=== PATIENT | female | born 1970 | race Caucasian/White ===

== ENCOUNTER 2024-03-31 15:22 | Outpatient (CLI) | payer OTHER, SELFPAY ==
--- NOTE | ~2024-03-31 | XR_ITS ---
XR cervical spine 4-5V Ordering provider: Ann Marie Suh MD History: . M48.02 - Spinal stenosis, cervical region . Comparison: None. FINDINGS: VERTEBRAL BODIES: Minimal anterolisthesis at the level of C3-C4 and C4-C5. Normal height and alignmen t. No visible fracture or subluxation. The dens is intact. DISK SPACES: Narrowing of the disc C5-C6 and C6-C7. C5-C6 and C6-C7 uncovertebral joint osteoarthrit ic changes. PARASPINOUS SOFT TISSUES: No prevertebral soft tissue swelling. IMPRESSION: No acute osseous abnormality cervical spine. Minimal anterolisthesis at the level of C3-C4 and C4-C5. Degenerative disc disease at the level of C5-C6 and C6-C7 Reviewed, dictated and finalized at location A. IMPRESSION: No acute osseous abnormality cervical spine. Minimal anterolisthesis at the lev el of C3-C4 and C4-C5. Degenerative disc disease at the level of C5-C6 and C6-C7
== END 2024-03-31 15:23 | disposition home or self-care (01) ==
LOC: ANHIMG 15:25
PROVIDERS: Visit Provider Neurological Surgery
DX: M48.02 Spinal stenosis, cervical region (principal); M43.12 Spondylolisthesis, cervical region; M50.322 Other cervical disc degeneration at C5-C6 level; M50.323 Other cervical disc degeneration at C6-C7 level
CPT/HCPCS: 72050

== ENCOUNTER 2024-04-28 12:18 | Outpatient (CLI) | payer OTHER, SELFPAY ==
--- NOTE | 2024-04-28 12:28 | ECG_ITS ---
Test Date: 2024-04-28 13:07:37 Measurements Intervals Adel Rate: 47 P: 29 MT: 162 QRS: 12 QRSD: 93 T: 46 QT: 430 QTc: 382 Interpretive Statements SINUS BRADYCARDIA POSSIBLE ANTERIOR MYOCARDIAL INFARCTION [30 ms Q WAVE IN V3/V4, OR R < 0.2 mV IN V4], PROBABLY OLD ABNORMAL ECG WARNING: DATA QUALITY MAY AFFECT INTERPRETATION No previous ECG available for comparison Electronically Signed On 04-28-2024 13:51:15 CDT by Kieran Diggs M.D.
[2024-04-28 13:27] LABS: Hemoglobin 14.4 g/dL (12.0-15.0); Mean Corpuscular HGB Conc 32.7 g/dl (32-36); Mean Corpuscular Hemoglobin 29.5 pg (26-34); Mean Corpuscular Volume 90.2 fl (80-100); Mean Platelet Volume 10.3 fl (7.4-10.4); Platelet Count Result 194 k/mm3 (150-375); Red Blood Count 4.88 M/mm3 (4.2-5.4); Red Cell Distribution Width 12.9 % (11.5-14.5); White Blood Count 9.2 K/mm3 (4.5-10.0)
[2024-04-28 13:37] LABS: INR 0.9; Prothrombin Time 12.3 Seconds (11.1-14.7)
[2024-04-28 13:38] LABS: Partial Thromboplastin Time 28.8 Seconds (22.3-36.8)
[2024-04-28 13:39] LABS: Add Urine Microscopic? NO; Appearance Urine Clear (Clear); Bilirubin Urine Negative (Negative); Blood Urine Negative (Negative); Color Urine Yellow (Yellow); Glucose Urine UA Negative (Negative); Ketones Urine Negative (Negative); Leukocyte Esterase Ur Negative LEU/UL (Negative); Nitrate Urine Negative (Negative); Protein Urine Negative (Negative); Specific Grav Ur 1.011 (1.001-1.035); Urobilinogen Urine 0.2 mg/dL (<2.0); pH Urine 5.5 (5.0-9.0)
[2024-04-28 13:42] LABS: Anion Gap 7 mmol/L (4-12); Blood Urea Nitrogen 12 mg/dL (7-17); Calcium 10.6 mg/dL (8.4-10.2); Carbon Dioxide 32 mmol/L (22-30); Chloride 100 mmol/L (98-107); Estimated Glomerular Filt Rate > 60; Glucose 122 mg/dL (65-110); Potassium 4.1 mmol/L (3.4-5.0); Sodium 139 mmol/L (137-145)
[2024-04-28 14:52] LABS: Hemoglobin A1C 6.8 % (<5.7)
== END 2024-04-28 12:19 | disposition home or self-care (01) ==
LOC: ANHSURGERY 12:24
PROVIDERS: PCP Family Medicine; Visit Provider Neurological Surgery
DX: G95.9 Disease of spinal cord, unspecified (principal); E11.9 Type 2 diabetes mellitus without complications; Z01.818 Encounter for other preprocedural examination
CPT/HCPCS: 36415; 80048; 81003; 83036; 85027; 85610; 85730; 86850; 86900; 86901; 93005

== ENCOUNTER 2024-06-23 00:53 | Day surgery (SDC) | payer OTHER, SELFPAY ==
[2024-04-27 14:16] VITALS: BMI 38.7
--- NOTE | 2024-04-27 14:17 | PC.NURSE ---
Report to the Outpatient Waiting Room, entrance under the green pavilion located off [facility], at time _0600_ on date _[id number]_. Planned Procedure Time: _0730_.? Time changes happen often and if your time is changed the preop area will call you the afternoon before. - You and your visitor will be asked to self-screen and do not enter if you have any COVID symptoms. Please call surgeon if you need to reschedule. - A mask is optional within the hospital at this time. Patients may have clear liquids (water, carbonated beverages, clear teas, apple juice) until 3 hours prior to surgery with a maximum of 20 ounces. - No food from midnight until time of surgery and no smoking Take only the following medications with a SIP of water on the morning of surgery: __Gabapentin and if needed may use inhaler or nebulizer.____ DO NOT STOP ANY OF YOUR OTHER PRESCRIPTION MEDICATIONS PRIOR TO SURGERY EXCEPT THE FOLLOWING Medications to discontinue per physician ____Meloxicam per Dr Suh. If not told already please call and ask. Date to take last dose Please no make-up, nail vincentian, hairspray, perfume, deodorant, or body powder the day of surgery.? No jewelry (including any body piercings) or valuables the day of surgery, leave them at home.? Please take a shower or bath the night before, or the morning of, surgery with an antibacterial soap.? Wear comfortable, loose fitting clothing.? - Jewelry must be removed prior to entering the operating room.? Rings and piercings that are not removed may be cut off. - The hospital will not accept responsibility for valuables.? - Please leave all valuables, including medications, at home the day of surgery. If you are going home after surgery, a licensed reach lift truck driver must drive you home.? - NO public transportation without another adult if you receive anesthesia. - We recommend that an adult stay with you for 24 hours following discharge. - We also recommend that you do not drive, make important decision, drink alcoholic beverages, or take any drugs that were not prescribed by your health care provider for at least 24 hours after your discharge time. Follow any additional instructions given to you from your surgeon. Telephone instructions given to _Elisha___and asked if any additional questions and then verbalized understanding. Patient advised to call surgeon office or pre surgery nurse liaison [phone] if any additional questions.
--- NOTE | 2024-06-15 13:33 | PC.NURSE ---
Reviewed Hx with patient. No change in medications. Says has seen Heart MD at [facility] in [place] and received clearance. Reviewed instructions with patient. Surg date 06-23-2024, arrive at 0600 for 0730 surgery. All other instructions the same. Left message with Ariadna at Dr Suh office to find copy of clearance.
[2024-06-23 06:00] VITALS: BP 168/79; PULSE 60; RESP 18; TEMP 36.5; O2SAT 98
[2024-06-23 06:22] LABS: Glucose Point of Care 144 mg/dl (65-105)
== END 2024-06-23 06:59 | disposition home or self-care (01) ==
PROVIDERS: PCP Family Medicine; Visit Provider Neurological Surgery
PROC: (CPT 63030; principal; 2024-06-23 07:30)
DX: M43.12 Spondylolisthesis, cervical region (principal); M54.12 Radiculopathy, cervical region; G99.2 Myelopathy in diseases classified elsewhere
CPT/HCPCS: 82948; 99212; G0463

== ENCOUNTER 2024-08-13 07:51 | Outpatient (CLI) | payer OTHER, SELFPAY ==
--- OUTSIDE RECORDS SUMMARY | 2024-08-13 07:54 | XMS_ITS | Referral Summary ---
Author Organization [facility] at the Medical Office Building Address [address] [place] [id number] Care Team Providers Care Assistant At Surgery Name Role Phone Sonal Santos NP Primary Care Provider [phone] Encounters Date Type Department Care Team Description 08/12/2024 7:35 PM HANDSTITCHING MACHINE COLLAR FELLER - 08/12/2024 11:59 PM HANDSTITCHING MACHINE COLLAR FELLER Hospital Encounter [facility] [address] [place] [address] LUISA (obstructive sleep apnea) Discharge Disposition: Discharge to home or self care 08/10/2024 Telephone [facility] [address] [place] [address] Tess Hanson [facility] 08/09/2024 Orders Only [facility] [place] [address] [facility] [address] [place] [phone] Rio Maynard MD LUISA (obstructive sleep apnea) (Primary Dx) 08/05/2024 10:00 AM HANDSTITCHING MACHINE COLLAR FELLER - 08/05/2024 11:59 PM HANDSTITCHING MACHINE COLLAR FELLER Hospital Encounter [facility] [address] [place] [address] LUISA (obstructive sleep apnea) Discharge Disposition: Discharge to home or self care 07/20/2024 4:03 PM HANDSTITCHING MACHINE COLLAR FELLER - 07/20/2024 11:59 PM HANDSTITCHING MACHINE COLLAR FELLER Hospital Encounter [facility] [address] [place], [place] [id number] Acute pain of left hip Discharge Disposition: Discharge to home or self care 07/20/2024 3:15 PM HANDSTITCHING MACHINE COLLAR FELLER Office Visit [facility] at [address] [phone] Sonal Santos NP Acute pain of left hip (Primary Dx); Cutaneous candidiasis; Type 2 diabetes mellitus treated without insulin ([facility] ([facility]) 07/20/2024 Nurse Triage [facility] [address] [phone] Sonal Santos NP 06/10/2024 1:45 PM HANDSTITCHING MACHINE COLLAR FELLER Office Visit [facility] [address] [phone] Sonal Santos NP Acute sinusitis, recurrence not specified, unspecified location (Primary Dx); Class 2 severe obesity due to excess calories with serious comorbidity and body mass index (BMI) of 39.0 to 39.9 in adult ([facility]); Essential hypertension 06/08/2024 Telephone [facility] [address] [phone] Sonal Santos NP Questions on Care 06/02/2024 Telephone [facility] [address] [place] [address] [address] [place] [phone] Sonal Santos NP 05/31/[address] [phone] Rio Maynard MD Orders Only 05/31/2024 2:15 PM HANDSTITCHING MACHINE COLLAR FELLER Office Visit [address] [phone] Leslie Florian NP LUISA (obstructive sleep apnea) (Primary Dx); Dyspnea on exertion from Last 3 Months Allergies Active Allergy Reactions Criticality Noted Date Comments Doxycycline Other (See comments) Low 05/24/2022 Severe reflux Fluticasone Wheezing Medium 04/03/2021 States the lavender scent triggers her asthma. Latex Rash Medium 03/22/2019 Penicillins Other (See comments) High 06/12/2020 Infection yeast Medications ipratropium-albut Montserrat (DUO-NEB) 0.5-2.5 mg/3 mL nebulizer solutionIndicatio ns:Chronic Obstructive Pulmonary Disease with Bronchospasms Take 3 mL by nebulization every 6 (six) hours 75 mL Active fluticasone propion-salmetero L (ADVAIR DISKUS) 250-50 mcg/dose diskus inhalerIndication s:Dyspnea on exertion,Moderate persistent asthma without complication Inhale 1 puff 2 (two) times a day Rinse mouth with water after use. Do not swallow. 60 each 2024 Active blood-glucose meter miscIndications:T ype 2 diabetes mellitus treated without insulin ([facility] ([facility]) Use daily or as directed for monitoring of diabetes. 1 each 024 Active alcohol swabs pads, medicatedIndicati ons:Type 2 diabetes mellitus treated without insulin ([facility] ([facility]) Apply 1 each topically daily 100 each 3 024 Active albuterol HFA (PROVENTIL HFA,VENTOLIN HFA,PROAIR HFA) 90 mcg/actuation inhalerIndication s:Dyspnea on exertion,Moderate persistent asthma without complication Inhale 2 puffs every 6 (six) hours as needed for wheezing Fill per patient's formulary 1 each 2024 Active cetirizine (ZyrTEC) 10 mg tabletIndications :Non-seasonal allergic rhinitis, unspecified trigger,Chronic sinusitis with recurrent bronchitis Take 1 tablet (10 mg total) by mouth daily 30 tablet Active gabapentin (NEURONTIN) 300 mg capsuleIndication s:Bilateral sciatica Take 1 capsule (300 mg total) by mouth 3 (three) times a day 90 capsule 2024 Active lisinopril-hydroC HLOROthiazide (ZESTORETIC) 20-25 mg per tabletIndications :Essential hypertension Take 1 tablet by mouth daily 30 tablet Active meloxicam (MOBIC) 15 mg tabletIndications :Chronic pain of both shoulders Take 1 tablet (15 mg total) by mouth daily 30 tablet Active montelukast (SINGULAIR) 10 mg tabletIndications :Moderate persistent asthma without complication,Non- seasonal allergic rhinitis, unspecified trigger,Chronic sinusitis with recurrent bronchitis Take 1 tablet (10 mg total) by mouth nightly 30 tablet 2024 Active omeprazole (PriLOSEC) 40 mg capsuleIndication s:Gastroesophagea l reflux disease, unspecified whether esophagitis present Take 1 capsule (40 mg total) by mouth daily 30 capsule Active potassium chloride ER 10 mEq CR tabletIndications :Hypokalemia Take 1 tablet/capsule (10 mEq total) by mouth daily 30 tablet Active rosuvastatin (CRESTOR) 10 mg tabletIndications :Mixed hyperlipidemia TAKE 1 TABLET BY MOUTH ONCE A DAY IN THE EVENING 30 tablet Active sertraline (ZOLOFT) 50 mg tabletIndications :Mild episode of recurrent major depressive disorder (HCC) Take 1 tablet (50 mg total) by mouth daily 30 tablet Active nystatin powderIndications :Cutaneous candidiasis Apply topically 3 (three) times a day as needed (to rash beneath left breast) 60 g 1 Active blood glucose diagnostic (glucose blood) stripIndications: Type 2 diabetes mellitus treated without insulin ([facility] ([facility]) 1 each by other route 2 (two) times a day 200 each Active OneTouch Delica Plus Lancet 30 gauge miscIndications:T ype 2 diabetes mellitus treated without insulin ([facility] ([facility]) Inject 1 each under the skin 2 (two) times a day 200 each Active cyclobenzaprine (FLEXERIL) 5 mg tabletIndications :Acute pain of left hip Take 1 tablet (5 mg total) by mouth 3 (three) times a day as needed for muscle spasms 30 tablet 025 2024 Active metFORMIN (GLUCOPHAGE) 500 mg tabletIndications :Type 2 diabetes mellitus treated without insulin ([facility] ([facility]) TAKE ONE TABLET BY MOUTH EVERY MORNING and TAKE TWO TABLETS BY MOUTH EVERY EVENING 90 tablet 3 025 Active blood glucose diagnostic (glucose blood) stripIndications: Type 2 diabetes mellitus treated without insulin ([facility] ([facility]) Use to test blood sugar once daily 100 each 3 024 2024 Discontinued(A lternate therapy) metFORMIN (GLUCOPHAGE) 500 mg tabletIndications :Type 2 diabetes mellitus treated without insulin ([facility] ([facility]) 500 mg in the morning and 1000 mg in the evening 90 tablet 3 024 2024 Discontinued OneTouch Delica Plus Lancet 30 gauge misc daily 024 2024 Discontinued(R eorder) nystatin powderIndications :Cutaneous candidiasis Apply topically 3 (three) times a day as needed (to rash beneath left breast) 60 g 1 024 2024 Discontinued(R eorder) levoFLOXacin (LEVAQUIN) 500 mg tabletIndications :Upper Respiratory/HEENT Infection Take 1 tablet (500 mg total) by mouth daily 7 tablet 024 2024 Discontinued(T herapy completed) Active Problems Problem Noted Date Diagnosed Date Acute sinusitis 06/11/2024 Assessment & Plan (06/11/2024 4:57 PM HANDSTITCHING MACHINE COLLAR FELLER): Started on antibiotic Supportive care measures discussed Strict return precautions given Bilateral sciatica 01/14/2024 Assessment & Plan (03/29/2024 9:08 PM CDT): Chronic, worsening Continued on gabapentin Encouraged to keep upcoming appointment with Neurosurgery on 04/22/2024 Assessment & Plan (01/14/2024 2:51 PM CDT): Chronic, worsening Started on gabapentin, encouraged to give update in 2 weeks, advised can adjust dose of medication if needed Continued on meloxicam Has upcoming appointment with Neurosurgery on 04/22/2024 Weakness of both lower extremities 11/20/2023 Assessment & Plan (03/29/2024 9:10 PM CDT): Chronic, uncontrolled, has been evaluated by Neurology and referred to neurosurgeon, Dr. Mejia, on 10/27/2023, however states was unable to see Reviewed neuro notes from 02/26/22 Reviewed EMG/NCV dated 11/26/23 Encouraged to keep upcoming appointment with neurosurgeon 04/22/24ities Assessment & Plan (11/20/2023 6:13 AM CDT): Chronic, uncontrolled, has been evaluated by Neurology and referred to neurosurgeon, Dr. Mejia, on 10/27/2023, however states was unable to see Reviewed neuro notes from 02/26/22 Encouraged to contact insurance for a list of covered neurosurgeons under plan, notifying office of preferred provider, and new referral will be made Ordered nerve conduction study bilateral lower extremities Paresthesia of right upper limb 11/20/2023 Assessment & Plan (03/29/2024 9:10 PM CDT): Chronic, uncontrolled, has been evaluated by Neurology and Ortho, referred to neurosurgeon, Dr. Mejia, on 10/27/2023, however states was unable to see Reviewed neuro notes from 02/26/22, ortho notes from 10/21/2022, along with x-ray results of bilateral shoulders (10/21/2022), EMG/nerve conduction study results (10/22/22), and CT cervical spine (05/16/2023) Reviewed functional capacity assessment dated 11/06/2023 Reviewed EMG/NCV dated 11/26/23 Encouraged to keep upcoming appointment with neurosurgeon 04/22/24 Assessment & Plan (11/20/2023 6:25 AM CDT): Chronic, uncontrolled, has been evaluated by Neurology and Ortho, referred to neurosurgeonDr. Mejia, on 10/27/2023, however states was unable to see Reviewed neuro notes from 02/26/22, ortho notes from 10/21/2022, along with x-ray results of bilateral shoulders (10/21/2022), EMG/nerve conduction study results (10/22/22), and CT cervical spine (05/16/2023) Reviewed functional capacity assessment dated 11/06/2023 Encouraged to contact insurance for a list of covered neurosurgeons under plan, notifying office of preferred provider, and new referral will be made Ordered repeat nerve conduction study bilateral upper extremities Paresthesia of left upper limb 11/20/2023 Assessment & Plan (03/29/2024 9:10 PM CDT): Chronic, uncontrolled, has been evaluated by Neurology and Ortho, referred to neurosurgeon, Dr. Mejia, on 10/27/2023, however states was unable to see Reviewed neuro notes from 02/26/22, ortho notes from 10/21/2022, along with x-ray results of bilateral shoulders (10/21/2022), EMG/nerve conduction study results (10/22/22), and CT cervical spine (05/16/2023) Reviewed functional capacity assessment dated 11/06/2023 Reviewed EMG/NCV dated 11/26/23 Encouraged to keep upcoming appointment with neurosurgeon 04/22/24 Assessment & Plan (11/20/2023 6:25 AM CDT): Chronic, uncontrolled, has been evaluated by Neurology and Ortho, referred to neurosurgeonDr. Mejia, on 10/27/2023, however states was unable to see Reviewed neuro notes from 02/26/22, ortho notes from 10/21/2022, along with x-ray results of bilateral shoulders (10/21/2022), EMG/nerve conduction study results (10/22/22), and CT cervical spine (05/16/2023) Reviewed functional capacity assessment dated 11/06/2023 Encouraged to contact insurance for a list of covered neurosurgeons under plan, notifying office of preferred provider, and new referral will be made Ordered repeat nerve conduction study bilateral upper extremities Encounter for well woman exa m with routine gynecological exam 11/20/2023 Assessment & Plan (01/14/2024 2:50 PM CDT): Discussed screening/vaccination in depth and patient understands all risk and benefits associated with proposed therapies and currently declines, has been encouraged to call if changes mind. Assessment & Plan (11/20/2023 6:24 AM CDT): Previously referred to gynecology to establish care and for well-woman exam on 03/11/23, reprinted referral with contact information Moderate persistent asthma without complication 05/05/2023 Assessment & Plan (03/29/2024 9:07 PM CDT): Chronic, stable, controlled, with reported exertional shortness of breath, likely multifactorial Continued on Advair, Singulair, DuoNeb, and albuterol Encouraged to follow-up with ssis etl developer as recommended Assessment & Plan (11/20/2023 6:00 AM CDT): Chronic, stable, uncontrolled, with reported exertional shortness of breath, likely multifactorial Continued on Advair and Singulair New referral made to pulmonology, previously referred on 06/20/2022 Assessment & Plan (09/26/2023 11:58 AM CDT): Chronic, uncontrolled with medication, with complaints of dyspnea on exertion, likely multifactorial Previously referred to Dr. Sage, appointment canceled, can shoe new referral if/when interested Continued on Advair, can consider increase in strength Continued on Singulair daily, albuterol and ipratropium-albuterol as directed as needed Assessment & Plan (05/05/2023 2:37 PM CDT): The patient has followed with a ssis etl developer in the past for her asthma. I will reorder the Advair 250/50 to use 1 puff twice a day in refilled her albuterol. She also has duo nebs to use at home if necessary in addition to Singulair 10 mg daily. I will check full PFTs, chest x-ray and refer her to see an saw grinder. Vaccine counseling 02/20/2023 Chronic pain of both shoulders 09/27/2022 Assessment & Plan (03/29/2024 9:08 PM CDT): Chronic, uncontrolled, worsening, has been evaluated by Ortho Reviewed ortho notes from 10/21/2022, along with x-ray results of bilateral shoulders (10/21/2022), EMG/nerve conduction study results (10/22/22), and CT cervical spine (05/16/2023) Reviewed functional capacity assessment dated 11/06/2023 Reviewed EMG/NCV dated 11/26/23 Continued on meloxicam Encouraged to keep upcoming appointment with neurosurgeon 04/22/24 Assessment & Plan (11/20/2023 6:25 AM CDT): Chronic, uncontrolled, has been evaluated by Ortho Reviewed ortho notes from 10/21/2022, along with x-ray results of bilateral shoulders (10/21/2022), EMG/nerve conduction study results (10/22/22), and CT cervical spine (05/16/2023) Reviewed functional capacity assessment dated 11/06/2023 Ordered repeat nerve conduction study bilateral upper extremities Assessment & Plan (10/03/2023 3:46 PM CDT): Chronic, uncontrolled, has been evaluated by Neurology and Ortho, has upcoming appointment with neurosurgeon, Dr. Mejia, on 10/27/2023 Reviewed ortho notes from 10/21/2022 along with x-ray results of bilateral shoulders (10/21/2022), EMG/nerve conduction study results (10/22/22), and CT cervical spine (05/16/2023) Encouraged to keep upcoming appointment with neurosurgeonDr. Mejia for further evaluation and management Continued on Toradol and meloxicam, refills sent to pharmacy per request, is aware cannot be taken together, previously prescribed gabapentin, not effective Assessment & Plan (09/26/2023 12:01 PM CDT): Chronic, uncontrolled, has been evaluated by Neurology and Ortho, has upcoming appointment with neurosurgeonDr. Mejia Encouraged to keep upcoming appointment with neurosurgeDr. Jackie becerra for further evaluation and management Continued on Toradol and meloxicam, refills sent to pharmacy per request, is aware cannot be taken together, previously prescribed gabapentin, not effective Assessment & Plan (08/25/2023 3:43 PM HANDSTITCHING MACHINE COLLAR FELLER): Chronic, stability unknown Started on prednisone burst Refills for Toradol sent to pharmacy per request Assessment & Plan (03/11/2023 3:08 PM CDT): Chronic, stable, controlled with medication Continued on meloxicam daily, holds meloxicam and takes Toradol as directed as needed for flares Assessment & Plan (09/27/2022 1:08 PM CDT): Chronic, uncontrolled-referral made to orthopedic surgeon for further evaluation and management, advised can refer to PT for further evaluation and management. Upper extremity weakness 09/27/2022 Assessment & Plan (03/29/2024 9:06 PM CDT): Chronic, uncontrolled, has been evaluated by Neurology and Ortho, referred to neurosurgeon, Dr. Mejia, on 10/27/2023, however states was unable to see Reviewed neuro notes from 02/26/22, ortho notes from 10/21/2022, along with x-ray results of bilateral shoulders (10/21/2022), EMG/nerve conduction study results (10/22/22), and CT cervical spine (05/16/2023) Reviewed functional capacity assessment dated 11/06/2023 Reviewed EMG/NCV dated 11/26/23 Encouraged to keep upcoming appointment with neurosurgeon 04/22/24 Assessment & Plan (11/20/2023 6:25 AM CDT): Chronic, uncontrolled, has been evaluated by Neurology and Ortho, referred to neurosurgeonDr. Mejia, on 10/27/2023, however states was unable to see Reviewed neuro notes from 02/26/22, ortho notes from 10/21/2022, along with x-ray results of bilateral shoulders (10/21/2022), EMG/nerve conduction study results (10/22/22), and CT cervical spine (05/16/2023) Reviewed functional capacity assessment dated 11/06/2023 Encouraged to contact insurance for a list of covered neurosurgeons under plan, notifying office of preferred provider, and new referral will be made Ordered repeat nerve conduction study bilateral upper extremities Assessment & Plan (10/03/2023 3:56 PM CDT): Chronic, uncontrolled, has been evaluated by Neurology and Ortho, has upcoming appointment with neurosurgeon, Dr. Mejia, on 10/27/2023 Reviewed neuro notes from 02/26/22, ortho notes from 10/21/2022, along with x-ray results of bilateral shoulders (10/21/2022), EMG/nerve conduction study results (10/22/22), and CT cervical spine (05/16/2023) Encouraged to keep upcoming appointment with neurosurgeon, Dr. Mejia for further evaluation and management Continued on Toradol and meloxicam, refills sent to pharmacy per request, is aware cannot be taken together, previously prescribed gabapentin, not effective Assessment & Plan (09/26/2023 12:01 PM CDT): Chronic, uncontrolled, previously evaluated by Neurology Encouraged to keep upcoming appointment with neurosurgeon, Dr. Mejia Assessment & Plan (08/25/2023 3:46 PM HANDSTITCHING MACHINE COLLAR FELLER): Recent onset Reviewed ER notes and CT cervical spine dated 05/16/2023 Referral made to neurosurgery for further evaluation and management Advised if worsening pain/paresthesias, loss of sensation to upper extremities, and/or inability to move upper extremities Advised if worsening pain/paresthesias, loss of sensation to upper extremities, and/or inability to move upper extremities Note provided to be off work 08/25 through 08/27/2023 Assessment & Plan (03/12/2023 6:03 AM CDT): Chronic, stable Encouraged to follow-up with orthopedic surgeon and COVID clinic at [facility] for suspected long-COVID Assessment & Plan (09/27/2022 1:09 PM CDT): Recent onset-referral made to orthopedic surgeon for further evaluation and management, advised can refer to PT for further evaluation and management. Balance problem 09/27/2022 Assessment & Plan (03/29/2024 9:07 PM CDT): Chronic, stable Encouraged to keep upcoming appointment with neurosurgeon Advised can refer to physical therapy for further evaluation and management Assessment & Plan (03/11/2023 3:08 PM CDT): Chronic, stable Encouraged to continue with PT, ST, & OT Assessment & Plan (09/27/2022 1:11 PM CDT): Recent onset-advised can refer to PT for further evaluation and management. Hypokalemia 05/27/2022 Assessment & Plan (03/25/2024 3:02 PM CDT): Chronic, stable, controlled with prescription Continued on potassium chloride Assessment & Plan (09/26/2023 12:02 PM CDT): Chronic, stable, controlled with prescription Continued on potassium chloride Assessment & Plan (06/24/2023 7:29 AM HANDSTITCHING MACHINE COLLAR FELLER): Chronic, stable, controlled with supplement Continued on potassium chloride, refills sent to pharmacy per request Assessment & Plan (06/09/2023 5:32 AM HANDSTITCHING MACHINE COLLAR FELLER): Chronic, stable, controlled with medication Continued on KCl, refills sent to pharmacy per request Assessment & Plan (03/11/2023 3:23 PM CDT): Chronic, normal at last check, on daily supplement Continued on KCl daily Assessment & Plan (05/27/2022 10:32 PM HANDSTITCHING MACHINE COLLAR FELLER): Chronic, controlled at last check-continued on potassium chloride, refills sent to pharmacy per patient request. Encouraged to get CMP done previously ordered. Vision changes 03/03/2022 Assessment & Plan (03/29/2024 9:04 PM CDT): Chronic, stability unknown Previously referred to Ophthalmology, encouraged to call to schedule an appointment Assessment & Plan (11/20/2023 6:23 AM CDT): Chronic, stability unknown Previously referred to Ophthalmology on 03/11/2023, encouraged to call to schedule an appointment, reprinted referral with contact information Assessment & Plan (03/12/2023 6:04 AM CDT): Chronic, stable Referral made to [facility] Assessment & Plan (03/03/2022 7:16 AM CDT): Chronicity and stability unknown-referred to Ophthalmology. Annual physical exam 03/03/2022 Assessment & Plan (03/29/2024 9:04 PM CDT): Reviewed past and current medical history, surgical history, social history, family history, current medications, and allergies. The chart was updated to identify any changes in these areas. A ROS and PE were performed. Medications and labs were ordered. Discussed screening colonoscopy, well woman exam/cervical cancer screening, screening mammogram, monthly breast self-exams, and recommended immunizations. Patient will follow-up in 6 months for further evaluation and management or sooner if needed. Assessment & Plan (03/11/2023 3:36 PM CDT): Reviewed past and current medical history, surgical history, social history, family history, current medications, and allergies. The chart was updated to identify any changes in these areas. A ROS and PE were performed. Medications and labs were ordered and referrals were made. Discussed screening colonoscopy, well woman exam/cervical cancer screening, screening mammogram, monthly breast self-exams, and recommended immunizations. Patient will follow-up in 6 months for further evaluation and management or sooner if needed. Assessment & Plan (03/03/2022 7:17 AM CDT): Reviewed past and current medical history, surgical history, social history, family history, current medications, and allergies. A ROS and PE were performed. Medications and labs were ordered and referrals were made. Discussed screening colonoscopy, well woman exam/cervical cancer screening, screening mammogram, monthly breast self- exams, and recommended immunizations. Patient will follow-up in 6 months for further evaluation and management or sooner if needed. Neuropathy 03/03/2022 Assessment & Plan (03/29/2024 9:05 PM CDT): Chronic, uncontrolled, but improved on medication, previously evaluated by Neurology Continued on gabapentin Encouraged to keep upcoming appointment with neurosurgeon Assessment & Plan (09/26/2023 12:02 PM CDT): Chronic, uncontrolled, previously evaluated by Neurology Encouraged to keep upcoming appointment with neurosurgeon, Dr. Mejia Previously prescribed gabapentin, not effective Assessment & Plan (03/11/2023 3:29 PM CDT): Chronic, stable Symptoms began after COVID infection Continued on gabapentin PRN Assessment & Plan (05/27/2022 10:28 PM HANDSTITCHING MACHINE COLLAR FELLER): Chronic, stable, controlled with medication-continued on gabapentin, refills sent to pharmacy per patient request. Assessment & Plan (03/03/2022 7:34 AM CDT): Recent onset since COVID-19, established with Neurology-advised to continue with Neurology as recommended. Prescription sent to pharmacy per patient request for gabapentin 300 mg TID. B12 level done 08/2021 normal. Atypical chest pain 03/03/2022 Assessment & Plan (03/29/2024 9:05 PM CDT): Chronic, episodic Previously evaluated by cardiology with echo and Holter, released from care Encouraged to follow-up with ssis etl developer as recommended and with Cardiology as recommended as needed Assessment & Plan (03/11/2023 3:07 PM CDT): Chronic, episodic Previously evaluated with echo and Holter Encouraged to follow-up with service desk manager, Dr. Moseley, as recommended Assessment & Plan (03/03/2022 7:31 AM CDT): Chronicity and stability unknown-encouraged to schedule appointment with Dr. Moseley for further evaluation and management. Cutaneous candidiasis 11/27/2021 Assessment & Plan (07/20/2024 4:05 PM HANDSTITCHING MACHINE COLLAR FELLER): Controlled Continued on nystatin Assessment & Plan (04/13/2024 2:54 PM CDT): Acute Started on Nystatin powder as directed as needed Assessment & Plan (11/29/2021 11:29 AM CDT): Acute-started on nystatin powder due to location of rash, also treating with Valtrex 1 g TID x1 week due to pain consistent with zoster. Encounter for diabetic foot exam ([facility]) 07/30 Assessment & Plan (03/29/2024 9:03 PM CDT): Diabetic foot exam performed with monofilament with no abnormal findings Assessment & Plan (03/11/2023 3:15 PM CDT): 04/15 sensed both feet with monofilament, normal foot exam Dyspnea on exertion 07/27/2021 Assessment & Plan (05/31/2024 2:49 PM HANDSTITCHING MACHINE COLLAR FELLER): The patient will continue with albuterol as needed 4 times a day. The patient will continue with Singulair. I did encourage the patient to use Advair inhaler one puff 2 times a day. I have ordered prednisone 40 mg x 5 days due to the patient being able to manage her blood sugars easier. I have also ordered Levaquin 500 mg x 7 days due to the cough that is productive. I have ordered a sputum culture. Assessment & Plan (03/29/2024 9:03 PM CDT): Chronic, stable, uncontrolled, with reported exertional shortness of breath, likely multifactorial Continued on Advair, Singulair, albuterol, and DuoNeb Encouraged to follow-up with ssis etl developer as recommended/ Assessment & Plan (11/20/2023 6:15 AM CDT): Chronic, stable, uncontrolled, with reported exertional shortness of breath, likely multifactorial Continued on Advair and Singulair New referral made to pulmonology, previously referred on 06/20/2022 Assessment & Plan (09/26/2023 11:51 AM CDT): Chronic, stability unknown Referred to pulmonology in the past, can if you new referral if/when interested Continued on Advair, can consider increase in strength, and albuterol/ipratropium-albuterol as directed as needed Assessment & Plan (03/11/2023 3:13 PM CDT): Chronic, stable, controlled with PRN medication Continued on albuterol PRN and DuoNeb PRN Assessment & Plan (02/06/2023 5:38 AM CDT): Episodic/stable Continued on Singulair daily, albuterol MDI as needed, and DuoNeb per nebulizer as directed as needed Referral made to [facility] Infectious Disease Department/COVID clinic for further evaluation of worsening symptoms since COVID-19 infection Assessment & Plan (06/24/2022 5:02 PM HANDSTITCHING MACHINE COLLAR FELLER): Acute-advised to continue nebulizer treatments as directed as needed when at home, refills sent to pharmacy, and using albuterol MDI as directed as needed when not home. If no perceived improvement over weekend, advised to get chest xray, order placed, and instructed to go to ER if worsening or new symptoms. Referral made to pulmonology and provided with the contact information to call to schedule an appointment. Assessment & Plan (05/27/2022 10:33 PM HANDSTITCHING MACHINE COLLAR FELLER): Chronic, worsened, with acute asthma exacerbation-continued on albuterol MDI and ipratropium/albuterol via nebulizer, refills sent to pharmacy per patient request. Instructed to go to ER if symptoms are not relieved with rescue inhaler and/or nebulizer treatments. Assessment & Plan (03/03/2022 7:30 AM CDT): Chronic, worsened after COVID-19 infection, but improving-continued on montelukast and albuterol MDI as directed as needed. Assessment & Plan (08/20/2021 5:42 PM HANDSTITCHING MACHINE COLLAR FELLER): Recent onset dyspnea since COVID-19 infection in 07/2021, not responsive to albuterol MDI, with multiple x-rays with no acute cardiopulmonary findings-referred to service desk manager with 1st visit today, echocardiogram and 48 hour Holter monitor planned for future, encouraged compliance with testing and follow-up visit. Assessment & Plan (07/31/2021 7:52 AM HANDSTITCHING MACHINE COLLAR FELLER): Recent onset since COVID-19 diagnosis-referred to a service desk manager for evaluation of bradycardia, palpitations, and shortness of breath with exertion. Advised to go to ER for worsening symptoms of palpitations and shortness of breath or for new onset chest pain/tightness, wheezing/difficulty breathing, chills, sweats, fever, back pain, or nausea. Assessment & Plan (07/27/2021 7:09 AM HANDSTITCHING MACHINE COLLAR FELLER): Acute, with recent diagnosis of COVID 19 on 07/08/2021-started on prednisone daily x5 days and prescribed an albuterol inhaler 2 inhalations every 4 hours as needed for shortness of breath, chest tightness, and wheezing. Advised follow-up if symptoms don't improve, ER for worsening or new symptoms. Other fatigue 07/23/2021 Assessment & Plan (03/29/2024 9:02 PM CDT): Chronic, stable, likely multifactorial Encouraged to follow-up with sleep medicine as recommended Assessment & Plan (03/12/2023 6:02 AM CDT): Chronic, stable, likely multifactorial Referred to sleep medicine, not currently using CPAP for LUISA Referral made to sleep medicine Encouraged to follow-up with long COVID clinic Assessment & Plan (03/03/2022 7:32 AM CDT): Chronic, stable, with history of LUISA on CPAP-will monitor for worsening symptoms. Ordered TSH, recent CBC normal. Can refer to sleep medicine for further evaluation and management. Assessment & Plan (08/20/2021 5:52 PM HANDSTITCHING MACHINE COLLAR FELLER): Recent onset since COVID-19 diagnosis in 07/2021 with normal Hbg/Hct on 07/27/21, and normal folate & B12 dated 08/18/21-currently with work-up planned by service desk manager (echocardiogram and 48 hour Holter monitor planned for future), encouraged compliance with recommendations made by service desk manager. Assessment & Plan (07/23/2021 12:27 PM HANDSTITCHING MACHINE COLLAR FELLER): Acute, likely related to recent viral infection with [id number] monitor for resolution of symptoms. Encouraged to increase clear liquids, rest, and vitamin C in diet. Advised follow-up next week if symptoms are not improving, ER for new or worsening symptoms over weekend, particularly if having difficulty breathing. Glenoid labrum tear, right, subsequent encounter 2021 Assessment & Plan (03/29/2024 9:09 PM CDT): Chronic, , stable, with chronic, stable, right shoulder pain Continued on meloxicam Recommended follow-up with ortho if/when needed Assessment & Plan (03/11/2023 3:20 PM CDT): Chronic, stable pain Recommended follow-up with ortho if/when needed Assessment & Plan (03/03/2022 7:28 AM CDT): Chronic, stability unknown, controlled with medication-continued on meloxicam. Can refer to orthopedic surgeon if symptoms worsen/uncontrolled with medication. Assessment & Plan (2021 3:16 PM HANDSTITCHING MACHINE COLLAR FELLER): Chronicity and stability unknown-ordered MRI and referred to orthopedic surgeon for further evaluation and management. Acute pain of left hip 06/05/2021 Assessment & Plan (07/20/2024 4:05 PM HANDSTITCHING MACHINE COLLAR FELLER): Ordered x-rays left hip Continued on meloxicam 15 mg daily Started on cyclobenzaprine 5 mg TID PRN Assessment & Plan (06/05/2021 3:37 PM HANDSTITCHING MACHINE COLLAR FELLER): Acute-ordered x-ray of left hip. Can continue to take Naprosyn as directed as needed for pain. Hyperlipidemia, unspecified 06/05/2021 Assessment & Plan (03/29/2024 9:00 PM CDT): Chronic, with controlled cholesterol and LDL, uncontrolled triglycerides and low HDL Continued on rosuvastatin Encouraged low-fat low-cholesterol diet, high in fiber Assessment & Plan (09/26/2023 11:50 AM CDT): Chronic, with improved/controlled cholesterol and LDL, uncontrolled triglycerides, but improved, with chronically low/stable HDL Continued on rosuvastatin, refills sent to pharmacy per request Assessment & Plan (03/11/2023 3:22 PM CDT): Chronic, uncontrolled triglycerides and low HDL at last check Continued on rosuvastatin Assessment & Plan (02/06/2023 5:39 AM CDT): Stable Continued on rosuvastatin Ordered lipid panel Assessment & Plan (05/27/2022 10:31 PM HANDSTITCHING MACHINE COLLAR FELLER): Chronic, uncontrolled at last check, with elevated triglycerides and low HDL-continued on rosuvastatin. Encouraged to get lipid panel done previously ordered. Assessment & Plan (03/03/2022 7:28 AM CDT): Chronic, uncontrolled but improved with medication-continued on rosuvastatin. Ordered lipid panel previously to be done prior to next visit. Assessment & Plan (11/29/2021 11:27 AM CDT): Chronic, stable, controlled with medication-continued on rosuvastatin. Lipid panel ordered to be done prior to next visit. Assessment & Plan (08/20/2021 5:47 PM HANDSTITCHING MACHINE COLLAR FELLER): Chronic, stability unknown, uncontrolled, not on medication until office visit today when seen by service desk manager-encouraged compliance with rosuvastatin 10 mg once daily. Assessment & Plan (06/05/2021 3:35 PM HANDSTITCHING MACHINE COLLAR FELLER): Chronicity, stability unknown, not on medication-ordered lipid panel. Vitamin D deficiency 06/05/2021 Assessment & Plan (03/29/2024 9:01 PM CDT): Chronic, uncontrolled at last check, but improving Encouraged to continue vitamin D3 2000 international units daily with a meal Assessment & Plan (03/12/2023 6:04 AM CDT): Chronic, uncontrolled at last check, not on supplement, but states has a big bottle at home Encouraged to start vitamin D3 2000 international units daily with a meal Assessment & Plan (02/06/2023 5:41 AM CDT): Uncontrolled/not on supplement Ordered vitamin-D 25 OH Assessment & Plan (03/03/2022 7:32 AM CDT): Chronic, improving, but uncontrolled, on supplement-encouraged to continue vitamin-D supplement. Vitamin-D 25 OH ordered previously to be done prior to next visit. Assessment & Plan (11/29/2021 11:23 AM CDT): Chronic, uncontrolled at last check (14)-recommended daily OTC vitamin D3 supplement of 2000 international units daily with a meal.o Ordered vitamin-D 25 OH prior to next visit. Assessment & Plan (08/20/2021 5:54 PM HANDSTITCHING MACHINE COLLAR FELLER): Chronic, stability unknown, uncontrolled, not on supplement-advised to start vitamin D3 2000 international units, take 2 daily with a meal x 1 month, then one daily with a meal, will recheck vitamin D 25 OH in 3-6 months. Assessment & Plan (06/05/2021 3:35 PM HANDSTITCHING MACHINE COLLAR FELLER): Chronicity and stability unknown, reported by patient, not currently on supplementation-ordered vitamin-D 25 OH. Type 2 diabetes mellitus treated without insulin ([facility]) 06/05/2021 Assessment & Plan (07/20/2024 4:04 PM HANDSTITCHING MACHINE COLLAR FELLER): Controlled Reviewed hemoglobin A1c equals 6.6 Continued on metformin Assessment & Plan (04/13/2024 2:55 PM CDT): Chronic, improved/controlled on medication Continued on metformin 500 mg in the AM, 1000 mg in the PM Assessment & Plan (03/29/2024 9:01 PM CDT): Chronic, improved/controlled on medication Reviewed point of care HgbA1c and point of care blood glucose, 6.7 and 115 respectively Continued on metformin 500 mg in the AM, 1000 mg in the PM Assessment & Plan (01/14/2024 2:46 PM CDT): Chronic, uncontrolled on medication, with recent increase in dose of metformin Continued on metformin Advised to stop amlodipine and continue to monitor blood sugar to see if blood sugar improves off medication. If blood sugar does not improve off medication, restart amlodipine. Assessment & Plan (12/28/2023 9:48 AM CDT): Chronic, uncontrolled Increased dose of metformin to 500 mg twice daily Assessment & Plan (09/26/2023 11:51 AM CDT): Chronic/controlled, but worsened from previous Reviewed in office hemoglobin A1c 6.9, previously 6.8 Continued on metformin Assessment & Plan (03/11/2023 3:37 PM CDT): Chronic, stable, well-controlled on medication Continued on metformin Foot exam done today Referral made to [facility] for dilated eye exam Assessment & Plan (02/06/2023 5:41 AM CDT): Stable Performed in office hemoglobin A1c (6.9) Continued on metformin Assessment & Plan (05/27/2022 10:27 PM HANDSTITCHING MACHINE COLLAR FELLER): Chronic, stable, controlled on medication-continued on metformin, refills sent to pharmacy per patient request. Encouraged to get lab work done previously ordered. Assessment & Plan (03/03/2022 7:32 AM CDT): Chronic, stable, controlled on medication-continued on metformin, refills sent to pharmacy. Previously ordered CMP, hemoglobin A1c, and urine albumin/creatinine ratio to be done prior to next visit. Referred to Ophthalmology for dilated eye exam. Assessment & Plan (11/29/2021 11:24 AM CDT): Chronic, stable, controlled at last check (6.0)-continued on metformin 500 mg once daily in the morning. Ordered CMP and hemoglobin A1c to be done prior to next visit. Assessment & Plan (08/20/2021 5:53 PM HANDSTITCHING MACHINE COLLAR FELLER): Chronic, stable, controlled with medication-continued on metformin. Follow-up in 6 months. Assessment & Plan (06/05/2021 3:37 PM HANDSTITCHING MACHINE COLLAR FELLER): Chronic, uncontrolled at last check, on medication-continued on metformin. Advised to check blood sugar once daily and as needed. Ordered urine albumin/creatinine ratio, CMP, and hemoglobin A1C. Colon cancer screening 01/09/2021 Assessment & Plan (03/25/2024 2:56 PM CDT): Ordered Cologuard Assessment & Plan (01/14/2024 2:47 PM CDT): Discussed screening/vaccination in depth and patient understands all risk and benefits associated with proposed therapies and currently declines, has been encouraged to call if changes mind Assessment & Plan (03/12/2023 5:57 AM CDT): Up-to-date Assessment & Plan (01/09/2021 12:13 PM CDT): Ordered Cologuard screening test, advised patient to contact office if she has not received the kit in the next 1-2 weeks. Encounter for screening mamm ogram for malignant neoplasm of breast 12/11/2020 Assessment & Plan (03/12/2023 6:00 AM CDT): Up-to-date Assessment & Plan (03/03/2022 7:29 AM CDT): Ordered screening mammogram. Assessment & Plan (12/11/2020 6:14 PM CDT): Screening mammogram ordered. 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 05/29/2020 Assessment & Plan (03/29/2024 8:59 PM CDT): Chronic, stable, controlled on medication Patient's PHQ2/9 was reviewed=0 Continued on sertraline Advised if suicidal ideation or thoughts of harming self or others, to go to ER and/or call [phone] for assistance, agreed to contract for safety Assessment & Plan (03/12/2023 5:59 AM CDT): Chronic, stable, controlled on medication Patient's PHQ2/9 and CURTIS 7 were reviewed Continued on sertraline Advised if suicidal ideation or thoughts of harming self or others, to go to ER and/or call [phone] for assistance, agreed to contract for safety Assessment & Plan (03/03/2022 7:25 AM CDT): Chronic, stable, controlled with medication-continued on sertraline. PHQ-9=0, CURTIS-7=1. Assessment & Plan (08/20/2021 5:48 PM HANDSTITCHING MACHINE COLLAR FELLER): Chronic, stable, controlled with medication-continued on sertraline. Class 2 severe obesity due t o excess calories with serious comorbidity and body mass index (BMI) of 39.0 to 39.9 in adult 03/17/2018 Overview (11/03/2020): Transitioned From: Obesity (BMI 30-39.9) Assessment & Plan (06/11/2024 4:56 PM HANDSTITCHING MACHINE COLLAR FELLER): Chronic, improved, with serious comorbidity of type 2 diabetes, improved/controlled on medication Encouraged to: Make healthy food choices, limiting intake of concentrated sweets/carbs, cholesterol, and saturated fat Monitor daily caloric intake and portion sizes Exercise most days of the week for a goal of at least 150 minutes of exercise per week Continued on metformin Assessment & Plan (04/13/2024 2:53 PM CDT): Chronic, improved, with serious comorbidity of type 2 diabetes, improved/controlled on medication Encouraged to: Make healthy food choices, limiting intake of concentrated sweets/carbs, cholesterol, and saturated fat Monitor daily caloric intake and portion sizes Exercise most days of the week for a goal of at least 150 minutes of exercise per week Continued on metformin Assessment & Plan (03/29/2024 8:58 PM CDT): Chronic, improved, serious comorbidity of type 2 diabetes, improved/controlled on medication Encouraged to: Make healthy food choices, limiting intake of concentrated sweets/carbs, cholesterol, and saturated fat Monitor daily caloric intake and portion sizes Exercise most days of the week for a goal of at least 150 minutes of exercise per week Continued on metformin Assessment & Plan (01/14/2024 2:48 PM CDT): Chronic, improved Encouraged to: Make healthy food choices, limiting intake of concentrated sweets/carbs, cholesterol, and saturated fat Monitor daily caloric intake and portion sizes Exercise most days of the week for a goal of at least 150 minutes of exercise per week Assessment & Plan (12/28/2023 9:52 AM CDT): Chronic, improved, with serious comorbidity of type 2 diabetes, uncontrolled Encouraged to: Make healthy food choices, limiting intake of concentrated sweets, cholesterol, and saturated fat Monitor daily caloric intake and portion sizes Exercise most days of the week within ability for a goal of at least 150 minutes of exercise per week Reviewed in office hemoglobin A1c, increased metformin to 500 mg twice daily Assessment & Plan (11/20/2023 5:57 AM CDT): Chronic, stable, with serious comorbidity of type 2 diabetes, controlled Encouraged to: Make healthy food choices, limiting intake of concentrated sweets, cholesterol, and saturated fat Monitor daily caloric intake and portion sizes Exercise most days of the week within ability for a goal of at least 150 minutes of exercise per week Reviewed most recent in office hemoglobin A1c from 09/2023, continued on metformin, will monitor diabetes for stability Assessment & Plan (09/26/2023 11:49 AM CDT): Chronic, improved Encouraged to: Make healthy food choices, limiting intake of concentrated sweets, cholesterol, and saturated fat Monitor daily caloric intake and portion sizes Exercise most days of the week within ability for a goal of at least 150 minutes of exercise per week Assessment & Plan (07/16/2023 6:13 AM HANDSTITCHING MACHINE COLLAR FELLER): Chronic, worsening, with series comorbidity of type 2 diabetes, controlled at last check, 6.8 Advised eating a well-balanced diet, high in fiber, low in cholesterol and saturated fats and monitoring daily caloric intake and portion sizes, with exercise most days of the week, for goal of 150 minutes of exercise or more per week Continued on metformin, is aware blood sugar maybe affected by prednisone Assessment & Plan (06/24/2023 7:30 AM HANDSTITCHING MACHINE COLLAR FELLER): Chronic, worsened Encouraged to monitor daily caloric intake and portion sizes and to exercise most days of the week, for a goal of at least 150 minutes of exercise per week Assessment & Plan (06/09/2023 5:36 AM HANDSTITCHING MACHINE COLLAR FELLER): Chronic, worsened, with serious comorbidity/type 2 diabetes, current diagnosis of pneumonia Instructed to increase fluids and vitamin-C in diet Encouraged to monitor daily caloric intake and portion sizes and to exercise most days week for a goal of 150 minutes of exercise per week when able, currently inhibited by acute symptoms/shortness of breath Assessment & Plan (03/12/2023 5:57 AM CDT): Encouraged to monitor daily caloric intake and portion sizes and to exercise most days of the week, for a goal of at least 150 minutes of exercise per week Assessment & Plan (02/06/2023 5:40 AM CDT): Stable Encouraged to monitor daily caloric intake and portion sizes and to exercise most days of the week, for goal of at least 150 minutes of exercise per week. Assessment & Plan (03/03/2022 7:33 AM CDT): Chronic, worsening, with serious co-morbidities of DM2, hyperlipidemia, HTN, and asthma-encouraged to monitor daily caloric intake and portion sizes. Advised exercises 15-20 minutes per day for goal of at least 150 minutes per. Suggested scheduling consultation with Dr. Isbell for weight loss management. Ordered TSH level. Knee osteoarthritis 11/07/2016 Overview (11/03/2020): Transitioned From: Knee pain Assessment & Plan (03/29/2024 9:09 PM CDT): Chronic, stability unknown, with chronic bilateral knee pain, right > left, stable, controlled with medication Continued on meloxicam daily Encouraged to follow-up with orthopedic surgeon as directed/needed Assessment & Plan (03/11/2023 3:25 PM CDT): Chronic bilateral knee pain, right > left, stable, controlled with medication Continued on meloxicam daily, holds meloxicam and takes Toradol as directed as needed for flares Assessment & Plan (05/27/2022 10:29 PM HANDSTITCHING MACHINE COLLAR FELLER): Chronic, stable, controlled with medication-continued on meloxicam, refills sent to pharmacy per patient request. Assessment & Plan (03/03/2022 7:28 AM CDT): Chronic, stability unknown, controlled with medication-continued on meloxicam. Can refer to orthopedic surgeon if symptoms worsen/uncontrolled with medication. Knee internal derangement, right 11/29/2015 Overview (11/03/2020): Transitioned From: Knee injury, subsequent encounter Assessment & Plan (03/29/2024 8:58 PM CDT): Chronic right knee pain, stable, controlled with medication Continued on meloxicam daily as needed Assessment & Plan (03/11/2023 3:25 PM CDT): Chronic right knee pain, stable, controlled with medication Continued on meloxicam daily, holds meloxicam and takes Toradol as directed as needed for flares Assessment & Plan (03/03/2022 7:36 AM CDT): Chronic, stability unknown, controlled with medication-continued on meloxicam. Can refer to orthopedic surgeon if symptoms worsen/uncontrolled with medication. Allergic rhinitis due to allergen 09/17/2015 Assessment & Plan (03/25/2024 2:54 PM CDT): Chronic, stable, controlled with medication Continued on cetirizine, montelukast, and azelastine Assessment & Plan (09/26/2023 11:48 AM CDT): Chronic, stable, controlled with medication Continued on cetirizine and montelukast, refills sent to pharmacy per Assessment & Plan (03/11/2023 3:04 PM CDT): Stable, controlled Continued on cetirizine and Singulair Assessment & Plan (05/27/2022 10:37 PM HANDSTITCHING MACHINE COLLAR FELLER): Chronic, stable, controlled with medication-continued on cetirizine, refills sent to pharmacy per patient request. Assessment & Plan (03/03/2022 7:19 AM CDT): Chronic, stable, controlled with medication-continued on cetirizine and montelukast. Assessment & Plan (08/20/2021 5:44 PM HANDSTITCHING MACHINE COLLAR FELLER): Chronic, stable, controlled with medication-filled Singulair per patient request. Chronic sinusitis with recurrent bronchitis 07/2014 Overview (11/03/2020): Transitioned From: Subacute maxillary sinusitis Assessment & Plan (03/25/2024 2:54 PM CDT): Chronic, stable, controlled with medication Continued on cetirizine, Singulair, and azelastine Assessment & Plan (09/26/2023 11:54 AM CDT): Chronic, stable, controlled with medication Continued on cetirizine and Singulair, refills sent to pharmacy per request Assessment & Plan (03/11/2023 3:09 PM CDT): Stable, controlled Continued on cetirizine and Singulair Assessment & Plan (05/27/2022 10:36 PM HANDSTITCHING MACHINE COLLAR FELLER): Acute-started on Augmentin 875 BID and Diflucan 150 mg x 1. Refills albuterol MDI and ipratropium/albuterol for nebulizer were sent to pharmacy per request. Instructed to increase clear liquids, rest, and vitamin C in diet. Advised to sleep with head elevated and use a cool mist vaporizer and Vicks VapoRub at bedtime for cough and congestion. Instructed to go to ER if symptoms of chest tightness, wheezing, and shortness of breath not relieved with rescue inhaler and/or nebulizer treatments. Assessment & Plan (03/03/2022 7:25 AM CDT): Chronic, without recent episode-continued on cetirizine and montelukast. Gastroesophageal reflux disease 06/06/2015 Assessment & Plan (03/25/2024 2:56 PM CDT): Chronic, stable, controlled with medication Continued on omeprazole Assessment & Plan (09/26/2023 11:49 AM CDT): Chronic, stable, controlled with medication Continued on omeprazole, refills sent to pharmacy per request Assessment & Plan (03/11/2023 3:19 PM CDT): Chronic, controlled on medication Continued on omeprazole Assessment & Plan (05/27/2022 10:31 PM HANDSTITCHING MACHINE COLLAR FELLER): Chronic, stable, controlled on medication-continued on omeprazole, refills sent to pharmacy per patient request. Assessment & Plan (04/08/2022 6:11 PM CDT): Chronic, stable, uncontrolled-prescription for omeprazole 40 mg once daily sent to pharmacy per patient request. Assessment & Plan (03/03/2022 7:29 AM CDT): Chronic, stable, controlled with medication-continued on omeprazole. LUISA (obstructive sleep apnea) 03/07/2015 Assessment & Plan (05/31/2024 2:38 PM HANDSTITCHING MACHINE COLLAR FELLER): The patient did not complete her home sleep test. The patient states that she is trying to get a CPAP before her surgery in June. I have informed the patient that I am unsure if she will be able to receive his CPAP due to not wearing her CPAP since 2019. I have sent an order to supply the patient with a new CPAP set at 7 cm water pressure which is her stated previous pressure. The patient would also like to see a different style of mask that she could possibly where after having neck surgery. Assessment & Plan (03/29/2024 9:00 PM CDT): Chronic, stability unknown Encouraged follow-up with sleep medicine as recommended Assessment & Plan (11/20/2023 6:23 AM CDT): Chronicity and stability unknown Previously referred to Sleep Medicine on 03/11/2023, reprinted referral contact information, encouraged to call to schedule an appointment Assessment & Plan (05/05/2023 2:37 PM CDT): She currently is sleeping in a recliner and has an old CPAP unit the needs to be replaced. She is not use CPAP for a period of time. I will proceed with a home sleep test and she will follow up here in 1 month. Assessment & Plan (03/12/2023 6:02 AM CDT): Chronic, has CPAP, but does not wear, states is greater than 10 years old and is afraid to wear Referral made to sleep medicine Assessment & Plan (03/03/2022 7:18 AM CDT): Chronic, stability unknown, with chronic fatigue, stable-encouraged to continue CPAP, can refer to sleep medicine for further evaluation and management if worsening symptoms. Essential hypertension 09/07/2014 Assessment & Plan (06/11/2024 4:57 PM HANDSTITCHING MACHINE COLLAR FELLER): Chronic, stable, controlled on medication Continued on lisinopril-hydrochlorothiazide Assessment & Plan (04/13/2024 2:54 PM CDT): Chronic, stable, controlled on medication Continued on lisinopril-hydrochlorothiazide Assessment & Plan (03/25/2024 2:56 PM CDT): Chronic, stable, controlled on medication Continued on lisinopril-hydrochlorothiazide Assessment & Plan (01/14/2024 2:50 PM CDT): Chronic, stable compared to last visit, on medication, however suspect medication is reason for increase in blood sugar Stopped amlodipine Advised to monitor blood sugar to see if blood sugar improves off amlodipine, if blood sugar does not improve off amlodipine, restart amlodipine Encouraged to check with insurance to find out if a blood pressure monitor would be covered due to diagnosis of hypertension, if not, return in 2 weeks for nurse visit for blood pressure check Assessment & Plan (12/28/2023 9:51 AM CDT): Chronic, controlled with medication Continued on lisinopril HCT and amlodipine Assessment & Plan (11/20/2023 5:58 AM CDT): Chronic, stable, uncontrolled with medication Continued on lisinopril HCT Started on amlodipine 2.5 mg daily, recommended follow-up in 4 weeks Assessment & Plan (09/26/2023 11:49 AM CDT): Chronic, stable, controlled with medication Continued on lisinopril HCT, refills sent to pharmacy per request Assessment & Plan (03/11/2023 3:19 PM CDT): Chronic, controlled on medication Continued on lisinopril HCT Assessment & Plan (05/27/2022 10:32 PM HANDSTITCHING MACHINE COLLAR FELLER): Chronic, stable, controlled with medication-continued on lisinopril/hydrochlorothiazide, refills sent to pharmacy per patient request. Encouraged to get CMP done previously ordered. Assessment & Plan (03/03/2022 7:29 AM CDT): Chronic, stable, controlled with medication-continued on lisinopril/HCT. Ordered CMP previously to be done prior to next visit. Assessment & Plan (11/29/2021 11:30 AM CDT): Chronic, stable, controlled with medication-continued on lisinopril/HCT. Ordered CMP prior to next visit. Assessment & Plan (08/20/2021 5:43 PM HANDSTITCHING MACHINE COLLAR FELLER): Chronic, not controlled at today's visit, but normal at visit today with service desk manager-refilled lisinopril/HCT per patient request. Will continue to monitor. Assessment & Plan (06/05/2021 3:32 PM HANDSTITCHING MACHINE COLLAR FELLER): Chronic, stable, controlled on medication historically, but with elevated blood pressure noted today-continued on lisinopril/hydrochlorothiazide daily, will continue to monitor blood pressure and adjust medication as needed. Ordered CMP. 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 03/25/2024 Assessment & Plan (12/28/2023 9:49 AM CDT): Discussed benign nature of lesions, reassurance given Toenail avulsion, initial encounter 12/28/2023 03/25/2024 Assessment & Plan (12/28/2023 9:49 AM CDT): Advised to observe right great toenail for developing signs and symptoms of infection, including, but not limited to redness, swelling, pain, or drainage from site, and to return to clinic if any of these should occur Moderate persistent asthma w ith acute exacerbation 07/16/2023 03/25/2024 Assessment & Plan (07/16/2023 6:14 AM HANDSTITCHING MACHINE COLLAR FELLER): Reviewed ER records from 06/03/23 and last office visit note Encouraged to get x-ray done, previously ordered Started on prednisone burst Continued on Advair, Singulair, albuterol MDI, and ipratropium-albuterol per neb as directed Instructed to increase clear liquids, rest, and vitamin C in diet Advised to sleep with head elevated and use a cool mist vaporizer and Vicks VapoRub at bedtime for cough and congestion Recommended follow-up if symptoms don't resolve, ER for new or worsening symptoms Pneumonia of left lower lobe due to infectious organism 06/24/2023 09/26/2023 Assessment & Plan (06/24/2023 7:28 AM HANDSTITCHING MACHINE COLLAR FELLER): Acute, with improving symptoms Encouraged to complete prednisone taper as directed Instructed to get chest x-ray in 2 weeks Advised to return to ER if shortness of breath, chest tightness, and/or wheezing not relieved with PRN albuterol inhaler Pneumonia of right lower lob e due to infectious organism 06/09/2023 09/26/2023 Assessment & Plan (06/09/2023 5:33 AM HANDSTITCHING MACHINE COLLAR FELLER): Recent diagnosis Reviewed ER notes dated 06/03/2023 Advised to continue antibiotic and Medrol Dosepak as directed Continued on Advair twice daily, Singulair daily, and albuterol MDI and ipratropium/albuterol as directed as needed Instructed to go to ER if worsening or new symptoms, especially if shortness of breath is not relieved with rescue inhaler COVID-19 arti mead chronic fatigue 02/20/2023 03/29/2024 Assessment & Plan (03/12/2023 5:58 AM CDT): Chronic, stable Encouraged to continue to follow-up with [facility] as recommended COVID-19 arti mead chronic decreased mobility and endurance 02/20/2023 024 Assessment & Plan (03/12/2023 5:58 AM CDT): Chronic, stable Encouraged to continue to follow-up with [facility] as recommended Disrupted sleep-wake cycle 02/20/2023 0 03/29/2024 Assessment & Plan (03/12/2023 6:01 AM CDT): Attributes to chronic pain, symptoms being evaluated/managed by Infectious Disease/COVID Clinic at [facility] Continued on meloxicam daily, holds meloxicam and takes Toradol as directed as needed for flares Refill for Toradol sent to pharmacy per request COVID-19 arti mead chronic joint pain 02/20/2023 03/29/2024 Assessment & Plan (03/12/2023 5:58 AM CDT): Chronic, stable Encouraged to continue to follow-up with [facility] as recommended Arthralgia of multiple sites, bilateral 02/06/2023 03/29/2024 Assessment & Plan (03/12/2023 5:56 AM CDT): Chronic, stable, controlled with medication Continued on meloxicam daily, holds meloxicam and takes Toradol as directed as needed for flares Assessment & Plan (02/06/2023 5:37 AM CDT): Encouraged to continue prednisone as directed in Toradol as directed as needed, advised can resume meloxicam if no longer taking Toradol Advised to monitor blood sugar carefully while taking prednisone as may cause elevation in blood glucose Referral made to infectious disease/ COVID clinic at [facility] Pain of left upper extremity 09/27/2022 03/11/2023 Assessment & Plan (09/27/2022 1:11 PM CDT): Recent onset-referral made to orthopedic surgeon for further evaluation and management, advised can refer to PT for further evaluation and management. Bilateral hand pain 09/27/2022 03/11/20 Assessment & Plan (09/27/2022 1:10 PM CDT): Recent onset-referral made to orthopedic surgeon for further evaluation and management, advised can refer to PT for further evaluation and management. Left elbow pain 09/27/2022 03/11/2023 Assessment & Plan (09/27/2022 1:12 PM CDT): Recent onset, s/p x-ray right elbow and CT right elbow with no abnormal findings-referral made to orthopedic surgeon for further evaluation and management, advised can refer to PT for further evaluation and management. Influenza A 06/24/2022 03/11/2023 Assessment & Plan (06/24/2022 4:54 PM HANDSTITCHING MACHINE COLLAR FELLER): Recent diagnosis-advised to stop Mucinex DM and start benzonatate capsules 1-2 three times daily as needed for cough and Mucinex plain (blue box) as directed x 7-10 days. Continued on nebulizers as directed when at home, instructed to use albuterol as directed as needed when not home. Encouraged to drink plenty of clear liquids and avoid dairy. Advised to continue to sleep in the recliner and use cool mist vaporizer at night. If no perceived improvement over weekend, instructed to get chest xray done, ER if worsening symptoms or new symptoms. Mild persistent asthma with acute exacerbation 04/08/2022 03/11/2023 Assessment & Plan (06/24/2022 5:02 PM HANDSTITCHING MACHINE COLLAR FELLER): Chronic, with recent exacerbation, uncontrolled-declined addition of daily preventative inhaler. Advised to continue nebulizer treatments as directed as needed when at home, refills sent to pharmacy, and using albuterol MDI as directed as needed when not home. If no perceived improvement over weekend, advised to get chest xray, order placed, and instructed to go to ER if worsening or new symptoms. Referral made to pulmonology and provided with the contact information to call to schedule an appointment. Assessment & Plan (05/27/2022 10:29 PM HANDSTITCHING MACHINE COLLAR FELLER): Chronic, with acute exacerbation, uncontrolled, with symptoms of shortness of breath, chest tightness, and wheezing-prednisone taper sent to pharmacy last evening, encouraged to take as directed. Started on Augmentin 875 mg twice daily for 10 days. Refills for ipratropium/albuterol via nebulizer as directed as needed sent to pharmacy per patient request. Assessment & Plan (04/08/2022 6:13 PM CDT): Chronic, with uncontrolled symptoms due to acute exacerbation-advised to take medication (prednisone) as directed. Instructed to increase clear liquids, rest, and vitamin C in diet and to sleep with head elevated and use a cool mist vaporizer at bedtime for cough and congestion. Recommended follow-up if symptoms don't improve, ER for new or worsening symptoms.ation- Diabetic neuropathy, type II diabetes mellitus (CMS/[facility]) 03/01/2022 03/03/2022 Diarrhea of infectious origin 01/27/2022 03/01/2022 Assessment & Plan (01/27/2022 3:20 PM CDT): Acute-recommended getting tested for COVID due to upper respiratory symptoms and diarrhea and advised self isolation until results of COVID-19 test are known . Instructed to consume a clear liquid diet such as broth, apple juice, Jell-O, and popsicles for the next 24-48 hours, then to slowly reintroduce bland foods, avoiding fatty or fried foods, spicy foods, caffeinated drinks, beans, cabbage, or raw fruits and vegetable. Encouraged to eat small frequent meals to avoid overeating. Advised to maintain hydration with approximately 2-3 L of fluids a day and can supplement fluid intake with an electrolyte replacement drink such as sugar free Gatorade or Powerade. Instructed to stay indoors and rest. Advised to go to ER over weekend if symptoms worsen or new symptoms develop such as unable to keep food or fluids down or bloody diarrhea. Leukocytosis 11/29/2021 03/03/2022 Assessment & Plan (11/29/2021 11:27 AM CDT): Recurrent, with most recent increase likely related to infection-ordered CBC to check for resolution. Herpes zoster without complication 11/27/2021 03/01/2022 Assessment & Plan (11/29/2021 11:28 AM CDT): Acute, recurrent-started on Valtrex 1 g TID x1 week, pain consistent with zoster, however due to location of rash, also treating with nystatin powder. Drainage from right ear 09/13/202110/05 Assessment & Plan (09/13/2021 3:28 PM HANDSTITCHING MACHINE COLLAR FELLER): Acute, persistent despite round of oral antibiotics, with resolution of sinus symptoms -started on Floxin ear drops to right ear twice daily as directed. A referral was also made to Dr. Brad Farr, recommended scheduling an appointment in the event ear pain and discharge do not resolve with antibiotic ear drops, provided with the office number Right acute serous otitis media 08/27/2021 11/29/2021 Assessment & Plan (08/27/2021 12:11 PM HANDSTITCHING MACHINE COLLAR FELLER): Acute-started on an antibiotic, advised to take medication as directed. Instructed to increase clear liquids, rest, and vitamin C in diet. Recommended follow-up if symptoms worsen, don't improve, or new symptoms develop. Right ear pain 08/27/2021 11/29/2021 Assessment & Plan (09/13/2021 3:28 PM HANDSTITCHING MACHINE COLLAR FELLER): Acute, persistent despite round of oral antibiotics, with resolution of sinus symptoms -started on Floxin ear drops to right ear twice daily as directed. A referral was also made to Dr. Brad Farr, recommended scheduling an appointment in the event ear pain and discharge do not resolve with antibiotic ear drops, provided with the office number. Assessment & Plan (08/27/2021 12:10 PM HANDSTITCHING MACHINE COLLAR FELLER): Acute-see plan of care for right acute serous otitis media. Can take Tylenol as directed as needed for pain. Acute recurrent frontal sinusitis 08/27/2021 03/01/2022 Assessment & Plan (08/27/2021 12:11 PM HANDSTITCHING MACHINE COLLAR FELLER): Acute-advised to take Zpak as directed. Instructed to inncrease clear liquids, rest, and vitamin C in diet. Advised to sleep with head elevated and use a cool mist vaporizer at bedtime for cough and congestion. Recommended follow-up if symptoms worsen, don't improve, or new symptoms develop. Numbness of toes 08/20/2021 03/11/2023 Assessment & Plan (03/03/2022 7:34 AM CDT): Recent onset since COVID-19, established with Neurology-advised to continue with Neurology as recommended. Prescription sent to pharmacy per patient request for gabapentin 300 mg TID. B12 level done 08/2021 normal. Assessment & Plan (09/13/2021 3:26 PM HANDSTITCHING MACHINE COLLAR FELLER): Recent onset, stable, previously referred to neurology on 08/20/21, [facility] has not received a call-provided with number to call [facility] in [place]. Assessment & Plan (08/20/2021 5:55 PM HANDSTITCHING MACHINE COLLAR FELLER): Recent onset, new problem-sensation intact but diminished per patient report on monofilament test. Advised patient can take vitamin B 12 1000 mcg daily. Referred to Neurology for further evaluation and management. Numbness of fingers of both hands 08/20/2021 03/11/2023 Assessment & Plan (03/03/2022 7:34 AM CDT): Recent onset since COVID-19, established with Neurology-advised to continue with Neurology as recommended. Prescription sent to pharmacy per patient request for gabapentin 300 mg TID. B12 level done 08/2021 normal. Assessment & Plan (09/13/2021 3:26 PM HANDSTITCHING MACHINE COLLAR FELLER): Recent onset, stable, previously referred to neurology on 08/20/21, [facility] has not received a call-provided with number to call [facility] in [place]. Assessment & Plan (08/20/2021 5:55 PM HANDSTITCHING MACHINE COLLAR FELLER): Recent onset, new problem-sensation intact but diminished per patient report. Advised patient can take vitamin B 12 1000 mcg daily. Referred to Neurology for further evaluation and management. Palpitations 07/31/2021 03/01/2022 Assessment & Plan (11/29/2021 11:27 AM CDT): Recent onset, improving, status post Cardiology workup with echo/normal ejection fraction and Holter monitor with reported symptoms not corresponding with findings, released today from Cardiology-will monitor until resolution. Ordered CBC and CMP. Assessment & Plan (07/31/2021 7:51 AM HANDSTITCHING MACHINE COLLAR FELLER): Recent onset over weekend-referred to a service desk manager for evaluation of bradycardia, palpitations, and shortness of breath with exertion. Advised to go to ER for worsening symptoms of palpitations and shortness of breath or for new onset chest pain/tightness, wheezing/difficulty breathing, chills, sweats, fever, back pain, or nausea. Bradycardia 07/27/2021 03/01/2022 Assessment & Plan (08/20/2021 5:46 PM HANDSTITCHING MACHINE COLLAR FELLER): Recent onset, episodic, bradycardia since COVID-19 infection in 07/2021, normal at today's visit (69 beats/minute)-referred to service desk manager previously with 1st visit today, echocardiogram and 48 hour Holter monitor planned for future, encouraged compliance with recommendations made by service desk manager. Assessment & Plan (07/31/2021 7:51 AM HANDSTITCHING MACHINE COLLAR FELLER): Recent onset prior to monoclonal antibody infusion on 07/11/2021-referred to a service desk manager for evaluation of bradycardia, palpitations, and shortness of breath with exertion. Advised to go to ER for worsening symptoms of palpitations and shortness of breath or for new onset chest pain/tightness, wheezing/difficulty breathing, chills, sweats, fever, back pain, or nausea. Assessment & Plan (07/27/2021 7:07 AM HANDSTITCHING MACHINE COLLAR FELLER): New problem/finding-recommended follow-up with Cardiology as suggested upon discharge from the ER for further evaluation and management. COVID-19 07/10/2021 03/11/2023 Assessment & Plan (09/10/2022 10:37 AM HANDSTITCHING MACHINE COLLAR FELLER): Acute-started on Paxlovid. Advised to continue to hold sertraline and stop rosuvastatin until completion of Paxlovid, then may resume both. Instructed not to take codeine cutting interacts with Paxlovid. Informed that omeprazole may not work as well and blood sugars may be higher while on medication, so to avoid foods that cause GI symptoms and to monitor blood sugar closely. Information regarding Paxlovid was sent to patient via [employer], instructed to read carefully and call if has any questions. The [facility] in [place] was notified that patient would be coming by for official testing mandated by her employer to confirm her at-home test results. Instructed that to go to ER and/or call 911 if short of breath, and/or have chest pain, tightness, or wheezing not relieved with your inhalers or nebulizer treatments. Assessment & Plan (07/27/2021 7:07 AM HANDSTITCHING MACHINE COLLAR FELLER): Diagnosed with COVID-19 on 07/08/2021 with symptoms starting on new ' [place]any, now with symptoms consistent with a sinus infection, see plan of care for acute recurrent pansinusitis. Assessment & Plan (07/23/2021 12:26 PM HANDSTITCHING MACHINE COLLAR FELLER): Acute, s/p monoclonal antibody infusion, improving until today-advised to increase clear liquids, rest, and vitamin C in diet. Instructed to sleep with head elevated and use a cool mist vaporizer and Vicks VapoRub at bedtime for cough and congestion. Advised follow-up next week if symptoms are not improving, ER for new or worsening symptoms over weekend, particularly if having difficulty breathing. Chronic right shoulder pain 2021 08/20/2021 Assessment & Plan (2021 3:15 PM HANDSTITCHING MACHINE COLLAR FELLER): Worsening chronic right shoulder pain, status post fall, with a history of a glenoid labrum tear of the right shoulder-ordered MRI of right shoulder and referred to orthopedic surgeon for further evaluation and management. Started on meloxicam 15 mg once daily with food and advised to stop naproxen, and avoid Aleve, Motrin, Advil, ibuprofen, and aspirin while taking meloxicam. Encouraged to continue to ice for 15-20 minutes per application, but not to apply directly on skin, and to rest extremity. Acute pain of right shoulder 2021 08/20/2021 Assessment & Plan (07/23/2021 12:25 PM HANDSTITCHING MACHINE COLLAR FELLER): Acute, resolved-informed that insurance declined MRI of right shoulder, however states right shoulder pain has resolved. Advised if right shoulder pain returns, to notify office and an x-ray of the right shoulder can be ordered and a referral can be made to PT. Assessment & Plan (2021 3:15 PM HANDSTITCHING MACHINE COLLAR FELLER): Acute on chronic right shoulder pain, status post fall, with a history of a glenoid labrum tear of the right shoulder-ordered MRI of right shoulder and referred to orthopedic surgeon for further evaluation and management. Started on meloxicam 15 mg once daily with food and advised to stop naproxen, and avoid Aleve, Motrin, Advil, ibuprofen, and aspirin while taking meloxicam. Encouraged to continue to ice for 15-20 minutes per application, but not to apply directly on skin, and to rest extremity. Acute recurrent sinusitis 04/04/2021 Assessment & Plan (04/04/2021 2:43 PM CDT): Acute-advised to take antibiotic and prednisone as directed and benzonatate three times daily as needed for cough. Instructed to increase clear liquids, rest, and vitamin C in diet. Recommended sleeping with head elevated and using a cool mist vaporizer and Vicks VapoRub at bedtime for cough and congestion. Advised to call office next week with an update on symptoms. Upper respiratory tract infection 01/09/2021 03/11/2023 Assessment & Plan (08/30/2022 3:46 PM HANDSTITCHING MACHINE COLLAR FELLER): Rapid COVID and flu negative PCR pending Delsym as needed as directed on package for cough Tylenol or Ibuprofen for aches, pains. Take per package directions Antihistamines like Claritin or Zyrtec as needed for drainage. Take per package directions Frequent cough drops and lozenges Increase fluids, especially decaffeinated ones Sleep with head of bed raised to promote drainage Rest Use nebulizer treatments as prescribed if needed Avoid spreading the virus by remaining at home and away from others until you are fever-free (temperature below 100) for 24 hours. Good handwashing and covering your mouth when coughing are also important. If you are not improving or worsening in the next 5-7 days you must RETURN to the clinic, go to your PCP, or Urgent Care/ER to be SEEN and reevaluated. No further prescriptions or refills will be given by phone without another evaluation. If you develop a high fever 103+, neck stiffness, trouble breathing, chest pain, or other life threatening symptoms GO TO THE ER IMMEDIATELY. Assessment & Plan (01/09/2021 12:13 PM CDT): Instructed to increase clear liquids, rest, and vitamin C in diet. Advised to sleep with head elevated for cough and congestion. Recommended follow-up with PCP if symptoms worsen, don't improve, or new symptoms develop. Acute bronchitis 01/09/2021 03/01/2022 Assessment & Plan (11/23/2021 4:01 PM CDT): Acute-advised to take medication as directed. A refill for albuterol inhaler was sent to pharmacy per request. Instructed to increase clear liquids, rest, and vitamin C in diet. Advised to sleep with head elevated and use a cool mist vaporizer and Vicks VapoRub at bedtime for cough and congestion. Cautioned that prednisone may cause an increase in blood sugar, discussed adhering to low carb diet and monitoring blood sugar. Recommended follow-up if symptoms don't improve, ER over weekend for worsening or new symptoms. Assessment & Plan (01/09/2021 12:12 PM CDT): Prednisone 60 mg daily x 5 days. Advised can take Mucinex plain in the blue box as directed for the next 3-5 days. Encouraged to use albuterol inhaler every 4-6 hours while awake for the next 48 hours. Instructed to increase clear liquids, rest, and vitamin C in diet. Advised to sleep with head elevated for cough and congestion. Recommended follow-up if symptoms worsen, don't improve, or new symptoms develop. Recurrent sinusitis 12/11/2020 03/01/20 Assessment & Plan (12/11/2020 6:17 PM CDT): A referral was made to an ENT and saw grinder for further evaluation and management of recurrent sinusitis. Started on prednisone as directed. Advised against taking a decongestant due to high blood pressure, but can use nasal saline spray and continue antihistamine. Acute recurrent pansinusitis 11/03/2020 03/25/2024 Assessment & Plan (07/16/2023 6:10 AM HANDSTITCHING MACHINE COLLAR FELLER): Started on prednisone burst and Levaquin, discussed potential for tendon damage with Levaquin (tendinitis, tendon rupture, which can be permanent), is aware of risks associated with antibiotic therapy and states is the only 1 that works Instructed to increase clear liquids, rest, and vitamin C in diet Advised to sleep with head elevated and use a cool mist vaporizer and Vicks VapoRub at bedtime for cough and congestion Recommended follow-up if symptoms don't resolve, ER for new or worsening symptoms Assessment & Plan (04/08/2022 6:13 PM CDT): Acute-advised to take medication (Augmentin and prednisone) as directed. Instructed to increase clear liquids, rest, and vitamin C in diet and to sleep with head elevated and use a cool mist vaporizer at bedtime for cough and congestion. Recommended follow-up if symptoms don't improve, ER for new or worsening symptoms. Assessment & Plan (07/27/2021 7:06 AM HANDSTITCHING MACHINE COLLAR FELLER): Started on a Z-David as directed and prednisone daily x5 days. Advised to sleep with head elevated and use a cool mist vaporizer and Vicks VapoRub at bedtime for cough and congestion. Recommended follow-up if symptoms don't improve, ER for worsening or new symptoms. Assessment & Plan (11/03/2020 6:54 PM CDT): Started on doxycycline 100 mg BID x 10 days and Prednisone 60 mg daily x 5 days. Instructed to increase clear liquids, rest, and vitamin C in diet. Advised to sleep with head elevated and can use VapoRub at bedtime for cough and congestion. Recommended follow-up with PCP if symptoms worsen, don't improve, or new symptoms develop. Arthritis of foot 10/14/2017 03/11/2023 Assessment & Plan (03/03/2022 7:26 AM CDT): Chronic, stability unknown, currently asymptomatic-will monitor for recurrence of symptoms and can refer to podiatry if needed. Superior glenoid labrum lesi on of right shoulder 01/31/2017 03/03/2022 Unspecified injury of right shoulder and upper arm, sequela 01/31/2017 08/20/2021 Multiple allergies 09/17/2015 Immunizations Name Administration Dates Next Due Influenza, Unspecified 04/13/2024(Deferr ed: Patient Refused),03/11/2023(Deferred: Patient Refused),04/06/2022(Deferred: Patient Refused) Pfizer SARS-CoV-2 Monovalent Vaccination (12+ Yrs) PURPLE 09/22/2020,08/31/2020 Pneumococcal Polysaccharide PPV23 03/17/2018 Tdap 08/07/2017 Social History Tobacco Use Types Packs/Day Years Used Date Smoking Tobacco: Never Cigarettes Smokeless Tobacco: Never Tobacco Cessation:Counseling Given: Not Answered PHQ-2 Answer Date Recorded PHQ-2 Total Score (If total score is 3 or more points, staff should administer the PHQ-9) 0 03/25/2024 Personal Safety Answer Date Recorded Have you ever been in or are you currently in a harmful physical or emotional relationship or is someone making you feel afraid or unsafe? Denies 11/28/2023 Comments No Sex and Gender Information Value Date Recorded Sex Assigned at Not on file Legal Sex Female 11:30 AM CDT Gender Identity Female 04/03/2021 5:22 PM CDT Sexual Orientation Straight 04/03/2021 5: 22 PM CDT Last Filed Vital Signs Vital Sign Reading Time Taken Comments Blood Pressure 120/88 07/20/2024 3:09 PM HANDSTITCHING MACHINE COLLAR FELLER Pulse 89 07/20/2024 3:09 PM HANDSTITCHING MACHINE COLLAR FELLER Temperature 36.9 C (98.5 F) 07/20/2024 3:09 PM HANDSTITCHING MACHINE COLLAR FELLER Respiratory Rate 14 07/20/2024 3:09 PM HANDSTITCHING MACHINE COLLAR FELLER Oxygen Saturation 97% 07/20/2024 3:09 PM HANDSTITCHING MACHINE COLLAR FELLER Inhaled Oxygen Concentration - - Weight 112.9 kg (249 lb) 07/20/2024 3:09 PM HANDSTITCHING MACHINE COLLAR FELLER Height 170.2 cm (5' 7.01 ) 07/20/2024 3:09 PM CS T Body Mass Index 38.99 07/20/2024 3:09 PM HANDSTITCHING MACHINE COLLAR FELLER Plan of Treatment Not on file Procedures Procedure Name Priority Date/Time Associated Diagnosis Comments PORTABLE/HOME SLEEP STUDY Routine 08/05/2024 10:00 AM HANDSTITCHING MACHINE COLLAR FELLER LUISA (obstructive sleep apnea) XR HIP LEFT 2 OR 3 VIEWS Schedule Routine, Read Routine (OP Routine) 07/20/2024 4:23 PM HANDSTITCHING MACHINE COLLAR FELLER Acute pain of left hip POCT HEMOGLOBIN A1C Routine 07/20/2024 2:30 PM HANDSTITCHING MACHINE COLLAR FELLER Type 2 diabetes mellitus treated without insulin (CMS/HCC) (HCC) EGFR STAT 11/28/2023 9:55 PM CDT SCREENING MAMMOGRAM BILATERAL W GURWINDER Schedule Routine, Read Routine (OP Routine) 07/12/2022 2:38 PM HANDSTITCHING MACHINE COLLAR FELLER Encounter for screening mammogram for malignant neoplasm of breast LIPID PANEL Routine 02/16/2022 9:48 AM CDT Mixed hyperlipidemia ALBUMIN CREATININE RATIO, URINE Routine 08/18/2021 9:12 AM HANDSTITCHING MACHINE COLLAR FELLER Type 2 diabetes mellitus treated without insulin (CMS/HCC) (HCC) from Last 3 Months or Most Recently Relevant to Health Maintenance Results * Portable/Home Sleep Study (08/05/2024 10:00 AM HANDSTITCHING MACHINE COLLAR FELLER) Leslie Florian NP SLEEP CENTER ORDERABLES Final Result [facility] [address] [place] [address] * XR Hip Left 2+ Vw (07/20/2024 4:23 PM HANDSTITCHING MACHINE COLLAR FELLER) Anatomical Region Laterality Modality Lower Extremities, Hip, Pelvis Left C omputed Radiography 07/21/2024 3:54 PM HANDSTITCHING MACHINE COLLAR FELLER Narrative 07/21/2024 3:56 PM HANDSTITCHING MACHINE COLLAR FELLER EXAM DESCRIPTION: XR HIP LEFT 2 OR 3 VIEWS REASON FOR STUDY: acute left hip pain, no known injury Left hip pain x few days. No known injury TECHNIQUE: 2 radiographic view(s) of the left hip . COMPARISON: 06/04/2021 FINDINGS: BONES/JOINTS: There is no acute fracture, malalignment or osseous abnormality. There is very mild arthritis, unchanged. SOFT TISSUES: Within normal limits. IMPRESSION: Very mild arthritis, unchanged. THIS IS AN ELECTRONICALLY VERIFIED FINAL REPORT 07/21/2024 3:56 PM - Electronically signed by David BASSETT: DANYELLE Report ID: [id number] Reading Location: [id number] Procedure Note Fran Maharaj MD - 07/21/2024 EXAM DESCRIPTION: XR HIP LEFT 2 OR 3 VIEWS REASON FOR STUDY: acute left hip pain, no known injury Left hip pain x few days. No known injury TECHNIQUE: 2 radiographic view(s) of the left hip . COMPARISON: 06/04/2021 FINDINGS: BONES/JOINTS: There is no acute fracture, malalignment orosseous abnormality. There is very mild arthritis, unchanged. SOFT TISSUES: Within normal limits. IMPRESSION: Very mild arthritis, unchanged. THIS IS AN ELECTRONICALLY VERIFIED FINAL REPORT 07/21/2024 3:56 PM - Electronically signed by David BASSETT: DANYELLE Report ID: [id number] Reading Location: [place] [address] Sonal Santos NP IMG XR PROCEDURES Final Result * (ABNORMAL) POCT hemoglobin A1c (07/20/2024 2:30 PM HANDSTITCHING MACHINE COLLAR FELLER) Pathologist [facility] [place] Hemoglobin A1C, POC 6.6 4.0 - 5.6 % Comment:Lot [id number] 080 126 Blood 07/20/2024 2:30 PM HANDSTITCHING MACHINE COLLAR FELLER Sonal Santos NP POINT OF CARE TEST ORDERABLES Fi nal Result * eGFR (11/28/2023 9:55 PM CDT) Pathologist [facility] [place] eGFR >90 >=60 mL/min/1. 73 m2 Comment: Interpretive Data Reference Interval Normal >/= 90 mL/min/1.73m2 Mildly decreased* 60 - 89 mL/min/1.73m2 Mildly to moderately decreased 45 - 59 mL/min/1.73m2 Moderately to severely decreased 30 - 44 mL/min/1.73m2 Severely decreased 15 - 29 mL/min/1.73m2 Kidney Failure < 15 mL/min/1.73m2 *Relative to young adult level Estimated glomerular filtration rate is determined by the 2020 CKD-EPI equation recommended by the National Kidney Foundation (A Unifying Approach to GFR Estimation: Recommendations of the NKF-ASK Task Force on Reassessing the Inclusion of Race in Diagnosing Kidney Disease, JASN 2020). The CKD-EPI equation should not be used for patients with unstable renal function and has not been validated in children and those over 70. Current interpretive data was last reviewed 2021. Blood 11/28/2023 9:55 PM CDT 11/28/2023 10:08 PM CDT us Wilfredo Castillo MD LAB BLOOD ORDERABLES Final Res ult [facility] Department [place] [address] * SCREENING MAMMOGRAM BILATERAL W GURWINDER (07/12/2022 2:38 PM HANDSTITCHING MACHINE COLLAR FELLER) Anatomical Region Laterality Modality Breast Bilateral Mammography Impressions 07/12/2022 2:50 PM HANDSTITCHING MACHINE COLLAR FELLER BI-RADS ATLAS category (overall): 1 - Negative There is no mammographic evidence of malignancy. A 1 year screening mammogram is recommended. The patient has been or will be contacted. We recommend annual screening mammography for women at average risk of breast cancer beginning at age 40, based on guidelines of the [employer] (ACR Practice Parameter for the Performance of Screening and Diagnostic Mammography) and [place]. For women with and elevated risk of breast cancer, please refer to the ACR Practice Parameter for specific screening recommendations. The patient will be entered into a reminder system with a target due date of 1 year for her next screening exam. Narrative 07/12/2022 2:50 PM HANDSTITCHING MACHINE COLLAR FELLER SCREENING MAMMOGRAM BILATERAL W GURWINDER: 07/12/22 The study was acquired using full field digital technology and interpreted from soft copy. 2D digital mammographic views, as well as 3D digital tomosynthesis were performed in the CC and MLO projections. CLINICAL: Encounter for screening mammogram for malignant neoplasm of breast. No relevant medical history has been documented for this patient. No known family history of breast cancer. COMPARISONS: 03/24/2021 SCREENING MAMMOGRAM BILATERAL W GURWINDER 04/02/2018 Breast Imaging Screening Outside Reference BREAST TISSUE: The breasts have scattered areas of fibroglandular density. FINDINGS: No suspicious masses, suspicious calcifications, or other suspicious findings are seen within either breast. There has been no suspicious change. us Sonal Santos NP IMG MAMMO PROCEDURES Final Resul t * (ABNORMAL) Lipid panel (02/16/2022 9:48 AM CDT) Cholesterol 153 30 - 199 mg/dL CAR TO Comment: Interpretive Data Ages < or = 19 years Acceptable: <170 mg/dL Borderline high: 170-199 mg/dL High: >or= 200 mg/dL Ages > or = 20 years Desirable: <200 mg/dL Borderline high: 200-239 mg/dL High: >or= 240 mg/dL Literature References: 1. Expert Panel on Integrated Guidelines for Cardiovascular Health and Risk Reduction in Children and Adolescents. Pediatrics 2011;128:S213 2. NCEP Expert Panel. Circulation 2004;110:227 Current Interpretive Data was last revised on 2018. Testing performed by: [facility], [address] [place] [address]., [id number] Triglycerides 246(H) <=149 mg/dL CAR TO Comment: Interpretive Data Ages < or = 9 years Acceptable: <75 mg/dL Borderline high: 75-99 mg/dL High: >or= 100 mg/dL Ages 10 to 20 years Acceptable: <90 mg/dL Borderline high: 90-129 mg/dL High: >or= 130 mg/dL Ages > or = 20 years Desirable: <150 mg/dL Borderline high: 150-199 mg/dL High: 200-499 mg/dL Very high: >or= 499 mg/dL Literature References: 1. Expert Panel on Integrated Guidelines for Cardiovascular Health and Risk Reduction in Children and Adolescents. Pediatrics 2011;128:S213 2. NCEP Expert Panel. Circulation 2004;110:227 Current Interpretive Data was last revised on 2018. Testing performed by: [address] [address] HDL 37(L) >=40 mg/dL CAR Comment: Interpretive Data Ages < or = 19 years Acceptable: >45 mg/dL Borderline low: 40-45 mg/dL Low: <40 mg/dL Ages > or = 20 years Desirable: >or= 60 mg/dL Low: <40 mg/dL Literature References: 1. Expert Panel on Integrated Guidelines for Cardiovascular Health and Risk Reduction in Children and Adolescents. Pediatrics 2011;128:S213 2. NCEP Expert Panel. Circulation 2003;110:227 Current Interpretive Data was last revised on 2018. Testing performed by: [address] [address] LDL, calculated 67 <=129 mg/dL CAR Comment: Interpretive Data Ages < or = 19 years Acceptable: <110 mg/dL Borderline high: 110-129 mg/dL High: >or= 130 mg/dL Ages > or = 20 years Optimal: <100 mg/dL Near optimal: 100-129 mg/dL Borderline high: 130-159 mg/dL High: >160 mg/dL Literature References: 1. Expert Panel on Integrated Guidelines for Cardiovascular Health and Risk Reduction in Children and Adolescents. Pediatrics 2011;128:S213 2. NCEP Expert Panel. Circulation 2003;110:227 Current Interpretive Data was last revised on 2018. Testing performed by: [address] [address] Non-HDL Cholesterol 116 mg/dL CAR Comment: Interpretive Data Ages < or = 19 years Acceptable: <120 mg/dL Borderline high: 120-144 mg/dL High: >145 mg/dL Ages > or = 20 years When triglycerides are >200 mg/dL, Non-HDL cholesterol is a secondary target of therapy with treatment goals that are 30 mg/dL greater than the LDL cholesterol target. Literature References: 1. Expert Panel on Integrated Guidelines for Cardiovascular Health and Risk Reduction in Children and Adolescents. Pediatrics 2011;128:S213 2. NCEP Expert Panel. Circulation 2004;110:227 Current Interpretive Data was last revised on 2018. Testing performed by: [address] [address] Chol/HDL ratio 4 CAR TO Comment:Testing performed by : [address] [address] Blood 02/16/2022 9:48 AM CDT 02/16/2022 9:58 AM CDT us Sonal Santos NP LAB BLOOD ORDERABLES Final Resul t Performing Organization Address City/[facility] [[email or web address]] Co de Phone Number CAR [address] [facility] [place] [address] * Albumin Creatinine Ratio, Urine (08/18/2021 9:12 AM HANDSTITCHING MACHINE COLLAR FELLER) Albumin Ur <12.0 mg/L CAR TO Comment: Interpretive Data No reference range established. Current interpretive data was last revised 2018. Testing performed by: [address] [address] Creatinine Ur 138.2 mg/dL CAR TO Comment: Interpretive Data No reference range established. Current interpretive data was last revised 2018. Testing performed by: [address] [address] Albumin Creatinine Ratio, Ur <9 1 - 29 mg/g CAR TO Comment:Testing performed by : [address] [address] Urine 08/18/2021 9:12 AM HANDSTITCHING MACHINE COLLAR FELLER 08/18/2021 10:08 AM HANDSTITCHING MACHINE COLLAR FELLER us Sonal Santos NP LAB URINE ORDERABLES Final Resul t Performing Organization Address City/[facility]/ZIP Co de Phone Number CRA [address] [facility] [place] [address] from Last 3 Months or Most Recently Relevant to Health Maintenance Insurance [facility] Care Teams Assistant At Surgery Relationship Specialty Start Date End Date Sonal Santos NP [address] [place] [id number] PCP - General Family Practice 11/03/20 Valeria Charlton, HOSPITALITY MANAGER [address] [facility] [address] Assembly Line Supervisor Infectious Diseases 02/17/23
--- OUTSIDE RECORDS SUMMARY | 2024-08-13 07:54 | XMS_ITS | Clinical Summary ---
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 Do not swallow. 60 each 024 2024 Active blood-glucose meter miscIndications:T ype 2 diabetes mellitus treated without insulin ([facility]) ([facility]) Use daily or as directed for monitoring of diabetes. 1 each 024 Active alcohol swabs pads, medicatedIndicati ons:Type 2 diabetes mellitus treated without insulin (CMS/HCC) ([facility]) Apply 1 each topically daily 100 each 3 Active albuterol HFA (PROVENTIL HFA,VENTOLIN HFA,PROAIR HFA) [...] mg total) by mouth daily 30 tablet 5 024 Active nystatin powderIndications :Cutaneous candidiasis Apply topically 3 (three) times a day as needed (to rash beneath left breast) 60 g 1 025 Active blood glucose diagnostic (glucose blood) stripIndications: Type 2 diabetes mellitus treated without insulin ([facility]) ([facility]) 1 each by other route 2 (two) times a day 200 each 3 025 Active OneTouch Delica Plus Lancet 30 gauge miscIndications:T ype 2 diabetes mellitus treated without insulin ([facility]) ([facility]) Inject 1 each under the skin 2 (two) times a day 200 each 3 025 Active cyclobenzaprine (FLEXERIL) 5 mg tabletIndications :Acute pain of left hip Take 1 tablet (5 mg total) by mouth 3 (three) times a day as needed for muscle spasms 30 tablet 025 2024 Active metFORMIN (GLUCOPHAGE) 500 mg tabletIndications :Type 2 diabetes mellitus treated without insulin ([facility]) ([facility]) TAKE ONE TABLET BY MOUTH EVERY MORNING and TAKE TWO TABLETS BY MOUTH EVERY EVENING 90 tablet 3 025 Active blood glucose diagnostic (glucose blood) stripIndications: Type 2 diabetes mellitus treated without insulin ([facility]) ([facility]) Use to test blood sugar once daily 100 each 3 024 2024 Discontinued(A lternate therapy) metFORMIN (GLUCOPHAGE) 500 mg tabletIndications :Type 2 diabetes mellitus treated without insulin ([facility]) ([facility]) 500 mg in the morning and 1000 [...] 06/11/2024 Assessment & Plan (06/11/2024 4:57 PM FABRIC INSPECTOR): Started on antibiotic Supportive care measures discussed [...] bilateral upper extremities Encounter for well woman law m with routine gynecological exam 11/20/2023 Assessment [...] DuoNeb, and albuterol Encouraged to follow-up with dry wall nailer as recommended Assessment & Plan (11/20/2023 6:00 [...] CDT): The patient has followed with a dry wall nailer in the past for her asthma. I will reorder the Advair 250/50 to use 1 puff twice a day in refilled her albuterol. She also has duo nebs to use at home if necessary in addition to Singulair 10 mg daily. I will check full PFTs, chest x-ray and refer her to see an financial operations consultant. Vaccine counseling 02/20/2023 Chronic pain of both [...] Mejia Encouraged to keep upcoming appointment with neurosurgeonDr. Mejia for further evaluation and management Continued on Toradol and meloxicam, refills sent to pharmacy per request, is aware cannot be taken together, previously prescribed gabapentin, not effective Assessment & Plan (08/25/2023 3:43 PM FABRIC INSPECTOR): Chronic, stability unknown Started on prednisone burst [...] Neurology Encouraged to keep upcoming appointment with neurosurgeonDr. Mejia Assessment & Plan (08/25/2023 3:46 PM FABRIC INSPECTOR): Recent onset Reviewed ER notes and CT [...] with orthopedic surgeon and COVID clinic at [facility] Infectious Disease for suspected long-COVID Assessment & [...] chloride Assessment & Plan (06/24/2023 7:29 AM FABRIC INSPECTOR): Chronic, stable, controlled with supplement Continued on potassium chloride, refills sent to pharmacy per request Assessment & Plan (06/09/2023 5:32 AM FABRIC INSPECTOR): Chronic, stable, controlled with medication Continued on KCl, refills sent to pharmacy per request Assessment & Plan (03/11/2023 3:23 PM CDT): Chronic, normal at last check, on daily supplement Continued on KCl daily Assessment & Plan (05/27/2022 10:32 PM FABRIC INSPECTOR): Chronic, controlled at last check-continued on potassium [...] AM CDT): Chronic, stable Referral made to [facility] Assessment & Plan (03/03/2022 7:16 AM CDT): [...] PRN Assessment & Plan (05/27/2022 10:28 PM FABRIC INSPECTOR): Chronic, stable, controlled with medication-continued on gabapentin, [...] released from care Encouraged to follow-up with dry wall nailer as recommended and with Cardiology as recommended as needed Assessment & Plan (03/11/2023 3:07 PM CDT): Chronic, episodic Previously evaluated with echo and Holter Encouraged to follow-up with manager beauty, Dr. Moseley, as recommended Assessment & Plan (03/03/2022 7:31 AM CDT): Chronicity and stability unknown-encouraged to schedule appointment with Dr. Moseley for further evaluation and management. Cutaneous candidiasis 11/27/2021 Assessment & Plan (07/20/2024 4:05 PM FABRIC INSPECTOR): Controlled Continued on nystatin Assessment & Plan (04/13/2024 2:54 PM CDT): Acute Started on Nystatin powder as directed as needed Assessment & Plan (11/29/2021 11:29 AM CDT): Acute-started on nystatin powder due to location of rash, also treating with Valtrex 1 g TID x1 week due to pain consistent with zoster. Encounter for diabetic foot exam ([facility]) 07/30 Assessment & Plan (03/29/2024 9:03 PM CDT): Diabetic foot exam performed with monofilament with no abnormal findings Assessment & Plan (03/11/2023 3:15 PM CDT): 04/15 sensed both feet with monofilament, normal foot exam Dyspnea on exertion 07/27/2021 Assessment & Plan (05/31/2024 2:49 PM FABRIC INSPECTOR): The patient will continue with albuterol as [...] albuterol, and DuoNeb Encouraged to follow-up with dry wall nailer as recommended/ Assessment & Plan (11/20/2023 6:15 [...] as directed as needed Referral made to [facility] Infectious Disease Department/COVID clinic for further evaluation of worsening symptoms since COVID-19 infection Assessment & Plan (06/24/2022 5:02 PM FABRIC INSPECTOR): Acute-advised to continue nebulizer treatments as directed [...] appointment. Assessment & Plan (05/27/2022 10:33 PM FABRIC INSPECTOR): Chronic, worsened, with acute asthma exacerbation-continued on [...] needed. Assessment & Plan (08/20/2021 5:42 PM FABRIC INSPECTOR): Recent onset dyspnea since COVID-19 infection in 07/2021, not responsive to albuterol MDI, with multiple x-rays with no acute cardiopulmonary findings-referred to manager beauty with 1st visit today, echocardiogram and 48 hour Holter monitor planned for future, encouraged compliance with testing and follow-up visit. Assessment & Plan (07/31/2021 7:52 AM FABRIC INSPECTOR): Recent onset since COVID-19 diagnosis-referred to a manager beauty for evaluation of bradycardia, palpitations, and shortness of breath with exertion. Advised to go to ER for worsening symptoms of palpitations and shortness of breath or for new onset chest pain/tightness, wheezing/difficulty breathing, chills, sweats, fever, back pain, or nausea. Assessment & Plan (07/27/2021 7:09 AM FABRIC INSPECTOR): Acute, with recent diagnosis of COVID 19 [...] sleep medicine Encouraged to follow-up with long [facility] clinic Assessment & Plan (03/03/2022 7:32 AM CDT): Chronic, stable, with history of LUISA on CPAP-will monitor for worsening symptoms. Ordered TSH, recent CBC normal. Can refer to sleep medicine for further evaluation and management. Assessment & Plan (08/20/2021 5:52 PM FABRIC INSPECTOR): Recent onset since COVID-19 diagnosis in 07/2021 with normal Hbg/Hct on 07/27/21, and normal folate & B12 dated 08/18/21-currently with work-up planned by manager beauty (echocardiogram and 48 hour Holter monitor planned for future), encouraged compliance with recommendations made by manager beauty. Assessment & Plan (07/23/2021 12:27 PM FABRIC INSPECTOR): Acute, likely related to recent viral infection with [id number] monitor for resolution of symptoms. Encouraged to [...] medication. Assessment & Plan (2021 3:16 PM FABRIC INSPECTOR): Chronicity and stability unknown-ordered MRI and referred to orthopedic surgeon for further evaluation and management. Acute pain of left hip 06/05/2021 Assessment & Plan (07/20/2024 4:05 PM FABRIC INSPECTOR): Ordered x-rays left hip Continued on meloxicam 15 mg daily Started on cyclobenzaprine 5 mg TID PRN Assessment & Plan (06/05/2021 3:37 PM FABRIC INSPECTOR): Acute-ordered x-ray of left hip. Can continue [...] panel Assessment & Plan (05/27/2022 10:31 PM FABRIC INSPECTOR): Chronic, uncontrolled at last check, with elevated [...] visit. Assessment & Plan (08/20/2021 5:47 PM FABRIC INSPECTOR): Chronic, stability unknown, uncontrolled, not on medication until office visit today when seen by manager beauty-encouraged compliance with rosuvastatin 10 mg once daily. Assessment & Plan (06/05/2021 3:35 PM FABRIC INSPECTOR): Chronicity, stability unknown, not on medication-ordered lipid [...] visit. Assessment & Plan (08/20/2021 5:54 PM FABRIC INSPECTOR): Chronic, stability unknown, uncontrolled, not on supplement-advised to start vitamin D3 2000 international units, take 2 daily with a meal x 1 month, then one daily with a meal, will recheck vitamin D 25 OH in 3-6 months. Assessment & Plan (06/05/2021 3:35 PM FABRIC INSPECTOR): Chronicity and stability unknown, reported by patient, not currently on supplementation-ordered vitamin-D 25 OH. Type 2 diabetes mellitus treated without insulin ([facility]) 06/05/2021 Assessment & Plan (07/20/2024 4:04 PM FABRIC INSPECTOR): Controlled Reviewed hemoglobin A1c equals 6.6 Continued [...] Foot exam done today Referral made to [facility] for dilated eye exam Assessment & Plan (02/06/2023 5:41 AM CDT): Stable Performed in office hemoglobin A1c (6.9) Continued on metformin Assessment & Plan (05/27/2022 10:27 PM FABRIC INSPECTOR): Chronic, stable, controlled on medication-continued on metformin, [...] visit. Assessment & Plan (08/20/2021 5:53 PM FABRIC INSPECTOR): Chronic, stable, controlled with medication-continued on metformin. Follow-up in 6 months. Assessment & Plan (06/05/2021 3:37 PM FABRIC INSPECTOR): Chronic, uncontrolled at last check, on medication-continued [...] CURTIS-7=1. Assessment & Plan (08/20/2021 5:48 PM FABRIC INSPECTOR): Chronic, stable, controlled with medication-continued on sertraline. Class 2 severe obesity due t o excess calories with serious comorbidity and body mass index (BMI) of 39.0 to 39.9 in adult 03/17/2018 Overview (11/03/2020): Transitioned From: Obesity (BMI 30-39.9) Assessment & Plan (06/11/2024 4:56 PM FABRIC INSPECTOR): Chronic, improved, with serious comorbidity of type [...] week Assessment & Plan (07/16/2023 6:13 AM FABRIC INSPECTOR): Chronic, worsening, with series comorbidity of type [...] prednisone Assessment & Plan (06/24/2023 7:30 AM FABRIC INSPECTOR): Chronic, worsened Encouraged to monitor daily caloric intake and portion sizes and to exercise most days of the week, for a goal of at least 150 minutes of exercise per week Assessment & Plan (06/09/2023 5:36 AM FABRIC INSPECTOR): Chronic, worsened, with serious comorbidity/type 2 diabetes, [...] flares Assessment & Plan (05/27/2022 10:29 PM FABRIC INSPECTOR): Chronic, stable, controlled with medication-continued on meloxicam, [...] Singulair Assessment & Plan (05/27/2022 10:37 PM FABRIC INSPECTOR): Chronic, stable, controlled with medication-continued on cetirizine, refills sent to pharmacy per patient request. Assessment & Plan (03/03/2022 7:19 AM CDT): Chronic, stable, controlled with medication-continued on cetirizine and montelukast. Assessment & Plan (08/20/2021 5:44 PM FABRIC INSPECTOR): Chronic, stable, controlled with medication-filled Singulair per [...] Singulair Assessment & Plan (05/27/2022 10:36 PM FABRIC INSPECTOR): Acute-started on Augmentin 875 BID and Diflucan [...] omeprazole Assessment & Plan (05/27/2022 10:31 PM FABRIC INSPECTOR): Chronic, stable, controlled on medication-continued on omeprazole, refills sent to pharmacy per patient request. Assessment & Plan (04/08/2022 6:11 PM CDT): Chronic, stable, uncontrolled-prescription for omeprazole 40 mg once daily sent to pharmacy per patient request. Assessment & Plan (03/03/2022 7:29 AM CDT): Chronic, stable, controlled with medication-continued on omeprazole. LUISA (obstructive sleep apnea) 03/07/2015 Assessment & Plan (05/31/2024 2:38 PM FABRIC INSPECTOR): The patient did not complete her home [...] 09/07/2014 Assessment & Plan (06/11/2024 4:57 PM FABRIC INSPECTOR): Chronic, stable, controlled on medication Continued on [...] HCT Assessment & Plan (05/27/2022 10:32 PM FABRIC INSPECTOR): Chronic, stable, controlled with medication-continued on lisinopril/hydrochlorothiazide, [...] visit. Assessment & Plan (08/20/2021 5:43 PM FABRIC INSPECTOR): Chronic, not controlled at today's visit, but normal at visit today with manager beauty-refilled lisinopril/HCT per patient request. Will continue to monitor. Assessment & Plan (06/05/2021 3:32 PM FABRIC INSPECTOR): Chronic, stable, controlled on medication historically, but [...] further evaluation and management Seborrheic keratoses 12/28/2023 024 Assessment & Plan (12/28/2023 9:49 AM CDT): [...] 03/25/2024 Assessment & Plan (07/16/2023 6:14 AM FABRIC INSPECTOR): Reviewed ER records from 06/03/23 and last [...] 09/26/2023 Assessment & Plan (06/24/2023 7:28 AM FABRIC INSPECTOR): Acute, with improving symptoms Encouraged to complete prednisone taper as directed Instructed to get chest x-ray in 2 weeks Advised to return to ER if shortness of breath, chest tightness, and/or wheezing not relieved with PRN albuterol inhaler Pneumonia of right lower lob e due to infectious organism 06/09/2023 09/26/2023 Assessment & Plan (06/09/2023 5:33 AM FABRIC INSPECTOR): Recent diagnosis Reviewed ER notes dated 06/03/2023 [...] stable Encouraged to continue to follow-up with [facility] as recommended COVID-19 arti mead chronic decreased mobility and endurance 02/20/2023 024 Assessment & Plan (03/12/2023 5:58 AM CDT): Chronic, stable Encouraged to continue to follow-up with [facility] as recommended Disrupted sleep-wake cycle 02/20/2023 0 03/29/2024 Assessment & Plan (03/12/2023 6:01 AM CDT): Attributes to chronic pain, symptoms being evaluated/managed by Infectious Disease/COVID Clinic at [facility] Continued on meloxicam daily, holds meloxicam and takes Toradol as directed as needed for flares Refill for Toradol sent to pharmacy per request COVID-19 arti mead chronic joint pain 02/20/2023 03/29/2024 Assessment & Plan (03/12/2023 5:58 AM CDT): Chronic, stable Encouraged to continue to follow-up with [facility] as recommended Arthralgia of multiple [...] made to infectious disease/ COVID clinic at [facility] Pain of left upper extremity 09/27/2022 03/11/2023 [...] 03/11/2023 Assessment & Plan (06/24/2022 4:54 PM FABRIC INSPECTOR): Recent diagnosis-advised to stop Mucinex DM and [...] 03/11/2023 Assessment & Plan (06/24/2022 5:02 PM FABRIC INSPECTOR): Chronic, with recent exacerbation, uncontrolled-declined addition of [...] appointment. Assessment & Plan (05/27/2022 10:29 PM FABRIC INSPECTOR): Chronic, with acute exacerbation, uncontrolled, with symptoms [...] symptoms.ation- Diabetic neuropathy, type II diabetes mellitus ([facility]) 03/01/2022 03/03/2022 Diarrhea of infectious origin 01/27/2022 [...] 09/13/202110/05 Assessment & Plan (09/13/2021 3:28 PM FABRIC INSPECTOR): Acute, persistent despite round of oral antibiotics, [...] 11/29/2021 Assessment & Plan (08/27/2021 12:11 PM FABRIC INSPECTOR): Acute-started on an antibiotic, advised to take medication as directed. Instructed to increase clear liquids, rest, and vitamin C in diet. Recommended follow-up if symptoms worsen, don't improve, or new symptoms develop. Right ear pain 08/27/2021 11/29/2021 Assessment & Plan (09/13/2021 3:28 PM FABRIC INSPECTOR): Acute, persistent despite round of oral antibiotics, with resolution of sinus symptoms -started on Floxin ear drops to right ear twice daily as directed. A referral was also made to Dr. Brad Farr, recommended scheduling an appointment in the event ear pain and discharge do not resolve with antibiotic ear drops, provided with the office number. Assessment & Plan (08/27/2021 12:10 PM FABRIC INSPECTOR): Acute-see plan of care for right acute serous otitis media. Can take Tylenol as directed as needed for pain. Acute recurrent frontal sinusitis 08/27/2021 03/01/2022 Assessment & Plan (08/27/2021 12:11 PM FABRIC INSPECTOR): Acute-advised to take Zpak as directed. Instructed [...] normal. Assessment & Plan (09/13/2021 3:26 PM FABRIC INSPECTOR): Recent onset, stable, previously referred to neurology on 08/20/21, states has not received a call-provided with number to call [facility] in [place]. Assessment & Plan (08/20/2021 5:55 PM FABRIC INSPECTOR): Recent onset, new problem-sensation intact but diminished [...] normal. Assessment & Plan (09/13/2021 3:26 PM FABRIC INSPECTOR): Recent onset, stable, previously referred to neurology on 08/20/21, states has not received a call-provided with number to call [facility] in [place]. Assessment & Plan (08/20/2021 5:55 PM FABRIC INSPECTOR): Recent onset, new problem-sensation intact but diminished [...] CMP. Assessment & Plan (07/31/2021 7:51 AM FABRIC INSPECTOR): Recent onset over weekend-referred to a manager beauty for evaluation of bradycardia, palpitations, and shortness of breath with exertion. Advised to go to ER for worsening symptoms of palpitations and shortness of breath or for new onset chest pain/tightness, wheezing/difficulty breathing, chills, sweats, fever, back pain, or nausea. Bradycardia 07/27/2021 03/01/2022 Assessment & Plan (08/20/2021 5:46 PM FABRIC INSPECTOR): Recent onset, episodic, bradycardia since COVID-19 infection in 07/2021, normal at today's visit (69 beats/minute)-referred to manager beauty previously with 1st visit today, echocardiogram and 48 hour Holter monitor planned for future, encouraged compliance with recommendations made by manager beauty. Assessment & Plan (07/31/2021 7:51 AM FABRIC INSPECTOR): Recent onset prior to monoclonal antibody infusion on 07/11/2021-referred to a manager beauty for evaluation of bradycardia, palpitations, and shortness of breath with exertion. Advised to go to ER for worsening symptoms of palpitations and shortness of breath or for new onset chest pain/tightness, wheezing/difficulty breathing, chills, sweats, fever, back pain, or nausea. Assessment & Plan (07/27/2021 7:07 AM FABRIC INSPECTOR): New problem/finding-recommended follow-up with Cardiology as suggested upon discharge from the ER for further evaluation and management. COVID-19 07/10/2021 03/11/2023 Assessment & Plan (09/10/2022 10:37 AM FABRIC INSPECTOR): Acute-started on Paxlovid. Advised to continue to [...] regarding Paxlovid was sent to patient via icomply, instructed to read carefully and call if has any questions. The [facility] in [place] was notified that patient would be coming by for official testing mandated by her employer to confirm her at-home test results. Instructed that to go to ER and/or call 911 if short of breath, and/or have chest pain, tightness, or wheezing not relieved with your inhalers or nebulizer treatments. Assessment & Plan (07/27/2021 7:07 AM FABRIC INSPECTOR): Diagnosed with COVID-19 on 07/08/2021 with symptoms starting on Brittany, now with symptoms consistent with a sinus infection, see plan of care for acute recurrent pansinusitis. Assessment & Plan (07/23/2021 12:26 PM FABRIC INSPECTOR): Acute, s/p monoclonal antibody infusion, improving until [...] 08/20/2021 Assessment & Plan (2021 3:15 PM FABRIC INSPECTOR): Worsening chronic right shoulder pain, status post [...] 08/20/2021 Assessment & Plan (07/23/2021 12:25 PM FABRIC INSPECTOR): Acute, resolved-informed that insurance declined MRI of right shoulder, however states right shoulder pain has resolved. Advised if right shoulder pain returns, to notify office and an x-ray of the right shoulder can be ordered and a referral can be made to PT. Assessment & Plan (2021 3:15 PM FABRIC INSPECTOR): Acute on chronic right shoulder pain, status [...] 03/11/2023 Assessment & Plan (08/30/2022 3:46 PM FABRIC INSPECTOR): Rapid COVID and flu negative PCR pending [...] referral was made to an ENT and financial operations consultant for further evaluation and management of recurrent sinusitis. Started on prednisone as directed. Advised against taking a decongestant due to high blood pressure, but can use nasal saline spray and continue antihistamine. Acute recurrent pansinusitis 11/03/2020 03/25/2024 Assessment & Plan (07/16/2023 6:10 AM FABRIC INSPECTOR): Started on prednisone burst and Levaquin, discussed [...] symptoms. Assessment & Plan (07/27/2021 7:06 AM FABRIC INSPECTOR): Started on a Z-David as directed and [...] arm, sequela 01/31/2017 08/20/2021 Multiple allergies 09/17/2015 2 Encounters Date Type Department Care Team Description 08/12/2024 7:35 PM FABRIC INSPECTOR - 08/12/2024 11:59 PM [facility] Hospital Encounter [facility] [address] [place] [address] LUISA (obstructive sleep apnea) Discharge Disposition: Discharge to home or self care 08/10/2024 Telephone [facility] [address] [place] [address] Tess Hanson, [facility] 08/09/2024 Orders Only [facility] [address] [place] [address] Rio Maynard MD LUISA (obstructive sleep apnea) (Primary Dx) 08/05/2024 10:00 AM FABRIC INSPECTOR - 08/05/2024 11:59 PM [facility] Hospital Encounter [facility] [address] [place] [address] LUISA (obstructive sleep apnea) Discharge Disposition: Discharge to home or self care 07/20/2024 4:03 PM FABRIC INSPECTOR - 07/20/2024 11:59 PM FABRIC INSPECTOR Hospital Encounter [facility] [address] [place] [address] Acute pain of left hip Discharge Disposition: Discharge to home or self care 07/20/2024 3:15 PM FABRIC INSPECTOR Office Visit [facility] at [address] [place] [address] Sonal Santos NP Acute pain of left hip (Primary Dx); Cutaneous candidiasis; Type 2 diabetes mellitus treated without insulin ([facility]) ([facility]) 07/20/2024 Nurse Triage [facility] at [address] [place] [address] Sonal Santos NP 06/10/2024 1:45 PM FABRIC INSPECTOR Office Visit [facility] at [address] [place] [address] Sonal Santos NP Acute sinusitis, recurrence not specified, unspecified location (Primary Dx); Class 2 severe obesity due to excess calories with serious comorbidity and body mass index (BMI) of 39.0 to 39.9 in adult ([facility]); Essential hypertension 06/08/2024 Telephone [facility] at [address] [place] [address] Sonal Santos NP Questions on Care 06/02/2024 Telephone [facility] [address] [place] [address] [address] [place] [address] Sonal Santos NP 05/31/2024 2:15 PM FABRIC INSPECTOR Office Visit [facility] [address] [place] [address] Leslie Florian NP LUISA (obstructive sleep apnea) (Primary Dx); Dyspnea on exertion 05/31/2024 Telephone [facility] [address] [place] [phone] Rio Maynard MD Orders Only from Last 3 Months Immunizations Name Administration Dates Next Due Influenza, Unspecified 04/13/2024(Deferr ed: Patient Refused),03/11/2023(Deferred: Patient Refused),04/06/2022(Deferred: Patient Refused) Pfizer SARS-CoV-2 Monovalent Vaccination (12+ Yrs) PURPLE 09/22/2020,08/31/2020 Pneumococcal Polysaccharide PPV23 03/17/2018 Tdap 08/07/2017 Surgical History Surgery Date Site/Laterality Comments KNEE ARTHROSCOPY Right MYRINGOTOMY W/ TUBES Medical History Medical History Date Comments Diabetes mellitus (HCC) Hyperlipidemia Hypertension Asthma Irregular heartbeat Covid-19 07/10/2021 Unspecified injury of right shoulder and upper a rm, sequela 01/31/2017 Allergic rhinitis HL (hearing loss) Herpes zoster without complication 11/27/2021 Bradycardia 07/27/2021 Multiple allergies 09/17/2015 Superior glenoid labrum lesion of right shoulder 01/31/2017 Arthritis Numbness of fingers of both hands 08/20/2021 Numbness of toes 08/20/2021 Saha hemangioma 12/28/2023 COVID-19 long hauler manifesting chronic fatigue 02/20/2023 COVID-19 long hauler manifesting chronic joint p ain 02/20/2023 Seborrheic keratoses 12/28/2023 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 02/20/2023 Family History Medical History Relation Name Comments Diabetes Father Dad Heart disease Father Dad Hypertension Father Dad Heart disease Mother Mom Relation Name Status Comments Father Dad Alive Mother Mom Alive Social History Tobacco Use Types Packs/Day Years [...] Orientation Straight 04/03/2021 5: 22 PM CDT Obstetrics History Para Term AB IAB SAB Ectopic Multiple Livin g Live Births 2 1 1 Date Outcome GA Total Labor Labor/2nd/3rd Weight Sex Type Anes PTL Angela A1 A5 Name Clin Term Last Filed Vital Signs Vital Sign Reading Time Taken Comments Blood Pressure 120/88 07/20/2024 3:09 PM FABRIC INSPECTOR Pulse 89 07/20/2024 3:09 PM FABRIC INSPECTOR Temperature 36.9 C (98.5 F) 07/20/2024 3:09 PM FABRIC INSPECTOR Respiratory Rate 14 07/20/2024 3:09 PM FABRIC INSPECTOR Oxygen Saturation 97% 07/20/2024 3:09 PM FABRIC INSPECTOR Inhaled Oxygen Concentration - - Weight 112.9 kg (249 lb) 07/20/2024 3:09 PM FABRIC INSPECTOR Height 170.2 cm (5' 7.01 ) 07/20/2024 3:09 PM CS T Body Mass Index 38.99 07/20/2024 3:09 PM FABRIC INSPECTOR Plan of Treatment Health Maintenance Due Date Last Done Comments Cervical Cancer Screening 1968 Hepatitis C Screening 1968 Dilated Eye Exam 1968 Hepatitis B Screening 1986 Zoster Vaccine (1 of 2) 2018 Pneumococcal vaccine <65 (2 of 2 - PCV) 03/17/2019 03/17/2018 Albumin Creatinine Ratio, Urine 08/18/2022 08/18/2021 Lipid Panel 02/16/2023 02/16/2022, 08/18/2021 Breast Cancer Screening-Mammogram 07/12/2023 07/12/2022, 03/24/2021, 04/02/2018, Additional history exists Colon Cancer Screening-Colonoscopy 02/08/2024 Covid-19 Vaccine ( season) 2024 09/22/2020, 08/31/2020 eGFR 11/27/2024 11/28/2023, 05/08, 05/16/2023, Additional history exists Influenza Vaccine (#1) 2025 Postp oned from 03/07/2024 (Patient declined, but will receive in the future) Hemoglobin A1C 01/17/2025 07/20/2024, 03/07, 12/25/2023, Additional history exists Depression Screening 03/25/2025 03/25/2024, 03/11/2023, 03/11/2023, Additional history exists Foot Exam 03/25/2025 03/25/2024, 11/2022, 08/20/2021, Additional history exists Regular Well Visit/Exam 18-64 03/25/2025 03/25/2024, 03/11/2023, 03/01/2022 DTaP/Tdap/Td Vaccine (2 - Td or Tdap) 08/07/2027 08/07/2017 Procedures Procedure Name Priority Date/Time Associated Diagnosis Comments PORTABLE/HOME SLEEP STUDY Routine 08/05/2024 10:00 AM FABRIC INSPECTOR LUISA (obstructive sleep apnea) XR HIP LEFT 2 OR 3 VIEWS Schedule Routine, Read Routine (OP Routine) 07/20/2024 4:23 PM FABRIC INSPECTOR Acute pain of left hip POCT HEMOGLOBIN A1C Routine 07/20/2024 2:30 PM FABRIC INSPECTOR Type 2 diabetes mellitus treated without insulin (CMS/HCC) (HCC) EGFR STAT 11/28/2023 9:55 PM CDT SCREENING MAMMOGRAM BILATERAL W GURWINDER Schedule Routine, Read Routine (OP Routine) 07/12/2022 2:38 PM FABRIC INSPECTOR Encounter for screening mammogram for malignant neoplasm of breast LIPID PANEL Routine 02/16/2022 9:48 AM CDT Mixed hyperlipidemia ALBUMIN CREATININE RATIO, URINE Routine 08/18/2021 9:12 AM FABRIC INSPECTOR Type 2 diabetes mellitus treated without insulin (CMS/HCC) (HCC) from Last 3 Months or Most Recently Relevant to Health Maintenance Results * Portable/Home Sleep Study (08/05/2024 10:00 AM FABRIC INSPECTOR) us Leslie Florian [facility] ORDERABLES Final Result [facility] [address] [place], [place] [address] * XR Hip Left 2+ Vw (07/20/2024 4:23 PM FABRIC INSPECTOR) Anatomical Region Laterality Modality Lower Extremities, Hip, Pelvis Left C omputed Radiography 07/21/2024 3:54 PM FABRIC INSPECTOR Narrative 07/21/2024 3:56 PM FABRIC INSPECTOR EXAM DESCRIPTION: XR HIP LEFT 2 OR [...] signed by David BASSETT: DANYELLE Report ID: [id number] Reading Location: [id number] Procedure Note Fran Maharaj MD - 07/21/2024 [...] 3:56 PM - Electronically signed by David Maharaj M.D. DANYELLE: DANYELLE Report ID: [id number] Reading Location: [id number] Sonal Santos NP IMG XR PROCEDURES Final Result * (ABNORMAL) POCT hemoglobin A1c (07/20/2024 2:30 PM FABRIC INSPECTOR) Hemoglobin A1C, POC 6.6 4.0 - 5.6 % Comment:Lot [id number] Exp 080 126 Blood 07/20/2024 2:30 PM FABRIC INSPECTOR Sonal Santos NP POINT OF CARE TEST ORDERABLES Fi nal Result * eGFR (11/28/2023 9:55 PM CDT) eGFR >90 >=60 mL/min/1. 73 m2 Comment: [...] 9:55 PM CDT 11/28/2023 10:08 PM CDT Wilfredo Castillo MD LAB BLOOD ORDERABLES Final Res ult [facility] [place] [address] * SCREENING MAMMOGRAM BILATERAL W GURWINDER (07/12/2022 2:38 PM FABRIC INSPECTOR) Anatomical Region Laterality Modality Breast Bilateral Mammography Impressions 07/12/2022 2:50 PM FABRIC INSPECTOR BI-RADS ATLAS category (overall): 1 - Negative There is no mammographic evidence of malignancy. A 1 year screening mammogram is recommended. The patient has been or will be contacted. We recommend annual screening mammography for women at average risk of breast cancer beginning at age 40, based on guidelines of the [employer] (ACR Practice Parameter for the Performance of Screening and Diagnostic Mammography) and [place] [employer] of Obstetricians and Gynecologists. For women with and elevated risk of breast cancer, please refer to the ACR Practice Parameter for specific screening recommendations. The patient will be entered into a reminder system with a target due date of 1 year for her next screening exam. Narrative 07/12/2022 2:50 PM FABRIC INSPECTOR SCREENING MAMMOGRAM BILATERAL W GURWINDER: 07/12/22 The [...] last revised on 2018. Testing performed by: [address] [address] Triglycerides 246(H) <=149 mg/dL CAR Comment: Interpretive Data Ages < [...] last revised on 2018. Testing performed by: [address] [address] HDL 37(L) >=40 mg/dL CAR Comment: Interpretive [...] last revised on 2018. Testing performed by: [address] [address] LDL, calculated 67 <=129 mg/dL CAR Comment: [...] last revised on 2018. Testing performed by: [address] [address] Non-HDL Cholesterol 116 mg/dL CAR TO Comment: Interpretive Data Ages [...] last revised on 2018. Testing performed by: [address] [address] Chol/HDL ratio 4 CAR TO Comment:Testing performed by : [address] [address] Blood 02/16/2022 9:48 AM CDT 02/16/2022 9:58 AM CDT us Sonal Santos NP LAB BLOOD ORDERABLES Final Resul t CAR [address] [facility] Department of Laboratories [place], [place] [id number] * Albumin Creatinine Ratio, Urine (08/18/2021 9:12 AM FABRIC INSPECTOR) Albumin Ur <12.0 mg/L CAR TO Comment: Interpretive Data No reference range established. Current interpretive data was last revised 2018. Testing performed by: [address] [address] Creatinine Ur 138.2 mg/dL CAR TO Comment: Interpretive Data No reference range established. Current interpretive data was last revised 2018. Testing performed by: [facility], [address] [place] [address]., [address] Albumin Creatinine Ratio, Ur <9 1 - 29 mg/g CAR TO Comment:Testing performed by : [facility], [address] [place] [address]., [address] Urine 08/18/2021 9:12 AM FABRIC INSPECTOR 08/18/2021 10:08 AM FABRIC INSPECTOR us Sonal Santos ENGINEER SERGEANT LAB URINE ORDERABLES Final Resul t CAR TO [address] [facility] Department [place] [address] from Last 3 Months or Most Recently Relevant to Health Maintenance Insurance [facility] Care Teams Dry Kiln Operator Relationship Specialty Start Date End Date Sonal Santos NP [address] [place] [id number] PCP - General Family Practice 11/03/20 Valeria Charlton, [facility] [address] [facility] [address] Outpatient Dietitian Infectious Diseases 02/17/23
--- OUTSIDE RECORDS SUMMARY | 2024-08-13 07:54 | XMS_ITS | Referral Summary ---
Author Organization [facility] Address [address] [place] [address] Care Team Providers Care Applied Exercise Physiologist Name Role Phone Alfonso Tena MD Primary Care Provider [phone] Source Comments [facility],non-owned Affiliates and Associated Physician Practices is amultiple site organization consisting of ambulatory clinics and hospital sitesin [place], [place], [place] and [place]. This disclosure is being madepursuant to the Care Everywhere program and may not contain all information available regarding this patient. Last updated 18.[facility] Allergies Active Allergy Reactions Criticality Noted Date Comments Latex Skin Reactions 06/10/2022 Penicillins Other High 06/12/2020 Infection yeast Medications * Be aware that medications may not be up to date on this document. Alwaysverify current medications with the patient. Medication Sig Dispensed Refills Start Date End Date Status omeprazole EC (PRILOSEC OTC) 20 MG tablet Take by mouth. 01/31/2017 Act purnima montelukast (SINGULAIR) 10 MG tablet Take by mouth. 01/31/2017 Active gabapentin (NEURONTIN) 100 MG capsule Take by mouth. 01/31/2017 Active cetirizine (ZYRTEC) 10 MG tablet Take by mouth. 01/31/2017 Active meloxicam (MOBIC) 7.5 MG tablet Take by mouth. 01/31/2017 Active lisinopril (PRINIVIL; ZESTRIL) 2.5 MG tablet Take by mouth. 01/31/2017 Active metFORMIN (GLUCOPHAGE) 500 MG tablet 05/29/2020 Active FLOVENT HFA 110 MCG/ACT inhaler 10/25/2019 Active albuterol HFA (PROVENTIL;VENTOLIN;PROAI R) 108 (90 Base) MCG/ACT inhaler 03/15/2020 Active Active Problems Problem Noted Date Diagnosed Date Unspecified injury of right shoulder and upper a rm, sequela 01/31/2017 Superior glenoid labrum lesion of right shoulder 01/31/2017 Social History Tobacco Use Types Packs/Day Years Used Date Smoking Tobacco: Never Smokeless Tobacco: Never Tobacco Cessation:Counseling Given: No Alcohol Use Standard Drinks/Week Comments No 0 (1 standard drink = 0.6 oz pur e alcohol) Sex and Gender Information Value Date Recorded Sex Assigned at Not on file Gender Identity Not on file Sexual Orientation Not on file Last Filed Vital Signs Vital Sign Reading Time Taken Comments Blood Pressure 147/89 06/10/2022 3:49 PM HOT TAMALE WORKER Pulse 84 06/10/2022 3:49 PM HOT TAMALE WORKER Temperature 36.7 C (98.1 F) 06/10/2022 3:49 PM HOT TAMALE WORKER Respiratory Rate 18 06/10/2022 3:49 PM HOT TAMALE WORKER Oxygen Saturation 100% 06/10/2022 3:49 PM HOT TAMALE WORKER Inhaled Oxygen Concentration - - Weight 113.4 kg (250 lb) 06/10/2022 3:49 PM HOT TAMALE WORKER Height 172.7 cm (5' 8 ) 06/10/2022 3:49 PM HOT TAMALE WORKER Body Mass Index 38.01 06/10/2022 3:49 PM HOT TAMALE WORKER Plan of Treatment Not on file Care Teams Applied Exercise Physiologist Relationship Specialty Start Date End Date Alfonso Tena MD [address] [place] [address] PCP - General 01/31/17
--- OUTSIDE RECORDS SUMMARY | 2024-08-13 07:54 | XMS_ITS | Clinical Summary ---
Author Organization [facility] Address [facility] [place] [address] Care Team Providers Care Letter Carrier Name Role Phone Alfonso Tena MD Primary Care Provider Un available Allergies Active Allergy Reactions Criticality Noted Date Comments Latex Rash Low 03/22/2019 Medications cetirizine 10 MG tablet Take 10 mg by mouth nightly at bedtime. Active omeprazole 40 MG capsule Take 40 mg by mouth nightly at bedtime. Active naproxen 500 MG tabletIndications :Acute right ankle pain One tab po q 12 hours prn pain. Take with food. 30 tablet 9 Active promethazine-dext romethorphan 6.25-15 MG/5ML syrup Take 5 mLs by mouth 4 (four) times daily as needed for Cough. 118 mL 9 Active lisinopril-hydroC HLOROthiazide 20-25 MG tabletIndications :Essential hypertension Take 1 tablet by mouth daily. 90 tablet 3 0 Active fluticasone (FLOVENT HFA) 110 MCG/ACT inhalerIndication s:Moderate persistent asthma without complication (HHS/HCC) Inhale 1 puff into the lungs 2 (two) times daily. 1 Inhaler 2 0 Active fluticasone propionate (FLOVENT HFA) 220 MCG/ACT inhalerIndication s:Moderate persistent asthma without complication (HHS/HCC),Moderat e persistent asthma with exacerbation (HHS/HCC) Inhale 1 puff into the lungs 2 (two) times daily. 1 Inhaler 5 0 Active predniSONE 20 MG tabletIndications :Moderate persistent asthma without complication (HHS/HCC),Acute non-recurrent sinusitis, unspecified location Take 3 tablets daily for 4 days, then 2 daily for 4 days, then 1 daily for 4 days, then 1/2 tablet daily for 4 days. 26 tablet 0 Active tiZANidine HCl 4 MG CapIndications:Tr ochanteric bursitis of right hip,Nonintractabl e headache, unspecified chronicity pattern, unspecified headache type Take 1 tablet by mouth 3 (three) times daily as needed. For headache or muscle spasms 50 capsule 1 0 Active albuterol sulfate HFA (VENTOLIN HFA) 108 (90 Base) MCG/ACT inhalerIndication s:Asthma, moderate persistent (HHS/HCC) Inhale 2-4 puffs into the lungs every 4 (four) hours as needed. 3 Inhaler 3 0 Active predniSONE 20 MG tabletIndications :Moderate persistent asthma with acute exacerbation (HHS/HCC) Take 3 tablets daily for 4 days, then 2 daily for 4 days, then 1 daily for 4 days, then 1/2 tablet daily for 4 days. 26 tablet 0 Active MONTELUKAST 10 MG tabletIndications :Acute sinusitis, recurrence not specified, unspecified location TAKE 1 TABLET DAILY. 90 tablet 3 0 Active SERTRALINE 50 MG tabletIndications :Depression with anxiety TAKE ONE TABLET BY MOUTH EVERY DAY 90 tablet 2 0 Active metFORMIN 500 MG tabletIndications :Type 2 diabetes mellitus with hyperglycemia, without long-term current use of insulin ([facility] HHS/HCC) Take 1 tablet by mouth once daily with evening meal to control of diabetes 90 tablet 3 0 Active azithromycin 250 MG tablet Take 2 tablets by mouth on day one then 1 daily for four days. 6 tablet 1 Active guaiFENesin ER (MUCINEX) 600 MG 12 hr tablet Take 2 tablets (1,200 mg total) by mouth 2 (two) times daily. 28 tablet 1 Active Active Problems Patient Care Coordination No te Formatting of this note migh t be different from the original. HTN, asthma Problem Noted Date Diagnosed Date Major depressive disorder in full remission, unspecified whether recurrent 05/29/2020 Moderate persistent asthma without complication ([facility]) 05/29/2020 Depression with anxiety 03/19/2018 Overview (05/19/2018): Transitioned From: Adjustment disorder with anxiety BMI 40.0-44.9, adult ([facility]) 8 Overview (05/19/2018): Transitioned From: Obesity (BMI 30-39.9) Arthritis of foot 10/14/2017 Superior glenoid labrum lesion of right shoulder 01/31/2017 Glenoid labrum tear 12/24/2016 Knee osteoarthritis 11/07/2016 Overview (05/19/2018): Transitioned From: Knee pain Knee internal derangement, right 11/29/2015 Overview (05/19/2018): Transitioned From: Knee injury, subsequent encounter Allergic rhinitis 09/17/2015 Multiple allergies 09/17/2015 Chronic sinusitis with recurrent bronchitis 07/2014 Overview (05/19/2018): Transitioned From: Subacute maxillary sinusitis Gastroesophageal reflux dise ase, esophagitis presence not specified 06/06/2015 LUISA (obstructive sleep apnea) 03/07/2015 Essential hypertension 09/07/2014 Immunizations Name Administration Dates Next Due Pneumococcal (Pneumovax 23) 03/17/2018 Tdap (Generic) 08/07/2017 Family History Medical History Relation Comments Diabetes Father Heart Disease Father Hypertension Father Heart Disease Mother Hypertension Mother Breast Cancer Other m/great aunt Relation Status Comments Father Alive Mother Alive Other Social History Tobacco Use Types Packs/Day Years Used Date Smoking Tobacco: Never Smokeless Tobacco: Never Alcohol Use Standard Drinks/Week Comments No 0 (1 standard drink = 0.6 oz pur e alcohol) PHQ-2 Answer Date Recorded PHQ-2 Score - If the patient scores above 3, please move on to questions 3-9 0 04/27/2020 Comments No Sex and Gender Information Value Date Recorded Sex Assigned at Not on file Legal Sex Female 3:40 AM CDT Gender Identity Not on file Sexual Orientation Not on file Last Filed Vital Signs Vital Sign Reading Time Taken Comments Blood Pressure 147/70 10/18/2020 9:03 PM CDT Pulse 64 10/18/2020 9:03 PM CDT Temperature 36.3 C (97.4 F) 10/18/2020 5:42 PM CDT Respiratory Rate 18 10/18/2020 9:03 PM CDT Oxygen Saturation 99% 10/18/2020 9:03 PM CDT Inhaled Oxygen Concentration - - Weight 110.7 kg (244 lb) 10/18/2020 5:42 PM CDT Height 172.7 cm (5' 8 ) 10/18/2020 5:42 PM CDT Body Mass Index 37.1 10/18/2020 5:42 PM CDT Plan of Treatment Health Maintenance Due Date Last Done Comments Cervical Cancer Screening Pa p Smear (Age 30 to 64) Every 3 Years 1968 Colorectal Cancer Screening Colonoscopy (10 Years) 1968 Hepatitis B Vaccines (1 of 3 - 19+ 3-dose series) 1987 Cervical Cancer Screening Pa p with HPV Testing (Age 30 to 64) Every 5 Years 1998 Cervical Cancer Screening wi th HPV 1998 Zoster Vaccines (1 of 2) 2018 Pneumococcal Vaccine: Pediatrics (0 to 5 Years) and At-Risk Patients (6 to 64 Years) (2 of 2 - PCV) 03/17/2019 03/17/2018 Annual Physical 05/29/2021 05/29/2020 COVID-19 Vaccine (3 - 2023-2 5 season) 2024 09/22/2020, 08/31/2020 Influenza Adult (#1) 2024 Mammogram Screening 07/12/2024 07/12/2022, 04/02/2018, 04/02/2018 DTaP, Tdap and Td Vaccines ( 2 - Td or Tdap) 08/07/2027 08/07/2017 Hepatitis C Completed 05/29/2020 Meningococcal B Vaccine Aged Out No l onger eligible based on patient's age to complete this topic Meningococcal Vaccine Aged Out No beatriz martell eligible based on patient's age to complete this topic RSV Immunizations Under 20 Months Aged Out No longer eligible b ased on patient's age to complete this topic Procedures Procedure Name Priority Date/Time Associated Diagnosis Comments MAMMOGRAM GENERIC (SCAN ORDER) Routine 07/12/2022 HEPATITIS C ANTIBODY W/RFX TO HCV RNA Routine 05/29/2020 10:56 AM CORE COMPOSER FEEDER Need for hepatitis C screening test from Last 3 Months or Most Recently Relevant to Health Maintenance Results * MAMMOGRAM (07/12/2022) Anatomical Region Laterality Modality Other [facility] Scanned SCANNING Final Resu lt * HEPATITIS C ANTIBODY W/RFX TO HCV RNA ([facility] ONLY) (05/29/2020 10:56 AM CORE COMPOSER FEEDER) HEPATITIS C AB NON-REACTI VE NON-REACT MARYJANE [facility] SIGNAL TO CUTOFF 0.25 <[address] [facility] Comment: HCV antibody was non-reactive. There is no laboratory evidence of HCV infection. In most cases, no further action is required. However, if recent HCV exposure is suspected, a test for HCV RNA (test code 58464) is suggested. For additional information please refer to http://education.[employer]/faq/HOQ81f3 (This link is being provided for informational/ educational purposes only.) 05/29/2020 10:5 6 AM CORE COMPOSER FEEDER 05/30/2020 4:44 AM CORE COMPOSER FEEDER Alfonso Tena MD LABORATORY Final Res ult [facility] [address] [place] [address] from Last 3 Months or Most Recently Relevant to Health Maintenance Insurance Care Teams Letter Carrier Relationship Specialty Start Date End Date Alfonso Tena MD PCP - General FAMILY PRACTICE 02/13/21
--- OUTSIDE RECORDS SUMMARY | 2024-08-13 07:54 | XMS_ITS | Encounter Summary ---
Author Organization [facility] Address [address] [place] [address] Care Team Providers Care Wind Farm Support Specialist Name Role Phone Sonal Santos NP Primary Care Provider [phone] Reason for Referral * Sleep Medicine (Routine) - Closed Specialty Diagnoses / Procedures Referred By Tash t Referred To Contact Diagnoses LUISA (obstructive sleep apnea) Procedures PSG-Sleep Provider Use Only Rio Maynard MD [address] [place] [address] DR KATZ [address] [place] [address] Phone: tel: fax: [facility] [address] [place] [address] Phone: tel: fax: Referral ID Status Reason Start Date Expiration Date Visits Re quested Visits Authorized [id number] Closed 08/09/2024 09/08/2025 1 1 TROLOG OPERATOR Reason for Visit * Sleep Medicine (Routine) - Closed Specialty Diagnoses / Procedures Referred By Contac t Referred To Contact Diagnoses LUISA (obstructive sleep apnea) Procedures PSG-Sleep Provider Use Only Rio Maynard MD [address] [place] [address] DR KATZ [address] [place] [address] Phone: tel: fax: [facility] [address] [place] [address] Phone: tel: fax: Referral ID Status Reason Start Date Expiration Date Visits Re quested Visits Authorized [id number] Closed 08/09/2024 09/08/2025 1 1 Encounter Details Date Type Department Care Team (Latest Contact Info) Description 08/12/2024 7:35 PM ELECTROLOG OPERATOR - 08/12/2024 11:59 PM [facility] Hospital Encounter [facility] [address] [place] [address] LUISA (obstructive sleep apnea) Discharge Disposition: Discharge to home or self care Social History Tobacco Use Types Packs/Day Years Used Date Smoking Tobacco: Never Cigarettes Smokeless Tobacco: Never PHQ-2 Answer Date Recorded PHQ-2 Total Score [...] Orientation Straight 04/03/2021 5: 22 PM CDT documented as of this encounter Medications at Time of Discharge albuterol HFA (PROVENTIL HFA,VENTOLIN HFA,PROAIR HFA) 90 mcg/actuation inhalerIndications: Dyspnea on exertion,Moderate persistent asthma without complication Inhale 2 puffs every 6 (six) hours as needed for wheezing Fill per patient's formulary 1 each 5 4 06/10/20 25 alcohol swabs pads, medicatedIndication s:Type 2 diabetes mellitus treated without insulin ([facility]) ([facility]) Apply 1 each topically daily 100 each 3 4 blood glucose diagnostic (glucose blood) stripIndications:Ty pe 2 diabetes mellitus treated without insulin ([facility]) ([facility]) 1 each by other route 2 (two) times a day 200 each 3 5 blood-glucose meter miscIndications:Typ e 2 diabetes mellitus treated without insulin ([facility]) ([facility]) Use daily or as directed for monitoring of diabetes. 1 each 4 cetirizine (ZyrTEC) 10 mg tabletIndications:N on-seasonal allergic rhinitis, unspecified trigger,Chronic sinusitis with recurrent bronchitis Take 1 tablet (10 mg total) by mouth daily 30 tablet 5 4 cyclobenzaprine (FLEXERIL) 5 mg tabletIndications:A cute pain of left hip Take 1 tablet (5 mg total) by mouth 3 (three) times a day as needed for muscle spasms 30 tablet 5 09/19/19 25 fluticasone propion-salmeteroL (ADVAIR DISKUS) 250-50 mcg/dose diskus inhalerIndications: Dyspnea on exertion,Moderate persistent asthma without complication Inhale 1 puff 2 (two) times a day Rinse mouth with water after use. Do not swallow. 60 each 4 09/18/19 25 gabapentin (NEURONTIN) 300 mg capsuleIndications: Bilateral sciatica Take 1 capsule (300 mg total) by mouth 3 (three) times a day 90 capsule 5 4 09/22/19 25 ipratropium-albuter oL (DUO-NEB) 0.5-2.5 mg/3 mL nebulizer solutionIndications :Chronic Obstructive Pulmonary Disease with Bronchospasms Take 3 mL by nebulization every 6 (six) hours 75 mL 5 4 lisinopril-hydroCHL OROthiazide (ZESTORETIC) 20-25 mg per tabletIndications:E ssential hypertension Take 1 tablet by mouth daily 30 tablet 5 4 meloxicam (MOBIC) 15 mg tabletIndications:C hronic pain of both shoulders Take 1 tablet (15 mg total) by mouth daily 30 tablet 4 metFORMIN (GLUCOPHAGE) 500 mg tabletIndications:T ype 2 diabetes mellitus treated without insulin ([facility]) ([facility]) TAKE ONE TABLET BY MOUTH EVERY MORNING and TAKE TWO TABLETS BY MOUTH EVERY EVENING 90 tablet 3 5 montelukast (SINGULAIR) 10 mg tabletIndications:M oderate persistent asthma without complication,Non-se asonal allergic rhinitis, unspecified trigger,Chronic sinusitis with recurrent bronchitis Take 1 tablet (10 mg total) by mouth nightly 30 tablet 5 4 09/22/19 25 nystatin powderIndications:C utaneous candidiasis Apply topically 3 (three) times a day as needed (to rash beneath left breast) 60 g 1 5 omeprazole (PriLOSEC) 40 mg capsuleIndications: Gastroesophageal reflux disease, unspecified whether esophagitis present Take 1 capsule (40 mg total) by mouth daily 30 capsule 5 4 OneTouch Delica Plus Lancet 30 gauge miscIndications:Typ e 2 diabetes mellitus treated without insulin ([facility]) (HCC) Inject 1 each under the skin 2 (two) times a day 200 each 3 5 potassium chloride ER 10 mEq CR tabletIndications:H ypokalemia Take 1 tablet/capsule (10 mEq total) by mouth daily 30 tablet 5 4 rosuvastatin (CRESTOR) 10 mg tabletIndications:M ixed hyperlipidemia TAKE 1 TABLET BY MOUTH ONCE A DAY IN THE EVENING 30 tablet 5 4 sertraline (ZOLOFT) 50 mg tabletIndications: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 (HCC) Take 1 tablet (50 mg total) by mouth daily 30 tablet 5 4 documented as of this encounter Discharge Disposition Disposition Code Departure Means Destination Discharge to home or self care documented in this encounter Plan of Treatment Scheduled Orders Name Type Priority Associated Diagnoses Orde r Schedule PSG-Sleep Provider Use Only Sleep Center Routine LUISA (obstructive sleep apnea) Once for 1 Occurrences starting 08/12/2024 until 08/12/2024 documented as of this encounter Visit Diagnoses Diagnosis LUISA (obstructive sleep apnea) Obstructive sleep apnea (adult) (pediatric) documented in this encounter Care Teams Wind Farm Support Specialist Relationship Specialty Start Date End Date Sonal Santos NP [address] [place] [address] PCP - General Family Practice 11/03/20 Valeria Charlton LCSW [address] [facility] [address] Nailer Operator Infectious Diseases 02/17/23 documented as of this encounter
--- OUTSIDE RECORDS SUMMARY | 2024-08-13 07:54 | XMS_ITS | Clinical Summary ---
Author Organization [facility] Address [address] [place] [phone] Phone Care Team Providers Care Exhibitions Curator Name Role Phone Unavailable Primary Care Provider Unavailabl e Social History Tobacco Use Types Packs/Day Years Used Date Smoking Tobacco: Never Assessed Comments Unknown Sex and Gender Information Value Date Recorded Sex Assigned at Not on file Legal Sex Female 8:46 AM CDT Gender Identity Not on file Sexual Orientation Not on file Plan of Treatment Not on file
--- OUTSIDE RECORDS SUMMARY | 2024-08-13 07:54 | XMS_ITS | Clinical Summary ---
Author Organization [facility] Address [address] [place] [address] Care Team Providers Care Solderer Torch Name Role Phone Alfonso Tena MD Primary Care Provider [phone] Source Comments [facility],non-owned Affiliates and Associated Physician Practices is amultiple site organization consisting of ambulatory clinics and hospital sitesin [place], [place], [place] and [place]. This disclosure is being madepursuant to the Care Everywhere program and may not contain all information available regarding this patient. Last updated 18.[facility] Allergies Active Allergy Reactions Criticality Noted Date [...] glenoid labrum lesion of right shoulder 01/31/2017 Family History Medical History Relation Name Comments Atrial Fibrillation Father CAD (Coronary Artery Disease) Father Diabetes - Type 2 Father CAD (Coronary Artery Disease) Mother Relation Name Status Comments Father Mother Social History Tobacco Use Types Packs/Day Years [...] Comments Blood Pressure 147/89 06/10/2022 3:49 PM LUMBER CUTTER Pulse 84 06/10/2022 3:49 PM LUMBER CUTTER Temperature 36.7 C (98.1 F) 06/10/2022 3:49 PM LUMBER CUTTER Respiratory Rate 18 06/10/2022 3:49 PM LUMBER CUTTER Oxygen Saturation 100% 06/10/2022 3:49 PM LUMBER CUTTER Inhaled Oxygen Concentration - - Weight 113.4 kg (250 lb) 06/10/2022 3:49 PM LUMBER CUTTER Height 172.7 cm (5' 8 ) 06/10/2022 3:49 PM LUMBER CUTTER Body Mass Index 38.01 06/10/2022 3:49 PM LUMBER CUTTER Plan of Treatment Health Maintenance Due Date Last Done Comments COLOGUARD (AGES 45-75) - COL ON CA SCREENING 1968 COLON MONITORING 1968 COLONOSCOPY - COLON CA SCREENING 1968 CT COLONOGRAPHY - COLON CA SCREENING 1970 Colorectal Cancer Screening 1970 FIT - COLON CA SCREENING 1968 FLEX SIG - COLON CA SCREENING 1968 LIPID TESTING 1970 MAMMOGRAM 1970 PAP SMEAR 1968 HIV SCREENING 1983 HEPATITIS C SCREENING 06/10/1986 DTAP/TDAP/TD VACCINES (1 - Tdap) 1987 HEPATITIS B VACCINE (1 of 3 - 19+ 3-dose series) 1987 PNEUMOCOCCAL VACCINE 50+ (1 of 1 - PCV) 2018 ZOSTER VACCINE (1 of 2) 2018 COVID-19 VACCINE (3 - 2023-2 5 season) 2024 09/22/2020, 08/31/2020 INFLUENZA VACCINE (#1) 2024 DEPRESSION SCREENING 07/07/2024 HIB VACCINE Aged Out No longer eligi ble based on patient's age to complete this topic HPV VACCINE Aged Out No longer eligi ble based on patient's age to complete this topic MENINGOCOCCAL (Group B) VACCINE Aged Out No longer eligible b ased on patient's age to complete this topic MENINGOCOCCAL VACCINE Aged Out No beatriz martell eligible based on patient's age to complete this topic PNEUMOCOCCAL VACCINE Aged Out No long er eligible based on patient's age to complete this topic Care Teams Solderer Torch Relationship Specialty Start Date End Date Alfonso Tena MD [address] [place] [address] PCP - General 01/31/17
--- OUTSIDE RECORDS SUMMARY | 2024-08-13 07:54 | XMS_ITS | Patient Health Summary ---
Author Organization [facility] Address [address] [place] [address] Care Team Providers Care Lime Kiln Worker Name Role Phone Alfonso Tena MD Primary Care Provider [phone] Note from [facility],non-owned Affiliates and Associated Physician Practices is amultiple site organization consisting of ambulatory clinics and hospital sitesin [place], [place], [place] and [place]. This disclosure is being madepursuant to the Care Everywhere program and may not contain all information available regarding this patient. Last updated 18.[facility] Allergies * Latex(Skin Reactions) * Penicillins(Other) -High Criticality Medications * Be aware that medications may not be up to date on this document. Alwaysverify current medications with the patient. * omeprazole EC (PRILOSEC OTC) 20 MG tablet(Started 01/31/2017) Take by mouth. * montelukast (SINGULAIR) 10 MG tablet(Started 01/31/2017) Take by mouth. * gabapentin (NEURONTIN) 100 MG capsule(Started 01/31/2017) Take by mouth. * cetirizine (ZYRTEC) 10 MG tablet(Started 01/31/2017) Take by mouth. * meloxicam (MOBIC) 7.5 MG tablet(Started 01/31/2017) Take by mouth. * lisinopril (PRINIVIL; ZESTRIL) 2.5 MG tablet(Started 01/31/2017) Take by mouth. * metFORMIN (GLUCOPHAGE) 500 MG tablet(Started 05/29/2020) * FLOVENT HFA 110 MCG/ACT inhaler(Started 10/25/2019) * albuterol HFA (PROVENTIL;VENTOLIN;PROAIR) 108 (90 Base) MCG/ACT inhaler (Started 03/15/2020) Active Problems Problem Noted Date Diagnosed Date [...] Comments Blood Pressure 147/89 06/10/2022 3:49 PM MATERIAL PREPARATION WORKER Pulse 84 06/10/2022 3:49 PM MATERIAL PREPARATION WORKER Temperature 36.7 C (98.1 F) 06/10/2022 3:49 PM MATERIAL PREPARATION WORKER Respiratory Rate 18 06/10/2022 3:49 PM MATERIAL PREPARATION WORKER Oxygen Saturation 100% 06/10/2022 3:49 PM MATERIAL PREPARATION WORKER Inhaled Oxygen Concentration - - Weight 113.4 kg (250 lb) 06/10/2022 3:49 PM MATERIAL PREPARATION WORKER Height 172.7 cm (5' 8 ) 06/10/2022 3:49 PM MATERIAL PREPARATION WORKER Body Mass Index 38.01 06/10/2022 3:49 PM MATERIAL PREPARATION WORKER Procedures * CBC W AUTO DIFFERENTIAL(Performed 06/10/2022) * BASIC METABOLIC PANEL (CALCIUM TOTAL)(Performed 06/10/2022) * XR CHEST 2VW(Performed 06/10/2022) Performed for Dyspnea and respiratory abnormalities * SARS-COV-2 (COVID-19)+INFLU A+B PCR RAPID(Performed 06/10/2022) * PA ECG/REVIEW INTERPRET ONLY(Performed 07/30/2020) Performed for Palpitations * CARDIAC PROCEDURE ORDER(Performed 07/17/2020) * CARDIAC EKG ORDER(Performed 06/28/2020) * PROC EKG IN CLINIC(Performed 06/12/2020) Performed for Palpitations * XR SHOULDER RIGHT 2VW OR MORE(Performed 01/31/2017) Results * (ABNORMAL) CBC W AUTO DIFFERENTIAL (06/10/2022 7:56 PM [facility]) WBC 7.2 3.5 - 10.5 10 3/uL 06/10/2022 8:12 PM [facility] RBC 4.46 3.80 - 5.20 10 6/uL 06/10/2022 8:12 PM [facility] Hemoglobin 13.1 12.0 - 15.6 g/dL 06/10/2022 8:12 PM [facility] Hematocrit 38.3 35.0 - 45.0 % 06/10/2022 8:12 PM [facility] MCV 85.9 80.7 - 98.3 fL 06/10/2022 8:12 PM [facility] MCH 29.4 26.7 - 34.0 pg 06/10/2022 8:12 PM [facility] MCHC 34.2 30.8 - 35.9 g/dL 06/10/2022 8:12 PM [facility] RDW-SD 42.8 36.0 - 50.0 fL 06/10/2022 8:12 PM [facility] RDW-CV 13.7 11.2 - 14.8 % 06/10/2022 8:12 PM [facility] Platelet Count 129(L) 150 - 400 10 3/uL 06/10/2022 8:12 PM [facility] MPV 9.8 9.4 - 12.9 fL 06/10/2022 8:12 PM [facility] Immature Platelet Fraction 1.9 1.1 - 6.2 % 06/10/2022 8:12 PM [facility] nRBC Absolute 0.00 0 10 3/uL 06/10/2022 8:12 PM [facility] nRBC Auto 0.0 0 /100 WBC 06/10/2022 8:12 PM [facility] Neutrophils % 91.9(H) 35.0 - 70.0 % 06/10/2022 8:12 PM [facility] Lymphocytes % 5.7(L) 20.0 - 43.0 % 06/10/2022 8:12 PM [facility] Monocytes % 1.9(L) 5.0 - 13.0 % 06/10/2022 8:12 PM [facility] Eosinophils % 0.0 0.0 - 6.0 % 06/10/2022 8:12 PM [facility] Basophil % 0.1 0.0 - 2.0 % 06/10/2022 8:12 PM [facility] Neutrophils Absolute 6.65 1.60 - 7.00 10 3/uL 06/10/2022 8:12 PM [facility] Lymphocyte Absolute 0.41(L) 1.10 - 3.90 10 3/uL 06/10/2022 8:12 PM [facility] Monocytes Absolute 0.14(L) 0.26 - 1.07 10 3/uL 06/10/2022 8:12 PM [facility] Eosinophils Absolute 0.00 0.00 - 0.47 10 3/uL 06/10/2022 8:12 PM [facility] Basophils Absolute 0.01 0.00 - 0.08 10 3/uL 06/10/2022 8:12 PM [facility] Immature Granulocytes % 0.4 0.0 - 1.0 % 06/10/2022 8:12 PM [facility] Immature Granulocytes Absolute 0.03 06/10/2022 8:12 PM [facility] Blood BLOOD SPECIMEN / Unknown Venipuncture / Unknown 06/10/2022 7:56 PM MATERIAL PREPARATION WORKER 06/10/2022 8:07 PM MATERIAL PREPARATION WORKER Karina Hart MD LAB - HEMATOLOGY ORD ERABLES Performing Organization Address [facility] Co de Phone Number [address] [address], [facility] [phone] * (ABNORMAL) BASIC METABOLIC PANEL (CALCIUM TOTAL) (06/10/2022 7:56 PM MATERIAL PREPARATION WORKER) BUN 14 7 - 26 mg/dL 06/10/2022 8:33 PM [facility] Creatinine 0.67 0.56 - 0.96 mg/dL 06/10/2022 8:33 PM [facility] Sodium 139 136 - 145 mmol/L 06/10/2022 8:33 PM [facility] Potassium 2.5(L) 3.5 - 4.5 mmol/L 06/10/2022 8:33 PM [facility] Chloride 107 98 - 107 mmol/L 06/10/2022 8:33 PM [facility] CO2 18(L) 22 - 29 mmol/L 06/10/2022 8:33 PM [facility] Glucose 235(H) 70 - 115 mg/dL 06/10/2022 8:33 PM [facility] Calcium 9.6 8.4 - 10.2 mg/dL 06/10/2022 8:33 PM [facility] Anion Gap 17 8 - 18 06/10/2022 8:33 PM [facility] BUN/Creatinine Ratio 21 7 - 23 06/10/2022 8:33 PM [facility] Osmolality Calculated 296 270 - 300 mOsm/kg 06/10/2022 8:33 PM [facility] eGFR by CKD-EPI >90 >=90 mL/min/1.7 3 m2 06/10/2022 8:33 PM [facility] Blood BLOOD SPECIMEN / Unknown Venipuncture / Unknown 06/10/2022 7:56 PM MATERIAL PREPARATION WORKER 06/10/2022 8:07 PM MATERIAL PREPARATION WORKER Karina Hart MD LAB - CHEMISTRY ANDREW LOPEZ [facility] Organization Address City/State/ZIP Co de Phone Number [facility] [address] [place] [address], [facility] [phone] * XR CHEST 2VW (06/10/2022 5:07 PM MATERIAL PREPARATION WORKER) Anatomical Region Laterality Modality Chest Radiographic Cinthya ging 06/10/2022 5:20 PM MATERIAL PREPARATION WORKER Impressions 06/10/2022 7:08 PM MATERIAL PREPARATION WORKER IMPRESSION: No acute pulmonary process. Report dictated by Laith Sánchez MD, PhD (college president). I, Jr Smalls MD have personally reviewed and interpreted this examination/study. > Interpreting Provider: Jr Smalls MD on 06/10/2022 7:08 PM Narrative 06/10/2022 7:08 PM MATERIAL PREPARATION WORKER PROCEDURE: XR CHEST 2VW, DATE/TIME OF EXAM: 06/10/2022 5:07 PM, LOCATION [facility] INDICATION: R06.00: Dyspnea and respiratory abnormalities R06.89: Dyspnea and respiratory abnormalities ADDITIONAL CLINICAL INFORMATION: Ordering Provider Reason For Exam: Dyspnea COMPARISON: None. FINDINGS: There is no focal consolidation, pleural effusion, or pneumothorax. The cardiomediastinal silhouette is normal. The visible bony thorax is intact. Procedure Note Jr Smalls MD - 06/10/2022 PROCEDURE: XR CHEST 2VW, DATE/TIME OF EXAM: 06/10/2022 5:07 PM, LOCATION [facility] INDICATION: R06.00: Dyspnea and respiratory abnormalities R06.89: Dyspnea and respiratory abnormalities ADDITIONAL CLINICAL INFORMATION: Ordering Provider Reason For Exam: Dyspnea COMPARISON: None. FINDINGS: There is no focal consolidation, pleural effusion, or pneumothorax. The cardiomediastinal silhouette is normal. The visible bony thorax isintact. IMPRESSION: No acute pulmonary process. Report dictated by Laith Sánchez MD, PhD (college president). I, Jr Smalls MD have personally reviewed and interpreted this examination/study. > Interpreting Provider: Jr Smalls MD on 06/10/2022 7:08 PM Ashkan Sierra PA-C DIAGNOSTIC IMAGING O RDERABLES * (ABNORMAL) SARS-COV-2 (COVID-19)+INFLU A+B PCR RAPID (06/10/2022 4:37 PM MATERIAL PREPARATION WORKER) COVID-19 PCR Not detected Not detected 06/10/20 6:01 PM [facility] Influenza A Rapid DELLA Detected(A) Not Detected 06/10/2022 6:01 PM [facility] Comment:Patient MUST be plac ed on Droplet Isolation Precautions. Influenza B DELLA Rapid Not Detected Not Detected 06/10/2022 6:01 PM [facility] Microbiology SPECIMEN FROM NASOPHARYNGEAL STRUCTURE / Unknown Collection / Unknown 06/10/2022 4:37 PM MATERIAL PREPARATION WORKER 06/10/2022 5:20 PM MATERIAL PREPARATION WORKER [facility] - 06/10/2022 6:01 PM MATERIAL PREPARATION WORKER Influenza assay performed by Nucleic Acid Amplification. Results do not exclude the possibility of a mixed viral infection. NOTE: Detecting and identifying specific viral nucleic acids from individuals exhibiting signs and symptoms of respiratory infection aids in the diagnosis of respiratory infection, if used in conjunction with other clinical and laboratory findings. The results of this test should not be used as the sole basis for diagnosis, treatment, or patient management decisions. This nucleic acid amplification assay performance was validated by [facility]. This test has been authorized by the Food and Drug administration (FDA)under an Emergency Use Authorization (EUA). This test has been validated in accordance with the FDA's guidance document Policy for Diagnostic Testing in Laboratories Certified to perform High Complexity Testing under CLIA prior to Emergency Use Authorization for Coronavirus Disease-2019 during the Public Health Emergency issued on September 04, 2019. FDA independent review of this validation is pending. This test is only authorized for the duration of time the declaration that circumstances exist justifying the authorization of emergency use of in vitro diagnostic tests for detection of SARS-CoV-2 virus and/or diagnosis of COVID-19 infection under section 564(b)(1) of the Act, 21 U.S.C 360bbb-3 (b)(1), unless the authorization is terminated or revoked sooner. Fact Sheets for this EUA assay are available upon request. Ashkan Sierra PA-C LAB - MICROBIOLOGY O RDERABLES [facility] [address] [place] [id number], [facility] [phone] * PA ECG/REVIEW INTERPRET ONLY (07/30/2020 6:36 PM MATERIAL PREPARATION WORKER) Narrative Chuck Hopkins MD - 07/30/2020 6:36 PM MATERIAL PREPARATION WORKER Chuck Hopkins MD 07/30/2020 6:42 PM Read Date: 07/30/2020 Patient name: Gris Dickerson Patient : 1970 Patient Age: [age] year old EVENT MONITOR REPORT: Indication for placement: Palpitations Requesting MD: Yolanda Marsh Duration of monitorin06/12/2020 - 07/11/2020 Available tracings are adequate for interpretation for 26d 23h 10m. 1. The mean average HR overall was: 81 bpm 2. The fastest HR noted was: 139 bpm 3. The slowest HR noted was: 47 bpm and occurred on 07/07 1137 4. 26,608 ventricular ectopic beats occurred (1% of 3.4 million complexes). 5. Atrial fibrillation was not detected. Atrial fibrillation burden was 0 %. 6. No Pause(s) noted of 3 seconds or longer. Patient transmitted 6 manually-triggered recordings and reported Tired or Fatigued / Flutter or Skipped Beats; Shortness of Breath. During these manually-triggered recordings sinus rhythm with occasional PVCs were noted in 4/6 recordings. 2/6 recordings demonstrated no ventricular ectopy. Final Interpretation: No sustained arrhythmias. Rare but apparently symptomatic episodes of PVCs were noted. Chuck Hopkins MD ECG ORDERABLES * CARDIAC PROCEDURE ORDER (07/17/2020 10:35 AM MATERIAL PREPARATION WORKER) Narrative 07/17/2020 10:35 AM MATERIAL PREPARATION WORKER Ordered by an unspecified provider. Scanned Document CARDIAC SERVICES ORD ERABLES * CARDIAC EKG ORDER (06/28/2020 12:45 PM MATERIAL PREPARATION WORKER) Narrative 06/28/2020 12:45 PM MATERIAL PREPARATION WORKER Ordered by an unspecified provider. Scanned Document CARDIAC SERVICES ORD ERABLES * EKG - Clinic Performed (06/12/2020) Yolanda Marsh MD ECG ORDERABLES * XR SHOULDER RIGHT 2VW OR MORE (01/31/2017 2:37 PM CDT) Anatomical Region Laterality Modality Upper Extremity Other Impressions 01/31/2017 2:46 PM CDT IMPRESSION: No acute osseous abnormality or evidence of arthritis. This report was electronically signed by JOSELYN DON M.D. on 01/31/2017 2:46 PM . Narrative 01/31/2017 2:46 PM CDT Exam: XR SHOULDER RIGHT 2 VW MIN Date: 01/31/2017 2:37 PM History: RIGHT SHOULDER PAIN Comparison: None FINDINGS: There is no fracture or dislocation. Joint spaces are preserved. A cyst is seen in the distal clavicle without other findings of degenerative change. Bone density is normal. There is no focal soft tissue abnormality. Procedure Note Joselyn Don MD - 10/03/2017 Exam: XR SHOULDER RIGHT 2 VW MIN Date: 01/31/2017 2:37 PM History: RIGHT SHOULDER PAIN Comparison: None FINDINGS: There is no fracture or dislocation. Joint spaces are preserved.A cyst is seen in the distal clavicle without other findings ofdegenerative change. Bone density is normal. There is no focal soft tissueabnormality. IMPRESSION IMPRESSION: No acute osseous abnormality or evidence of arthritis. This report was electronically signed by JOSELYN DON M.D. on 01/31/20172:46 PM . Latrice Leblanc PA-C DIAGNOSTIC IMAGING O [facility] Care Teams Lime Kiln Worker Relationship Specialty Start Date End Date Alfonso Tena MD [address] [place] [address] PCP - General 01/31/17
[2024-08-13 08:37] LABS: Hematocrit 42.5 % (37.0-47.0); Hemoglobin 14.5 g/dL (12.0-15.0); Mean Corpuscular HGB Conc 34.1 g/dl (32-36); Mean Corpuscular Hemoglobin 30.4 pg (26-34); Mean Corpuscular Volume 89.1 fl (80-100); Platelet Count Result 200 k/mm3 (150-375); Red Blood Count 4.77 M/mm3 (4.2-5.4); Red Cell Distribution Width 13.1 % (11.5-14.5)
[2024-08-13 08:46] LABS: Add Urine Microscopic? YES; Appearance Urine Clear (Clear); Bacteria Urine 1+ /hpf; Bilirubin Urine Negative (Negative); Blood Urine Negative (Negative); Color Urine Yellow (Yellow); Glucose Urine UA Negative (Negative); Ketones Urine Negative (Negative); Leukocyte Esterase Ur Trace LEU/UL (Negative); Nitrate Urine Negative (Negative); Non Pathogenic Casts 0-2; Protein Urine Negative (Negative); RBC Urine 0-2 /hpf (0-2); Specific Grav Ur 1.013 (1.001-1.035); Squamous Epithelial Cell Urine Occasional /hpf (Few); Urobilinogen Urine 0.2 mg/dL (<2.0)
[2024-08-13 08:51] LABS: Anion Gap 10 mmol/L (4-12); Blood Urea Nitrogen 16 mg/dL (7-17); Calcium 10.5 mg/dL (8.4-10.2); Carbon Dioxide 29 mmol/L (22-30); Chloride 97 mmol/L (98-107); Estimated Glomerular Filt Rate > 60; Glucose 142 mg/dL (65-110); Potassium 3.6 mmol/L (3.4-5.0); Sodium 136 mmol/L (137-145)
[2024-08-13 08:57] LABS: INR 0.8; Prothrombin Time 11.4 Seconds (11.1-14.7)
[2024-08-13 08:58] LABS: Partial Thromboplastin Time 29.3 Seconds (22.3-36.8)
== END 2024-08-13 07:52 | disposition home or self-care (01) ==
PROVIDERS: PCP Family Medicine; Visit Provider Neurological Surgery
DX: Z01.818 Encounter for other preprocedural examination (principal); E11.9 Type 2 diabetes mellitus without complications; M54.12 Radiculopathy, cervical region
CPT/HCPCS: 36415; 80048; 81001; 85027; 85610; 85730; 86850; 86900; 86901; 87086

== ENCOUNTER 2024-08-18 13:09 | Inpatient (IN) | payer OTHER, SELFPAY ==
[2024-08-10 12:12] VITALS: BMI 37.5
--- NOTE | 2024-08-10 12:23 | PC.NURSE ---
Report to the Outpatient Waiting Room, entrance under the green pavilion located off [facility], at time _0600_ on date 08/18/24. Planned Procedure Time: _0730 .? Time changes happen often and if your time is changed the preop area will call you the afternoon before. - You and your visitor will be asked to self-screen and do not enter if you have any COVID symptoms. Please call surgeon if you need to reschedule. - A mask is optional within the hospital at this time. Patients may have clear liquids (water, carbonated beverages, clear teas, apple juice) until 3 hours prior to surgery with a maximum of 20 ounces. - No food from midnight until time of surgery and no smoking, or chewing Tabacco (or any form of nicotine). No chewing gum, candy or mints. - Infants may have breast milk until 4 hours before surgery, infant formula 6 hours prior to surgery. - Children will be allowed to drink immediately following surgery.? If applicable, please bring a bottle or sippy cup to assist with drinking. Juice, water, soda, and popsicles are readily available.? For infants on formula, please bring formula the day of surgery.? Pacifiers are allowed. Take only the following medications with a SIP of water on the morning of surgery: ____GABAPENTIN DO NOT STOP ANY OF YOUR OTHER PRESCRIPTION MEDICATIONS PRIOR TO SURGERY EXCEPT THE FOLLOWING Medications to discontinue per physician ___MELOXICAM STOPPED PER MD Date to take last dose 08/03/24 Please no make-up, nail ethiopian, hairspray, perfume, deodorant, or body powder the day of surgery.? No jewelry (including any body piercings) or valuables the day of surgery, leave them at home.? Please take a shower or bath the night before, or the morning of, surgery with an antibacterial soap.? Wear comfortable, loose fitting clothing.? Children are encouraged to wear pajamas. - Jewelry must be removed prior to entering the operating room.? Rings and piercings that are not removed may be cut off. - The hospital will not accept responsibility for valuables.? - Please leave all valuables, including medications, at home the day of surgery. If you are going home after surgery, a licensed logging truck driver must drive you home.? - NO public transportation without another adult if you receive anesthesia. - We recommend that an adult stay with you for 24 hours following discharge. - We also recommend that you do not drive, make important decision, drink alcoholic beverages, or take any drugs that were not prescribed by your health care provider for at least 24 hours after your discharge time. For Pediatric surgeries, we recommend two adults accompany the child home. Hold all vitamins and supplements for 3 days per anesthesiologist. Follow any additional instructions given to you from your surgeon. Telephone instructions given to __PATIENT_and asked if any additional questions and then verbalized understanding. Patient advised to call surgeon office or pre surgery nurse liaison [phone] if any additional questions.
[2024-08-18] VITALS (17 sets, daily range): BP systolic 120–150; BP diastolic 67–84; PULSE 68–95; RESP 12–19; TEMP 36.4–37.2; O2SAT 92–97
--- NOTE | ~2024-08-18 | XR_ITS ---
EXAMINATION: XR fluoroscopy no charge DATE: 08/18/2024 12:13 INDICATION: C3-C7 anterior cervical discectomy TECHNIQUE: 3 fluoroscopic images of the cervical spine were obtained during procedure performed by Dr Shane Suh. Radiologist was not present for the imaging or procedure. The amount of fluoroscopy time u sed during this procedure was 0.2 minutes. Total DAP was 0.366 Gycm^2. COMPARISON: 03/31/2024 FINDINGS: Interval discectomies at C3-C4 through C6-C7 and anterior spinal fusion with interbody fusion device at each level. There also anterior plate and screw fixations at C3-C5 and C5-C7. Endotracheal tube ti p in expected position just below level of the thoracic inlet. Nasogastric tube extends into the prox imal thoracic esophagus and beyond the margins of the [id number]. IMPRESSION: 1. Fluoroscopy utilized during C3-C7 discectomies and instrumented anterior spinal fusion. See proced ure note for further detail. Reviewed, dictated and finalized at location A. THETICS LAB TECHNICIAN IMPRESSION: 1. Fluoroscopy utilized during C3-C7 discectomies and instrumented anterior spi nal fusion. See procedure note for further detail.
--- OUTSIDE RECORDS SUMMARY | 2024-08-18 00:31 | XMS_ITS | Patient Health Summary ---
Author Organization [facility] Address [address] [place] [address] Care Team Providers Care Telegraph Editor Name Role Phone Alfonso Tena MD Primary Care Provider [phone] Note from [facility],non-owned Affiliates and Associated Physician Practices is amultiple site organization consisting of ambulatory clinics and hospital sitesin [place], [place], [place] and [place]. This disclosure is being madepursuant to the Care Everywhere program and may not contain all information available regarding this patient. Last updated 18.[facility] Allergies * Latex(Skin Reactions) * Penicillins(Other) -High [...] Comments Blood Pressure 147/89 06/10/2022 3:49 PM [employer] Pulse 84 06/10/2022 3:49 PM [employer] Temperature 36.7 C (98.1 F) 06/10/2022 3:49 PM [employer] Respiratory Rate 18 06/10/2022 3:49 PM [employer] Oxygen Saturation 100% 06/10/2022 3:49 PM [employer] Inhaled Oxygen Concentration - - Weight 113.4 kg (250 lb) 06/10/2022 3:49 PM [employer] Height 172.7 cm (5' 8 ) 06/10/2022 3:49 PM [employer] Body Mass Index 38.01 06/10/2022 3:49 PM [employer] Procedures * CBC W AUTO DIFFERENTIAL(Performed 06/10/2022) * BASIC METABOLIC PANEL (CALCIUM TOTAL)(Performed 06/10/2022) * XR CHEST 2VW(Performed 06/10/2022) Performed for Dyspnea and respiratory abnormalities * SARS-COV-2 (COVID-19)+INFLU A+B PCR RAPID(Performed 06/10/2022) * VT ECG/REVIEW INTERPRET ONLY(Performed 07/30/2020) Performed for Palpitations * CARDIAC PROCEDURE ORDER(Performed 07/17/2020) * CARDIAC EKG ORDER(Performed 06/28/2020) * PROC EKG IN CLINIC(Performed 06/12/2020) Performed for Palpitations * XR SHOULDER RIGHT 2VW OR MORE(Performed 01/31/2017) Results * (ABNORMAL) CBC W AUTO DIFFERENTIAL (06/10/2022 7:[address] [facility]) WBC 7.2 3.5 - 10.5 10 3/uL 06/10/2022 8:12 PM [facility] RBC 4.46 3.80 - 5.20 10 6/uL 06/10/2022 8:12 PM [facility] Hemoglobin 13.1 12.0 - 15.6 g/dL 06/10/2022 8:12 PM [facility] Hematocrit 38.3 35.0 - 45.0 % 06/10/2022 8:12 PM [facility] MCV 85.9 80.7 - 98.3 fL 06/10/2022 8:12 PM [facility] MCH 29.4 26.7 - 34.0 pg 06/10/2022 8:12 PM [facility] MCHC 34.2 30.8 - 35.9 g/dL 06/10/2022 8:12 PM [facility] RDW-SD 42.8 36.0 - 50.0 fL 06/10/2022 8:12 PM [facility] RDW-CV 13.7 11.2 - 14.8 % 06/10/2022 8:12 PM [facility] Platelet Count 129(L) 150 - 400 10 3/uL 06/10/2022 8:12 PM [facility] MPV 9.8 9.4 - 12.9 fL 06/10/2022 8:12 PM [facility] Immature Platelet Fraction 1.9 1.1 - 6.2 % 06/10/2022 8:12 PM [facility] nRBC Absolute 0.00 0 10 3/uL 06/10/2022 8:12 PM [facility] nRBC Auto 0.0 0 /100 WBC 06/10/2022 8:12 PM [facility] Neutrophils % 91.9(H) 35.0 - 70.0 % 06/10/2022 8:12 PM [facility] Lymphocytes % 5.7(L) 20.0 - 43.0 % 06/10/2022 8:12 PM [facility] Monocytes % 1.9(L) 5.0 - 13.0 % 06/10/2022 8:12 PM [facility] Eosinophils % 0.0 0.0 - 6.0 % 06/10/2022 8:12 PM [facility] Basophil % 0.1 0.0 - 2.0 % 06/10/2022 8:12 PM [facility] Neutrophils Absolute 6.65 1.60 - 7.00 10 3/uL 06/10/2022 8:12 PM [facility] Lymphocyte Absolute 0.41(L) 1.10 - 3.90 10 3/uL 06/10/2022 8:12 PM [facility] Monocytes Absolute 0.14(L) 0.26 - 1.07 10 3/uL 06/10/2022 8:12 PM [facility] Eosinophils Absolute 0.00 0.00 - 0.47 10 3/uL 06/10/2022 8:12 PM [facility] Basophils Absolute 0.01 0.00 - 0.08 10 3/uL 06/10/2022 8:12 PM [facility] Immature Granulocytes % 0.4 0.0 - 1.0 % 06/10/2022 8:12 PM [facility] Immature Granulocytes Absolute 0.03 06/10/2022 8:12 PM [facility] Blood BLOOD SPECIMEN / Unknown Venipuncture / Unknown 06/10/2022 7:56 PM [employer] 06/10/2022 8:07 PM [employer] Karina Hart MD LAB - HEMATOLOGY ORD ERABLES Performing Organization Address [facility] Co de Phone Number [address] [address], [facility] [phone] * (ABNORMAL) BASIC METABOLIC PANEL (CALCIUM TOTAL) (06/10/2022 7:56 PM [employer]) BUN 14 7 - 26 mg/dL 06/10/2022 8:33 PM [facility] Creatinine 0.67 0.56 - 0.96 mg/dL 06/10/2022 8:33 PM [facility] Sodium 139 136 - 145 mmol/L 06/10/2022 8:33 PM [facility] Potassium 2.5(L) 3.5 - 4.5 mmol/L 06/10/2022 8:33 PM [facility] Chloride 107 98 - 107 mmol/L 06/10/2022 8:33 PM [facility] CO2 18(L) 22 - 29 mmol/L 06/10/2022 8:33 PM [facility] Glucose 235(H) 70 - 115 mg/dL 06/10/2022 8:33 PM [facility] Calcium 9.6 8.4 - 10.2 mg/dL 06/10/2022 8:33 PM [facility] Anion Gap 17 8 - 18 06/10/2022 8:33 PM [facility] BUN/Creatinine Ratio 21 7 - 23 06/10/2022 8:33 PM [facility] Osmolality Calculated 296 270 - 300 mOsm/kg 06/10/2022 8:33 PM [facility] eGFR by CKD-EPI >90 >=90 mL/min/1.7 3 m2 06/10/2022 8:33 PM [facility] Blood BLOOD SPECIMEN / Unknown Venipuncture / Unknown 06/10/2022 7:56 PM [employer] 06/10/2022 8:07 PM [employer] Karina Hart MD LAB - CHEMISTRY [facility] Organization Address City/State/ZIP Co de Phone Number [facility] [address] [place] [address], [facility] [phone] * XR CHEST 2VW (06/10/2022 5:07 PM [employer]) Anatomical Region Laterality Modality Chest Radiographic Cinthya ging 06/10/2022 5:20 PM [employer] Impressions 06/10/2022 7:08 PM [employer] IMPRESSION: No acute pulmonary process. Report dictated by Laith Sánchez MD, PhD (vice president [employer]). I, Jr Smalls MD have personally reviewed and interpreted this examination/study. > Interpreting Provider: Jr Smalls MD on 06/10/2022 7:08 PM Narrative 06/10/2022 7:08 PM [employer] PROCEDURE: XR CHEST 2VW, DATE/TIME OF EXAM: 06/10/2022 5:07 PM, LOCATION [facility] INDICATION: R06.00: Dyspnea and respiratory abnormalities R06.89: Dyspnea and respiratory abnormalities ADDITIONAL CLINICAL INFORMATION: Ordering Provider Reason For Exam: Dyspnea COMPARISON: None. FINDINGS: There is no focal consolidation, pleural effusion, or pneumothorax. The cardiomediastinal silhouette is normal. The visible bony thorax is intact. Procedure Note Jr Smalls MD - 06/10/2022 PROCEDURE: XR CHEST 2VW, DATE/TIME OF EXAM: 06/10/2022 5:07 PM, LOCATION [facility] INDICATION: R06.00: Dyspnea and respiratory abnormalities R06.89: Dyspnea and respiratory abnormalities ADDITIONAL CLINICAL INFORMATION: Ordering Provider Reason For Exam: Dyspnea COMPARISON: None. FINDINGS: There is no focal consolidation, pleural effusion, or pneumothorax. The cardiomediastinal silhouette is normal. The visible bony thorax isintact. IMPRESSION: No acute pulmonary process. Report dictated by Laith Sánchez MD, PhD (vice president [employer]). I, Jr Smalls MD have personally reviewed and interpreted this examination/study. > Interpreting Provider: Jr Smalls MD on 06/10/2022 7:08 PM Ashkan Sierra PA-C DIAGNOSTIC IMAGING O [facility]LES * (ABNORMAL) SARS-COV-2 (COVID-19)+INFLU A+B PCR RAPID (06/10/2022 4:37 PM [employer]) COVID-19 PCR Not detected Not detected 06/10/20 6:01 PM [facility] Influenza A Rapid DELLA Detected(A) Not Detected 06/10/2022 6:01 PM [facility] Comment:Patient MUST be plac ed on Droplet Isolation Precautions. Influenza B DELLA Rapid Not Detected Not Detected 06/10/2022 6:01 PM [facility] Microbiology SPECIMEN FROM NASOPHARYNGEAL STRUCTURE / Unknown Collection / Unknown 06/10/2022 4:37 PM [employer] 06/10/2022 5:20 PM [employer]PER[employer] [facility] - 06/10/2022 6:01 PM [employer] Influenza assay performed by [employer]. [...] acid amplification assay performance was validated by [facility]. This test has been authorized by the [...] Sierra PA-C LAB - MICROBIOLOGY O RDERABLES [facility] [address] [place] [address], [facility] [phone] * VT ECG/REVIEW INTERPRET ONLY (07/30/2020 6:36 PM [employer]) Narrative Chuck Hopkins MD - 07/30/2020 6:36 PM [employer] Chuck Hopkins MD 07/30/2020 6:42 PM Read [...] * CARDIAC PROCEDURE ORDER (07/17/2020 10:35 AM [employer]) Narrative 07/17/2020 10:35 AM [employer] Ordered by an unspecified provider. Scanned Document CARDIAC SERVICES ORD ERABLES * CARDIAC EKG ORDER (06/28/2020 12:45 PM [employer]PER[employer]) Narrative 06/28/2020 12:45 PM [employer] Ordered by an unspecified provider. Scanned Document [...] . Latrice Leblanc PA-C DIAGNOSTIC IMAGING O [facility] Care Teams Telegraph Editor Relationship Specialty Start Date End Date Alfonso Tena MD [address] [place] [id number] PCP - General 01/31/17
--- OUTSIDE RECORDS SUMMARY | 2024-08-18 00:31 | XMS_ITS | Referral Summary ---
Author Organization [facility] at the Medical Office Building Address [address] [place] [address] Care Team Providers Care Oracle Manager Name Role Phone Goldie Santosa Sravan RAJAN Primary Care Provider Encounters Date Type Department Care Team Description 08/16/2024 Telephone [facility] [address] [place] [address] Tess Hanson, [facility] Sleep Study Results/CPAP order 08/12/2024 7:35 PM ENGRAVING SUPERVISOR - 08/12/2024 11:59 PM ENGRAVING SUPERVISOR Hospital Encounter [facility] [address] [place] [address] LUISA (obstructive sleep apnea) Discharge Disposition: Discharge to home or self care 08/10/2024 Telephone [facility] [address] [place] [address] Tess Hanson, [facility] 08/09/2024 Orders Only [facility] [place] [address] [facility] [address] [place] [phone] Rio Maynard MD LUISA (obstructive sleep apnea) (Primary Dx) 08/05/2024 10:00 AM ENGRAVING SUPERVISOR - 08/05/2024 11:59 PM ENGRAVING SUPERVISOR Hospital Encounter [facility] [address] [place] [address] LUISA (obstructive sleep apnea) Discharge Disposition: Discharge to home or self care 07/20/2024 4:03 PM ENGRAVING SUPERVISOR - 07/20/2024 11:59 PM ENGRAVING SUPERVISOR Hospital Encounter [facility] [address] [place] [address] Acute pain of left hip Discharge Disposition: Discharge to home or self care 07/20/2024 3:15 PM ENGRAVING SUPERVISOR Office Visit [facility] at [address] [place] [address] Sonal Santos NP Acute pain of left hip (Primary Dx); Cutaneous candidiasis; Type 2 diabetes mellitus treated without insulin ([facility]/HCC) ([facility]) 07/20/2024 Nurse Triage [facility] at [address] [place] [address] Sonal Santos NP 06/10/2024 1:45 PM ENGRAVING SUPERVISOR Office Visit [facility] at [address] [place] [address] Sonal Santos NP Acute sinusitis, recurrence not specified, unspecified location (Primary Dx); Class 2 severe obesity due to excess calories with serious comorbidity and body mass index (BMI) of 39.0 to 39.9 in adult ([facility]); Essential hypertension 06/08/2024 Telephone [facility] at [address] [place] [address] Sonal Santos NP Questions on Care 06/02/2024 Telephone [facility] [address] [place] [address] [address] [place] [address] Sonal Santos NP 05/31/2024 Telephone [facility] [address] [phone] Rio Maynard MD Orders Only 05/31/2024 2:15 PM ENGRAVING SUPERVISOR Office Visit [facility] [address] [phone] Leslie Florian NP LUISA (obstructive sleep apnea) [...] insulin ([facility]) ([facility]) Use daily or as directed for monitoring of diabetes. 1 each Active alcohol swabs pads, medicatedIndicati ons:Type 2 diabetes mellitus treated without insulin ([facility]) ([facility]) Apply 1 each topically daily 100 each 3 Active albuterol HFA (PROVENTIL HFA,VENTOLIN HFA,PROAIR HFA) 90 mcg/actuation inhalerIndication s:Dyspnea on exertion,Moderate persistent asthma without complication Inhale 2 puffs every 6 (six) hours as needed for wheezing Fill per patient's formulary 1 each 024 2024 Active cetirizine (ZyrTEC) 10 mg tabletIndications [...] insulin ([facility]) ([facility]) 1 each by other route 2 (two) times a day 200 each 025 Active OneTouch Delica Plus Lancet 30 gauge miscIndications:T ype 2 diabetes mellitus treated without insulin ([facility]) ([facility]) Inject 1 each under the skin 2 (two) times a day 200 each 025 Active cyclobenzaprine (FLEXERIL) 5 mg tabletIndications :Acute pain of left hip Take 1 tablet (5 mg total) by mouth 3 (three) times a day as needed for muscle spasms 30 tablet 025 2024 Active metFORMIN (GLUCOPHAGE) 500 mg tabletIndications :Type 2 diabetes mellitus treated without insulin ([facility]) ([facility]) TAKE ONE TABLET BY MOUTH EVERY MORNING and TAKE TWO TABLETS BY MOUTH EVERY EVENING 90 tablet 3 025 Active blood glucose diagnostic (glucose blood) stripIndications: Type 2 diabetes mellitus treated without insulin ([facility]) ([facility]) Use to test blood sugar once daily 100 each 3 024 2024 Discontinued(A lternate therapy) metFORMIN (GLUCOPHAGE) 500 mg tabletIndications :Type 2 diabetes mellitus treated without insulin ([facility]) ([facility]) 500 mg in the morning and 1000 [...] 06/11/2024 Assessment & Plan (06/11/2024 4:57 PM ENGRAVING SUPERVISOR): Started on antibiotic Supportive care measures discussed [...] DuoNeb, and albuterol Encouraged to follow-up with superintendent plant as recommended Assessment & Plan (11/20/2023 6:00 [...] CDT): The patient has followed with a superintendent plant in the past for her asthma. I will reorder the Advair 250/50 to use 1 puff twice a day in refilled her albuterol. She also has duo nebs to use at home if necessary in addition to Singulair 10 mg daily. I will check full PFTs, chest x-ray and refer her to see an instructor apparel manufacture. Vaccine counseling 02/20/2023 Chronic pain of both [...] Mejia Encouraged to keep upcoming appointment with neurosurgeon, Dr. Mejia for further evaluation and management Continued on Toradol and meloxicam, refills sent to pharmacy per request, is aware cannot be taken together, previously prescribed gabapentin, not effective Assessment & Plan (08/25/2023 3:43 PM ENGRAVING SUPERVISOR): Chronic, stability unknown Started on prednisone burst [...] Mejia Assessment & Plan (08/25/2023 3:46 PM ENGRAVING SUPERVISOR): Recent onset Reviewed ER notes and CT [...] with orthopedic surgeon and COVID clinic at [facility] Infectious Disease for suspected long-COVID Assessment [...] chloride Assessment & Plan (06/24/2023 7:29 AM ENGRAVING SUPERVISOR): Chronic, stable, controlled with supplement Continued on potassium chloride, refills sent to pharmacy per request Assessment & Plan (06/09/2023 5:32 AM ENGRAVING SUPERVISOR): Chronic, stable, controlled with medication Continued on KCl, refills sent to pharmacy per request Assessment & Plan (03/11/2023 3:23 PM CDT): Chronic, normal at last check, on daily supplement Continued on KCl daily Assessment & Plan (05/27/2022 10:32 PM ENGRAVING SUPERVISOR): Chronic, controlled at last check-continued on potassium [...] AM CDT): Chronic, stable Referral made to [facility] Assessment & Plan (03/03/2022 7:16 AM CDT): [...] PRN Assessment & Plan (05/27/2022 10:28 PM ENGRAVING SUPERVISOR): Chronic, stable, controlled with medication-continued on gabapentin, [...] released from care Encouraged to follow-up with superintendent plant as recommended and with Cardiology as recommended as needed Assessment & Plan (03/11/2023 3:07 PM CDT): Chronic, episodic Previously evaluated with echo and Holter Encouraged to follow-up with emergency preparedness manager, Dr. Moseley, as recommended Assessment & Plan (03/03/2022 7:31 AM CDT): Chronicity and stability unknown-encouraged to schedule appointment with Dr. Moseley for further evaluation and management. Cutaneous candidiasis 11/27/2021 Assessment & Plan (07/20/2024 4:05 PM ENGRAVING SUPERVISOR): Controlled Continued on nystatin Assessment & Plan (04/13/2024 2:54 PM CDT): Acute Started on Nystatin powder as directed as needed Assessment & Plan (11/29/2021 11:29 AM CDT): Acute-started on nystatin powder due to location of rash, also treating with Valtrex 1 g TID x1 week due to pain consistent with zoster. Encounter for diabetic foot exam ([facility]) 07/30 Assessment & Plan (03/29/2024 9:03 PM CDT): Diabetic foot exam performed with monofilament with no abnormal findings Assessment & Plan (03/11/2023 3:15 PM CDT): 04/15 sensed both feet with monofilament, normal foot exam Dyspnea on exertion 07/27/2021 Assessment & Plan (05/31/2024 2:49 PM ENGRAVING SUPERVISOR): The patient will continue with albuterol as [...] albuterol, and DuoNeb Encouraged to follow-up with superintendent plant as recommended/ Assessment & Plan (11/20/2023 6:15 [...] as directed as needed Referral made to [facility] Infectious Disease Department/COVID clinic for further evaluation of worsening symptoms since COVID-19 infection Assessment & Plan (06/24/2022 5:02 PM ENGRAVING SUPERVISOR): Acute-advised to continue nebulizer treatments as directed [...] appointment. Assessment & Plan (05/27/2022 10:33 PM ENGRAVING SUPERVISOR): Chronic, worsened, with acute asthma exacerbation-continued on [...] needed. Assessment & Plan (08/20/2021 5:42 PM ENGRAVING SUPERVISOR): Recent onset dyspnea since COVID-19 infection in 07/2021, not responsive to albuterol MDI, with multiple x-rays with no acute cardiopulmonary findings-referred to emergency preparedness manager with 1st visit today, echocardiogram and 48 hour Holter monitor planned for future, encouraged compliance with testing and follow-up visit. Assessment & Plan (07/31/2021 7:52 AM ENGRAVING SUPERVISOR): Recent onset since COVID-19 diagnosis-referred to a emergency preparedness manager for evaluation of bradycardia, palpitations, and shortness of breath with exertion. Advised to go to ER for worsening symptoms of palpitations and shortness of breath or for new onset chest pain/tightness, wheezing/difficulty breathing, chills, sweats, fever, back pain, or nausea. Assessment & Plan (07/27/2021 7:09 AM ENGRAVING SUPERVISOR): Acute, with recent diagnosis of COVID 19 [...] management. Assessment & Plan (08/20/2021 5:52 PM ENGRAVING SUPERVISOR): Recent onset since COVID-19 diagnosis in 07/2021 with normal Hbg/Hct on 07/27/21, and normal folate & B12 dated 08/18/21-currently with work-up planned by emergency preparedness manager (echocardiogram and 48 hour Holter monitor planned for future), encouraged compliance with recommendations made by emergency preparedness manager. Assessment & Plan (07/23/2021 12:27 PM ENGRAVING SUPERVISOR): Acute, likely related to recent viral infection with SCEAH-60-mgpd monitor for resolution of symptoms. Encouraged to [...] medication. Assessment & Plan (2021 3:16 PM ENGRAVING SUPERVISOR): Chronicity and stability unknown-ordered MRI and referred to orthopedic surgeon for further evaluation and management. Acute pain of left hip 06/05/2021 Assessment & Plan (07/20/2024 4:05 PM ENGRAVING SUPERVISOR): Ordered x-rays left hip Continued on meloxicam 15 mg daily Started on cyclobenzaprine 5 mg TID PRN Assessment & Plan (06/05/2021 3:37 PM ENGRAVING SUPERVISOR): Acute-ordered x-ray of left hip. Can continue [...] panel Assessment & Plan (05/27/2022 10:31 PM ENGRAVING SUPERVISOR): Chronic, uncontrolled at last check, with elevated [...] visit. Assessment & Plan (08/20/2021 5:47 PM ENGRAVING SUPERVISOR): Chronic, stability unknown, uncontrolled, not on medication until office visit today when seen by emergency preparedness manager-encouraged compliance with rosuvastatin 10 mg once daily. Assessment & Plan (06/05/2021 3:35 PM ENGRAVING SUPERVISOR): Chronicity, stability unknown, not on medication-ordered lipid [...] visit. Assessment & Plan (08/20/2021 5:54 PM ENGRAVING SUPERVISOR): Chronic, stability unknown, uncontrolled, not on supplement-advised to start vitamin D3 2000 international units, take 2 daily with a meal x 1 month, then one daily with a meal, will recheck vitamin D 25 OH in 3-6 months. Assessment & Plan (06/05/2021 3:35 PM ENGRAVING SUPERVISOR): Chronicity and stability unknown, reported by patient, not currently on supplementation-ordered vitamin-D 25 OH. Type 2 diabetes mellitus treated without insulin ([facility]) 06/05/2021 Assessment & Plan (07/20/2024 4:04 PM ENGRAVING SUPERVISOR): Controlled Reviewed hemoglobin A1c equals 6.6 Continued [...] Foot exam done today Referral made to [facility] for dilated eye exam Assessment & Plan (02/06/2023 5:41 AM CDT): Stable Performed in office hemoglobin A1c (6.9) Continued on metformin Assessment & Plan (05/27/2022 10:27 PM ENGRAVING SUPERVISOR): Chronic, stable, controlled on medication-continued on metformin, [...] visit. Assessment & Plan (08/20/2021 5:53 PM ENGRAVING SUPERVISOR): Chronic, stable, controlled with medication-continued on metformin. Follow-up in 6 months. Assessment & Plan (06/05/2021 3:37 PM ENGRAVING SUPERVISOR): Chronic, uncontrolled at last check, on medication-continued [...] CURTIS-7=1. Assessment & Plan (08/20/2021 5:48 PM ENGRAVING SUPERVISOR): Chronic, stable, controlled with medication-continued on sertraline. Class 2 severe obesity due t o excess calories with serious comorbidity and body mass index (BMI) of 39.0 to 39.9 in adult 03/17/2018 Overview (11/03/2020): Transitioned From: Obesity (BMI 30-39.9) Assessment & Plan (06/11/2024 4:56 PM ENGRAVING SUPERVISOR): Chronic, improved, with serious comorbidity of type [...] week Assessment & Plan (07/16/2023 6:13 AM ENGRAVING SUPERVISOR): Chronic, worsening, with series comorbidity of type [...] prednisone Assessment & Plan (06/24/2023 7:30 AM ENGRAVING SUPERVISOR): Chronic, worsened Encouraged to monitor daily caloric intake and portion sizes and to exercise most days of the week, for a goal of at least 150 minutes of exercise per week Assessment & Plan (06/09/2023 5:36 AM ENGRAVING SUPERVISOR): Chronic, worsened, with serious comorbidity/type 2 diabetes, [...] flares Assessment & Plan (05/27/2022 10:29 PM ENGRAVING SUPERVISOR): Chronic, stable, controlled with medication-continued on meloxicam, [...] Singulair Assessment & Plan (05/27/2022 10:37 PM ENGRAVING SUPERVISOR): Chronic, stable, controlled with medication-continued on cetirizine, refills sent to pharmacy per patient request. Assessment & Plan (03/03/2022 7:19 AM CDT): Chronic, stable, controlled with medication-continued on cetirizine and montelukast. Assessment & Plan (08/20/2021 5:44 PM ENGRAVING SUPERVISOR): Chronic, stable, controlled with medication-filled Singulair per [...] Singulair Assessment & Plan (05/27/2022 10:36 PM ENGRAVING SUPERVISOR): Acute-started on Augmentin 875 BID and Diflucan [...] omeprazole Assessment & Plan (05/27/2022 10:31 PM ENGRAVING SUPERVISOR): Chronic, stable, controlled on medication-continued on omeprazole, refills sent to pharmacy per patient request. Assessment & Plan (04/08/2022 6:11 PM CDT): Chronic, stable, uncontrolled-prescription for omeprazole 40 mg once daily sent to pharmacy per patient request. Assessment & Plan (03/03/2022 7:29 AM CDT): Chronic, stable, controlled with medication-continued on omeprazole. LUISA (obstructive sleep apnea) 03/07/2015 Assessment & Plan (05/31/2024 2:38 PM ENGRAVING SUPERVISOR): The patient did not complete her home [...] 09/07/2014 Assessment & Plan (06/11/2024 4:57 PM ENGRAVING SUPERVISOR): Chronic, stable, controlled on medication Continued on [...] HCT Assessment & Plan (05/27/2022 10:32 PM ENGRAVING SUPERVISOR): Chronic, stable, controlled with medication-continued on lisinopril/hydrochlorothiazide, [...] visit. Assessment & Plan (08/20/2021 5:43 PM ENGRAVING SUPERVISOR): Chronic, not controlled at today's visit, but normal at visit today with emergency preparedness manager-refilled lisinopril/HCT per patient request. Will continue to monitor. Assessment & Plan (06/05/2021 3:32 PM ENGRAVING SUPERVISOR): Chronic, stable, controlled on medication historically, but [...] 03/25/2024 Assessment & Plan (07/16/2023 6:14 AM ENGRAVING SUPERVISOR): Reviewed ER records from 06/03/23 and last [...] 09/26/2023 Assessment & Plan (06/24/2023 7:28 AM ENGRAVING SUPERVISOR): Acute, with improving symptoms Encouraged to complete prednisone taper as directed Instructed to get chest x-ray in 2 weeks Advised to return to ER if shortness of breath, chest tightness, and/or wheezing not relieved with PRN albuterol inhaler Pneumonia of right lower lob e due to infectious organism 06/09/2023 09/26/2023 Assessment & Plan (06/09/2023 5:33 AM ENGRAVING SUPERVISOR): Recent diagnosis Reviewed ER notes dated 06/03/2023 [...] stable Encouraged to continue to follow-up with [facility] as recommended KIESHAID-19 arti mead chronic decreased mobility and endurance 02/20/2023 024 Assessment & Plan (03/12/2023 5:58 AM CDT): Chronic, stable Encouraged to continue to follow-up with [facility] as recommended Disrupted sleep-wake cycle 02/20/2023 0 03/29/2024 Assessment & Plan (03/12/2023 6:01 AM CDT): Attributes to chronic pain, symptoms being evaluated/managed by Infectious Disease/COVID Clinic at [facility] Continued on meloxicam daily, holds meloxicam and takes Toradol as directed as needed for flares Refill for Toradol sent to pharmacy per request COVID-19 arti charlyreynaldo haydee larapaulette chronic joint pain 02/20/2023 03/29/2024 Assessment & Plan (03/12/2023 5:58 AM CDT): Chronic, stable Encouraged to continue to follow-up with [facility] as recommended Arthralgia of [...] made to infectious disease/ COVID clinic at [facility] Pain of left upper extremity 09/27/2022 [...] 03/11/2023 Assessment & Plan (06/24/2022 4:54 PM ENGRAVING SUPERVISOR): Recent diagnosis-advised to stop Mucinex DM and [...] 03/11/2023 Assessment & Plan (06/24/2022 5:02 PM ENGRAVING SUPERVISOR): Chronic, with recent exacerbation, uncontrolled-declined addition of [...] appointment. Assessment & Plan (05/27/2022 10:29 PM ENGRAVING SUPERVISOR): Chronic, with acute exacerbation, uncontrolled, with symptoms [...] mellitus ([facility]) 03/01/2022 03/03/2022 Diarrhea of infectious origin 01/27/2022 [...] with nystatin powder. Drainage from right ear 09/13/2021 04/1 07/2021 Assessment & Plan (09/13/2021 3:28 PM ENGRAVING SUPERVISOR): Acute, persistent despite round of oral antibiotics, [...] 11/29/2021 Assessment & Plan (08/27/2021 12:11 PM ENGRAVING SUPERVISOR): Acute-started on an antibiotic, advised to take medication as directed. Instructed to increase clear liquids, rest, and vitamin C in diet. Recommended follow-up if symptoms worsen, don't improve, or new symptoms develop. Right ear pain 08/27/2021 11/29/2021 Assessment & Plan (09/13/2021 3:28 PM ENGRAVING SUPERVISOR): Acute, persistent despite round of oral antibiotics, with resolution of sinus symptoms -started on Floxin ear drops to right ear twice daily as directed. A referral was also made to Dr. Brad Farr, recommended scheduling an appointment in the event ear pain and discharge do not resolve with antibiotic ear drops, provided with the office number. Assessment & Plan (08/27/2021 12:10 PM ENGRAVING SUPERVISOR): Acute-see plan of care for right acute serous otitis media. Can take Tylenol as directed as needed for pain. Acute recurrent frontal sinusitis 08/27/2021 03/01/2022 Assessment & Plan (08/27/2021 12:11 PM ENGRAVING SUPERVISOR): Acute-advised to take Zpak as directed. Instructed [...] normal. Assessment & Plan (09/13/2021 3:26 PM ENGRAVING SUPERVISOR): Recent onset, stable, previously referred to neurology on 08/20/21, [facility] has not received a call-provided with number to call [facility] in [place]. Assessment & Plan (08/20/2021 5:55 PM ENGRAVING SUPERVISOR): Recent onset, new problem-sensation intact but diminished [...] normal. Assessment & Plan (09/13/2021 3:26 PM ENGRAVING SUPERVISOR): Recent onset, stable, previously referred to neurology on 08/20/21, [facility] has not received a call-provided with number to call [facility] in [place]. Assessment & Plan (08/20/2021 5:55 PM ENGRAVING SUPERVISOR): Recent onset, new problem-sensation intact but diminished [...] CMP. Assessment & Plan (07/31/2021 7:51 AM ENGRAVING SUPERVISOR): Recent onset over weekend-referred to a emergency preparedness manager for evaluation of bradycardia, palpitations, and shortness of breath with exertion. Advised to go to ER for worsening symptoms of palpitations and shortness of breath or for new onset chest pain/tightness, wheezing/difficulty breathing, chills, sweats, fever, back pain, or nausea. Bradycardia 07/27/2021 03/01/2022 Assessment & Plan (08/20/2021 5:46 PM ENGRAVING SUPERVISOR): Recent onset, episodic, bradycardia since COVID-19 infection in 07/2021, normal at today's visit (69 beats/minute)-referred to emergency preparedness manager previously with 1st visit today, echocardiogram and 48 hour Holter monitor planned for future, encouraged compliance with recommendations made by emergency preparedness manager. Assessment & Plan (07/31/2021 7:51 AM ENGRAVING SUPERVISOR): Recent onset prior to monoclonal antibody infusion on 07/11/2021-referred to a emergency preparedness manager for evaluation of bradycardia, palpitations, and shortness of breath with exertion. Advised to go to ER for worsening symptoms of palpitations and shortness of breath or for new onset chest pain/tightness, wheezing/difficulty breathing, chills, sweats, fever, back pain, or nausea. Assessment & Plan (07/27/2021 7:07 AM ENGRAVING SUPERVISOR): New problem/finding-recommended follow-up with Cardiology as suggested upon discharge from the ER for further evaluation and management. COVID-19 07/10/2021 03/11/2023 Assessment & Plan (09/10/2022 10:37 AM ENGRAVING SUPERVISOR): Acute-started on Paxlovid. Advised to continue to [...] regarding Paxlovid was sent to patient via [employer], instructed to read carefully and call if has any questions. [facility] in [place] was notified that patient would be coming by for official testing mandated by her employer to confirm her at-home test results. Instructed that to go to ER and/or call 911 if short of breath, and/or have chest pain, tightness, or wheezing not relieved with your inhalers or nebulizer treatments. Assessment & Plan (07/27/2021 7:07 AM ENGRAVING SUPERVISOR): Diagnosed with COVID-19 on 07/08/2021 with symptoms starting on new Brittany, now with symptoms consistent with a sinus infection, see plan of care for acute recurrent pansinusitis. Assessment & Plan (07/23/2021 12:26 PM ENGRAVING SUPERVISOR): Acute, s/p monoclonal antibody infusion, improving until [...] 08/20/2021 Assessment & Plan (2021 3:15 PM ENGRAVING SUPERVISOR): Worsening chronic right shoulder pain, status post [...] 08/20/2021 Assessment & Plan (07/23/2021 12:25 PM ENGRAVING SUPERVISOR): Acute, resolved-informed that insurance declined MRI of right shoulder, however states right shoulder pain has resolved. Advised if right shoulder pain returns, to notify office and an x-ray of the right shoulder can be ordered and a referral can be made to PT. Assessment & Plan (2021 3:15 PM ENGRAVING SUPERVISOR): Acute on chronic right shoulder pain, status [...] 03/11/2023 Assessment & Plan (08/30/2022 3:46 PM ENGRAVING SUPERVISOR): Rapid COVID and flu negative PCR pending [...] referral was made to an ENT and instructor apparel manufacture for further evaluation and management of recurrent sinusitis. Started on prednisone as directed. Advised against taking a decongestant due to high blood pressure, but can use nasal saline spray and continue antihistamine. Acute recurrent pansinusitis 11/03/2020 03/25/2024 Assessment & Plan (07/16/2023 6:10 AM ENGRAVING SUPERVISOR): Started on prednisone burst and Levaquin, discussed [...] symptoms. Assessment & Plan (07/27/2021 7:06 AM ENGRAVING SUPERVISOR): Started on a Z-David as directed and [...] Comments Blood Pressure 120/88 07/20/2024 3:09 PM ENGRAVING SUPERVISOR Pulse 89 07/20/2024 3:09 PM ENGRAVING SUPERVISOR Temperature 36.9 C (98.5 F) 07/20/2024 3:09 PM ENGRAVING SUPERVISOR Respiratory Rate 14 07/20/2024 3:09 PM ENGRAVING SUPERVISOR Oxygen Saturation 97% 07/20/2024 3:09 PM ENGRAVING SUPERVISOR Inhaled Oxygen Concentration - - Weight 112.9 kg (249 lb) 07/20/2024 3:09 PM ENGRAVING SUPERVISOR Height 170.2 cm (5' 7.01 ) 07/20/2024 3:09 PM CS T Body Mass Index 38.99 07/20/2024 3:09 PM ENGRAVING SUPERVISOR Plan of Treatment Not on file Procedures Procedure Name Priority Date/Time Associated Diagnosis Comments PSG (COMPLEX) Routine 08/12/2024 7:35 PM ENGRAVING SUPERVISOR LUISA (obstructive sleep apnea) PORTABLE/HOME SLEEP STUDY Routine 08/05/2024 10:00 AM ENGRAVING SUPERVISOR LUISA (obstructive sleep apnea) XR HIP LEFT 2 OR 3 VIEWS Schedule Routine, Read Routine (OP Routine) 07/20/2024 4:23 PM ENGRAVING SUPERVISOR Acute pain of left hip POCT HEMOGLOBIN A1C Routine 07/20/2024 2:30 PM ENGRAVING SUPERVISOR Type 2 diabetes mellitus treated without insulin (CMS/HCC) (HCC) EGFR STAT 11/28/2023 9:55 PM CDT SCREENING MAMMOGRAM BILATERAL W GURWINDER Schedule Routine, Read Routine (OP Routine) 07/12/2022 2:38 PM ENGRAVING SUPERVISOR Encounter for screening mammogram for malignant neoplasm of breast LIPID PANEL Routine 02/16/2022 9:48 AM CDT Mixed hyperlipidemia ALBUMIN CREATININE RATIO, URINE Routine 08/18/2021 9:12 AM ENGRAVING SUPERVISOR Type 2 diabetes mellitus treated without insulin (CMS/HCC) (HCC) from Last 3 Months or Most Recently Relevant to Health Maintenance Results * PSG-Sleep Provider Use Only (08/12/2024 7:35 PM ENGRAVING SUPERVISOR) us Rio Maynard MD SLEEP CENTER ORDERABLES F inal Result [facility] SLEEP [facility]IC[facility] [address] [place], [place] [address] * Portable/Home Sleep Study (08/05/2024 10:00 AM ENGRAVING SUPERVISOR) us Leslie Florian NP SLEEP CENTER ORDERABLES Final Result [facility] SLEEP MEDICINE [address] [place] [address], [facility] * XR Hip Left 2+ Vw (07/20/2024 4:23 PM ENGRAVING SUPERVISOR) Anatomical Region Laterality Modality Lower Extremities, Hip, Pelvis Left C omputed Radiography 07/21/2024 3:54 PM ENGRAVING SUPERVISOR Narrative 07/21/2024 3:56 PM ENGRAVING SUPERVISOR EXAM DESCRIPTION: XR HIP LEFT 2 OR [...] David Maharaj M.D. DANYELLE: DANYELLE Report ID: [id number] Reading Location: [id number] Procedure Note Fran Maharaj MD - 07/21/2024 [...] David Maharaj M.D. DANYELLE: DANYELLE Report ID: [id number] Reading Location: [id number] us Sonal Santos BREAST SURGEON IMG XR PROCEDURES Final Result * (ABNORMAL) POCT hemoglobin A1c (07/20/2024 2:30 PM ENGRAVING SUPERVISOR) Hemoglobin A1C, POC 6.6 4.0 - 5.6 % Comment:Lot [id number] Exp 080 126 Blood 07/20/2024 2:30 PM ENGRAVING SUPERVISOR Sonal Santos NP POINT OF CARE TEST [...] MD LAB BLOOD ORDERABLES Final Res ult [facility] Department [place] [address] * SCREENING MAMMOGRAM BILATERAL W GURWINDER (07/12/2022 2:38 PM ENGRAVING SUPERVISOR) Anatomical Region Laterality Modality Breast Bilateral Mammography Impressions 07/12/2022 2:50 PM ENGRAVING SUPERVISOR BI-RADS ATLAS category (overall): 1 - Negative There is no mammographic evidence of malignancy. A 1 year screening mammogram is recommended. The patient has been or will be contacted. We recommend annual screening mammography for women at average risk of breast cancer beginning at age 40, based on guidelines of the [employer] (ACR Practice Parameter for the Performance of Screening and Diagnostic Mammography) and [place]. For women with and elevated risk of breast cancer, please refer to the ACR Practice Parameter for specific screening recommendations. The patient will be entered into a reminder system with a target due date of 1 year for her next screening exam. Narrative 07/12/2022 2:50 PM ENGRAVING SUPERVISOR SCREENING MAMMOGRAM BILATERAL W GURWINDER: 07/12/22 The [...] breast. There has been no suspicious change. Sonal Santos NP IMG MAMMO PROCEDURES Final [...] last revised on 2018. Testing performed by: [address] [address] Triglycerides 246(H) <=149 mg/dL CAR Comment: Interpretive [...] last revised on 2018. Testing performed by: [address] [address] HDL 37(L) >=40 mg/dL CAR Comment: Interpretive [...] last revised on 2018. Testing performed by: [address] [address] LDL, calculated 67 <=129 mg/dL CAR Comment: [...] last revised on 2018. Testing performed by: [address] [address] Non-HDL Cholesterol 116 mg/dL CAR Comment: Interpretive [...] last revised on 2018. Testing performed by: [address] [address] Chol/HDL ratio 4 CAR Comment:Testing performed by : [address] [address] Blood 02/16/2022 9:48 AM CDT 02/16/2022 9:58 AM CDT us Sonal Santos NP LAB BLOOD ORDERABLES Final Resul t [facility] [address] [facility] Department of Laboratories [place], [place] [id number] * Albumin Creatinine Ratio, Urine (08/18/2021 9:12 AM ENGRAVING SUPERVISOR) Albumin Ur <12.0 mg/L CAR Comment: Interpretive Data No reference range established. Current interpretive data was last revised 2018. Testing performed by: [address] [address] Creatinine Ur 138.2 mg/dL CAR TO Comment: Interpretive Data No reference range established. Current interpretive data was last revised 2018. Testing performed by: [address] [address] Albumin Creatinine Ratio, Ur <9 1 - 29 mg/g CAR TO Comment:Testing performed by : [facility], [facility], [place]., [address] Urine 08/18/2021 9:12 AM ENGRAVING SUPERVISOR 08/18/2021 10:08 AM ENGRAVING SUPERVISOR us Sonal Santos NP LAB URINE ORDERABLES Final Resul t CAR TO [address] [facility] [place] [address] from Last 3 Months or Most Recently Relevant to Health Maintenance Insurance [facility] Care Teams Oracle Manager Relationship Specialty Start Date End Date Sonal Santos NP [address] [place] [address] PCP - General Family Practice 11/03/20 Valeria Charlton, [facility] [address] [facility] [address] Assistant Sales Manager Infectious Diseases 02/17/23
--- OUTSIDE RECORDS SUMMARY | 2024-08-18 00:31 | XMS_ITS | Clinical Summary ---
Author Organization [facility] Address [address] [place] [address] Care Team Providers Care General Doc Name Role Phone Alfonso Tena MD Primary Care Provider [phone] Source Comments [facility],non-owned Affiliates and Associated Physician Practices is amultiple site organization consisting of ambulatory clinics and hospital sitesin [place], [place], [place] and [place]. This disclosure is being madepursuant to the Care Everywhere program and may not contain all information available regarding this patient. Last updated 18.[facility] Allergies Active Allergy Reactions Criticality Noted Date [...] Comments Blood Pressure 147/89 06/10/2022 3:49 PM SCHOOL HEALTH ASSISTANT Pulse 84 06/10/2022 3:49 PM SCHOOL HEALTH ASSISTANT Temperature 36.7 C (98.1 F) 06/10/2022 3:49 PM SCHOOL HEALTH ASSISTANT Respiratory Rate 18 06/10/2022 3:49 PM SCHOOL HEALTH ASSISTANT Oxygen Saturation 100% 06/10/2022 3:49 PM SCHOOL HEALTH ASSISTANT Inhaled Oxygen Concentration - - Weight 113.4 kg (250 lb) 06/10/2022 3:49 PM SCHOOL HEALTH ASSISTANT Height 172.7 cm (5' 8 ) 06/10/2022 3:49 PM SCHOOL HEALTH ASSISTANT Body Mass Index 38.01 06/10/2022 3:49 PM SCHOOL HEALTH ASSISTANT Plan of Treatment Health Maintenance Due Date [...] age to complete this topic Care Teams General Doc Relationship Specialty Start Date End Date Alfonso Tena MD [address] [place] [address] PCP - General 01/31/17
--- OUTSIDE RECORDS SUMMARY | 2024-08-18 00:31 | XMS_ITS | Referral Summary ---
Author Organization [facility] Address [address] [place] [address] Care Team Providers Care Tankroom Worker Name Role Phone Alfonso Tena MD Primary Care Provider [phone] Source Comments [facility],non-owned Affiliates and Associated Physician Practices is amultiple site organization consisting of ambulatory clinics and hospital sitesin [place], [place], [place] and [place]. This disclosure is being madepursuant to the Care Everywhere program and may not contain all information available regarding this patient. Last updated 18.[facility] Allergies Active Allergy Reactions Criticality Noted Date [...] Comments Blood Pressure 147/89 06/10/2022 3:49 PM FRAME REPAIRER Pulse 84 06/10/2022 3:49 PM FRAME REPAIRER Temperature 36.7 C (98.1 F) 06/10/2022 3:49 PM FRAME REPAIRER Respiratory Rate 18 06/10/2022 3:49 PM FRAME REPAIRER Oxygen Saturation 100% 06/10/2022 3:49 PM FRAME REPAIRER Inhaled Oxygen Concentration - - Weight 113.4 kg (250 lb) 06/10/2022 3:49 PM FRAME REPAIRER Height 172.7 cm (5' 8 ) 06/10/2022 3:49 PM FRAME REPAIRER Body Mass Index 38.01 06/10/2022 3:49 PM FRAME REPAIRER Plan of Treatment Not on file Care Teams Tankroom Worker Relationship Specialty Start Date End Date Alfonso Tena MD [address] [place] [address] PCP - General 01/31/17
--- OUTSIDE RECORDS SUMMARY | 2024-08-18 00:31 | XMS_ITS | Clinical Summary ---
Author Organization [facility] Address [facility]ly [facility] [place] [address] Care Team Providers Care Hides Inspector Name Role Phone Alfonso Tena MD Primary [...] hyperglycemia, without long-term current use of insulin ([facility]/HCC) Take 1 tablet by mouth once [...] recurrent 05/29/2020 Moderate persistent asthma without complication ([facility]) 05/29/2020 Depression with anxiety 03/19/2018 Overview (05/19/2018): Transitioned From: Adjustment disorder with anxiety BMI 40.0-44.9, adult ([facility]) 8 Overview (05/19/2018): Transitioned From: Obesity (BMI [...] TO HCV RNA Routine 05/29/2020 10:56 AM FAST FOOD SERVICES MANAGER Need for hepatitis C screening test from Last 3 Months or Most Recently Relevant to Health Maintenance Results * MAMMOGRAM (07/12/2022) Anatomical Region Laterality Modality Other us Doc [facility] Scanned SCANNING Final Resu lt * HEPATITIS C ANTIBODY W/RFX TO HCV RNA ([facility] ONLY) (05/29/2020 10:56 AM FAST FOOD SERVICES MANAGER) HEPATITIS C AB NON-REACTI VE NON-REACT MARYJANE [facility] SIGNAL TO CUTOFF 0.25 <[address] [facility] Comment: HCV antibody was non-reactive. There is no laboratory evidence of HCV infection. In most cases, no further action is required. However, if recent HCV exposure is suspected, a test for HCV RNA (test code 19495) is suggested. For additional information please refer to http://education.[employer]/faq/CCT48a0 (This link is being provided for informational/ educational purposes only.) 05/29/2020 10:5 6 AM FAST FOOD SERVICES MANAGER 05/30/2020 4:44 AM FAST FOOD SERVICES MANAGER Alfonso Tena MD LABORATORY Final Res ult [facility] [address] [place] [address] from Last 3 Months or Most Recently Relevant to Health Maintenance Insurance Care Teams Hides Inspector Relationship Specialty Start Date End Date Alfonso Tena MD PCP - General FAMILY PRACTICE 02/13/21
--- OUTSIDE RECORDS SUMMARY | 2024-08-18 00:31 | XMS_ITS | Clinical Summary ---
Author Organization [facility] Address [address] [place] [phone] Phone Care Team Providers Care Agriculture Instructor Name Role Phone Unavailable Primary Care Provider [...]
--- OUTSIDE RECORDS SUMMARY | 2024-08-18 00:31 | XMS_ITS | Clinical Summary ---
Author Organization [facility] at the Medical Office Building Address [address] [place] [address] Care Team Providers Care [employer] Coach Name Role Phone Sonal Santos NP Primary Care Provider [phone] Allergies Active Allergy Reactions Criticality Noted Date [...] diabetes mellitus treated without insulin ([facility]) ([facility]) Use daily or as directed for monitoring of diabetes. 1 each 024 Active alcohol swabs pads, medicatedIndicati ons:Type 2 diabetes mellitus treated without insulin (CMS/HCC) ([facility]) Apply 1 each topically daily 100 each [...] diabetes mellitus treated without insulin ([facility]) ([facility]) 1 each by other route 2 (two) times a day 200 each 3 025 Active OneTouch Delica Plus Lancet 30 gauge miscIndications:T ype 2 diabetes mellitus treated without insulin ([facility]) ([facility]) Inject 1 each under the skin 2 (two) times a day 200 each 3 025 Active cyclobenzaprine (FLEXERIL) 5 mg tabletIndications :Acute pain of left hip Take 1 tablet (5 mg total) by mouth 3 (three) times a day as needed for muscle spasms 30 tablet 025 2024 Active metFORMIN (GLUCOPHAGE) 500 mg tabletIndications :Type 2 diabetes mellitus treated without insulin ([facility]) ([facility]) TAKE ONE TABLET BY MOUTH EVERY MORNING and TAKE TWO TABLETS BY MOUTH EVERY EVENING 90 tablet 3 025 Active blood glucose diagnostic (glucose blood) stripIndications: Type 2 diabetes mellitus treated without insulin ([facility]) ([facility]) Use to test blood sugar once daily 100 each 3 024 2024 Discontinued(A lternate therapy) metFORMIN (GLUCOPHAGE) 500 mg tabletIndications :Type 2 diabetes mellitus treated without insulin ([facility]) ([facility]) 500 mg in the morning and 1000 [...] 06/11/2024 Assessment & Plan (06/11/2024 4:57 PM ASSET MANAGEMENT COORDINATOR): Started on antibiotic Supportive care measures discussed [...] DuoNeb, and albuterol Encouraged to follow-up with multiskill operator as recommended Assessment & Plan (11/20/2023 6:00 [...] CDT): The patient has followed with a multiskill operator in the past for her asthma. I will reorder the Advair 250/50 to use 1 puff twice a day in refilled her albuterol. She also has duo nebs to use at home if necessary in addition to Singulair 10 mg daily. I will check full PFTs, chest x-ray and refer her to see an bobbin disker. Vaccine counseling 02/20/2023 Chronic pain of both [...] effective Assessment & Plan (08/25/2023 3:43 PM ASSET MANAGEMENT COORDINATOR): Chronic, stability unknown Started on prednisone burst [...] Mejia Assessment & Plan (08/25/2023 3:46 PM ASSET MANAGEMENT COORDINATOR): Recent onset Reviewed ER notes and CT [...] with orthopedic surgeon and COVID clinic at [facility] Infectious Disease for suspected long-COVID [...] chloride Assessment & Plan (06/24/2023 7:29 AM ASSET MANAGEMENT COORDINATOR): Chronic, stable, controlled with supplement Continued on potassium chloride, refills sent to pharmacy per request Assessment & Plan (06/09/2023 5:32 AM ASSET MANAGEMENT COORDINATOR): Chronic, stable, controlled with medication Continued on KCl, refills sent to pharmacy per request Assessment & Plan (03/11/2023 3:23 PM CDT): Chronic, normal at last check, on daily supplement Continued on KCl daily Assessment & Plan (05/27/2022 10:32 PM ASSET MANAGEMENT COORDINATOR): Chronic, controlled at last check-continued on potassium [...] AM CDT): Chronic, stable Referral made to [facility] Assessment & Plan (03/03/2022 [...] PRN Assessment & Plan (05/27/2022 10:28 PM ASSET MANAGEMENT COORDINATOR): Chronic, stable, controlled with medication-continued on gabapentin, [...] released from care Encouraged to follow-up with multiskill operator as recommended and with Cardiology as recommended as needed Assessment & Plan (03/11/2023 3:07 PM CDT): Chronic, episodic Previously evaluated with echo and Holter Encouraged to follow-up with supervisor drawing, Dr. Moseley, as recommended Assessment & Plan (03/03/2022 7:31 AM CDT): Chronicity and stability unknown-encouraged to schedule appointment with Dr. Moseley for further evaluation and management. Cutaneous candidiasis 11/27/2021 Assessment & Plan (07/20/2024 4:05 PM ASSET MANAGEMENT COORDINATOR): Controlled Continued on nystatin Assessment & Plan (04/13/2024 2:54 PM CDT): Acute Started on Nystatin powder as directed as needed Assessment & Plan (11/29/2021 11:29 AM CDT): Acute-started on nystatin powder due to location of rash, also treating with Valtrex 1 g TID x1 week due to pain consistent with zoster. Encounter for diabetic foot exam ([facility]) 07/30 Assessment & Plan (03/29/2024 9:03 PM CDT): Diabetic foot exam performed with monofilament with no abnormal findings Assessment & Plan (03/11/2023 3:15 PM CDT): 04/15 sensed both feet with monofilament, normal foot exam Dyspnea on exertion 07/27/2021 Assessment & Plan (05/31/2024 2:49 PM ASSET MANAGEMENT COORDINATOR): The patient will continue with albuterol as [...] albuterol, and DuoNeb Encouraged to follow-up with multiskill operator as recommended/ Assessment & Plan (11/20/2023 6:15 [...] as directed as needed Referral made to [facility] Infectious Disease Department/COVID clinic for further evaluation of worsening symptoms since COVID-19 infection Assessment & Plan (06/24/2022 5:02 PM ASSET MANAGEMENT COORDINATOR): Acute-advised to continue nebulizer treatments as directed [...] appointment. Assessment & Plan (05/27/2022 10:33 PM ASSET MANAGEMENT COORDINATOR): Chronic, worsened, with acute asthma exacerbation-continued on [...] needed. Assessment & Plan (08/20/2021 5:42 PM ASSET MANAGEMENT COORDINATOR): Recent onset dyspnea since COVID-19 infection in 07/2021, not responsive to albuterol MDI, with multiple x-rays with no acute cardiopulmonary findings-referred to supervisor drawing with 1st visit today, echocardiogram and 48 hour Holter monitor planned for future, encouraged compliance with testing and follow-up visit. Assessment & Plan (07/31/2021 7:52 AM ASSET MANAGEMENT COORDINATOR): Recent onset since COVID-19 diagnosis-referred to a supervisor drawing for evaluation of bradycardia, palpitations, and shortness of breath with exertion. Advised to go to ER for worsening symptoms of palpitations and shortness of breath or for new onset chest pain/tightness, wheezing/difficulty breathing, chills, sweats, fever, back pain, or nausea. Assessment & Plan (07/27/2021 7:09 AM ASSET MANAGEMENT COORDINATOR): Acute, with recent diagnosis of COVID 19 [...] sleep medicine Encouraged to follow-up with long [facility] clinic Assessment & Plan (03/03/2022 7:32 AM CDT): Chronic, stable, with history of LUISA on CPAP-will monitor for worsening symptoms. Ordered TSH, recent CBC normal. Can refer to sleep medicine for further evaluation and management. Assessment & Plan (08/20/2021 5:52 PM ASSET MANAGEMENT COORDINATOR): Recent onset since COVID-19 diagnosis in 07/2021 with normal Hbg/Hct on 07/27/21, and normal folate & B12 dated 08/18/21-currently with work-up planned by supervisor drawing (echocardiogram and 48 hour Holter monitor planned for future), encouraged compliance with recommendations made by supervisor drawing. Assessment & Plan (07/23/2021 12:27 PM ASSET MANAGEMENT COORDINATOR): Acute, likely related to recent viral infection with [id number] monitor for resolution of symptoms. Encouraged to [...] medication. Assessment & Plan (2021 3:16 PM ASSET MANAGEMENT COORDINATOR): Chronicity and stability unknown-ordered MRI and referred to orthopedic surgeon for further evaluation and management. Acute pain of left hip 06/05/2021 Assessment & Plan (07/20/2024 4:05 PM ASSET MANAGEMENT COORDINATOR): Ordered x-rays left hip Continued on meloxicam 15 mg daily Started on cyclobenzaprine 5 mg TID PRN Assessment & Plan (06/05/2021 3:37 PM ASSET MANAGEMENT COORDINATOR): Acute-ordered x-ray of left hip. Can continue [...] panel Assessment & Plan (05/27/2022 10:31 PM ASSET MANAGEMENT COORDINATOR): Chronic, uncontrolled at last check, with elevated [...] visit. Assessment & Plan (08/20/2021 5:47 PM ASSET MANAGEMENT COORDINATOR): Chronic, stability unknown, uncontrolled, not on medication until office visit today when seen by supervisor drawing-encouraged compliance with rosuvastatin 10 mg once daily. Assessment & Plan (06/05/2021 3:35 PM ASSET MANAGEMENT COORDINATOR): Chronicity, stability unknown, not on medication-ordered lipid [...] visit. Assessment & Plan (08/20/2021 5:54 PM ASSET MANAGEMENT COORDINATOR): Chronic, stability unknown, uncontrolled, not on supplement-advised to start vitamin D3 2000 international units, take 2 daily with a meal x 1 month, then one daily with a meal, will recheck vitamin D 25 OH in 3-6 months. Assessment & Plan (06/05/2021 3:35 PM ASSET MANAGEMENT COORDINATOR): Chronicity and stability unknown, reported by patient, not currently on supplementation-ordered vitamin-D 25 OH. Type 2 diabetes mellitus treated without insulin ([facility]) 06/05/2021 Assessment & Plan (07/20/2024 4:04 PM ASSET MANAGEMENT COORDINATOR): Controlled Reviewed hemoglobin A1c equals 6.6 Continued [...] Foot exam done today Referral made to [facility] for dilated eye exam Assessment & Plan (02/06/2023 5:41 AM CDT): Stable Performed in office hemoglobin A1c (6.9) Continued on metformin Assessment & Plan (05/27/2022 10:27 PM ASSET MANAGEMENT COORDINATOR): Chronic, stable, controlled on medication-continued on metformin, [...] visit. Assessment & Plan (08/20/2021 5:53 PM ASSET MANAGEMENT COORDINATOR): Chronic, stable, controlled with medication-continued on metformin. Follow-up in 6 months. Assessment & Plan (06/05/2021 3:37 PM ASSET MANAGEMENT COORDINATOR): Chronic, uncontrolled at last check, on medication-continued [...] CURTIS-7=1. Assessment & Plan (08/20/2021 5:48 PM ASSET MANAGEMENT COORDINATOR): Chronic, stable, controlled with medication-continued on sertraline. Class 2 severe obesity due t o excess calories with serious comorbidity and body mass index (BMI) of 39.0 to 39.9 in adult 03/17/2018 Overview (11/03/2020): Transitioned From: Obesity (BMI 30-39.9) Assessment & Plan (06/11/2024 4:56 PM ASSET MANAGEMENT COORDINATOR): Chronic, improved, with serious comorbidity of type [...] week Assessment & Plan (07/16/2023 6:13 AM ASSET MANAGEMENT COORDINATOR): Chronic, worsening, with series comorbidity of type [...] prednisone Assessment & Plan (06/24/2023 7:30 AM ASSET MANAGEMENT COORDINATOR): Chronic, worsened Encouraged to monitor daily caloric intake and portion sizes and to exercise most days of the week, for a goal of at least 150 minutes of exercise per week Assessment & Plan (06/09/2023 5:36 AM ASSET MANAGEMENT COORDINATOR): Chronic, worsened, with serious comorbidity/type 2 diabetes, [...] flares Assessment & Plan (05/27/2022 10:29 PM ASSET MANAGEMENT COORDINATOR): Chronic, stable, controlled with medication-continued on meloxicam, [...] Singulair Assessment & Plan (05/27/2022 10:37 PM ASSET MANAGEMENT COORDINATOR): Chronic, stable, controlled with medication-continued on cetirizine, refills sent to pharmacy per patient request. Assessment & Plan (03/03/2022 7:19 AM CDT): Chronic, stable, controlled with medication-continued on cetirizine and montelukast. Assessment & Plan (08/20/2021 5:44 PM ASSET MANAGEMENT COORDINATOR): Chronic, stable, controlled with medication-filled Singulair per [...] Singulair Assessment & Plan (05/27/2022 10:36 PM ASSET MANAGEMENT COORDINATOR): Acute-started on Augmentin 875 BID and Diflucan [...] omeprazole Assessment & Plan (05/27/2022 10:31 PM ASSET MANAGEMENT COORDINATOR): Chronic, stable, controlled on medication-continued on omeprazole, refills sent to pharmacy per patient request. Assessment & Plan (04/08/2022 6:11 PM CDT): Chronic, stable, uncontrolled-prescription for omeprazole 40 mg once daily sent to pharmacy per patient request. Assessment & Plan (03/03/2022 7:29 AM CDT): Chronic, stable, controlled with medication-continued on omeprazole. LUISA (obstructive sleep apnea) 03/07/2015 Assessment & Plan (05/31/2024 2:38 PM ASSET MANAGEMENT COORDINATOR): The patient did not complete her home [...] 09/07/2014 Assessment & Plan (06/11/2024 4:57 PM ASSET MANAGEMENT COORDINATOR): Chronic, stable, controlled on medication Continued on [...] HCT Assessment & Plan (05/27/2022 10:32 PM ASSET MANAGEMENT COORDINATOR): Chronic, stable, controlled with medication-continued on lisinopril/hydrochlorothiazide, [...] visit. Assessment & Plan (08/20/2021 5:43 PM ASSET MANAGEMENT COORDINATOR): Chronic, not controlled at today's visit, but normal at visit today with supervisor drawing-refilled lisinopril/HCT per patient request. Will continue to monitor. Assessment & Plan (06/05/2021 3:32 PM ASSET MANAGEMENT COORDINATOR): Chronic, stable, controlled on medication historically, but [...] 03/25/2024 Assessment & Plan (07/16/2023 6:14 AM ASSET MANAGEMENT COORDINATOR): Reviewed ER records from 06/03/23 and last [...] 09/26/2023 Assessment & Plan (06/24/2023 7:28 AM ASSET MANAGEMENT COORDINATOR): Acute, with improving symptoms Encouraged to complete prednisone taper as directed Instructed to get chest x-ray in 2 weeks Advised to return to ER if shortness of breath, chest tightness, and/or wheezing not relieved with PRN albuterol inhaler Pneumonia of right lower lob e due to infectious organism 06/09/2023 09/26/2023 Assessment & Plan (06/09/2023 5:33 AM ASSET MANAGEMENT COORDINATOR): Recent diagnosis Reviewed ER notes dated 06/03/2023 [...] stable Encouraged to continue to follow-up with [facility] as recommended COVID-19 arti mead chronic decreased mobility and endurance 02/20/2023 024 Assessment & Plan (03/12/2023 5:58 AM CDT): Chronic, stable Encouraged to continue to follow-up with [facility] as recommended Disrupted sleep-wake cycle 02/20/2023 0 03/29/2024 Assessment & Plan (03/12/2023 6:01 AM CDT): Attributes to chronic pain, symptoms being evaluated/managed by Infectious Disease/COVID Clinic at [facility] Continued on meloxicam daily, holds meloxicam and takes Toradol as directed as needed for flares Refill for Toradol sent to pharmacy per request COVID-19 arti mead chronic joint pain 02/20/2023 03/29/2024 Assessment & Plan (03/12/2023 5:58 AM CDT): Chronic, stable Encouraged to continue to follow-up with [facility] as recommended Arthralgia [...] made to infectious disease/ COVID clinic at [facility] Pain of left upper extremity [...] 03/11/2023 Assessment & Plan (06/24/2022 4:54 PM ASSET MANAGEMENT COORDINATOR): Recent diagnosis-advised to stop Mucinex DM and [...] 03/11/2023 Assessment & Plan (06/24/2022 5:02 PM ASSET MANAGEMENT COORDINATOR): Chronic, with recent exacerbation, uncontrolled-declined addition of [...] appointment. Assessment & Plan (05/27/2022 10:29 PM ASSET MANAGEMENT COORDINATOR): Chronic, with acute exacerbation, uncontrolled, with symptoms [...] symptoms.ation- Diabetic neuropathy, type II diabetes mellitus ([facility]) 03/01/2022 03/03/2022 Diarrhea of infectious origin 01/27/2022 [...] 09/13/202110/05 Assessment & Plan (09/13/2021 3:28 PM ASSET MANAGEMENT COORDINATOR): Acute, persistent despite round of oral antibiotics, [...] 11/29/2021 Assessment & Plan (08/27/2021 12:11 PM ASSET MANAGEMENT COORDINATOR): Acute-started on an antibiotic, advised to take medication as directed. Instructed to increase clear liquids, rest, and vitamin C in diet. Recommended follow-up if symptoms worsen, don't improve, or new symptoms develop. Right ear pain 08/27/2021 11/29/2021 Assessment & Plan (09/13/2021 3:28 PM ASSET MANAGEMENT COORDINATOR): Acute, persistent despite round of oral antibiotics, with resolution of sinus symptoms -started on Floxin ear drops to right ear twice daily as directed. A referral was also made to Dr. Brad Farr, recommended scheduling an appointment in the event ear pain and discharge do not resolve with antibiotic ear drops, provided with the office number. Assessment & Plan (08/27/2021 12:10 PM ASSET MANAGEMENT COORDINATOR): Acute-see plan of care for right acute serous otitis media. Can take Tylenol as directed as needed for pain. Acute recurrent frontal sinusitis 08/27/2021 03/01/2022 Assessment & Plan (08/27/2021 12:11 PM ASSET MANAGEMENT COORDINATOR): Acute-advised to take Zpak as directed. Instructed [...] normal. Assessment & Plan (09/13/2021 3:26 PM ASSET MANAGEMENT COORDINATOR): Recent onset, stable, previously referred to neurology on 08/20/21, states has not received a call-provided with number to call [facility] in [place]. Assessment & Plan (08/20/2021 5:55 PM ASSET MANAGEMENT COORDINATOR): Recent onset, new problem-sensation intact but diminished [...] normal. Assessment & Plan (09/13/2021 3:26 PM ASSET MANAGEMENT COORDINATOR): Recent onset, stable, previously referred to neurology on 08/20/21, states has not received a call-provided with number to call [facility] in [place]. Assessment & Plan (08/20/2021 5:55 PM ASSET MANAGEMENT COORDINATOR): Recent onset, new problem-sensation intact but diminished [...] CMP. Assessment & Plan (07/31/2021 7:51 AM ASSET MANAGEMENT COORDINATOR): Recent onset over weekend-referred to a supervisor drawing for evaluation of bradycardia, palpitations, and shortness of breath with exertion. Advised to go to ER for worsening symptoms of palpitations and shortness of breath or for new onset chest pain/tightness, wheezing/difficulty breathing, chills, sweats, fever, back pain, or nausea. Bradycardia 07/27/2021 03/01/2022 Assessment & Plan (08/20/2021 5:46 PM ASSET MANAGEMENT COORDINATOR): Recent onset, episodic, bradycardia since COVID-19 infection in 07/2021, normal at today's visit (69 beats/minute)-referred to supervisor drawing previously with 1st visit today, echocardiogram and 48 hour Holter monitor planned for future, encouraged compliance with recommendations made by supervisor drawing. Assessment & Plan (07/31/2021 7:51 AM ASSET MANAGEMENT COORDINATOR): Recent onset prior to monoclonal antibody infusion on 07/11/2021-referred to a supervisor drawing for evaluation of bradycardia, palpitations, and shortness of breath with exertion. Advised to go to ER for worsening symptoms of palpitations and shortness of breath or for new onset chest pain/tightness, wheezing/difficulty breathing, chills, sweats, fever, back pain, or nausea. Assessment & Plan (07/27/2021 7:07 AM ASSET MANAGEMENT COORDINATOR): New problem/finding-recommended follow-up with Cardiology as suggested upon discharge from the ER for further evaluation and management. COVID-19 07/10/2021 03/11/2023 Assessment & Plan (09/10/2022 10:37 AM ASSET MANAGEMENT COORDINATOR): Acute-started on Paxlovid. Advised to continue to [...] regarding Paxlovid was sent to patient via [place], instructed to read carefully and call if has any questions. [facility] in [place] was notified that patient would be coming by for official testing mandated by her employer to confirm her at-home test results. Instructed that to go to ER and/or call 911 if short of breath, and/or have chest pain, tightness, or wheezing not relieved with your inhalers or nebulizer treatments. Assessment & Plan (07/27/2021 7:07 AM ASSET MANAGEMENT COORDINATOR): Diagnosed with COVID-19 on 07/08/2021 with symptoms starting on Brittany, now with symptoms consistent with a sinus infection, see plan of care for acute recurrent pansinusitis. Assessment & Plan (07/23/2021 12:26 PM ASSET MANAGEMENT COORDINATOR): Acute, s/p monoclonal antibody infusion, improving until [...] 08/20/2021 Assessment & Plan (2021 3:15 PM ASSET MANAGEMENT COORDINATOR): Worsening chronic right shoulder pain, status post [...] 08/20/2021 Assessment & Plan (07/23/2021 12:25 PM ASSET MANAGEMENT COORDINATOR): Acute, resolved-informed that insurance declined MRI of right shoulder, however states right shoulder pain has resolved. Advised if right shoulder pain returns, to notify office and an x-ray of the right shoulder can be ordered and a referral can be made to PT. Assessment & Plan (2021 3:15 PM ASSET MANAGEMENT COORDINATOR): Acute on chronic right shoulder pain, status [...] 03/11/2023 Assessment & Plan (08/30/2022 3:46 PM ASSET MANAGEMENT COORDINATOR): Rapid COVID and flu negative PCR pending [...] referral was made to an ENT and bobbin disker for further evaluation and management of recurrent sinusitis. Started on prednisone as directed. Advised against taking a decongestant due to high blood pressure, but can use nasal saline spray and continue antihistamine. Acute recurrent pansinusitis 11/03/2020 03/25/2024 Assessment & Plan (07/16/2023 6:10 AM ASSET MANAGEMENT COORDINATOR): Started on prednisone burst and Levaquin, discussed [...] symptoms. Assessment & Plan (07/27/2021 7:06 AM ASSET MANAGEMENT COORDINATOR): Started on a Z-David as directed and [...] Type Department Care Team Description 08/16/2024 Telephone [facility] [address] [place] [address] Tess Hanson, [facility] Sleep Study Results/CPAP order 08/12/2024 7:35 PM ASSET MANAGEMENT COORDINATOR - 08/12/2024 11:59 PM ASSET MANAGEMENT COORDINATOR Hospital Encounter [facility] [address] [place] [address] LUISA (obstructive sleep apnea) Discharge Disposition: Discharge to home or self care 08/10/2024 Telephone [facility] [address] [place] [address] Tess Hanson [facility] 08/09/2024 Orders Only [facility] [address] [place] [id number] Rio Maynard MD LUISA (obstructive sleep apnea) (Primary Dx) 08/05/2024 10:00 AM ASSET MANAGEMENT COORDINATOR - 08/05/2024 11:59 PM ASSET MANAGEMENT COORDINATOR Hospital Encounter [facility] [address] [place] [address] LUISA (obstructive sleep apnea) Discharge Disposition: Discharge to home or self care 07/20/2024 4:03 PM ASSET MANAGEMENT COORDINATOR - 07/20/2024 11:59 PM ASSET MANAGEMENT COORDINATOR Hospital Encounter [facility] [address] [place] [address] Acute pain of left hip Discharge Disposition: Discharge to home or self care 07/20/2024 3:15 PM ASSET MANAGEMENT COORDINATOR Office Visit [facility] at [address] [place] [address] Sonal Santos NP Acute pain of left hip (Primary Dx); Cutaneous candidiasis; Type 2 diabetes mellitus treated without insulin ([facility]) ([facility]) 07/20/2024 Nurse Triage [facility] at [address] [place] [address] Sonal Santos NP 06/10/2024 1:45 PM ASSET MANAGEMENT COORDINATOR Office Visit [facility] Care at [address] [place] [address] Sonal Santos NP Acute sinusitis, recurrence not specified, unspecified location (Primary Dx); Class 2 severe obesity due to excess calories with serious comorbidity and body mass index (BMI) of 39.0 to 39.9 in adult ([facility]); Essential hypertension 06/08/2024 Telephone [facility] at [address] [place] [address] Sonal Santos NP Questions on Care 06/02/2024 Telephone [facility] [address] [place] [id number] [address] [place] [address] Sonal Santos NP 05/31/2024 2:15 PM ASSET MANAGEMENT COORDINATOR Office Visit [facility] [place] [address] [place] [address] Leslie Florian NP LUISA (obstructive sleep apnea) (Primary Dx); Dyspnea on exertion 05/31/2024 Telephone [facility] [place] [address] [facility] [address] [place] [address] Rio Maynard MD Orders Only from [...] Comments Blood Pressure 120/88 07/20/2024 3:09 PM ASSET MANAGEMENT COORDINATOR Pulse 89 07/20/2024 3:09 PM ASSET MANAGEMENT COORDINATOR Temperature 36.9 C (98.5 F) 07/20/2024 3:09 PM ASSET MANAGEMENT COORDINATOR Respiratory Rate 14 07/20/2024 3:09 PM ASSET MANAGEMENT COORDINATOR Oxygen Saturation 97% 07/20/2024 3:09 PM ASSET MANAGEMENT COORDINATOR Inhaled Oxygen Concentration - - Weight 112.9 kg (249 lb) 07/20/2024 3:09 PM ASSET MANAGEMENT COORDINATOR Height 170.2 cm (5' 7.01 ) 07/20/2024 3:09 PM CS T Body Mass Index 38.99 07/20/2024 3:09 PM ASSET MANAGEMENT COORDINATOR Plan of Treatment Health Maintenance Due Date [...] Comments PSG (COMPLEX) Routine 08/12/2024 7:35 PM ASSET MANAGEMENT COORDINATOR LUISA (obstructive sleep apnea) PORTABLE/HOME SLEEP STUDY Routine 08/05/2024 10:00 AM ASSET MANAGEMENT COORDINATOR LUISA (obstructive sleep apnea) XR HIP LEFT 2 OR 3 VIEWS Schedule Routine, Read Routine (OP Routine) 07/20/2024 4:23 PM ASSET MANAGEMENT COORDINATOR Acute pain of left hip POCT HEMOGLOBIN A1C Routine 07/20/2024 2:30 PM ASSET MANAGEMENT COORDINATOR Type 2 diabetes mellitus treated without insulin ([facility]/HCC) (HCC) EGFR STAT 11/28/2023 9:55 PM CDT SCREENING MAMMOGRAM BILATERAL W GURWINDER Schedule Routine, Read Routine (OP Routine) 07/12/2022 2:38 PM ASSET MANAGEMENT COORDINATOR Encounter for screening mammogram for malignant neoplasm of breast LIPID PANEL Routine 02/16/2022 9:48 AM CDT Mixed hyperlipidemia ALBUMIN CREATININE RATIO, URINE Routine 08/18/2021 9:12 AM ASSET MANAGEMENT COORDINATOR Type 2 diabetes mellitus treated without insulin ([facility]/HCC) (HCC) from Last 3 Months or Most Recently Relevant to Health Maintenance Results * PSG-Sleep Provider Use Only (08/12/2024 7:35 PM ASSET MANAGEMENT COORDINATOR) us Rio Maynard MD SLEEP CENTER ORDERABLES F inal Result Performing Organization Address [facility] Co de Phone Number [facility] [address] * Portable/Home Sleep Study (08/05/2024 10:00 AM ASSET MANAGEMENT COORDINATOR) us Leslie Florian NP SLEEP CENTER ORDERABLES Final Result Performing Organization Address [facility] Co de Phone Number [facility]ICINE [address] [place] [address] * XR Hip Left 2+ Vw (07/20/2024 4:23 PM ASSET MANAGEMENT COORDINATOR) Anatomical Region Laterality Modality Lower Extremities, Hip, Pelvis Left C omputed Radiography 07/21/2024 3:54 PM ASSET MANAGEMENT COORDINATOR Narrative 07/21/2024 3:56 PM ASSET MANAGEMENT COORDINATOR EXAM DESCRIPTION: XR HIP LEFT 2 OR [...] David Maharaj M.D. DANYELLE: DANYELLE Report ID: [id number] Reading Location: [id number] Procedure Note Fran Maharaj MD - 07/21/2024 [...] David Maharaj M.D. DANYELLE: DANYELLE Report ID: [id number] Reading Location: [place] [address] Sonal Santos SUBSURFACE AUGMENTEE ELINT OPERATOR IMG XR PROCEDURES Final Result * (ABNORMAL) POCT hemoglobin A1c (07/20/2024 2:30 PM ASSET MANAGEMENT COORDINATOR) Hemoglobin A1C, POC 6.6 4.0 - 5.6 % Comment:Lot [id number] 080 126 Blood 07/20/2024 2:30 PM ASSET MANAGEMENT COORDINATOR Sonal Santos NP POINT OF CARE TEST [...] LAB BLOOD ORDERABLES Final Res ult CAR [facility] Department [place] [address] * SCREENING MAMMOGRAM BILATERAL W GURWINDER (07/12/2022 2:38 PM ASSET MANAGEMENT COORDINATOR) Anatomical Region Laterality Modality Breast Bilateral Mammography Impressions 07/12/2022 2:50 PM ASSET MANAGEMENT COORDINATOR BI-RADS ATLAS category (overall): 1 - Negative There is no mammographic evidence of malignancy. A 1 year screening mammogram is recommended. The patient has been or will be contacted. We recommend annual screening mammography for women at average risk of breast cancer beginning at age 40, based on guidelines of the [place] [employer] (ACR Practice Parameter for the Performance of Screening and Diagnostic Mammography) and [place] [employer]. For women with and elevated risk of breast cancer, please refer to the ACR Practice Parameter for specific screening recommendations. The patient will be entered into a reminder system with a target due date of 1 year for her next screening exam. Narrative 07/12/2022 2:50 PM ASSET MANAGEMENT COORDINATOR SCREENING MAMMOGRAM BILATERAL W GURWINDER: 07/12/22 The [...] been no suspicious change. us Sonal Santos SUBSURFACE AUGMENTEE ELINT OPERATOR IMG MAMMO PROCEDURES Final Resul t * (ABNORMAL) Lipid panel (02/16/2022 9:48 AM CDT) Cholesterol 153 30 - 199 mg/dL CAR Comment: Interpretive Data Ages < [...] last revised on 2018. Testing performed by: [address] [address] Triglycerides 246(H) <=149 mg/dL CAR Comment: Interpretive [...] last revised on 2018. Testing performed by: [address] [address] HDL 37(L) >=40 mg/dL CAR Comment: Interpretive [...] last revised on 2018. Testing performed by: [address] [address] LDL, calculated 67 <=129 mg/dL CAR Comment: [...] last revised on 2018. Testing performed by: [address] [address] Non-HDL Cholesterol 116 mg/dL CAR Comment: Interpretive [...] last revised on 2018. Testing performed by: [address] [address] Chol/HDL ratio 4 CAR Comment:Testing performed by : [address] [address] Blood 02/16/2022 9:48 AM CDT 02/16/2022 9:58 AM CDT us Sonal Santos SUBSURFACE AUGMENTEE ELINT OPERATOR LAB BLOOD ORDERABLES Final Resul t CAR [address] [facility] [place] [address] * Albumin Creatinine Ratio, Urine (08/18/2021 9:12 AM ASSET MANAGEMENT COORDINATOR) Albumin Ur <12.0 mg/L CAR TO Comment: Interpretive Data No reference range established. Current interpretive data was last revised 2018. Testing performed by: [address] [address] Creatinine Ur 138.2 mg/dL CAR TO Comment: Interpretive Data No reference range established. Current interpretive data was last revised 2018. Testing performed by: [address] [address] Albumin Creatinine Ratio, Ur <9 1 - 29 mg/g CAR Comment:Testing performed by : [address] [address] Urine 08/18/2021 9:12 AM ASSET MANAGEMENT COORDINATOR 08/18/2021 10:08 AM ASSET MANAGEMENT COORDINATOR us Sonal Santos SUBSURFACE AUGMENTEE ELINT OPERATOR LAB URINE ORDERABLES Final Resul t CAR [address] [facility] [place] [address] from Last 3 Months or Most Recently Relevant to Health Maintenance Insurance [facility] Care Teams [employer] Relationship Specialty Start Date End Date Sonal Santos NP [address] [place] [id number] PCP - General Family Practice 11/03/20 Valeria Charlton, [facility] [address] [facility] [address] Commercial Real Estate Appraiser Infectious Diseases 02/17/23
[2024-08-18] MEDS: LACTATED RINGERS 1,000 ML 30 ML IV CONT ×2 (06:30→12:44)
[2024-08-18 06:53] LABS: Glucose Point of Care 136 mg/dl (65-105)
--- NOTE | 2024-08-18 07:07 | WPDANESEPPF ---
Anes - Initial Pre Proc Eval Procedure: Operation Date: 08/18/24 07:30 Proposed Procedures p Anterior Cervical Discectomy and Fusion of C3-4, C4-5, C5-6, C6-7 - Ann Marie Suh MD Date/Time: 08/18/24 07:07 Surgeon: Ann Maire Suh MD Pre Op Diagnosis: cerv myelopathy,spondylolithisis Patient Data Age: 54 Gender: F Height: 1.73 m Weight: 112 kg Allergies Allergy/AdvReac Type Severity Reaction Status Date / Time latex Allergy Redness of Verified 08/18/24 07:02 Skin Penicillins AdvReac Other Verified 08/18/24 07:02 Home Medications ?Medication ?Instructions ?Recorded ?Confirmed ?Type ipratropium 0.5 mg-albuterol 3 mg 3 ml inhalation Q4H PRN shortness 05/18/19 08/10/24 Rx (2.5 mg base)/3 mL nebulization of breath or wheezing #15 mL soln albuterol sulfate 90 mcg/actuation 3 puff inhalation Q4H PRN Dyspnea 03/31/24 08/10/24 History aerosol inhaler cetirizine 10 mg tablet 10 mg PO DAILY PRN Allergy Symptoms 03/31/24 08/10/24 History gabapentin 300 mg capsule 300 mg PO TID 03/31/24 08/10/24 History lisinopril 20 1 tablet PO DAILY 03/31/24 08/10/24 History mg-hydrochlorothiazide 25 mg tablet meloxicam 15 mg tablet 15 mg PO DAILY 03/31/24 08/10/24 History metformin 500 mg tablet 500 mg PO TID 03/31/24 08/10/24 History montelukast 10 mg tablet 10 mg PO QHS 03/31/24 08/10/24 History omeprazole 40 mg capsule,delayed 40 mg PO DAILY 03/31/24 08/10/24 History release potassium chloride 10 mEq 10 meq PO DAILY 03/31/24 08/10/24 History capsule,extended release rosuvastatin 10 mg tablet 10 mg PO DAILY 03/31/24 08/10/24 History sertraline 50 mg tablet 50 mg PO DAILY 03/31/24 08/10/24 History Laboratory Tests 08/18/24 06:50 POC Capillary Glucose 136 H mg/dl (65-105) Patient hx anesthesia problems: none Family hx anesthesia problems: none Results Review: All pre-operative results and documents have been reviewed as part of the pre-operative evaluation. [facility] Past Medical History Medical History Diabetes Hypertension Acute arthritis Asthma Surgical History Surgical History History of tonsillectomy Family History Family History Mother Heart disease Hypertension Anxiety Cancer Father Heart disease Hypertension Diabetes mellitus Social History Social History Smoking status: Never smoker Alcohol intake: never Substance use: never Substance use type: does not use Do You Feel Safe in your Home?: Yes Lack of Transportation: No Lack of Food: Sometimes True Current Housing: I Have Housing Concerned About Future Housing: No Difficulty Paying Gas/Electric Bills: No Difficulty Paying for Meds: No Currently Unemployed: No Education: Associate Degree Difficulty w/ Childcare or Family Care: No Living arrangements: with family Spiritual care concerns: No Anes - Eval Final PreProcedure Day of Procedure 08/18/24 07:07 Patient weight: obese Heart: regular rate and rhythm Lungs: clear to auscultation and normal air movement Airway: Mallampati scale class II Neurological: alert and oriented Last oral intake: >/= 8 hours ASA classification: III Emergent: no Anesthetic plan: proceed Anesthesia type and monitoring: general ETT and standard monitoring Results Review: All pre-operative results and documents have been reviewed as part of the pre-operative evaluation. Asthma, RAD, stable of recent, LUISA but noncompliant w CPAP for several years due to recall. DM. Informed Consent: The patient's anesthetic plan and its attendant risks and benefits were discussed with the patient/family/POA. Questions were solicited and answers provided to the satisfaction of the patient/family/POA.
[2024-08-18] MEDS: ALBUTEROL SULFATE (*SP) AEROSOL 1 PUFF 2 PUFF INHALATION (07:14)
--- NOTE | 2024-08-18 07:18 | P.HP_ITS ---
H&P: HPI History of Present Illness Date/Time: 08/18/24 07:18 Chief Complaint: myelopathy Narrative: Ms. Dickerson is a 53-year-old female with history of diabetes and asthma who presents for evaluation numbness and weakness in her upper extremities. She reports progressive symptoms over the last year with weakness particularly throughout her right arm and to a lesser extent in her left arm. She has numbness throughout both arms and hands. She describes progressive difficulty with balance and has had multiple falls. She denies any significant neck pain but does have pain into both shoulders. She denies any bowel or bladder changes. 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 She had imaging of her brain and spine as well as an EMG showing C5 and C6 radiculopathies. Her diabetes is well controlled with a recent A1c of 6.7%. She does not take any blood thinners and does not smoke. Review of Systems Review of Systems: All systems reviewed & are unremarkable except as noted in HPI and below PMFSH Past Medical History Medical History Diabetes Hypertension Acute arthritis Asthma Surgical History Surgical History History of tonsillectomy Family History Family History Mother Heart disease Hypertension Anxiety Cancer Father Heart disease Hypertension Diabetes mellitus Social History Social History Smoking status: Never smoker Alcohol intake: never Substance use: never Substance use type: does not use Do You Feel Safe in your Home?: Yes Lack of Transportation: No Lack of Food: Sometimes True Current Housing: I Have Housing Concerned About Future Housing: No Difficulty Paying Gas/Electric Bills: No Difficulty Paying for Meds: No Currently Unemployed: No Education: Associate Degree Difficulty w/ Childcare or Family Care: No Living arrangements: with family Spiritual care concerns: No Meds Home Medications and Allergies Home Medications ?Medication ?Instructions ?Recorded ?Confirmed ?Type ipratropium 0.5 mg-albuterol 3 mg 3 ml inhalation Q4H PRN shortness 05/18/19 08/10/24 Rx (2.5 mg base)/3 mL nebulization of breath or wheezing #15 mL soln albuterol sulfate 90 mcg/actuation 3 puff inhalation Q4H PRN Dyspnea 03/31/24 08/10/24 History aerosol inhaler cetirizine 10 mg tablet 10 mg PO DAILY PRN Allergy Symptoms 03/31/24 08/10/24 History gabapentin 300 mg capsule 300 mg PO TID 03/31/24 08/10/24 History lisinopril 20 1 tablet PO DAILY 03/31/24 08/10/24 History mg-hydrochlorothiazide 25 mg tablet meloxicam 15 mg tablet 15 mg PO DAILY 03/31/24 08/10/24 History metformin 500 mg tablet 500 mg PO TID 03/31/24 08/10/24 History montelukast 10 mg tablet 10 mg PO QHS 03/31/24 08/10/24 History omeprazole 40 mg capsule,delayed 40 mg PO DAILY 03/31/24 08/10/24 History release potassium chloride 10 mEq 10 meq PO DAILY 03/31/24 08/10/24 History capsule,extended release rosuvastatin 10 mg tablet 10 mg PO DAILY 03/31/24 08/10/24 History sertraline 50 mg tablet 50 mg PO DAILY 03/31/24 08/10/24 History Allergies Allergy/AdvReac Type Severity Reaction Status Date / Time latex Allergy Redness of Verified 08/18/24 07:02 Skin Penicillins AdvReac Other Verified 08/18/24 07:02 Vital Signs Vital Signs - 24 hr 08/18/24 06:30 Temperature 97.9 F Pulse Rate 68 Respiratory Rate 18 Blood Pressure 120/75 Pulse Oximetry 97 Oxygen Delivery Room Air Exam Narrative: Right arm 3/5 deltoid, 3/5 biceps, 3/5 triceps, 3/5 hand consumer product advisor, 3/5 intrinsics Left arm 5/5 deltoid, 5/5 biceps, 4/5 triceps, 4/5 hand consumer product advisor, 4/5 intrinsics Paresthesias to light touch throughout arms and hands Unless otherwise stated above, the patient's physical exam is as follows: General: -Well developed and well nourished. No a cute distress. Cooperative with exam. Mental status: -Awake and oriented to person, place, an d time. Affect is normal. -Fund of knowledge appropriate -Recent and remote memory are intact -Attention span and concentration appear normal -Language function is normal -There is no evidence of aphasia in conv ersational speech. Cranial nerves: -CN II: Visual glaser full to bedside co nfrontation -CN III, IV, : Pupils equal, round, an d reactive to light; extraocular movements, no ptosis, no nystagmus -CN V: Facial sensation intact in V1 thr ough V3 distributions -CN VII: Face symmetric -CN VIII: Hearing intact to conversation al speech -CN IX, X: Palate elevates symmetrically ; normal phonation -CN XI: Symmetric full strength of suero ocleidomastoid and trapezius muscles -CN XII: Tongue protrudes midline Integumentary: -No obvious skin lesions or masses Motor: -Muscle tone normal without spasticity o f flaccidity. No atrophy. No fasciculations. -No pronator drift -Right upper extremity: deltoid 5/5, bic eps 5/5, triceps 5/5, wrist extensors 5/5, wrist flexors 5/5, intrinsics 5/5 -Left upper extremity: deltoid 5/5, liborio ps 5/5, triceps 5/5, wrist extensors 5/5, wrist flexors 5/5, intrinsics 5/5 -Right lower extremity: iliopsoas 5/5, q uadriceps 5/5, hamstrings 5/5, tibialis anterior 5/5, gastroc-soleus 5/5, EHL 5/5 -Left lower extremity: iliopsoas 5/5, qu adriceps 5/5, hamstrings 5/5, tibialis anterior 5/5, gastroc-soleus 5/5, EHL 5/5 Sensory: -Intact to light touch throughout -Normal proprioception throughout Reflexes: -1-2+ DTR's throughout -No Guidry's, clonus, or Babinski bilat erally Musculoskeletal: -Symmetric; no deformities, masses or te nderness; no known fractures -Cervical spine: no tenderness to palpat ion, no pain, and normal cervical spine movements. Normal cervical lordosis -Spurling's test negative -Tinel's sign negative -Shoulder: no pain on provocative testin g bilaterally -Elbow: no instability, subluxation, or laxity bilaterally I personally reviewed the MRI cervical spine accessed remotely through [facility] epic. This shows grade 1 anterolisthesis of C3 on C4 and C4 on C5. There is severe bilateral neuroforaminal stenosis at C3-4, C4-5, C5-6, and C6-7. There is moderate central stenosis at C5-6 and severe central stenosis with spinal cord compression at C6-7. Assessment and Plan Assessment and plan (1) Cervical myelopathy: Code(s): G95.9 - Disease of spinal cord, unspecified Status: Acute (2) Spondylolisthesis, cervical region: Code(s): M43.12 - Spondylolisthesis, cervical region Status: Acute (3) Cervical radiculopathy: Code(s): M54.12 - Radiculopathy, cervical region Status: Acute Plan Ms. Dickerson is a 54-year-old female with history of diabetes and asthma who presents with 1 year of progressive myelopathic symptoms including weakness in the right greater left arms, numbness of both arms, balance issues, and falls. On physical exam, she has fairly significant weakness throughout her right arm in particular as well as paresthesias to touch in both arms. MRI cervical spine shows spondylolisthesis at C3-4 and C4-5 with bilateral neuroforaminal stenosis at C3-4, C4-5, C5-6, and C6-7. There is also moderate central stenosis at C5-6 and severe central stenosis at C6-7 causing spinal cord compression. I reviewed the images with the patient and her . She does recently have an EMG confirming radiculopathy at C5 and C6 bilaterally and complains of symptoms consistent a C5 radiculopathy. Ultimately because of her myelopathy and her weakness, I have recommended surgery in the form of anterior cervical diskectomy and fusion C3-4, C4-5, C5-6, and C6-7. We discussed surgery in detail including risks, expected recovery, and restrictions after surgery. We discussed that the goal of surgery is to prevent worsening of her myelopathic symptoms.
--- NOTE | 2024-08-18 07:18 | WPDHPUPDATE1 ---
History and Physical Update Update Date/Time: 08/18/24 07:18 History and Physical has been reviewed, including an updated exam of the patient. There are NO changes in the patient's condition. Risks, benefits, and alternatives have been discussed and questions answered. Patient agrees to proceed with procedure.
[2024-08-18] MEDS: ceFAZolin 2 GM/D5W 50 ML 2 GM/50 ML BAG IVPB ×2 (07:29→18:39)
[2024-08-18] MEDS: BUPIVACAINE/EPINEPHRINE 0.5% 10 ML VIAL 30 ML INFILTRATE (08:47)
--- NOTE | 2024-08-18 12:50 | PM.OP ---
Procedure Note - Brief Procedure Note - Brief Date of procedure: 08/18/24 cerv myelopathy,spondylolithisis Procedure performed: ACDF C3-4, C4-5, C5-6, and C6-7 Surgeon: Ann Marie Suh MD Anesthesia: GETA Findings: Successful ACDF without complication Estimated blood loss (mL): 50 Drains: No Packing: No Pathology: None sent Complications: None Condition: Stable Disposition: PACU
[2024-08-18 13:02] LABS: Glucose Point of Care 175 mg/dl (65-105)
[2024-08-18] MEDS: fentaNYL CITRATE INJ (*CRX) 100 MCG/2 ML VIAL 25 MCG IV PUSH ×5 (13:52→17:29)
--- NOTE | 2024-08-18 14:17 | SUR.PHASEI ---
Patient meets PACU discharge criteria, unit bed unavailable at this time. Patient placed in extended recovery status. [id number]
[2024-08-18] MEDS: oxyCODONE HCL (*CRX) 5 MG TAB IR PO (14:57)
--- NOTE | 2024-08-18 16:16 | W.PM.PROC2 ---
Procedure Note - Detailed Date of Procedure 08/18/24 Pre-op Diagnosis cerv myelopathy,spondylolithisis Post-op Diagnosis Same Procedure Performed 1. Anterior cervical diskectomy C3-4, C4-5, C5-6, C6-7 2. Anterior cervical arthrodesis C3-4, C4-5, C5-6, C6-7 with i-Factor 3. Anterior cervical interbody placement at C3-4, C4-5, C5-6, C6-7 4. Use of microscope for microsurgical dissection 5. Use of C-arm for fluoroscopy Surgeon Ann Marie Suh MD Global Position System Technician Marvin Anesthesia General Description of Procedure The patient was taken to the operating room and was transferred to the operating table in the supine position. General anesthesia was induced. Cowan catheter was placed. Pressure points were appropriately padded, and compression devices were placed on the patient's calves. A shoulder roll was placed. The appropriate level was confirmed with the C-arm XR imaging. The patient was prepped and draped in usual sterile fashion. Perioperative antibiotics were given. Time out was performed. Local anesthesia was injected into the planned incision site. An incision was made with a 10-blade scalpel on the right side of the neck. The subcutaneous tissue was undermined above the platysma with the Metzenbaum scissors. The platysma was sharply opened horizontally. Bleeding was controlled with the bipolar. The avascular plane to the spine was dissected sharply. The anterior border of the spine was located and exposed with sharp and blunt dissection. A spinal needle was used to localize the C5-6 disc space; this was confirmed on fluoroscopy. The longus coli muscles were elevated bilaterally with a bovie. The C5-6 and C6-7 disc spaces and vertebral bodies were exposed with the bovie. This was repeated through a higher, second horizontal incision to better access the upper two cervical discs at C3-4 and C4-5. Once the C3, C4, C5, C6, and C7 vertebral bodies and adjacent intervertebral discs were adequately exposed, self-retaining retractors were placed through the superior incision. Stockton pins were placed in the C3 and C4 vertebral bodies and were distracted. A 15-blade scalpel was used to incise the C3-4 disc. A combination of Kerrisons, currettes, and pituitary instruments were used to remove each disc. The microscope was draped and brought into the surgical field. The removal of disc and osteophytes were completed using a high-speed drill, multiple Kerrison punches, and currettes. The posterior longitudinal ligament was opened with a nerve hook and kerrison rongeurs until the neuroforamen bilaterally were adequately decompressed. Interbody trial instruments were used to determine the appropriate size for the prosthetic vertebral interbody cage. Hemostasis was achieved in the disc space with surgiflo and cottonoid patties. A 6mm interbody was filled with i-Factor and placed at C3-4. The caspar pin was removed from C3 and replaced in C5. Wax was placed in the caspar pin site. This process was repeated at the C4-5 disc. The disc was removed as described above, and the posterior longitudinal ligament was opened until the neuroforamen bilaterally were adequately decompressed. Interbody trial instruments were used to determine the appropriate size for the prosthetic vertebral interbody cage. Hemostasis was achieved in the disc space. A 5mm interbody was filled with i-Factor and placed at C4-5. The caspar pins and retractors were removed from the superior incision. A 28mm cervical plate was placed from C3 to C5 and secured with 14mm screws. The self-retaining retractors were replaced through the inferior incision to access the C5-6 and C6-7 discs. Stockton pins were placed in C5 and C6. The disc was removed as described above, and the posterior longitudinal ligament was opened until the neuroforamen bilaterally were adequately decompressed. Interbody trial instruments were used to determine the appropriate size for the prosthetic vertebral interbody cage. Hemostasis was achieved in the disc space. An 5mm interbody was filled with i-Factor and placed at C5-6. The caspar pin was removed from C5 and replaced in C7. Wax was placed in the caspar pin site. This process was repeated at the C6-7 disc. The disc was removed as described above, and the posterior longitudinal ligament was opened until the neuroforamen bilaterally were adequately decompressed. Interbody trial instruments were used to determine the appropriate size for the prosthetic vertebral interbody cage. Hemostasis was achieved in the disc space. A 6mm interbody was filled with i-Factor and placed at C6-7. The Stockton pins were removed, and bone wax was used for hemostasis. Osteophytes over the vertebral bodies were removed with a Leksell and high-speed drill. A 26mm plate was placed over the C5, C6, and C7 vertebral bodies and secured with 14mm screws. Accurate hardware placement was confirmed with fluoroscopy. The surgical cavity was copiously irrigated; appropriate hemostasis was verified; and there was no evidence of dural tear/CSF leak. The platysma was closed with interrupted 3-0 Vicryl, followed by interrupted 3-0 Vicryl for the dermis, and 4-0 running subcuticular monocryl for the skin. Dermabond was placed. The patient was extubated, transferred to the bed, and taken to the PACU without incident. Billing codes 01071, [id number], 71991, [id number], 81750 Estimated Blood Loss 50 Drains No Packing No Pathology None sent Complications None Condition Stable Disposition PACU [facility] Billing Surgery - Charge Forward: Surgery Billing
[2024-08-18] MEDS: oxyCODONE HCL (*CRX) 5 MG TAB IR 10 MG PO ×2 (18:10→22:19)
[2024-08-18] MEDS: GABAPENTIN 300 MG CAPSULE PO (18:17)
[2024-08-18] MEDS: ACETAMINOPHEN 500 MG TABLET 1000 MG PO (18:17)
--- NOTE | 2024-08-18 18:50 | ADMGEN ---
This patient, Estephania Dickerson, was admitted to 3 [facility] Surg Room 301-01. Patient/family oriented to hospital policies and general routines including ID bracelet, bed and alarms, visiting hours, pain management, procedures, bathroom and other care routines, personal items, smoking policy, room service/diet, and visiting hours. Information on how to activate the Rapid Response Team has been discussed. Patient/Family are encouraged to report perceived risks to care and to ask questions if they do not understand what they are told or what they should do.
[2024-08-18] MEDS: MONTELUKAST SODIUM 10 MG TABLET PO (20:52)
[2024-08-18] MEDS: SERTRALINE HCL 50 MG TABLET PO (20:53)
[2024-08-18] MEDS: PANTOPRAZOLE 40 MG TABLET PO (20:53)
[2024-08-18 21:07] LABS: Glucose Point of Care 206 mg/dl (65-105)
[2024-08-18] MEDS: ALBUTEROL SULFATE (*SP) AEROSOL 1 PUFF 3 PUFF INHALATION (22:28)
[2024-08-19] MEDS: ACETAMINOPHEN 500 MG TABLET 1000 MG PO ×4 (00:20→17:15)
[2024-08-19] MEDS: ceFAZolin 2 GM/D5W 50 ML 2 GM/50 ML BAG IVPB ×2 (01:24→11:48)
[2024-08-19] MEDS: oxyCODONE HCL (*CRX) 5 MG TAB IR 10 MG PO ×4 (02:57→17:43)
[2024-08-19 03:50] VITALS: BP 134/68; PULSE 69; RESP 14; TEMP 36.2; O2SAT 95
[2024-08-19 05:47] LABS: Glucose Point of Care 149 mg/dl (65-105)
[2024-08-19 06:07] LABS: Potassium 3.9 mmol/L (3.4-5.0)
[2024-08-19 07:44] LABS: Glucose Point of Care 141 mg/dl (65-105)
[2024-08-19 07:50] VITALS: BP 159/96; PULSE 66; RESP 14; TEMP 37.1; O2SAT 98
[2024-08-19] MEDS: ALBUTEROL SULFATE (*SP) AEROSOL 1 PUFF 3 PUFF INHALATION ×2 (08:37→15:04)
[2024-08-19] MEDS: CYCLOBENZAPRINE HCL 10 MG TABLET PO ×2 (09:31→20:04)
[2024-08-19] MEDS: metFORMIN HCL 500 MG TABLET PO ×3 (09:33→17:15)
[2024-08-19] MEDS: hydroCHLOROthiazide 25 MG TABLET PO (09:33)
[2024-08-19] MEDS: PANTOPRAZOLE 40 MG TABLET PO (09:33)
[2024-08-19] MEDS: GABAPENTIN 300 MG CAPSULE PO ×3 (09:33→17:15)
[2024-08-19] MEDS: POTASSIUM CHLORIDE 10 MEQ ER TABLET PO (09:33)
[2024-08-19] MEDS: ROSUVASTATIN 10 MG TABLET PO (09:33)
[2024-08-19] MEDS: lisinopriL 20 MG TABLET PO (09:33)
--- NOTE | 2024-08-19 10:10 | WPDANESPN ---
Anes - Prog Note Post-Op Date/Time: 08/19/24 10:10 Cardiovascular status: normal Respiratory status: normal Airway patency: baseline Mental status: baseline Post-Op hydration status: normal Vital Signs: Last Vital Signs Temp 98.7 F 08/19/24 07:50 Pulse 66 08/19/24 07:50 Resp 14 08/19/24 07:50 BP 159/96 H 08/19/24 07:50 Pulse Ox 98 08/19/24 07:50 O2 Del Method Room Air 08/19/24 09:30 O2 Flow Rate 10 08/18/24 13:45 Pain Score (VAS): 0/10 I/O: Intake & Output 08/18/24 08/19/24 08/19/24 23:59 07:59 15:59 Intake Total 1050 1999 1040 Balance 1050 1999 1040 Laboratory Tests 08/19/24 05:05 08/18/24 08/18/24 08/19/24 12:57 19:48 05:05 Potassium 3.9 POC Capillary Glucose 175 H 206 H 08/19/24 08/19/24 05:43 07:36 Potassium POC Capillary Glucose 149 H 141 H Post-procedural complaints: none Patient Feedback: Patient satisfied with anesthetic care.
[2024-08-19] MEDS: ALBUTEROL SULFATE (*SP) AEROSOL 1 PUFF 2 PUFF INHALATION ×2 (11:41→19:32)
[2024-08-19 11:50] VITALS: BP 140/70; PULSE 63; RESP 14; TEMP 36.9; O2SAT 97
[2024-08-19 11:58] LABS: Glucose Point of Care 159 mg/dl (65-105)
--- NOTE | 2024-08-19 13:06 | P.PNNEUSUR_ITS ---
Progress Note: A&P Assessment and Plan (1) Status post cervical arthrodesis: Code(s): Z98.1 - Arthrodesis status Status: Acute Plan -Possible discharge home this afternoon if pain better controlled -We discussed wound care and activity precautions at bedside -follow up with me in 2 weeks as scheduled Subjective Date/time seen: 08/19/24 13:06 Interval history: She started having quite a bit of pain within the last couple hours, but before that, she was doing very well. She has noticed improvement in the movement and sensation in her arms and legs. She walked in the halls today without difficulty. She is able to swallow as long as she takes smaller bites. She ideally would like to go home this afternoon assuming that her pain is better controlled. Review of Systems Review of Systems: All systems reviewed & are unremarkable except as noted in HPI and below Exam Narrative: AOx4 Incisions c/d/i Right arm remains diffusely weak, 4/5 Sensation intact to light touch Objective Data Vital Signs Vital Signs: Vital Signs - 24 hr 08/18/24 13:15 08/18/24 13:30 08/18/24 13:45 Temperature Pulse Rate 95 95 91 Respiratory Rate 18 18 19 Blood Pressure 150/73 H 143/84 H 137/76 Pulse Oximetry 94 95 95 Oxygen Delivery Simple Face Mask Simple Face Mask Oxygen Flow Rate 10 10 10 08/18/24 14:00 08/18/24 14:15 08/18/24 14:30 Temperature Pulse Rate 88 86 84 Respiratory Rate 18 12 14 Blood Pressure 123/67 134/71 135/73 Pulse Oximetry 92 92 Oxygen Delivery Room Air Room Air Room Air Oxygen Flow Rate 08/18/24 15:00 08/18/24 15:30 08/18/24 16:00 Temperature Pulse Rate 82 82 83 Respiratory Rate 14 14 14 Blood Pressure 136/74 133/79 132/74 Pulse Oximetry Oxygen Delivery Room Air Room Air Room Air Oxygen Flow Rate 08/18/24 16:30 08/18/24 17:00 08/18/24 17:26 Temperature Pulse Rate 80 73 78 Respiratory Rate 14 14 14 Blood Pressure 149/72 H 131/70 132/75 Pulse Oximetry Oxygen Delivery Room Air Room Air Room Air Oxygen Flow Rate 08/18/24 19:50 08/18/24 23:29 08/19/24 03:50 Temperature 98.0 F 97.5 F L 97.2 F L Pulse Rate 82 91 69 Respiratory Rate 16 16 14 Blood Pressure 146/81 H 141/73 H 134/68 Pulse Oximetry 95 97 95 Oxygen Delivery Oxygen Flow Rate 08/19/24 07:50 08/19/24 08:00 08/19/24 09:30 Temperature 98.7 F Pulse Rate 66 Respiratory Rate 14 Blood Pressure 159/96 H Pulse Oximetry 98 Oxygen Delivery Room Air Room Air Oxygen Flow Rate Intake/Output Intake/Output: Intake & Output 08/16/24 08/17/24 08/18/24 08/19/24 23:59 23:59 23:59 23:59 Intake Total 1100 3090 Balance 1100 3090 Meds/Results Medications: Active Medications Generic Name Dose Route Start Last Admin Trade Name Freq PRN Reason Stop Dose Admin Acetaminophen 1,000 mg 08/18/24 18:00 08/19/24 11:49 Acetaminophen 500 Mg Tablet PO 1,000 mg Q6H ALFONSO Administration Al Hydrox/Mg Hydrox/Simethicone 20 ml 08/18/24 12:50 Mag Hydrox/Al Hydrox/Simeth 30 Ml Udc PO Q4H PRN Indigestion/Heartburn Albuterol 2 puff 08/18/24 07:11 08/19/24 11:41 Albuterol Sulfate (*Sp) Aerosol 1 Puff INHALATION 2 puff ONCE PRN Administration Shortness Of Breath Albuterol 3 puff 08/18/24 12:55 08/19/24 08:37 Albuterol Sulfate (*Sp) Aerosol 1 Puff INHALATION 3 puff Q4HRT PRN Administration Dyspnea Albuterol/Ipratropium 3 ml 08/18/24 12:55 Ipratropium 0.5 Mg/Albuterol Sulfate 2.5 Mg Ampul.Neb 3 Ml INHALATION Q4HRT PRN shortness of breath or wheezing Bisacodyl 10 mg 08/18/24 12:50 Bisacodyl 10 Mg Suppository RECTAL DAILY PRN Constipation Cyclobenzaprine HCl 10 mg 08/18/24 12:53 08/19/24 09:31 Cyclobenzaprine Hcl 10 Mg Tablet PO 10 mg TID PRN Administration Muscle Spasms Dextrose 12.5 gm 08/18/24 16:31 Dextrose 50% 25 Gm/50 Ml Syringe IV PUSH PRN PRN Hypoglycemia Protocol Docusate Sodium 100 mg 08/18/24 21:00 08/19/24 09:37 Docusate Sodium 100 Mg Capsule PO Not Given Q12HR ALFONSO Fentanyl Citrate 25 mcg 08/18/24 07:13 08/18/24 17:29 Fentanyl Citrate Inj (*Crx) 100 Mcg/2 Ml Vial IV PUSH 25 mcg Q2M PRN Administration Pain Gabapentin 300 mg 08/18/24 17:00 08/19/24 12:46 Gabapentin 300 Mg Capsule PO 300 mg TID ALFONSO Administration Glucagon 1 mg 08/18/24 16:31 Glucagon For Inj 1 Mg Vial IM PRN PRN Hypoglycemia Protocol Glucose 15 gm 08/18/24 16:31 Glucose Oral Gel 15 Gm Of Glucse In 37.5 Gm Tube PO PRN PRN Hypoglycemia Protocol Hydrochlorothiazide 25 mg 08/19/24 09:00 08/19/24 09:33 Hydrochlorothiazide 25 Mg Tablet PO 25 mg QAM ALFONSO Administration Cefazolin Sodium 2 gm in 50 mls @ 100 mls/hr 08/18/24 18:00 08/19/24 11:48 Ancef 2 Gm/D5w 50 Ml IVPB 08/19/24 17:59 100 mls/hr Q8H ALFONSO Administration Sodium Chloride 1,000 mls @ 100 mls/hr 08/18/24 12:50 08/19/24 12:20 Normal Saline Iv IV CONT Not Given .Q10H ALFONSO Dextrose 1,000 mls @ 100 mls/hr 08/18/24 16:31 Dextrose 5% 1,000 Ml IVPB PRN PRN Hypoglycemia Protocol Insulin Aspart 2 - 5 units 08/18/24 17:00 08/19/24 11:50 Insulin Aspart (*Bkc) 100 Units/Ml SUB-Q Not Given TIDWM [facility] Protocol Lisinopril 20 mg 08/19/24 09:00 08/19/24 09:33 Lisinopril 20 Mg Tablet PO 20 mg QAM ALFONSO Administration Loratadine 10 mg 08/18/24 13:03 Loratadine 10 Mg Tablet PO DAILY PRN Allergy Symptoms Metformin HCl 500 mg 08/19/24 08:00 08/19/24 11:50 Metformin Hcl 500 Mg Tablet PO 500 mg TIDWM ALFONSO Administration Montelukast Sodium 10 mg 08/18/24 21:00 08/18/24 20:52 Montelukast Sodium 10 Mg Tablet PO 10 mg QHS ALFONSO Administration Morphine Sulfate 2 mg 08/18/24 12:53 Morphine Sulfate (*Crx) 2 Mg/Ml Inj IV PUSH Q2H PRN Breakthrough Pain Ondansetron HCl 4 mg 08/18/24 12:50 Ondansetron Inj 4 Mg/2 Ml Vial IV PUSH Q8H PRN Nausea And Vomiting Oxycodone HCl 5 mg 08/18/24 12:53 Oxycodone Hcl (*Crx) 5 Mg Tab Ir PO Q4H PRN Pain Rated 4-6 Oxycodone HCl 10 mg 08/18/24 12:53 08/19/24 09:32 Oxycodone Hcl (*Crx) 5 Mg Tab Ir PO 10 mg Q4H PRN Administration Pain Rated 7-10 Pantoprazole Sodium 40 mg 08/18/24 21:00 08/19/24 09:33 Pantoprazole 40 Mg Tablet PO 40 mg Q12HR ALFONSO Administration Potassium Chloride 10 meq 08/19/24 09:00 08/19/24 09:33 Potassium Chloride 10 Meq Er Tablet PO 10 meq DAILY ALFONSO Administration Rosuvastatin Calcium 10 mg 08/19/24 09:00 08/19/24 09:33 Rosuvastatin 10 Mg Tablet PO 10 mg DAILY ALFONSO Administration Senna/Docusate Sodium 1 tab 08/18/24 12:50 Senna/Docusate Sodium Tablet PO HS PRN Constipation Sertraline HCl 50 mg 08/18/24 21:00 08/18/24 20:53 Sertraline Hcl 50 Mg Tablet PO 50 mg HS ALFONSO Administration Radiology Results: ITS Impressions Fluoroscopy 08/18/24 12:15 IMPRESSION: 1. Fluoroscopy utilized during C3-C7 discectomies and instrumented anterior spinal fusion. See procedure note for further detail. Labs Labs: Laboratory Results - last 24 hr 08/18/24 08/19/24 08/19/24 19:48 05:05 05:43 Potassium 3.9 POC Capillary Glucose 206 H 149 H 08/19/24 08/19/24 07:36 11:47 Potassium POC Capillary Glucose 141 H 159 H
--- NOTE | 2024-08-19 14:41 | PC.NURSE ---
RN spoke with Dr. Suh and she added an order for the pts sore throat.
[2024-08-19 15:39] VITALS: BP 130/72; PULSE 76; RESP 14; TEMP 36.8; O2SAT 97
[2024-08-19 16:38] LABS: Glucose Point of Care 234 mg/dl (65-105)
[2024-08-19] MEDS: BENZOCAINE/MENTHOL (*BKC) 18 EA LOZENGE 1 LOZENGE PO (17:16)
[2024-08-19] MEDS: INSULIN ASPART (*BKC) 100 UNITS/ML SUB-Q (17:18)
[2024-08-19 19:36] VITALS: PULSE 76
[2024-08-19] MEDS: oxyCODONE HCL (*CRX) 5 MG TAB IR PO (20:04)
[2024-08-19 20:20] LABS: Glucose Point of Care 236 mg/dl (65-105)
--- NOTE | 2024-08-21 11:33 | P.DS_ITS ---
DS: Admitting Diagnosis Discharge Date 08/19/24 Admitting Diagnosis cervical myelopathy, cervical radiculopathy, cervical spondylolisthesis DS: Discharge Diagnosis Discharge Diagnosis (1) Status post cervical arthrodesis: Code(s): Z98.1 - Arthrodesis status Status: Acute (2) Cervical myelopathy: Code(s): G95.9 - Disease of spinal cord, unspecified Status: Acute (3) Cervical radiculopathy: Code(s): M54.12 - Radiculopathy, cervical region Status: Acute (4) Spondylolisthesis, cervical region: Code(s): M43.12 - Spondylolisthesis, cervical region Status: Acute DS: Summary Hospital Course Hospital Course: Ms. Dickerson presented on 08/18 for surgery; please see the operative note for more details. She was transferred to the floor after surgery. She worked with therapy who cleared her for discharge home. She was ambulating and voiding independently. She was able to swallow without difficulty. She reported improvement in her preoperative symptoms. She was determined ready for discharge home on POD1. Time Spent with Patient Time attestation: Total time spent providing and/or coordinating discharge services: Discharge Plan Discharge Consulting providers: Kieran Robles; Matt Freeman Jr.; Tirso Gambino Discharging Clinician: Ann Marie Suh Patient Disposition: Home, Self-Care Activity: other - see discharge instructions Diet: as tolerated Wound Care Instructions: follow printed instructions Discharge Instructions: Discharge Instructions Procedure: Anterior Cervical Diskectomy and Fusion (ACDF) Your doctor removed one or more discs from your neck, to remove pressure from the spinal cord or nerve roots, and then fused your spine using a small metal plate and a cage filled with synthetic bone. Here are some instructions to follow upon discharge from the hospital to help in your recovery: Activity: Until released by your doctor, you should not return to work. You should rest at home and let your body heal. Taking short walks is encouraged, but avoid strenuous exercise. Do not jog, run, lift weights, bicycle, or participate in any other exercises unless specifically allowed by your doctor. Most import antly, avoid lifting objects heavier than a telephone book or a carton of milk as this places a strain on your neck. If possible, avoid household activities that involve lifting such as laundry, grocery shopping, childcare. Try to arrange for help from friends and family for these activities while your neck heals. You should not drive for 7-10 days, until you are both off of narcotics and your neck has loosened up enough to safely check your blind spots. Your incision is covered with skin glue. This will typically peel off on its on in 14 days. You may shower starting on post-operative day 2 (Friday). After showering, lightly dab your wound dry. Do not take baths or sit in a hot tub or pool until approved by your doctor at your follow-up appointment. You should wear a collar at all times. When in bed or at rest, a soft cervical collar is fine. You should wear the hard collar when walking. DO NOT SMOKE TOBACCO. Smoking has been proven to interfere with the normal healing of the bones in your neck. Smoking will dramatically reduce the success rate of your surgery. Diet: You can return to your usual diet, unless instructed otherwise by your doctor. However, for the first few weeks, some foods will be harder to swallow than others. In general, softer foods such as broths, jello, yogurt, pudding are easier. Harder foods, such as steak, chicken, bread, rice may be more difficult for the first few weeks and should be avoided. You may notice some pain with swallowing in the first month after surgery- this is NORMAL. During the operation, a breathing tube is placed down your throat by the anesthesiologist. In addition, your throat is gently pulled to one side to perform the surgery. For both of these reasons, your throat will be sore. Some patients also notice the sensation of having a ?lump? in their throat- this can be normal. However, if you are having difficulty swallowing liquids, call your doctor immediately. Medications: You should resume taking all of your normal medications, unless instructed otherwise by your doctor. However, you should not take anti-inflammatory medications (such as: Motrin, Advil, Ibuprofen, Naprosyn) unless specifically approved by your doctor. These medications can prevent your bones from healing properly after surgery. If you have questions about your normal medications (those prescribed for high blood pressure, for example), call your family doctor or citrus fruit packer. You will be given a prescription for pain medications and possibly a laxative, as pain medications can cause constipation. Take the pain medicines as instructed. If your pain is not reasonably controlled by the medications, contact your doctor?s office. Follow-up appointment: You should already have a follow-up appointment scheduled with Dr. Suh. If you do not have a follow-up appointment, call to schedule one. When to call our office: Although your surgery and recovery will likely be uneventful, you may have some residual aches and pains in your neck and/or arms. This is NORMAL and should improve in the next few weeks. Some patients also notice a new pain between the shoulder blades- this is normal and will slowly improve. However, should you experience any of the following, call our office immediately. For medical emergencies call 911. For urgent calls after hours, please call our exchange at : 1. Fevers 2. Drainage from your incision, or surrounding redness or swelling 3. Pain that is progressively getting worse, and is not relieved by your medications 4. New numbness or weakness 5. Difficulty controlling your bladder 6. Loss of control of your bowels Ann Marie Suh MD Neurosurgery [place] [address], [place] [address] Patient Instructions: Antibiotic Form Patient Language: Luxembourgish Stand Alone Forms: General Discharge Information Follow-up/Referrals: Ann Marie Suh MD [Physician] - Discharge Medications: New oxycodone 5 mg tablet 5 mg PO Q4H PRN (Reason: pain) Qty: 42 0RF cyclobenzaprine 10 mg tablet 10 mg PO TID PRN (Reason: muscle spasm) Qty: 30 0RF sennosides-docusate sodium [Senna with Docusate Sodium] 8.6-50 mg tablet 1 tab-cap PO BID Qty: 14 0RF Continued albuterol sulfate 90 mcg/actuation HFA aerosol inhaler 3 puff inhalation Q4H PRN (Reason: Dyspnea) montelukast 10 mg tablet 10 mg PO QHS cetirizine 10 mg tablet 10 mg PO DAILY PRN (Reason: Allergy Symptoms) potassium chloride 10 mEq capsule, extended release 10 meq PO DAILY rosuvastatin 10 mg tablet 10 mg PO DAILY omeprazole 40 mg capsule,delayed release(DR/EC) 40 mg PO DAILY sertraline 50 mg tablet 50 mg PO DAILY Rx Instructions: Says takes at HS lisinopril-hydrochlorothiazide 20-25 mg tablet 1 tablet PO DAILY gabapentin 300 mg capsule 300 mg PO TID metformin 500 mg tablet 500 mg PO TID ipratropium-albuterol 0.5 mg-3 mg(2.5 mg base)/3 mL solution for nebulization 3 ml INHALATION Q4H PRN (Reason: shortness of breath or wheezing) Qty: 15 0RF Held meloxicam 15 mg tablet 15 mg PO DAILY Hold Instructions: Resume on 11/16/24. Date of admission: 08/18/24 13:09 Primary Care Provider: MichelSonal Admitting Provider: Ann aMrie Suh Attending physician on admission: Ann Marie Suh Condition: Stable
== END 2024-08-19 20:26 | disposition home or self-care (01) | DRG 321 ==
LOC: ANH3MEDSUR 17:42
PROVIDERS: Admitting Provider Neurological Surgery; PCP Family Medicine; Visit Provider Neurological Surgery
PROC: 0RB30ZZ Excision of Cervical Vertebral Disc, Open Approach (ICD-10-PCS; CPT 63030; principal; 2024-08-18 07:30)
DX: M43.12 Spondylolisthesis, cervical region (principal); M54.12 Radiculopathy, cervical region; G99.2 Myelopathy in diseases classified elsewhere; E11.9 Type 2 diabetes mellitus without complications; I10 Essential (primary) hypertension; J45.909 Unspecified asthma, uncomplicated; R29.6 Repeated falls; Z79.84 Long term (current) use of oral hypoglycemic drugs
CPT/HCPCS: 36415; 82948; 84132; 94640; 97161; 97165; 97535; 99199; A9270; C1713; J0690; J1100; J1171; J1815; J2003; J2250; J2371; J2405; J2704; J3010; J7120; L0140

== ENCOUNTER 2025-05-05 13:38 | Outpatient (CLI) | payer OTHER, SELFPAY ==
--- NOTE | ~2025-05-05 | XR_ITS ---
[id number] Indication: Z98.1 - Arthrodesis status Comparison: None Findings: Anterior fusion extending across C3, C4, C5, C6 and C7 with disc prostheses, the hardware is intact, no acute fracture. Moderate loss of the remaining disc heights Soft tissues unremarkable Impression: Postsurgical changes Reviewed, dictated and finalized at location P. Impression: Postsurgical changes
--- OUTSIDE RECORDS SUMMARY | 2025-05-05 14:13 | XMS_ITS | Encounter Summary ---
Author Organization [facility] Healthcare Address [address] [place] [address] Care Team Providers Care Phlebotomy Coordinator Name Role Phone Sonal Santos NP Primary Care Provider [phone] Encounter Details Date Type Department Care Team ([facility] st Contact Info) Description 05/05/[address] [facility] Accountable Care Organization [address] [place], [place] [id number] Sonal Santos [employer] [address] [address] Screening for colorectal cancer Social History Tobacco Use Types Packs/Day Years Used Date Smoking Tobacco: Never Passive Smoke Exposure: Never Smokeless Tobacco: Never PHQ-2 Answer Date Recorded PHQ-2 Total Score (If total score is 3 or more points, staff should administer the PHQ-9) 0 03/25/2024 Personal Safety Answer Date Recorded Have you ever been in or are you currently in a harmful physical or emotional relationship or is someone making you feel afraid or unsafe? Denies 09/16/2024 Comments No Sex and Gender Information Value Date Recorded Sex Assigned at Not on file Legal Sex Female 11:30 AM CDT Gender Identity Female 04/03/2021 5:22 PM CDT Sexual Orientation Straight 04/03/2021 5: 22 PM CDT documented as of this encounter Plan of Treatment Scheduled Orders Name Type Priority Associated Diagnoses Orde r Schedule Stool DNA - Cologuard Lab Routine Screening for colorectal cancer Expected: 05/05/2025, Expires: 05/05/2026 documented as of this encounter Visit Diagnoses Diagnosis Screening for colorectal cancer documented in this encounter Care Teams Phlebotomy Coordinator Relationship Specialty Start Date End Date Sonal Santos NP [address] [place] [id number] PCP - General Family Practice 11/03/20 Valeria Charlton, VP [employer] [address] [facility] [address] [employer] Operator Infectious Diseases 02/17/23 documented as of this encounter
--- OUTSIDE RECORDS SUMMARY | 2025-05-05 14:13 | XMS_ITS | Clinical Summary ---
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 1 each 024 Active alcohol swabs pads, medicatedIndicati ons:Type 2 diabetes mellitus treated without insulin ([facility]) Apply 1 each topically daily 100 each 3 024 Active blood glucose diagnostic (glucose blood) stripIndications: Type 2 diabetes mellitus treated without insulin ([facility]) 1 each by other route 2 (two) times a day 200 each 3 Active OneTouch Delica Plus Lancet 30 gauge miscIndications:T ype 2 diabetes mellitus treated without insulin ([facility]) Inject 1 each under the skin 2 (two) times a day 200 each 3 025 Active Stimulant Laxative Plus 8.6-50 mg Active cyclobenzaprine (FLEXERIL) 10 mg tabletIndications :Acute left-sided low back pain without sciatica TAKE ONE TABLET BY MOUTH THREE TIMES DAILY NEEDED FOR MUSCLE SPASMS 30 tablet Active albuterol HFA (PROVENTIL HFA,VENTOLIN HFA,PROAIR HFA) 90 mcg/actuation inhalerIndication s:Moderate persistent asthma without complication Inhale 2 puffs every 6 (six) hours as needed for wheezing Fill per patient's formulary 1 each Active cetirizine (ZyrTEC) 10 mg tabletIndications :Non-seasonal allergic rhinitis, unspecified trigger Take 1 tablet (10 mg total) by mouth daily 30 tablet 11 Active fluticasone propion-salmetero L (ADVAIR DISKUS) 250-50 mcg/dose diskus inhalerIndication s:Moderate persistent asthma without complication Inhale 1 puff 2 (two) times a day Rinse mouth with water after use. Do not swallow. 60 each 025 2025 Active gabapentin (NEURONTIN) 300 mg capsuleIndication s:Bilateral sciatica Take 2 capsules (600 mg total) by mouth nightly 60 capsule 5 Active lisinopril-hydroC HLOROthiazide (ZESTORETIC) 20-25 mg per tabletIndications :Essential hypertension Take 1 tablet by mouth daily 30 tablet 11 Active meloxicam (MOBIC) 15 mg tabletIndications :Chronic pain of both shoulders Take 1 tablet (15 mg total) by mouth daily 30 tablet 1 Active metFORMIN (GLUCOPHAGE) 500 mg tabletIndications :Type 2 diabetes mellitus with diabetic polyneuropathy, without long-term current use of insulin ([facility]) TAKE ONE TABLET BY MOUTH EVERY MORNING and TAKE TWO TABLETS BY MOUTH EVERY EVENING 90 tablet Active montelukast (SINGULAIR) 10 mg tabletIndications :Moderate persistent asthma without complication,Non- seasonal allergic rhinitis, unspecified trigger Take 1 tablet (10 mg total) by mouth nightly 30 tablet 2025 Active nystatin powderIndications :Cutaneous candidiasis Apply topically 3 (three) times a day as needed (rash) 60 g 1 Active potassium chloride ER 10 mEq CR tabletIndications :Hypokalemia Take 1 tablet/capsule (10 mEq total) by mouth daily 30 tablet Active rosuvastatin (CRESTOR) 10 mg tabletIndications :Mixed hyperlipidemia TAKE 1 TABLET BY MOUTH ONCE A DAY IN THE EVENING 30 tablet Active sertraline (ZOLOFT) 50 mg tabletIndications :Mild episode of recurrent major depressive disorder Take 1 tablet (50 mg total) by mouth daily 30 tablet 2025 Active predniSONE (DELTASONE) 10 mg tabletIndications :Rash and nonspecific skin eruption Take 3 tablets daily for 3 days, then 2 tablets daily for 3 days, then 1 tablet daily for 3 days 18 tablet Active mupirocin (BACTROBAN) 2 % ointmentIndicatio ns:Rash and nonspecific skin eruption Apply topically 3 (three) times a day as needed (for lesion on chest) 15 g Active fluconazole (DIFLUCAN) 150 mg tabletIndications :Acute cystitis without hematuria Take 1 tablet (150 mg total) by mouth daily Take one tab now. Repeat in 7 days if symptoms persist. 2 tablet Active famotidine (PEPCID) 20 mg tabletIndications :Rash and nonspecific skin eruption TAKE ONE TABLET BY MOUTH TWICE DAILY FOR 10 DAYS 60 tablet Active omeprazole (PriLOSEC) 40 mg capsuleIndication s:Gastroesophagea l reflux disease, unspecified whether esophagitis present Take 1 capsule (40 mg total) by mouth daily 30 capsule 2024 Discontinued famotidine (PEPCID) 20 mg tabletIndications :Rash and nonspecific skin eruption Take 1 tablet (20 mg total) by mouth 2 (two) times a day for 10 days 20 tablet 025 2024 Discontinued fluconazole (DIFLUCAN) 150 mg tabletIndications :Cutaneous candidiasis Take one tab now. Repeat in 7 days if symptoms persist. 2 tablet 025 2024 Discontinued(P atient Reported) nitrofurantoin monohydrate (MACROBID) 100 mg capsuleIndication s:Acute cystitis without hematuria Take 1 capsule (100 mg total) by mouth 2 (two) times a day for 5 days 10 capsule 025 2024 Discontinued fluconazole (DIFLUCAN) 150 mg tabletIndications :Acute cystitis without hematuria Take 1 tablet (150 mg total) by mouth daily Take one tab now. Repeat in 7 days if symptoms persist. 2 tablet 025 2024 Discontinued nitrofurantoin monohydrate (MACROBID) 100 mg capsuleIndication s:Acute cystitis without hematuria Take 1 capsule (100 mg total) by mouth 2 (two) times a day for 5 days 10 capsule 025 2024 Active Problems Problem Noted Date Diagnosed Date Cervical myelopathy 03/15/2025 Cervical radiculopathy 03/15/2025 Spondylolisthesis, cervical region 03/15/2025 Type 2 diabetes mellitus wit h diabetic polyneuropathy, without long-term current use of insulin 03/10/2025 Assessment & Plan (03/10/2025 5:31 PM CDT): Controlled Continued on metformin 500 mg in AM, 1000 mg in PM Rash and nonspecific skin eruption 03/10/2025 Assessment & Plan (03/15/2025 5:06 PM CDT): Stable Continued on prednisone taper as directed Increased Zyrtec to twice daily if tolerated until rash resolves Started on Pepcid twice daily until rash resolves Instructed to apply mupirocin ointment to lesion left upper chest three times daily until lesion resolves Assessment & Plan (03/10/2025 5:32 PM CDT): Started on prednisone taper Continued on Zyrtec daily and Benadryl PRN Dysfunction of both eustachian tubes 03/10/2025 Assessment & Plan (03/10/2025 5:32 PM CDT): Advised prednisone taper prescribed for rash will likely help relieve pain/pressure from eustachian tube dysfunction Severe obesity 03/10/2025 Assessment & Plan (03/15/2025 5:07 PM CDT): Improved, with serious comorbidity of type 2 diabetes, stable/controlled Reviewed most recent hemoglobin A1c 6.6, previously 6.7 Encouraged to: Make healthy food choices, limiting intake of concentrated sweets/carbs, cholesterol, and saturated fat Monitor daily caloric intake and portion sizes Exercise most days of the week for a goal of at least 150 minutes of exercise per week Continued on metformin 500 mg in the morning and 1000 mg in the evening Assessment & Plan (03/10/2025 5:34 PM CDT): Stable, with serious comorbidity of type 2 diabetes, stable/controlled Reviewed most recent hemoglobin A1c 6.6, previously 6.7 Encouraged to: Make healthy food choices, limiting intake of concentrated sweets/carbs, cholesterol, and saturated fat Monitor daily caloric intake and portion sizes Exercise most days of the week for a goal of at least 150 minutes of exercise per week Continued on metformin 500 mg in the morning and 1000 mg in the evening Acute left-sided low back pain without sciatica 12/21/2024 Assessment & Plan (12/23/2024 5:04 AM CDT): Started on prednisone 5 day burst Increased cyclobenzaprine from 5 mg 3 times daily as needed to 10 mg 3 times daily as needed Supportive care measures discussed Strict return precautions given, including when to seek ER evaluation Sore throat 12/21/2024 Assessment & Plan (12/23/2024 4:59 AM CDT): Negative strep Supportive care measures discussed Strict return precautions given Bilateral sciatica 01/14/2024 Assessment & Plan (03/10/2025 5:30 PM CDT): Controlled Continued on meloxicam and gabapentin, cyclobenzaprine PRN Assessment & Plan (03/29/2024 9:08 PM CDT): [...] right upper limb 11/20/2023 Assessment & Plan (09/23/2024 6:13 AM CDT): Resolved, s/p anterior cervical diskectomy with fusion on 08/18/2024 Encouraged to follow-up with neurosurgeon as recommended Assessment & Plan (03/29/2024 9:10 PM CDT): [...] left upper limb 11/20/2023 Assessment & Plan (09/23/2024 6:13 AM CDT): Resolved, s/p anterior cervical diskectomy with fusion on 08/18/2024 Encouraged to follow-up with neurosurgeon as recommended Assessment & Plan (03/29/2024 9:10 PM CDT): [...] upper extremities 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 with routine gynecological exam 11/20/2023 Assessment & [...] asthma without complication 05/05/2023 Assessment & Plan (03/10/2025 5:30 PM CDT): Controlled Continued on Singulair, Advair, DuoNeb, and albuterol PRN Assessment & Plan (03/29/2024 9:07 PM CDT): Chronic, stable, controlled, with reported exertional shortness of breath, likely multifactorial Continued on Advair, Singulair, DuoNeb, and albuterol Encouraged to follow-up with electrical prospecting operator as recommended Assessment & Plan (11/20/2023 [...] CDT): The patient has followed with a electrical prospecting operator in the past for her asthma. I will reorder the Advair 250/50 to use 1 puff twice a day in refilled her albuterol. She also has duo nebs to use at home if necessary in addition to Singulair 10 mg daily. I will check full PFTs, chest x-ray and refer her to see an painter ski edge. Vaccine counseling 02/20/2023 Chronic pain of both shoulders 09/27/2022 Assessment & Plan (03/10/2025 5:29 PM CDT): Controlled Continued on meloxicam 15 mg daily and gabapentin 600 mg HS Assessment & Plan (03/29/2024 9:08 PM CDT): [...] effective Assessment & Plan (08/25/2023 3:43 PM LABOUR MARKET ECONOMIST): Chronic, stability unknown Started on prednisone burst [...] Upper extremity weakness 09/27/2022 Assessment & Plan (09/23/2024 6:13 AM CDT): Resolved, s/p anterior cervical diskectomy with fusion on 08/18/2024 Encouraged to follow-up with neurosurgeon as recommended Assessment & Plan (03/29/2024 9:06 PM CDT): [...] and Ortho, has upcoming appointment with neurosurgeonDr. Mejia, on 10/27/2023 Reviewed neuro notes from [...] Mejia Assessment & Plan (08/25/2023 3:46 PM LABOUR MARKET ECONOMIST): Recent onset Reviewed ER notes and CT [...] and management. Hypokalemia 05/27/2022 Assessment & Plan (03/10/2025 5:28 PM CDT): Controlled Continued on potassium chloride Assessment & Plan (03/25/2024 3:02 PM CDT): Chronic, stable, controlled with prescription Continued on potassium chloride Assessment & Plan (09/26/2023 12:02 PM CDT): Chronic, stable, controlled with prescription Continued on potassium chloride Assessment & Plan (06/24/2023 7:29 AM LABOUR MARKET ECONOMIST): Chronic, stable, controlled with supplement Continued on potassium chloride, refills sent to pharmacy per request Assessment & Plan (06/09/2023 5:32 AM LABOUR MARKET ECONOMIST): Chronic, stable, controlled with medication Continued on KCl, refills sent to pharmacy per request Assessment & Plan (03/11/2023 3:23 PM CDT): Chronic, normal at last check, on daily supplement Continued on KCl daily Assessment & Plan (05/27/2022 10:32 PM LABOUR MARKET ECONOMIST): Chronic, controlled at last check-continued on potassium [...] AM CDT): Chronic, stable Referral made to [facility] Assessment & Plan (03/03/2022 7:16 [...] PRN Assessment & Plan (05/27/2022 10:28 PM LABOUR MARKET ECONOMIST): Chronic, stable, controlled with medication-continued on gabapentin, [...] released from care Encouraged to follow-up with electrical prospecting operator as recommended and with Cardiology as recommended as needed Assessment & Plan (03/11/2023 3:07 PM CDT): Chronic, episodic Previously evaluated with echo and Holter Encouraged to follow-up with director of managed services, Dr. Moseley, as recommended Assessment & Plan (03/03/2022 7:31 AM CDT): Chronicity and stability unknown-encouraged to schedule appointment with Dr. Moseley for further evaluation and management. Cutaneous candidiasis 11/27/2021 Assessment & Plan (03/15/2025 5:05 PM CDT): Uncontrolled Started on Diflucan Continued on nystatin powder as directed Assessment & Plan (03/10/2025 5:28 PM CDT): Controlled Continued on nystatin powder PRN Assessment & Plan (09/23/2024 6:08 AM CDT): Controlled Continued on nystatin powder PRN Assessment & Plan (07/20/2024 4:05 PM LABOUR MARKET ECONOMIST): Controlled Continued on nystatin Assessment & Plan (04/13/2024 2:54 PM CDT): Acute Started on Nystatin powder as directed as needed Assessment & Plan (11/29/2021 11:29 AM CDT): Acute-started on nystatin powder due to location of rash, also treating with Valtrex 1 g TID x1 week due to pain consistent with zoster. Encounter for diabetic foot exam 07/30/2021 Assessment & Plan (03/29/2024 9:03 PM CDT): Diabetic foot exam performed with monofilament with no abnormal findings Assessment & Plan (03/11/2023 3:15 PM CDT): 04/15 sensed both feet with monofilament, normal foot exam Dyspnea on exertion 07/27/2021 Assessment & Plan (01/10/2025 9:07 AM CDT): As stated above, she was diagnosed with asthma while in [place] and continues on Advair b.i.d., PRN Ventolin and Singulair 10 mg daily that is followed by her primary care provider. Assessment & Plan (05/31/2024 2:49 PM LABOUR MARKET ECONOMIST): The patient will continue with albuterol as [...] albuterol, and DuoNeb Encouraged to follow-up with electrical prospecting operator as recommended/ Assessment & Plan (11/20/2023 [...] infection Assessment & Plan (06/24/2022 5:02 PM LABOUR MARKET ECONOMIST): Acute-advised to continue nebulizer treatments as directed [...] appointment. Assessment & Plan (05/27/2022 10:33 PM LABOUR MARKET ECONOMIST): Chronic, worsened, with acute asthma exacerbation-continued on [...] needed. Assessment & Plan (08/20/2021 5:42 PM LABOUR MARKET ECONOMIST): Recent onset dyspnea since COVID-19 infection in 07/2021, not responsive to albuterol MDI, with multiple x-rays with no acute cardiopulmonary findings-referred to director of managed services with 1st visit today, echocardiogram and 48 hour Holter monitor planned for future, encouraged compliance with testing and follow-up visit. Assessment & Plan (07/31/2021 7:52 AM LABOUR MARKET ECONOMIST): Recent onset since COVID-19 diagnosis-referred to a director of managed services for evaluation of bradycardia, palpitations, and shortness of breath with exertion. Advised to go to ER for worsening symptoms of palpitations and shortness of breath or for new onset chest pain/tightness, wheezing/difficulty breathing, chills, sweats, fever, back pain, or nausea. Assessment & Plan (07/27/2021 7:09 AM LABOUR MARKET ECONOMIST): Acute, with recent diagnosis of COVID 19 [...] management. Assessment & Plan (08/20/2021 5:52 PM LABOUR MARKET ECONOMIST): Recent onset since COVID-19 diagnosis in 07/2021 with normal Hbg/Hct on 07/27/21, and normal folate & B12 dated 08/18/21-currently with work-up planned by director of managed services (echocardiogram and 48 hour Holter monitor planned for future), encouraged compliance with recommendations made by director of managed services. Assessment & Plan (07/23/2021 12:27 PM LABOUR MARKET ECONOMIST): Acute, likely related to recent viral infection with [id number] monitor for resolution of symptoms. Encouraged to [...] medication. Assessment & Plan (2021 3:16 PM LABOUR MARKET ECONOMIST): Chronicity and stability unknown-ordered MRI and referred to orthopedic surgeon for further evaluation and management. Acute pain of left hip 06/05/2021 Assessment & Plan (07/20/2024 4:05 PM LABOUR MARKET ECONOMIST): Ordered x-rays left hip Continued on meloxicam 15 mg daily Started on cyclobenzaprine 5 mg TID PRN Assessment & Plan (06/05/2021 3:37 PM LABOUR MARKET ECONOMIST): Acute-ordered x-ray of left hip. Can continue to take Naprosyn as directed as needed for pain. Hyperlipidemia, unspecified 06/05/2021 Assessment & Plan (03/10/2025 5:28 PM CDT): Controlled, LDL less than 70 Continued on rosuvastatin Encouraged low-fat low-cholesterol diet, high in fiber Assessment & Plan (03/29/2024 9:00 PM CDT): [...] panel Assessment & Plan (05/27/2022 10:31 PM LABOUR MARKET ECONOMIST): Chronic, uncontrolled at last check, with elevated [...] visit. Assessment & Plan (08/20/2021 5:47 PM LABOUR MARKET ECONOMIST): Chronic, stability unknown, uncontrolled, not on medication until office visit today when seen by director of managed services-encouraged compliance with rosuvastatin 10 mg once daily. Assessment & Plan (06/05/2021 3:35 PM LABOUR MARKET ECONOMIST): Chronicity, stability unknown, not on medication-ordered lipid [...] visit. Assessment & Plan (08/20/2021 5:54 PM LABOUR MARKET ECONOMIST): Chronic, stability unknown, uncontrolled, not on supplement-advised to start vitamin D3 2000 international units, take 2 daily with a meal x 1 month, then one daily with a meal, will recheck vitamin D 25 OH in 3-6 months. Assessment & Plan (06/05/2021 3:35 PM LABOUR MARKET ECONOMIST): Chronicity and stability unknown, reported by patient, not currently on supplementation-ordered vitamin-D 25 OH. Type 2 diabetes mellitus treated without insulin 06/05/2021 Assessment & Plan (09/23/2024 6:12 AM CDT): Controlled Reviewed hemoglobin A1c equals 6.6 Continued on metformin Assessment & Plan (07/20/2024 4:04 PM LABOUR MARKET ECONOMIST): Controlled Reviewed hemoglobin A1c equals 6.6 Continued [...] Foot exam done today Referral made to [facility] for dilated eye exam Assessment & Plan (02/06/2023 5:41 AM CDT): Stable Performed in office hemoglobin A1c (6.9) Continued on metformin Assessment & Plan (05/27/2022 10:27 PM LABOUR MARKET ECONOMIST): Chronic, stable, controlled on medication-continued on metformin, [...] visit. Assessment & Plan (08/20/2021 5:53 PM LABOUR MARKET ECONOMIST): Chronic, stable, controlled with medication-continued on metformin. Follow-up in 6 months. Assessment & Plan (06/05/2021 3:37 PM LABOUR MARKET ECONOMIST): Chronic, uncontrolled at last check, on medication-continued [...] depressive disorde r 05/29/2020 Assessment & Plan (03/10/2025 5:27 PM CDT): Controlled Continued on sertraline Advised if suicidal ideation or thoughts of harming self or others, to go to ER and/or call [phone] for assistance Assessment & Plan (03/29/2024 8:59 PM CDT): [...] CURTIS-7=1. Assessment & Plan (08/20/2021 5:48 PM LABOUR MARKET ECONOMIST): Chronic, stable, controlled with medication-continued on sertraline. Class 2 severe obesity due t o excess calories with serious comorbidity and body mass index (BMI) of 36.0 to 36.9 in adult 03/17/2018 Overview (11/03/2020): Transitioned From: Obesity (BMI 30-39.9) Assessment & Plan (03/15/2025 5:07 PM CDT): Improved, with serious comorbidity of type 2 diabetes, stable/controlled Reviewed most recent hemoglobin A1c 6.6, previously 6.7 Encouraged to: Make healthy food choices, limiting intake of concentrated sweets/carbs, cholesterol, and saturated fat Monitor daily caloric intake and portion sizes Exercise most days of the week for a goal of at least 150 minutes of exercise per week Continued on metformin 500 mg in the morning and 1000 mg in the evening Assessment & Plan (03/10/2025 5:34 PM CDT): Stable, with serious comorbidity of type 2 diabetes, stable/controlled Reviewed most recent hemoglobin A1c 6.6, previously 6.7 Encouraged to: Make healthy food choices, limiting intake of concentrated sweets/carbs, cholesterol, and saturated fat Monitor daily caloric intake and portion sizes Exercise most days of the week for a goal of at least 150 minutes of exercise per week Continued on metformin 500 mg in the morning and 1000 mg in the evening Assessment & Plan (12/23/2024 5:02 AM CDT): Improved, with serious comorbidity of type 2 diabetes, improved/controlled on medication Reviewed most recent hemoglobin A1c 6.6, previously 6.7 Encouraged to: Make healthy food choices, limiting intake of concentrated sweets/carbs, cholesterol, and saturated fat Monitor daily caloric intake and portion sizes Exercise most days of the week for a goal of at least 150 minutes of exercise per week Continued on metformin 500 mg in the morning and 1000 mg in the evening Assessment & Plan (09/23/2024 6:10 AM CDT): Stable, with serious comorbidity of type 2 diabetes, improved/controlled on medication Encouraged to: Make healthy food choices, limiting intake of concentrated sweets/carbs, cholesterol, and saturated fat Monitor daily caloric intake and portion sizes Exercise most days of the week for a goal of at least 150 minutes of exercise per week Continued on metformin Assessment & Plan (06/11/2024 4:56 PM LABOUR MARKET ECONOMIST): Chronic, improved, with serious comorbidity of type [...] week Assessment & Plan (07/16/2023 6:13 AM LABOUR MARKET ECONOMIST): Chronic, worsening, with series comorbidity of type [...] prednisone Assessment & Plan (06/24/2023 7:30 AM LABOUR MARKET ECONOMIST): Chronic, worsened Encouraged to monitor daily caloric intake and portion sizes and to exercise most days of the week, for a goal of at least 150 minutes of exercise per week Assessment & Plan (06/09/2023 5:36 AM LABOUR MARKET ECONOMIST): Chronic, worsened, with serious comorbidity/type 2 diabetes, [...] flares Assessment & Plan (05/27/2022 10:29 PM LABOUR MARKET ECONOMIST): Chronic, stable, controlled with medication-continued on meloxicam, [...] due to allergen 09/17/2015 Assessment & Plan (03/15/2025 5:06 PM CDT): Controlled Continued on cetirizine and montelukast Assessment & Plan (03/10/2025 5:27 PM CDT): Controlled Continued on cetirizine and montelukast Assessment & Plan (12/23/2024 5:00 AM CDT): Controlled Continued on cetirizine and montelukast Assessment & Plan (03/25/2024 2:54 PM CDT): Chronic, stable, controlled with medication Continued on cetirizine, montelukast, and azelastine Assessment & Plan (09/26/2023 11:48 AM CDT): Chronic, stable, controlled with medication Continued on cetirizine and montelukast, refills sent to pharmacy per Assessment & Plan (03/11/2023 3:04 PM CDT): Stable, controlled Continued on cetirizine and Singulair Assessment & Plan (05/27/2022 10:37 PM LABOUR MARKET ECONOMIST): Chronic, stable, controlled with medication-continued on cetirizine, refills sent to pharmacy per patient request. Assessment & Plan (03/03/2022 7:19 AM CDT): Chronic, stable, controlled with medication-continued on cetirizine and montelukast. Assessment & Plan (08/20/2021 5:44 PM LABOUR MARKET ECONOMIST): Chronic, stable, controlled with medication-filled Singulair per [...] Singulair Assessment & Plan (05/27/2022 10:36 PM LABOUR MARKET ECONOMIST): Acute-started on Augmentin 875 BID and Diflucan [...] Gastroesophageal reflux disease 06/06/2015 Assessment & Plan (03/10/2025 5:27 PM CDT): Controlled Continued on omeprazole Assessment & Plan (03/25/2024 2:56 PM CDT): Chronic, stable, controlled with medication Continued on omeprazole Assessment & Plan (09/26/2023 11:49 AM CDT): Chronic, stable, controlled with medication Continued on omeprazole, refills sent to pharmacy per request Assessment & Plan (03/11/2023 3:19 PM CDT): Chronic, controlled on medication Continued on omeprazole Assessment & Plan (05/27/2022 10:31 PM LABOUR MARKET ECONOMIST): Chronic, stable, controlled on medication-continued on omeprazole, refills sent to pharmacy per patient request. Assessment & Plan (04/08/2022 6:11 PM CDT): Chronic, stable, uncontrolled-prescription for omeprazole 40 mg once daily sent to pharmacy per patient request. Assessment & Plan (03/03/2022 7:29 AM CDT): Chronic, stable, controlled with medication-continued on omeprazole. LUISA (obstructive sleep apnea) 03/07/2015 Assessment & Plan (01/10/2025 9:07 AM CDT): The patient continues to benefit from CPAP at 12 cm water pressure for ongoing symptoms LUISA. Her DME supplier is [facility] home care services. She should follow up here annually. Assessment & Plan (05/31/2024 2:38 PM LABOUR MARKET ECONOMIST): The patient did not complete her home [...] symptoms. Essential hypertension 09/07/2014 Assessment & Plan (03/15/2025 5:06 PM CDT): Controlled Continued on lisinopril-hydrochlorothiazide Assessment & Plan (03/10/2025 5:27 PM CDT): Controlled Continued on lisinopril-hydrochlorothiazide Assessment & Plan (12/23/2024 5:02 AM CDT): Controlled Continued on lisinopril-hydrochlorothiazide Assessment & Plan (09/23/2024 6:09 AM CDT): Controlled Continued on lisinopril-hydrochlorothiazide Assessment & Plan (06/11/2024 4:57 PM LABOUR MARKET ECONOMIST): Chronic, stable, controlled on medication Continued on [...] HCT Assessment & Plan (05/27/2022 10:32 PM LABOUR MARKET ECONOMIST): Chronic, stable, controlled with medication-continued on lisinopril/hydrochlorothiazide, [...] visit. Assessment & Plan (08/20/2021 5:43 PM LABOUR MARKET ECONOMIST): Chronic, not controlled at today's visit, but normal at visit today with director of managed services-refilled lisinopril/HCT per patient request. Will continue to monitor. Assessment & Plan (06/05/2021 3:32 PM LABOUR MARKET ECONOMIST): Chronic, stable, controlled on medication historically, but with elevated blood pressure noted today-continued on lisinopril/hydrochlorothiazide daily, will continue to monitor blood pressure and adjust medication as needed. Ordered CMP. Resolved Problems Problem Noted Date Diagnosed Date Resolved Date Closed head injury with concussion 09/22/2024 12/23/2024 Assessment & Plan (09/23/2024 6:13 AM CDT): Reviewed ER discharge summary and CT imaging Supportive care measures discussed Advised ER evaluation if worsening or new symptoms Acute sinusitis 06/11/2024 09/23/2024 Assessment & Plan (06/11/2024 4:57 PM LABOUR MARKET ECONOMIST): Started on antibiotic Supportive care measures discussed Strict return precautions given Abrasion of right chest wall 12/28/2023 03/25/2024 [...] 03/25/2024 Assessment & Plan (07/16/2023 6:14 AM LABOUR MARKET ECONOMIST): Reviewed ER records from 06/03/23 and last [...] 09/26/2023 Assessment & Plan (06/24/2023 7:28 AM LABOUR MARKET ECONOMIST): Acute, with improving symptoms Encouraged to complete prednisone taper as directed Instructed to get chest x-ray in 2 weeks Advised to return to ER if shortness of breath, chest tightness, and/or wheezing not relieved with PRN albuterol inhaler Pneumonia of right lower lob e due to infectious organism 06/09/2023 09/26/2023 Assessment & Plan (06/09/2023 5:33 AM LABOUR MARKET ECONOMIST): Recent diagnosis Reviewed ER notes dated 06/03/2023 [...] with [facility] Infect[facility] Disease as recommended KIESHAID-Omero mead chronic decreased mobility and endurance 02/20/2023 Assessment & Plan (03/12/2023 5:58 AM CDT): [...] 03/11/2023 Assessment & Plan (06/24/2022 4:54 PM LABOUR MARKET ECONOMIST): Recent diagnosis-advised to stop Mucinex DM and [...] 03/11/2023 Assessment & Plan (06/24/2022 5:02 PM LABOUR MARKET ECONOMIST): Chronic, with recent exacerbation, uncontrolled-declined addition of [...] appointment. Assessment & Plan (05/27/2022 10:29 PM LABOUR MARKET ECONOMIST): Chronic, with acute exacerbation, uncontrolled, with symptoms [...] symptoms.ation- Diabetic neuropathy, type II diabetes mellitus 03/01/2022 03/03/2022 Diarrhea of infectious origin 01/27/2022 [...] nystatin powder. Drainage from right ear 09/13/2021 0407/2021 Assessment & Plan (09/13/2021 3:28 PM LABOUR MARKET ECONOMIST): Acute, persistent despite round of oral antibiotics, with resolution of sinus symptoms-started on Floxin ear drops to right ear twice daily as directed. A referral was also made to Dr. Brad Farr, recommended scheduling an appointment in the event ear pain and discharge do not resolve with antibiotic ear drops, provided with the office number Right acute serous otitis media 08/27/2021 11/29/2021 Assessment & Plan (08/27/2021 12:11 PM LABOUR MARKET ECONOMIST): Acute-started on an antibiotic, advised to take medication as directed. Instructed to increase clear liquids, rest, and vitamin C in diet. Recommended follow-up if symptoms worsen, don't improve, or new symptoms develop. Right ear pain 08/27/2021 11/29/2021 Assessment & Plan (09/13/2021 3:28 PM LABOUR MARKET ECONOMIST): Acute, persistent despite round of oral antibiotics, with resolution of sinus symptoms-started on Floxin ear drops to right ear twice daily as directed. A referral was also made to Dr. Brad Farr, recommended scheduling an appointment in the event ear pain and discharge do not resolve with antibiotic ear drops, provided with the office number. Assessment & Plan (08/27/2021 12:10 PM LABOUR MARKET ECONOMIST): Acute-see plan of care for right acute serous otitis media. Can take Tylenol as directed as needed for pain. Acute recurrent frontal sinusitis 08/27/2021 03/01/2022 Assessment & Plan (08/27/2021 12:11 PM LABOUR MARKET ECONOMIST): Acute-advised to take Zpak as directed. Instructed [...] normal. Assessment & Plan (09/13/2021 3:26 PM LABOUR MARKET ECONOMIST): Recent onset, stable, previously referred to neurology on 08/20/21, states has not received a call-provided with number to call [facility] in [place]. Assessment & Plan (08/20/2021 5:55 PM LABOUR MARKET ECONOMIST): Recent onset, new problem-sensation intact but diminished [...] normal. Assessment & Plan (09/13/2021 3:26 PM LABOUR MARKET ECONOMIST): Recent onset, stable, previously referred to neurology on 08/20/21, states has not received a call-provided with number to call [facility] in [place]. Assessment & Plan (08/20/2021 5:55 PM LABOUR MARKET ECONOMIST): Recent onset, new problem-sensation intact but diminished [...] CMP. Assessment & Plan (07/31/2021 7:51 AM LABOUR MARKET ECONOMIST): Recent onset over weekend-referred to a director of managed services for evaluation of bradycardia, palpitations, and shortness of breath with exertion. Advised to go to ER for worsening symptoms of palpitations and shortness of breath or for new onset chest pain/tightness, wheezing/difficulty breathing, chills, sweats, fever, back pain, or nausea. Bradycardia 07/27/2021 03/01/2022 Assessment & Plan (08/20/2021 5:46 PM LABOUR MARKET ECONOMIST): Recent onset, episodic, bradycardia since COVID-19 infection in 07/2021, normal at today's visit (69 beats/minute)-referred to director of managed services previously with 1st visit today, echocardiogram and 48 hour Holter monitor planned for future, encouraged compliance with recommendations made by director of managed services. Assessment & Plan (07/31/2021 7:51 AM LABOUR MARKET ECONOMIST): Recent onset prior to monoclonal antibody infusion on 07/11/2021-referred to a director of managed services for evaluation of bradycardia, palpitations, and shortness of breath with exertion. Advised to go to ER for worsening symptoms of palpitations and shortness of breath or for new onset chest pain/tightness, wheezing/difficulty breathing, chills, sweats, fever, back pain, or nausea. Assessment & Plan (07/27/2021 7:07 AM LABOUR MARKET ECONOMIST): New problem/finding-recommended follow-up with Cardiology as suggested upon discharge from the ER for further evaluation and management. COVID-19 07/10/2021 03/11/2023 Assessment & Plan (09/10/2022 10:37 AM LABOUR MARKET ECONOMIST): Acute-started on Paxlovid. Advised to continue to [...] regarding Paxlovid was sent to patient via [email or web address], instructed to read carefully and call if has any questions. The [facility] in [place] was notified that patient would be coming by for official testing mandated by her employer to confirm her at-home test results. Instructed that to go to ER and/or call 911 if short of breath, and/or have chest pain, tightness, or wheezing not relieved with your inhalers or nebulizer treatments. Assessment & Plan (07/27/2021 7:07 AM LABOUR MARKET ECONOMIST): Diagnosed with COVID-19 on 07/08/2021 with symptoms starting on new 's Brittany, now with symptoms consistent with a sinus infection, see plan of care for acute recurrent pansinusitis. Assessment & Plan (07/23/2021 12:26 PM LABOUR MARKET ECONOMIST): Acute, s/p monoclonal antibody infusion, improving until [...] 08/20/2021 Assessment & Plan (2021 3:15 PM LABOUR MARKET ECONOMIST): Worsening chronic right shoulder pain, status post [...] 08/20/2021 Assessment & Plan (07/23/2021 12:25 PM LABOUR MARKET ECONOMIST): Acute, resolved-informed that insurance declined MRI of right shoulder, however states right shoulder pain has resolved. Advised if right shoulder pain returns, to notify office and an x-ray of the right shoulder can be ordered and a referral can be made to PT. Assessment & Plan (2021 3:15 PM LABOUR MARKET ECONOMIST): Acute on chronic right shoulder pain, status [...] 03/11/2023 Assessment & Plan (08/30/2022 3:46 PM LABOUR MARKET ECONOMIST): Rapid COVID and flu negative PCR pending [...] referral was made to an ENT and painter ski edge for further evaluation and management of recurrent sinusitis. Started on prednisone as directed. Advised against taking a decongestant due to high blood pressure, but can use nasal saline spray and continue antihistamine. Acute recurrent pansinusitis 11/03/2020 03/25/2024 Assessment & Plan (07/16/2023 6:10 AM LABOUR MARKET ECONOMIST): Started on prednisone burst and Levaquin, discussed [...] symptoms. Assessment & Plan (07/27/2021 7:06 AM LABOUR MARKET ECONOMIST): Started on a Z-David as directed and [...] arm, sequela 01/31/2017 08/20/2021 Multiple allergies 09/17/2015 Encounters Date Type Department Care Team Description 05/05/2025 Orders Only [facility] Accountable Care Organization [address] [place] [id number] Sonal Santos NP Screening for colorectal cancer 04/18/2025 Nurse Triage [facility] at [address] [phone] Sonal Santos NP 04/18/2025 Telephone [facility] at [address] [phone] Sonal Santos NP Symptom Based Call 04/13/2025 Results Follow-Up [facility] [place] [address] [place] [phone] Tana Payne, SATINDER Urine culture Urine, clean voided 04/11/2025 4:15 PM CDT Office Visit [facility] [place] [address] [place] [phone] Callum Veronica, SATINDER Acute cystitis without hematuria (Primary Dx); Type 2 diabetes mellitus treated without insulin (HCC); Moderate persistent asthma without complication 04/11/2025 4:14 PM CDT - 04/11/2025 11:59 PM CDT Hospital Encounter [place] [id number] Acute cystitis without hematuria Discharge Disposition: Discharge to home or self care 04/11/2025 Nurse Triage [facility] at [address] [phone] Sonal Santos NP 03/15/2025 11:30 AM CDT Office Visit [facility] at [address] [phone] Sonal Santos NP Rash and nonspecific skin eruption (Primary Dx); Cutaneous candidiasis; Essential hypertension; Allergic rhinitis, unspecified seasonality, unspecified trigger; Class 2 severe obesity due to excess calories with serious comorbidity and body mass index (BMI) of 36.0 to 36.9 in adult (HCC); Severe obesity ([facility]) 03/10/2025 3:30 PM CDT Office Visit [facility] at [address] [phone] Sonal Santos NP Rash and nonspecific skin eruption (Primary Dx); Dysfunction of both eustachian tubes; Type 2 diabetes mellitus with diabetic polyneuropathy, without long-term current use of insulin (HCC); Mild episode of recurrent major depressive disorder; Moderate persistent asthma without complication; Essential hypertension; Gastroesophageal reflux disease, unspecified whether esophagitis present; Mixed hyperlipidemia; Hypokalemia; Non-seasonal allergic rhinitis, unspecified trigger; Chronic pain of both shoulders; Bilateral sciatica; Cutaneous candidiasis; Class 2 severe obesity due to excess calories with serious comorbidity and body mass index (BMI) of 37.0 to 37.9 in adult (HCC); Severe obesity (HCC) 03/08/2025 5:30 PM CDT Telemedicine [address] [phone] Minh Talbert MD Insect bite of other part of neck, initial encounter (Primary Dx) 03/08/2025 Nurse Triage [facility] at [address] [phone] Sonal Santos, SATINDER 03/04/2025 7:00 AM CDT Therapy [facility] [address] [place] [phone] Shaista Ramirez, PRODUCE MANAGER Arthrodesis status (Primary Dx); S/P cervical spinal fusion 02/28/2025 1:30 PM CDT Therapy [facility] Therapy [address] [place] [phone] Cherelle Nguyen, PT Arthrodesis status (Primary Dx); S/P cervical spinal fusion 02/28/2025 Plan of Care Documentation [facility] [address] [place] [phone] 02/23/2025 12:45 PM CDT Therapy [facility] Therapy [address] [place] [address] Kristen Wylie, PRODUCE MANAGER Arthrodesis status (Primary Dx) 02/21/2025 1:30 PM CDT Therapy [facility] Therapy [address] [place] [address] Madelaine Purcell, PRODUCE MANAGER Arthrodesis status (Primary Dx) 02/17/2025 10:45 AM CDT Therapy [facility] Physical Therapy [address] [place] [phone] Madelaine Purcell, PRODUCE MANAGER Arthrodesis status (Primary Dx) 02/09/2025 8:[address] [facility] Office Bld[facility] 1 OP Physical Therapy [address] [place] [address] [address] [place] [address] Laura Sands, PRODUCE MANAGER Arthrodesis status (Primary Dx); S/P cervical spinal fusion 02/03/2025 10:[address] [facility] Office Bld[facility] 1 OP Physical Therapy [address] [place] [address] [address] [place] [address] Philip Carnes, PRODUCE MANAGER Arthrodesis status (Primary Dx); S/P cervical spinal fusion from Last 3 Months Immunizations Immunization Administration Dates Next Due Influenza, Unspecified 03/10/2025(Deferr ed: Patient Refused),04/13/2024(Deferred: Patient Refused),03/11/2023(Deferred: Patient Refused),04/06/2022(Deferred: Patient Refused) Pfizer SARS-CoV-2 Monovalent Vaccination (12+ Yrs) PURPLE 09/22/2020,08/31/2020 Pneumococcal Polysaccharide PPV23 03/17/2018 Tdap 08/07/2017 Surgical History Surgery Date Site/Laterality Comments KNEE ARTHROSCOPY Right MYRINGOTOMY W/ TUBES ANTERIOR CERVICAL DISCECTOMY W/ FUSION 08/18/2024 N/ A SPLENECTOMY, TOTAL Aug 19 2024 Medical History Medical History Date Comments Diabetes mellitus Hyperlipidemia Hypertension Asthma Irregular heartbeat Covid-19 07/10/2021 [...] p ain 02/20/2023 Seborrheic keratoses 12/28/2023 COVID-19 arti mead chronic decreased mobility and endurance 02/20/2023 Closed head injury with concussion 09/22/2024 Family History Medical History Relation Name Comments Arthritis Father Power Diabetes Father Power Hearing loss Father Power Heart attack Father Power Heart disease Father Power Hypertension Father Power Kidney disease Father Power Stroke Maternal Grandmother Desi Vision loss Maternal Grandmother Desi Depression Mother Jennifer Heart attack Mother Jennifer Heart disease Mother Jennifer Vision loss Mother Jennifer Cancer Mother's Sister Raina Hearing loss Paternal Grandmother Sweetie Relation Name Status Comments Father Power Alive Maternal Grandmother Desi Alive Mother Jennifer Alive Mother's Sister Raina Alive Paternal Grandmother Sweetie Alive Social History Tobacco Use Types Packs/Day Years Used Date Smoking Tobacco: Never Passive Smoke Exposure: Never Smokeless Tobacco: Never Tobacco Cessation:Counseling Given: No PHQ-2 Answer Date Recorded PHQ-2 Total Score [...] Sign Reading Time Taken Comments Blood Pressure 130/80 04/11/2025 3:44 PM CDT Pulse 78 04/11/2025 3:44 PM CDT Temperature 36.2 C (97.1 F) 04/11/2025 3:44 PM CDT Respiratory Rate 18 04/11/2025 3:44 PM CDT Oxygen Saturation 97% 04/11/2025 3:44 PM CDT Inhaled Oxygen Concentration - - Weight 105.7 kg (233 lb) 04/11/2025 3:44 PM CDT Height 170.2 cm (5' 7) 04/11/2025 3:44 PM CDT Body Mass Index 36.49 04/11/2025 3:44 PM CDT Plan of Treatment Health Maintenance [...] Additional history exists Colon Cancer Screening-Colonoscopy 02/08/2024 eGFR 11/27/2024 11/28/2023, 05/08, 05/16/2023, Additional history exists Hemoglobin A1C 01/17/2025 07/20/2024, 03/07, 12/25/2023, Additional history exists Covid-19 Vaccine ( season) 2025 09/22/2020, 08/31/2020 Depression Screening 03/25/2025 03/25/2024, 03/11/2023, 03/11/2023, Additional history exists Foot Exam 03/25/2025 03/25/2024, 11/2022, 08/20/2021, Additional history exists Regular Well Visit/Exam 18-64 03/25/2025 03/25/2024, 03/11/2023, 03/01/2022 Influenza Vaccine (#1) 2026 Postp oned from 03/07/2025 (Patient declined, but will receive in the future) DTaP/Tdap/Td Vaccine (2 - Td or Tdap) 08/07/2027 08/07/2017 Procedures Procedure Name Priority Date/Time Associated Diagnosis Comments URINE CULTURE Routine 04/11/2025 4:14 PM CDT Acute cystitis without hematuria POCT URINALYSIS DIPSTICK Routine 04/11/2025 4:13 PM CDT Acute cystitis without hematuria POCT HEMOGLOBIN A1C Routine 07/20/2024 2:30 PM LABOUR MARKET ECONOMIST Type 2 diabetes mellitus treated without insulin (HCC) EGFR STAT 11/28/2023 9:55 PM CDT SCREENING MAMMOGRAM BILATERAL W GURWINDER Schedule Routine, Read Routine (OP Routine) 07/12/2022 2:38 PM LABOUR MARKET ECONOMIST Encounter for screening mammogram for malignant neoplasm of breast LIPID PANEL Routine 02/16/2022 9:48 AM CDT Mixed hyperlipidemia ALBUMIN CREATININE RATIO, URINE Routine 08/18/2021 9:12 AM LABOUR MARKET ECONOMIST Type 2 diabetes mellitus treated without insulin (HCC) from Last 3 Months or Most Recently Relevant to Health Maintenance Results * Urine culture Urine, clean voided (04/11/2025 4:14 PM CDT) Report Final Report: Less than 100,000 colonies/mL (clinically insignificant growth based on current clinical standards) Organism (CLINICALLY INSIGNIFICANT GROWTH [facility] Urine, clean voided 04/11/2025 4:14 PM CDT 04/11/2025 9:27 PM CDT Narrative [facility] - 04/13/2025 7:52 AM CDT Testing performed by [facility] ([phone]) us Callum Veronica [employer] LAB MICROBIOLOGY - NERAL ORDERABLES Final Result [facility] Department [place] [address] * (ABNORMAL) POCT urinalysis dipstick (04/11/2025 4:13 PM CDT) Color, Urine, POC Dark Yellow Clarity, ur, POC Cloudy(A) Clear Glucose, ur, POC Negative Negative Bilirubin, ur, POC Negative Negative Ketones, ur, POC Trace(A) Negative Specific Byron, POC 1.020 1.003 - 1.030 Blood, ur, POC Negative Negative pH, ur, POC 5.5 5.0 - 8.0 Protein, ur, POC Negative Negative Urobilinogen, urine, POC 0.2 0.2 - 1.0 mg/dL Nitrite, ur, POC Negative Negative Leukocytes, ur, POC Negative Negative Lot Number [id number] Urine 04/11/2025 4:13 PM CDT Callum Veronica [employer]ZIP[employer] POINT OF CARE TEST OR DERABLES Final Result * (ABNORMAL) POCT hemoglobin A1c (07/20/2024 2:30 PM LABOUR MARKET ECONOMIST) Hemoglobin A1C, POC 6.6 4.0 - 5.6 % Comment:Lot [id number] Exp [id number] [id number] Blood 07/20/2024 2:30 PM LABOUR MARKET ECONOMIST Sonal Santos [employer]ZIP[employer] POINT OF CARE TEST ORDERABLES Fi nal [...] LAB BLOOD ORDERABLES Final Res ult CAR [facility] Department [place] [address] * SCREENING MAMMOGRAM BILATERAL W GURWINDER (07/12/2022 2:38 PM LABOUR MARKET ECONOMIST) Anatomical Region Laterality Modality Breast Bilateral Mammography Impressions 07/12/2022 2:50 PM LABOUR MARKET ECONOMIST BI-RADS ATLAS category (overall): 1 - Negative There is no mammographic evidence of malignancy. A 1 year screening mammogram is recommended. The patient has been or will be contacted. We recommend annual screening mammography for women at average risk of breast cancer beginning at age 40, based on guidelines of the [employer] (ACR Practice Parameter for the Performance of Screening and Diagnostic Mammography) and [employer]. For women with and elevated risk of breast cancer, please refer to the ACR Practice Parameter for specific screening recommendations. The patient will be entered into a reminder system with a target due date of 1 year for her next screening exam. Narrative 07/12/2022 2:50 PM LABOUR MARKET ECONOMIST SCREENING MAMMOGRAM BILATERAL W GURWINDER: 07/12/22 The [...] last revised on 2018. Testing performed by: [address] [address] Triglycerides 246(H) <=149 mg/dL CAR Comment: Interpretive [...] last revised on 2018. Testing performed by: [address] [address] HDL 37(L) >=40 mg/dL CAR Comment: Interpretive [...] last revised on 2018. Testing performed by: [address] [address] LDL, calculated 67 <=129 mg/dL CAR TO Comment: Interpretive Data Ages [...] last revised on 2018. Testing performed by: [address] [address] Non-HDL Cholesterol 116 mg/dL CAR TO Comment: [...] last revised on 2018. Testing performed by: [address] [address] Chol/HDL ratio 4 CAR TO Comment:Testing performed by : [address] [address] Blood 02/16/2022 9:48 AM CDT 02/16/2022 9:58 AM CDT us Sonal Santos NP LAB BLOOD ORDERABLES Final Resul t CAR TO [address] [facility] Department [place] [address] * Albumin Creatinine Ratio, Urine (08/18/2021 9:12 AM LABOUR MARKET ECONOMIST) Albumin Ur <12.0 mg/L CAR TO Comment: Interpretive Data No reference range established. Current interpretive data was last revised 2018. Testing performed by: [address] [address] Creatinine Ur 138.2 mg/dL CAR TO Comment: Interpretive Data No reference range established. Current interpretive data was last revised 2018. Testing performed by: [address] [address] Albumin Creatinine Ratio, Ur <9 1 - 29 mg/g CAR TO Comment:Testing performed by : [address] [address] Urine 08/18/2021 9:12 AM LABOUR MARKET ECONOMIST 08/18/2021 10:08 AM LABOUR MARKET ECONOMIST us Sonal Santos NP LAB URINE ORDERABLES Final Resul t CAR [address] [facility] Department [place] [address] from Last 3 Months or Most Recently Relevant to Health Maintenance Insurance [facility] Care Teams Bulk Tank Car Unloader Relationship Specialty Start Date End Date Sonal Santos NP [address] [place] [id number] PCP - General Family Practice 11/03/20 Valeria Charlton, [facility] [address] [facility] [address] Clothing Trades Workers Infectious Diseases 02/17/23
--- OUTSIDE RECORDS SUMMARY | 2025-05-05 14:13 | XMS_ITS | Clinical Summary ---
Author Organization [facility] Address [facility] [place] [address] Care Team Providers Care Platform Supervisor Name Role Phone Alfonso Tena MD Primary Care Provider [phone] Allergies Active Allergy Reactions Criticality Noted Date [...] hyperglycemia, without long-term current use of insulin ([facility] HHS/HCC) Take 1 tablet by mouth [...] recurrent 05/29/2020 Moderate persistent asthma without complication 05/29/2020 Depression with anxiety 03/19/2018 Overview (05/19/2018): Transitioned From: Adjustment disorder with anxiety BMI 40.0-44.9, adult 03/17/2018 Overview (05/19/2018): Transitioned From: Obesity (BMI 30-39.9) [...] sleep apnea) 03/07/2015 Essential hypertension 09/07/2014 Immunizations Immunization Administration Dates Next Due Pneumococcal (Pneumovax 23) [...] 5:42 PM CDT Height 172.7 cm (5' 8) 10/18/2020 5:42 PM CDT Body Mass Index [...] Vaccines (1 of 2) 2018 Pneumococcal Vaccine: 50+ Years (2 of 2 - PCV) 03/17/2019 03/17/2018 Annual Physical 05/29/2021 05/29/2020 Mammogram Screening 07/12/2024 07/12/2022, 04/02/2018, 04/02/2018 COVID-19 Vaccine (3 - 2024-2 6 season) 2025 09/22/2020, 08/31/2020 Influenza Adult (#1) 2025 DTaP, Tdap and Td Vaccines ( 2 - Td or Tdap) 08/07/2027 08/07/2017 Hepatitis C Completed 05/29/2020 Hepatitis A Vaccines Aged Out No long er eligible based on patient's age to complete this topic Meningococcal B Vaccine Aged Out No l [...] TO HCV RNA Routine 05/29/2020 10:56 AM ASSEMBLY CLEANER Need for hepatitis C screening test from Last 3 Months or Most Recently Relevant to Health Maintenance Results * MAMMOGRAM (07/12/2022) Anatomical Region Laterality Modality Other Doc Med Group Scanned SCANNING Final Resu lt * HEPATITIS C ANTIBODY W/RFX TO HCV RNA ([facility] ONLY) (05/29/2020 10:56 AM ASSEMBLY CLEANER) HEPATITIS C AB NON-REACTI VE NON-REACT MARYJANE [facility] SIGNAL TO CUTOFF 0.25 <[address] [facility] Comment: HCV antibody was non-reactive. There is no laboratory evidence of HCV infection. In most cases, no further action is required. However, if recent HCV exposure is suspected, a test for HCV RNA (test code 97015) is suggested. For additional information please refer to http://education.[employer]/faq/FDM29s9 (This link is being provided for informational/ educational purposes only.) 05/29/2020 10:5 6 AM ASSEMBLY CLEANER 05/30/2020 4:44 AM ASSEMBLY CLEANER Alfonso Tena MD LABORATORY Final Res ult [facility] [address] [place] [address] from Last 3 Months or Most Recently Relevant to Health Maintenance Insurance Care Teams Platform Supervisor Relationship Specialty Start Date End Date Alfonso Tena MD PCP - General FAMILY PRACTICE 02/13/21
--- OUTSIDE RECORDS SUMMARY | 2025-05-05 14:13 | XMS_ITS | Clinical Summary ---
Author Organization [facility] Address [address] [place] [phone] Phone Care Team Providers Care Hardware Installation Coordinator Name Role Phone Unavailable Primary Care Provider [...]
== END 2025-05-05 13:39 | disposition home or self-care (01) ==
PROVIDERS: PCP Family Medicine; Visit Provider Neurological Surgery
DX: Z98.1 Arthrodesis status (principal)
CPT/HCPCS: 72040

== ENCOUNTER 2025-05-25 13:36 | Outpatient (CLI) | payer OTHER, SELFPAY ==
--- OUTSIDE RECORDS SUMMARY | 2019-09-28 08:29 | XMS_ITS | Continuity of Care Document ---
Author Organization [employer] Address [address] [place] [address] Phone Care Team Providers Care Mechanical Engineering Technologist Name Role Phone Taylor Dewitt PT Unavailable Unavailable Procedures Procedure Date Therapeutic Activities Neuromuscular Re-Ed Therapeutic Exercise Manual Therapy Therapeutic Activities Neuromuscular Re-Ed Therapeutic Exercise Manual Therapy Progress Note Therapeutic Activities Neuromuscular Re-Ed Therapeutic Exercise Manual Therapy Therapeutic Activities Neuromuscular Re-Ed Therapeutic Exercise Manual Therapy Hot or Cold Pack Neuromuscular Re-Ed Therapeutic Exercise Manual Therapy Hot or Cold Pack Neuromuscular Re-Ed Therapeutic Exercise Manual Therapy Neuromuscular Re-Ed Therapeutic Exercise Manual Therapy PT Evaluation Moderate Complexity Neuromuscular Re-Ed Therapeutic Exercise Manual Therapy Advance Directives Directive Yes / No Effective Date File Name No Information Encounters Encounter Description Practice Location Reason(s) For Visit Diagnoses Date Provider Providers Copied on Encounter [facility], [address], [place], [place], [address], tel:[phone] [place] No Information - 0 Hilgedieck Taylor. . [facility], [place], [place], [address], tel:[phone] [place] No Information - 0 Hilgedieck Taylor. . [facility], [place], [place], [address], [place] tel:[phone] [place] No Information - 0 Hilgedieck Taylor. . [facility], [place], [place], [address], tel:[phone] [place] No Information - 0 Treaster Nat. . [facility], [place], [place], [address], tel:[phone] [place] No Information 2- 0 Hilgedieck Taylor. . [facility], [place], [place], [address], tel:[phone] [place] No Information 0- 0 Treaster Nat. . [facility], [place], [place], [address], [place] tel:[phone] [place] No Information 0 7- 0 Hilgedieck Taylor. . [facility], [place], [place], [address], [place] tel:[phone] [place] No Information 0 3- 0 Treaster Nat. . [facility], [place], [place], [address], tel:[phone] [place] No Information - 0 Hilgedieck Taylor. . Family History Family Member Type Diagnosis Age At Onset No Information Payers Payer name Insurance type Covered green party ID Authorulisses macias(s) One Call - Align SP [id number] Social History Type Description Quantity Date Captured Comments Sex Female Smoking Status No Information Chief Complaint And Reason For Visit No Information Reason For Referral Reason For Referral No Information History Of Present Illness Encounter Date Complaint History Of Prese nt Illness No Information Functional Status Date Functional Assessmen t No Information Instructions Date Instruction Additional Infor satinder Dietary needs education Related to Overweight Assessments Type Assessment Date No Information Patient Care Teams Name Effective Dates (start - stop) Status Members No Information
--- OUTSIDE RECORDS SUMMARY | 2019-09-28 08:29 | XMS_ITS | Continuity of Care Document ---
Author Organization [facility] Address [address] [place] [address] Phone Care Team Providers Care Tenant Relations Coordinator Name Role Phone Taylor Dewitt PT Unavailable [...] Diagnoses Date Provider Providers Copied on Encounter [facility], [address], [place], [place], [address], tel:[phone] [place] No Information - 0 Hilgedieck Taylor. . [facility], [place], [place], [address], tel:[phone] [place] No Information - 0 Hilgedieck Taylor. . [facility], [place], [place], [address], [place] tel:[phone] [place] No Information - 0 Hilgedieck Taylor. . [facility], [place], [place], [address], tel:[phone] [place] No Information - 0 Treaster Nat. . [facility], [place], [place], [address], tel:[phone] [place] No Information 2- 0 Hilgedieck Taylor. . [facility], [place], [place], [address], tel:[phone] [place] No Information 0- 0 Treaster Nat. . [facility], [place], [place], [address], [place] tel:[phone] [place] No Information 0 7- 0 Hilgedieck Taylor. . [facility], [place], [place], [address], [place] tel:[phone] [place] No Information 0 3- 0 Treaster Nat. . [facility], [place], [place], [address], tel:[phone] [place] No Information - 0 Hilgedieck Taylor. . Family History Family Member Type Diagnosis Age At Onset No Information Payers Payer name Insurance type Covered alliance party ID Authorulisses macias(s) One Call - Align SP [id number] Social History Type Description Quantity Date Captured [...]
--- OUTSIDE RECORDS SUMMARY | 2019-09-28 08:29 | XMS_ITS | Continuity of Care Document ---
Author Organization [facility] Address [address] [place] [address] Phone Care Team Providers Care Sugar Cane Grower Name Role Phone Taylor Dewitt PT Unavailable [...] Diagnoses Date Provider Providers Copied on Encounter [facility], [address], [place], [place], [address], tel:[phone] [place] No Information - 0 Hilgedieck Taylor. . [facility], [place], [place], [address], tel:[phone] [place] No Information - 0 Hilgedieck Taylor. . [facility], [place], [place], [address], [place] tel:[phone] [place] No Information - 0 Hilgedieck Taylor. . [facility], [place], [place], [address], tel:[phone] [place] No Information - 0 Treaster Nat. . [facility], [place], [place], [address], tel:[phone] [place] No Information 2- 0 Hilgedieck Taylor. . [facility], [place], [place], [address], tel:[phone] [place] No Information 0- 0 Treaster Nat. . [facility], [place], [place], [address], [place] tel:[phone] [place] No Information 0 7- 0 Hilgedieck Taylor. . [facility], [place], [place], [address], [place] tel:[phone] [place] No Information 0 3- 0 Treaster Nat. . [facility], [place], [place], [address], tel:[phone] [place] No Information - 0 Hilgedieck Taylor. . Family History Family Member Type Diagnosis Age At Onset No Information Payers Payer name Insurance type Covered alliance party ID Authorulisses macias(s) One Call - Align SP [id number] Social History Type Description Quantity Date Captured [...]
--- OUTSIDE RECORDS SUMMARY | 2019-09-28 08:29 | XMS_ITS | Continuity of Care Document ---
Author Organization [facility] Address [address] [place] [address] Phone Care Team Providers Care Panel Instrument Repairer Name Role Phone Taylor Dewitt PT Unavailable [...] Diagnoses Date Provider Providers Copied on Encounter [facility], [address], [place], [place], [address], tel:[phone] [place] No Information - 0 Hilgedieck Taylor. . [facility], [place], [place], [address], tel:[phone] [place] No Information - 0 Hilgedieck Taylor. . [facility], [place], [place], [address], [place] tel:[phone] [place] No Information - 0 Hilgedieck Taylor. . [facility], [place], [place], [address], tel:[phone] [place] No Information - 0 Treaster Nat. . [facility], [place], [place], [address], tel:[phone] [place] No Information 2- 0 Hilgedieck Taylor. . [facility], [place], [place], [address], tel:[phone] [place] No Information 0- 0 Treaster Nat. . [facility], [place], [place], [address], [place] tel:[phone] [place] No Information 0 7- 0 Hilgedieck Taylor. . [facility], [place], [place], [address], [place] tel:[phone] [place] No Information 0 3- 0 Treaster Nat. . [facility], [place], [place], [address], tel:[phone] [place] No Information - 0 Hilgedieck Taylor. . Family History Family Member Type Diagnosis Age At Onset No Information Payers Payer name Insurance type Covered alliance party ID Authorulisses macias(s) One Call - Align SP [id number] Social History Type Description Quantity Date Captured [...]
--- OUTSIDE RECORDS SUMMARY | 2019-09-28 08:29 | XMS_ITS | Continuity of Care Document ---
Author Organization [facility] Address [address] [place] [address] Phone Care Team Providers Care Waistband Setter Name Role Phone Taylor Dewitt PT Unavailable [...] Diagnoses Date Provider Providers Copied on Encounter [facility] [place], [address], [place], [place], [address], tel:[phone] [place] No Information - 0 Hilgedieck Taylor. . [facility] [place], [place], [place], [address], tel:[phone] [place] No Information - 0 Hilgedieck Taylor. . [facility] [place], [place], [place], [address], [place] tel:[phone] [place] No Information - 0 Hilgedieck Taylor. . [facility] [place], [place], [place], [address], tel:[phone] [place] No Information - 0 Treaster Nat. . [facility] [place], [place], [place], [address], tel:[phone] [place] No Information 2- 0 Hilgedieck Taylor. . [facility] [place], [place], [place], [address], tel:[phone] [place] No Information 0- 0 Treaster Nat. . [facility] [place], [place], [place], [address], [place] tel:[phone] [place] No Information 0 7- 0 Hilgedieck Taylor. . [facility] [place], [place], [place], [address], [place] tel:[phone] [place] No Information 0 3- 0 Treaster Nat. . [facility] [place], [place], [place], [address], tel:[phone] [place] No Information - 0 Hilgedieck Taylor. . Family History Family Member Type Diagnosis Age At Onset No Information Payers Payer name Insurance type Covered green party ID Authorulisses macias(s) One Call - Align SP [id number] Social History Type Description Quantity Date Captured [...]
--- OUTSIDE RECORDS SUMMARY | 2019-09-28 08:29 | XMS_ITS | Continuity of Care Document ---
Author Organization [facility] Address [address] [place] [address] Phone Care Team Providers Care Medical Claims Specialist Name Role Phone Taylor Dewitt PT Unavailable [...] Diagnoses Date Provider Providers Copied on Encounter [facility], [address], [place], [place], [address], tel:[phone] [place] No Information - 0 Hilgedieck Taylor. . [facility], [place], [place], [address], tel:[phone] [place] No Information - 0 Hilgedieck Taylor. . [facility], [place], [place], [address], [place] tel:[phone] [place] No Information - 0 Hilgedieck Taylor. . [facility], [place], [place], [address], tel:[phone] [place] No Information - 0 Treaster Nat. . [facility], [place], [place], [address], tel:[phone] [place] No Information 2- 0 Hilgedieck Taylor. . [facility], [place], [place], [address], tel:[phone] [place] No Information 0- 0 Treaster Nat. . [facility], [place], [place], [address], [place] tel:[phone] [place] No Information 0 7- 0 Hilgedieck Taylor. . [facility], [place], [place], [address], [place] tel:[phone] [place] No Information 0 3- 0 Treaster Nat. . [facility], [place], [place], [address], tel:[phone] [place] No Information - 0 Hilgedieck Taylor. . Family History Family Member Type Diagnosis Age At Onset No Information Payers Payer name Insurance type Covered democrat ID Authorulisses macias(s) One Call - Align SP [id number] Social History Type Description Quantity Date Captured [...]
--- OUTSIDE RECORDS SUMMARY | 2019-09-28 08:29 | XMS_ITS | Continuity of Care Document ---
Author Organization [facility] Address [address] [place] [address] Phone Care Team Providers Care Hot Metal Charger Name Role Phone Taylor Dewitt PT Unavailable [...] Diagnoses Date Provider Providers Copied on Encounter [facility], [address], [place], [place], [address], tel:[phone] [place] No Information - 0 Hilgedieck Taylor. . [facility], [place], [place], [address], tel:[phone] [place] No Information - 0 Hilgedieck Taylor. . [facility], [place], [place], [address], [place] tel:[phone] [place] No Information - 0 Hilgedieck Taylor. . [facility], [place], [place], [address], tel:[phone] [place] No Information - 0 Treaster Nat. . [facility], [place], [place], [address], tel:[phone] [place] No Information 2- 0 Hilgedieck Taylor. . [facility], [place], [place], [address], tel:[phone] [place] No Information 0- 0 Treaster Nat. . [facility], [place], [place], [address], [place] tel:[phone] [place] No Information 0 7- 0 Hilgedieck Taylor. . [facility], [place], [place], [address], [place] tel:[phone] [place] No Information 0 3- 0 Treaster Nat. . [facility], [place], [place], [address], tel:[phone] [place] No Information - 0 Hilgedieck Taylor. . Family History Family Member Type Diagnosis Age At Onset No Information Payers Payer name Insurance type Covered libertarian ID Authorulisses macias(s) One Call - Align SP [id number] Social History Type Description Quantity Date Captured [...]
--- OUTSIDE RECORDS SUMMARY | 2019-09-28 08:29 | XMS_ITS | Continuity of Care Document ---
Author Organization [facility] Address [address] [place] [address] Phone Care Team Providers Care Auto Rental Clerk Name Role Phone Taylor Dewitt PT Unavailable [...] Diagnoses Date Provider Providers Copied on Encounter [facility], [address], [place], [place], [address], tel:[phone] [place] No Information - 0 Hilgedieck Taylor. . [facility], [place], [place], [address], tel:[phone] [place] No Information - 0 Hilgedieck Taylor. . [facility], [place], [place], [address], [place] tel:[phone] [place] No Information - 0 Hilgedieck Taylor. . [facility], [place], [place], [address], tel:[phone] [place] No Information - 0 Treaster Nat. . [facility], [place], [place], [address], tel:[phone] [place] No Information 2- 0 Hilgedieck Taylor. . [facility], [place], [place], [address], tel:[phone] [place] No Information 0- 0 Treaster Nat. . [facility], [place], [place], [address], [place] tel:[phone] [place] No Information 0 7- 0 Hilgedieck Taylor. . [facility], [place], [address], [place] tel:[phone] [place] No Information 0 3- 0 Treaster Nat. . [facility], [place], [place], [address], tel:[phone] [place] No Information - 0 Hilgedieck Taylor. . Family History Family Member Type Diagnosis Age At Onset No Information Payers Payer name Insurance type Covered constitution party ID Authorulisses macias(s) One Call - Align SP [id number] Social History Type Description Quantity Date Captured [...]
--- OUTSIDE RECORDS SUMMARY | 2019-09-28 08:29 | XMS_ITS | Continuity of Care Document ---
Author Organization [facility] Address [address] [place] [address] Phone Care Team Providers Care Blood Bank Business Manager Name Role Phone Taylor Dewitt PT Unavailable [...] Diagnoses Date Provider Providers Copied on Encounter [facility], [address], [place], [place], [address], tel:[phone] [place] No Information - 0 Hilgedieck Taylor. . [facility], [place], [place], [address], tel:[phone] [place] No Information - 0 Hilgedieck Taylor. . [facility], [place], [place], [address], [place] tel:[phone] [place] No Information - 0 Hilgedieck Taylor. . [facility], [place], [place], [address], tel:[phone] [place] No Information - 0 Treaster Nat. . [facility], [place], [place], [address], tel:[phone] [place] No Information 2- 0 Hilgedieck Taylor. . [facility], [place], [place], [address], tel:[phone] [place] No Information 0- 0 Treaster Nat. . [facility], [place], [place], [address], [place] tel:[phone] [place] No Information 0 7- 0 Hilgedieck Taylor. . [facility], [place], [address], [place] tel:[phone] [place] No Information 0 3- 0 Treaster Nat. . [facility], [place], [place], [address], tel:[phone] [place] No Information - 0 Hilgedieck Taylor. . Family History Family Member Type Diagnosis Age At Onset No Information Payers Payer name Insurance type Covered libertarian ID Authorulisses macias(s) One Call - Align SP [id number] Social History Type Description Quantity Date Captured [...]
--- OUTSIDE RECORDS SUMMARY | 2019-09-28 08:29 | XMS_ITS | Continuity of Care Document ---
Author Organization [facility] Address [address] [place] [address] Phone Care Team Providers Care Floor Cleaner Name Role Phone Taylor Dewitt PT Unavailable [...] Diagnoses Date Provider Providers Copied on Encounter [facility], [address], [place], [place], [address], tel:[phone] [place] No Information - 0 Hilgedieck Taylor. . [facility], [place], [place], [address], tel:[phone] [place] No Information - 0 Hilgedieck Taylor. . [facility], [place], [place], [address], [place] tel:[phone] [place] No Information - 0 Hilgedieck Taylor. . [facility], [place], [place], [address], tel:[phone] [place] No Information - 0 Treaster Nat. . [facility], [place], [place], [address], tel:[phone] [place] No Information 2- 0 Hilgedieck Taylor. . [facility], [place], [place], [address], tel:[phone] [place] No Information 0- 0 Treaster Nat. . [facility], [place], [place], [address], [place] tel:[phone] [place] No Information 0 7- 0 Hilgedieck Taylor. . [facility], [place], [place], [address], [place] tel:[phone] [place] No Information 0 3- 0 Treaster Nat. . [facility], [place], [place], [address], tel:[phone] [place] No Information - 0 Hilgedieck Taylor. . Family History Family Member Type Diagnosis Age At Onset No Information Payers Payer name Insurance type Covered libertarian ID Authorulisses macias(s) One Call - Align SP [id number] Social History Type Description Quantity Date Captured [...]
--- OUTSIDE RECORDS SUMMARY | 2019-09-28 08:29 | XMS_ITS | Continuity of Care Document ---
Author Organization [facility] Address [address] [place] [address] Phone Care Team Providers Care Leather Colorer Name Role Phone Taylor Dewitt PT Unavailable [...] Diagnoses Date Provider Providers Copied on Encounter [facility], [address], [place], [place], [address], tel:[phone] [place] No Information - 0 Hilgedieck Taylor. . [facility], [place], [place], [address], tel:[phone] [place] No Information - 0 Hilgedieck Taylor. . [facility], [place], [place], [address], [place] tel:[phone] [place] No Information - 0 Hilgedieck Taylor. . [facility], [place], [place], [address], tel:[phone] [place] No Information - 0 Treaster Nat. . [facility], [place], [address], tel:[phone] [place] No Information 2- 0 Hilgedieck Taylor. . [facility], [place], [address], tel:[phone] [place] No Information 0- 0 Treaster Nat. . [facility], [place], [address], [place] tel:[phone] [place] No Information 0 7- 0 Hilgedieck Taylor. . [facility], [place], [address], [place] tel:[phone] [place] No Information 0 3- 0 Treaster Nat. . [facility], [place], [place], [address], tel:[phone] [place] No Information - 0 Hilgedieck Taylor. . Family History Family Member Type Diagnosis Age At Onset No Information Payers Payer name Insurance type Covered green party ID Authorulisses macias(s) One Call - Align SP [id number] Social History Type Description Quantity Date Captured [...]
--- OUTSIDE RECORDS SUMMARY | 2019-09-28 08:29 | XMS_ITS | Continuity of Care Document ---
Author Organization [facility] Address [address] [place] [address] Phone Care Team Providers Care It Applications Analyst Name Role Phone Taylor Dewitt PT Unavailable [...] Provider Providers Copied on Encounter [facility], [address], [place], [place], [address], tel:[phone] [place] No Information - 0 Hilgedieck Taylor. . [facility], [place], [place], [address], tel:[phone] [place] No Information - 0 Hilgedieck Taylor. . [facility], [place], [place], [address], [place] tel:[phone] [place] No Information - 0 Hilgedieck Taylor. . [facility], [place], [place], [address], tel:[phone] [place] No Information - 0 Treaster Nat. . [facility], [place], [place], [address], tel:[phone] [place] No Information 2- 0 Hilgedieck Taylor. . [facility], [place], [place], [address], tel:[phone] [place] No Information 0- 0 Treaster Nat. . [facility], [place], [place], [address], [place] tel:[phone] [place] No Information 0 7- 0 Hilgedieck Taylor. . [facility], [place], [place], [address], [place] tel:[phone] [place] No Information 0 3- 0 Treaster Nat. . [facility], [place], [place], [address], tel:[phone] [place] No Information - 0 Hilgedieck Taylor. . Family History Family Member Type Diagnosis Age At Onset No Information Payers Payer name Insurance type Covered alliance party ID Authorulisses macias(s) One [employer] - Align SP [id number] Social History Type Description Quantity Date Captured [...]
--- OUTSIDE RECORDS SUMMARY | 2019-09-28 08:29 | XMS_ITS | Continuity of Care Document ---
Author Organization [facility] Address [address] [place] [address] Phone Care Team Providers Care Turkey Picker Name Role Phone Taylor Dewitt PT Unavailable Unavailable Procedures Procedure Date Therapeutic Activities Neuromuscular Re-Ed Therapeutic Exercise Manual Therapy Therapeutic Activities Neuromuscular Re-Ed Therapeutic Exercise Manual Therapy Progress Note Therapeutic Activities Therapeutic Exercise Neuromuscular Re-Ed Manual Therapy Therapeutic Activities Therapeutic Exercise Neuromuscular Re-Ed Hot or Cold Pack Manual Therapy Neuromuscular Re-Ed Therapeutic Exercise Manual Therapy Hot or Cold Pack Neuromuscular Re-Ed Therapeutic Exercise Manual Therapy Neuromuscular Re-Ed Therapeutic Exercise Manual Therapy PT Evaluation Moderate Complexity Neuromuscular Re-Ed Therapeutic Exercise Manual Therapy Advance Directives Directive Yes / No Effective Date File Name No Information Encounters Encounter Description Practice Location Reason(s) For Visit Diagnoses Date Provider Providers Copied on Encounter [facility], [address], [place], [place], [address], tel:[phone] [place] No Information - 0 Hilgedieck Taylor. . [facility], [place], [place], [address], tel:[phone] [place] No Information - 0 Hilgedieck Taylor. . [facility], [place], [place], [address], [place] tel:[phone] [place] No Information - 0 Hilgedieck Taylor. . [facility], [place], [place], [address], tel:[phone] [place] No Information - 0 Treaster Nat. . [facility], [place], [place], [address], tel:[phone] [place] No Information 2- 0 Hilgedieck Taylor. . [facility], [place], [place], [address], tel:[phone] [place] No Information 0- 0 Treaster Nat. . [facility], [place], [place], [address], [place] tel:[phone] [place] No Information 0 7- 0 Hilgedieck Taylor. . [facility], [place], [place], [address], [place] tel:[phone] [place] No Information 0 3- 0 Treaster Nat. . [facility], [place], [place], [address], tel:[phone] [place] No Information - 0 Hilgedieck Taylor. . Family History Family Member Type Diagnosis Age At Onset No Information Payers Payer name Insurance type Covered alliance party ID Authorulisses macias(s) One Call - Align SP [id number] Social History Type Description Quantity Date Captured [...]
--- OUTSIDE RECORDS SUMMARY | 2023-05-06 05:04 | XMS_ITS | Continuity of Care Document ---
Author Organization [facility] Address [address] [place] [address] Phone Care Team Providers Care Cracking And Fanning Machine Operator Name Role Phone Beena Tee MD Unavailable Unavailable Advance Directives Directive Yes / No Effective Date File Name No Information Encounters Encounter Description Practice Location Reason(s) For Visit Diagnoses Date Provider Providers Copied on Encounter [facility], [address] [facility], [place], [place], [address], [place] tel:[phone] [facility] No Information [address] [place], [address], [place]. tel:[phone] Family History Family Member Type Diagnosis Age At Onset No Information Payers Payer name Insurance type Covered green party ID Authoriza tion(s) No Information Social History Type Description Quantity Date Captured Comments Sex Female Smoking Status No Information Chief Complaint And Reason For Visit No Information Reason For Referral Reason For Referral No Information History Of Present Illness Encounter Date Complaint History Of Prese nt Illness No Information Functional Status Date Functional Assessmen t No Information Instructions Date Instruction Additional Infor mation No Information Assessments Type Assessment Date No Information Patient Care Teams Name Effective Dates (start - stop) Status Members No Information
--- OUTSIDE RECORDS SUMMARY | 2023-05-06 05:04 | XMS_ITS | Continuity of Care Document ---
Author Organization [facility] Address [address] [facility] [address] [place] [address] Phone Care Team Providers Care Social Science Analyst Name Role Phone Beena Tee MD Unavailable Unavailable Advance Directives Directive Yes / No Effective Date File Name No Information Encounters Encounter Description Practice Location Reason(s) For Visit Diagnoses Date Provider Providers Copied on Encounter [facility], [address] [facility] [address] [address], [place], [place], [address], [place] tel:[phone] [facility] No Information [address] [place], [address], [place]. tel:[phone] Family History Family Member Type Diagnosis Age At Onset No Information Payers Payer name Insurance type Covered alliance party ID Authoriza tion(s) No Information Social [...]
--- OUTSIDE RECORDS SUMMARY | 2023-05-06 05:04 | XMS_ITS | Continuity of Care Document ---
Author Organization [facility] Address [address] [facility] [address] [place] [address] Phone Care Team Providers Care Casting Supervisor Name Role Phone Beena Tee MD Unavailable Unavailable Advance Directives Directive Yes / No Effective Date File Name No Information Encounters Encounter Description Practice Location Reason(s) For Visit Diagnoses Date Provider Providers Copied on Encounter [facility], [address] [facility] [address], [place], [place], [address], [place] tel:[phone] [facility] No Information [address] [place], [address], [place]. tel:[phone] Family History Family Member Type Diagnosis Age [...]
--- OUTSIDE RECORDS SUMMARY | 2023-05-06 05:04 | XMS_ITS | Continuity of Care Document ---
Author Organization [facility] Address [address] [facility] [address] [place] [address] Phone Care Team Providers Care Fur Floor Worker Name Role Phone Beena Tee MD Unavailable Unavailable Advance Directives Directive Yes / No Effective Date File Name No Information Encounters Encounter Description Practice Location Reason(s) For Visit Diagnoses Date Provider Providers Copied on Encounter [facility], [address] [facility] [address], [place], [place], [address], [place] tel:[phone] [facility] No Information [address] [place], [address], [place]. tel:[phone] Family History Family Member Type Diagnosis Age At Onset No Information Payers Payer name Insurance type Covered libertarian ID Authoriza tion(s) No Information Social History [...]
--- OUTSIDE RECORDS SUMMARY | 2023-05-06 05:04 | XMS_ITS | Continuity of Care Document ---
Author Organization [facility] Address [address] [facility] [address] [place] [address] Phone Care Team Providers Care Pc Analyst Name Role Phone Beena Tee MD Unavailable Unavailable Advance Directives Directive Yes / No Effective Date File Name No Information Encounters Encounter Description Practice Location Reason(s) For Visit Diagnoses Date Provider Providers Copied on Encounter [facility], [address] [facility] [address], [place], [place], [address], [place] tel:[phone] [facility] No Information [address] [place], [address], [place]. tel:[phone] Family History Family Member Type Diagnosis Age [...]
--- OUTSIDE RECORDS SUMMARY | 2023-05-06 05:04 | XMS_ITS | Continuity of Care Document ---
Author Organization [facility] Address [address] [facility] [address] [place] [address] Phone Care Team Providers Care Trimming Machine Set Up Operator Name Role Phone Beena Tee MD Unavailable Unavailable Advance Directives Directive Yes / No Effective Date File Name No Information Encounters Encounter Description Practice Location Reason(s) For Visit Diagnoses Date Provider Providers Copied on Encounter [facility], [address] [facility] [address], [place], [place], [address], [place] tel:[phone] [facility] No Information [address] [place], [address], [place]. tel:[phone] Family History Family Member Type Diagnosis Age [...]
--- OUTSIDE RECORDS SUMMARY | 2023-05-06 05:04 | XMS_ITS | Continuity of Care Document ---
Author Organization [facility] Address [address] [facility] [address] [place] [address] Phone Care Team Providers Care Power Shovel Engineer Name Role Phone Beena Tee MD Unavailable Unavailable Advance Directives Directive Yes / No Effective Date File Name No Information Encounters Encounter Description Practice Location Reason(s) For Visit Diagnoses Date Provider Providers Copied on Encounter [facility], [address] [facility] [address], [place], [place], [address], [place] tel:[phone] [facility] No Information [address] [place], [address], [place]. tel:[phone] Family History Family Member Type Diagnosis Age [...]
--- OUTSIDE RECORDS SUMMARY | 2023-05-06 05:04 | XMS_ITS | Continuity of Care Document ---
Author Organization [facility] Address [address] [facility] [address] [place] [address] Phone Care Team Providers Care Cap Jewel Plate Assembler Name Role Phone Beena Tee MD Unavailable Unavailable Advance Directives Directive Yes / No Effective Date File Name No Information Encounters Encounter Description Practice Location Reason(s) For Visit Diagnoses Date Provider Providers Copied on Encounter [facility], [address] [facility] [address], [place], [place], [address], [place] tel:[phone] [facility] No Information [address] [place], [address], [place]. tel:[phone] Family History Family Member Type Diagnosis Age At Onset No Information Payers Payer name Insurance type Covered republican ID Authoriza tion(s) No Information Social History [...]
--- OUTSIDE RECORDS SUMMARY | 2023-05-06 05:04 | XMS_ITS | Continuity of Care Document ---
Author Organization [facility] Address [address] [facility] [address] [place] [address] Phone Care Team Providers Care Threading Machine Feeder Automatic Name Role Phone Beena Tee MD Unavailable Unavailable Advance Directives Directive Yes / No Effective Date File Name No Information Encounters Encounter Description Practice Location Reason(s) For Visit Diagnoses Date Provider Providers Copied on Encounter [facility], [address] [facility] [address], [place], [place], [address], [place] tel:[phone] [facility] No Information [address] [place], [address], [place]. tel:[phone] Family History Family Member Type Diagnosis Age [...]
--- OUTSIDE RECORDS SUMMARY | 2023-05-06 05:04 | XMS_ITS | Continuity of Care Document ---
Author Organization [facility] Address [address] [facility] [address] [place] [address] Phone Care Team Providers Care Theatrical Rigger Name Role Phone Beena Tee MD Unavailable Unavailable Advance Directives Directive Yes / No Effective Date File Name No Information Encounters Encounter Description Practice Location Reason(s) For Visit Diagnoses Date Provider Providers Copied on Encounter [facility], [address] [facility] [address], [place], [place], [address], [place] tel:[phone] [facility] No Information [address] [place], [address], [place]. tel:[phone] Family History Family Member Type Diagnosis Age [...]
--- OUTSIDE RECORDS SUMMARY | 2023-05-06 05:04 | XMS_ITS | Continuity of Care Document ---
Author Organization [facility] Address [address] [facility] [address] [place] [address] Phone Care Team Providers Care Concert Promoter Name Role Phone Beena Tee MD Unavailable Unavailable Advance Directives Directive Yes / No Effective Date File Name No Information Encounters Encounter Description Practice Location Reason(s) For Visit Diagnoses Date Provider Providers Copied on Encounter [facility], [address] [facility] [address], [place], [place], [address], [place] tel:[phone] [facility] No Information [address] [place], [address], [place]. tel:[phone] Family History Family Member Type Diagnosis Age [...]
--- OUTSIDE RECORDS SUMMARY | 2023-05-06 05:04 | XMS_ITS | Continuity of Care Document ---
Author Organization [facility] Address [address] [facility] [address] [place] [address] Phone Care Team Providers Care Packaging Inspector Name Role Phone Beena Tee MD Unavailable Unavailable Advance Directives Directive Yes / No Effective Date File Name No Information Encounters Encounter Description Practice Location Reason(s) For Visit Diagnoses Date Provider Providers Copied on Encounter [facility], [address] [facility] [address], [place], [place], [address], [place] tel:[phone] [facility] No Information [address] [place], [address], [place]. tel:[phone] Family History Family Member Type Diagnosis Age [...]
--- OUTSIDE RECORDS SUMMARY | 2023-05-06 05:04 | XMS_ITS | Continuity of Care Document ---
Author Organization [facility] Address [address] [facility] [address] [place] [address] Phone Care Team Providers Care Wool Sorter Name Role Phone Beena Tee MD Unavailable Unavailable Advance Directives Directive Yes / No Effective Date File Name No Information Encounters Encounter Description Practice Location Reason(s) For Visit Diagnoses Date Provider Providers Copied on Encounter [facility], [address] [facility] [address], [place], [place], [address], [place] tel:[phone] [facility] No Information [address] [place], [address], [place]. tel:[phone] Family History Family Member Type Diagnosis Age [...]
--- NOTE | ~2025-05-25 | CT_ITS ---
EXAM/PROCEDURE: CT cervical spine wo con HISTORY: G95.9 - Disease of spinal cord, unspecified COMPARISON: None available. TECHNIQUE: Cervical spine CT FINDINGS: Patient is status post anterior fusion of C3-4, C4-5, C5-6 and C6-7 with intravertebral fusion devices at all intervening disc spaces. No gross hardware failure or fracture or loosening. Moderately severe spondylosis at C6-7 with possible mild spinal canal stenosis. Approximately 2.5 mm anterolisthesis C7 on T1 with no large disc herniation or severe spinal canal stenosis. Moderate to severe neural foraminal narrowing present at this level. IMPRESSION: 1. Anterior fusion hardware C3-C7 with no gross loosening or hardware failure/fracture. Multilevel degenerative changes most advanced at the C6-7 and C7-T1 level. 2. No gross acute or aggressive bony or soft tissue process seen. Reviewed, dictated and finalized at location A. IOLOGY TECHNICIAN IMPRESSION: 1. Anterior fusion hardware C3-C7 with no gross loosening or hardware failure/f racture. Multilevel degenerative changes most advanced at the C6-7 and C7-T1 le bernabe. 2. No gross acute or aggressive bony or soft tissue process seen.
--- OUTSIDE RECORDS SUMMARY | 2025-05-25 20:22 | XMS_ITS | Clinical Summary ---
Author Organization [facility] Address [facility] [place] [address] Care Team Providers Care Disabilities Caregiver Name Role Phone Alfonso Tena MD Primary Care Provider [phone] Allergies Active Allergy Reactions Criticality Noted Date [...] hyperglycemia, without long-term current use of insulin ([facility] HHS[facility]HCC) Take 1 tablet by mouth once [...] TO HCV RNA Routine 05/29/2020 10:56 AM TENNIS BALL COVERER HAND Need for hepatitis C screening test from Last 3 Months or Most Recently Relevant to Health Maintenance Results * MAMMOGRAM (07/12/2022) Anatomical Region Laterality Modality Other Doc Med Group Scanned SCANNING Final Resu lt * HEPATITIS C ANTIBODY W/RFX TO HCV RNA ([facility] ONLY) (05/29/2020 10:56 AM TENNIS BALL COVERER HAND) HEPATITIS C AB NON-REACTI VE NON-REACT MARYJANE [facility] SIGNAL TO CUTOFF 0.25 <[address] [facility] Comment: HCV antibody was non-reactive. There is no laboratory evidence of HCV infection. In most cases, no further action is required. However, if recent HCV exposure is suspected, a test for HCV RNA (test code 09597) is suggested. For additional information please refer to http://education.[employer]/faq/ZWW64e3 (This link is being provided for informational/ educational purposes only.) 05/29/2020 10:5 6 AM TENNIS BALL COVERER HAND 05/30/2020 4:44 AM TENNIS BALL COVERER HAND Alfonso Tena MD LABORATORY Final Res ult [facility] [address] [place] [address] from Last 3 Months or Most Recently Relevant to Health Maintenance Insurance Care Teams Disabilities Caregiver Relationship Specialty Start Date End Date Alfonso Tena MD PCP - General FAMILY PRACTICE 02/13/21
--- OUTSIDE RECORDS SUMMARY | 2025-05-25 20:22 | XMS_ITS | Clinical Summary ---
Author Organization [facility] Address [facility] [place] [address] Care Team Providers Care Shank Cutter Name Role Phone Sonal Santos NP Primary Care Provider [phone] Allergies Active Allergy Reactions Criticality Noted Date Comments Doxycycline Other (See comments) Low 05/24/2022 Severe reflux Fluticasone Wheezing Medium 04/03/2021 States the lavender scent triggers her asthma. Latex Rash Medium 03/22/2019 Penicillins Other (See comments) High 06/12/2020 Infection yeast Medications ipratropium-albute roL (DUO-NEB) 0.5-2.5 mg/3 mL nebulizer solutionIndication s:Chronic Obstructive Pulmonary Disease with Bronchospasms Take 3 mL by nebulization every 6 (six) hours 75 mL 5 09/23/19 24 Active blood-glucose meter miscIndications:Ty pe 2 diabetes mellitus treated without insulin ([facility]) Use daily or as directed for monitoring of diabetes. 1 each 01/14/20 24 Active alcohol swabs pads, medicatedIndicatio ns:Type 2 diabetes mellitus treated without insulin ([facility]) Apply 1 each topically daily 100 each 3 01/14/20 24 Active blood glucose diagnostic (glucose blood) stripIndications:T ype 2 diabetes mellitus treated without insulin ([facility]) 1 each by other route 2 (two) times a day 200 each 3 07/20/19 25 Active OneTouch Delica Plus Lancet 30 gauge miscIndications:Ty pe 2 diabetes mellitus treated without insulin ([facility]) Inject 1 each under the skin 2 (two) times a day 200 each 3 07/20/19 25 Active Stimulant Laxative Plus 8.6-50 mg 08/19/19 25 Active cyclobenzaprine (FLEXERIL) 10 mg tabletIndications: Acute left-sided low back pain without sciatica TAKE ONE TABLET BY MOUTH THREE TIMES DAILY NEEDED FOR MUSCLE SPASMS 30 tablet 02/29/20 25 Active albuterol HFA (PROVENTIL HFA,VENTOLIN HFA,PROAIR HFA) 90 mcg/actuation inhalerIndications :Moderate persistent asthma without complication Inhale 2 puffs every 6 (six) hours as needed for wheezing Fill per patient's formulary 1 each 5 03/10/20 25 Active cetirizine (ZyrTEC) 10 mg tabletIndications: Non-seasonal allergic rhinitis, unspecified trigger Take 1 tablet (10 mg total) by mouth daily 30 tablet 11 03/10/20 25 Active fluticasone propion-salmeteroL (ADVAIR DISKUS) 250-50 mcg/dose diskus inhalerIndications :Moderate persistent asthma without complication Inhale 1 puff 2 (two) times a day Rinse mouth with water after use. Do not swallow. 60 each 03/10/20 25 026 Active gabapentin (NEURONTIN) 300 mg capsuleIndications :Bilateral sciatica Take 2 capsules (600 mg total) by mouth nightly 60 capsule 5 03/10/20 25 Active lisinopril-hydroCH LOROthiazide (ZESTORETIC) 20-25 mg per tabletIndications: Essential hypertension Take 1 tablet by mouth daily 30 tablet 03/10/20 25 Active meloxicam (MOBIC) 15 mg tabletIndications: Chronic pain of both shoulders Take 1 tablet (15 mg total) by mouth daily 30 tablet 1 03/10/20 25 Active metFORMIN (GLUCOPHAGE) 500 mg tabletIndications: Type 2 diabetes mellitus with diabetic polyneuropathy, without long-term current use of insulin ([facility]) TAKE ONE TABLET BY MOUTH EVERY MORNING and TAKE TWO TABLETS BY MOUTH EVERY EVENING 90 tablet 03/10/20 25 Active montelukast (SINGULAIR) 10 mg tabletIndications: Moderate persistent asthma without complication,Non-s easonal allergic rhinitis, unspecified trigger Take 1 tablet (10 mg total) by mouth nightly 30 tablet 11 03/10/20 25 026 Active nystatin powderIndications: Cutaneous candidiasis Apply topically 3 (three) times a day as needed (rash) 60 g 1 03/10/20 25 Active potassium chloride ER 10 mEq CR tabletIndications: Hypokalemia Take 1 tablet/capsule (10 mEq total) by mouth daily 30 tablet 11 03/10/20 25 Active rosuvastatin (CRESTOR) 10 mg tabletIndications: Mixed hyperlipidemia TAKE 1 TABLET BY MOUTH ONCE A DAY IN THE EVENING 30 tablet 03/10/20 25 Active sertraline (ZOLOFT) 50 mg tabletIndications: Mild episode of recurrent major depressive disorder Take 1 tablet (50 mg total) by mouth daily 30 tablet 03/10/20 25 026 Active predniSONE (DELTASONE) 10 mg tabletIndications: Rash and nonspecific skin eruption Take 3 tablets daily for 3 days, then 2 tablets daily for 3 days, then 1 tablet daily for 3 days 18 tablet 03/10/20 25 Active mupirocin (BACTROBAN) 2 % ointmentIndication s:Rash and nonspecific skin eruption Apply topically 3 (three) times a day as needed (for lesion on chest) 15 g 03/15/20 25 Active fluconazole (DIFLUCAN) 150 mg tabletIndications: Acute cystitis without hematuria Take 1 tablet (150 mg total) by mouth daily Take one tab now. Repeat in 7 days if symptoms persist. 2 tablet 04/11/20 25 Active famotidine (PEPCID) 20 mg tabletIndications: Rash and nonspecific skin eruption TAKE ONE TABLET BY MOUTH TWICE DAILY FOR 10 DAYS 60 tablet 04/21/20 25 Active ketorolac (TORADOL) 10 mg tablet Take 1 tablet (10 mg total) by mouth every 6 (six) hours as needed for pain 20 tablet 05/09/20 25 Active lidocaine (LIDODERM) 5 %Indications:Posth erpetic Neuralgia Apply 1 patch topically daily for 12 hours Remove & discard patch within 12 hours or as directed by . 30 patch 05/09/20 25 12/03/2 025 Active diclofenac sodium (VOLTAREN) 1 % gel Apply 2 g topically 4 (four) times a day 50 g 05/09/20 25 Active Active Problems Problem Noted Date Diagnosed [...] DuoNeb, and albuterol Encouraged to follow-up with floor tech as recommended Assessment & Plan (11/20/2023 6:00 [...] CDT): The patient has followed with a floor tech in the past for her asthma. I will reorder the Advair 250/50 to use 1 puff twice a day in refilled her albuterol. She also has duo nebs to use at home if necessary in addition to Singulair 10 mg daily. I will check full PFTs, chest x-ray and refer her to see an retail store associate. Vaccine counseling 02/20/2023 Chronic pain of both [...] Ortho, has upcoming appointment with neurosurgeon, Dr. Mejia Encouraged to keep upcoming appointment with neurosurgeon, Dr. Mejia for further evaluation and management Continued on Toradol and meloxicam, refills sent to pharmacy per request, is aware cannot be taken together, previously prescribed gabapentin, not effective Assessment & Plan (08/25/2023 3:43 PM TRAILER SECTIONS ASSEMBLER): Chronic, stability unknown Started on prednisone burst [...] Mejia Assessment & Plan (08/25/2023 3:46 PM TRAILER SECTIONS ASSEMBLER): Recent onset Reviewed ER notes and CT [...] with orthopedic surgeon and COVID clinic at [facility] for suspected long-COVID Assessment [...] chloride Assessment & Plan (06/24/2023 7:29 AM TRAILER SECTIONS ASSEMBLER): Chronic, stable, controlled with supplement Continued on potassium chloride, refills sent to pharmacy per request Assessment & Plan (06/09/2023 5:32 AM TRAILER SECTIONS ASSEMBLER): Chronic, stable, controlled with medication Continued on KCl, refills sent to pharmacy per request Assessment & Plan (03/11/2023 3:23 PM CDT): Chronic, normal at last check, on daily supplement Continued on KCl daily Assessment & Plan (05/27/2022 10:32 PM TRAILER SECTIONS ASSEMBLER): Chronic, controlled at last check-continued on potassium [...] AM CDT): Chronic, stable Referral made to [facility] Assessment & Plan (03/03/2022 [...] PRN Assessment & Plan (05/27/2022 10:28 PM TRAILER SECTIONS ASSEMBLER): Chronic, stable, controlled with medication-continued on gabapentin, [...] released from care Encouraged to follow-up with floor tech as recommended and with Cardiology as recommended as needed Assessment & Plan (03/11/2023 3:07 PM CDT): Chronic, episodic Previously evaluated with echo and Holter Encouraged to follow-up with repair department supervisor, Dr. Moseley, as recommended Assessment & Plan [...] PRN Assessment & Plan (07/20/2024 4:05 PM TRAILER SECTIONS ASSEMBLER): Controlled Continued on nystatin Assessment & Plan [...] Assessment & Plan (03/11/2023 3:15 PM CDT): 10/10 sensed both feet with monofilament, normal foot exam Dyspnea on exertion 07/27/2021 Assessment & Plan (01/10/2025 9:07 AM CDT): As stated above, she was diagnosed with asthma while in [place] and continues on Advair b.i.d., PRN Ventolin and Singulair 10 mg daily that is followed by her primary care provider. Assessment & Plan (05/31/2024 2:49 PM TRAILER SECTIONS ASSEMBLER): The patient will continue with albuterol as [...] albuterol, and DuoNeb Encouraged to follow-up with floor tech as recommended/ Assessment & Plan (11/20/2023 6:15 [...] as directed as needed Referral made to [facility] Disease Department/COVID clinic for further evaluation of worsening symptoms since COVID-19 infection Assessment & Plan (06/24/2022 5:02 PM TRAILER SECTIONS ASSEMBLER): Acute-advised to continue nebulizer treatments as directed [...] appointment. Assessment & Plan (05/27/2022 10:33 PM TRAILER SECTIONS ASSEMBLER): Chronic, worsened, with acute asthma exacerbation-continued on [...] needed. Assessment & Plan (08/20/2021 5:42 PM TRAILER SECTIONS ASSEMBLER): Recent onset dyspnea since COVID-19 infection in 07/2021, not responsive to albuterol MDI, with multiple x-rays with no acute cardiopulmonary findings-referred to repair department supervisor with 1st visit today, echocardiogram and 48 hour Holter monitor planned for future, encouraged compliance with testing and follow-up visit. Assessment & Plan (07/31/2021 7:52 AM TRAILER SECTIONS ASSEMBLER): Recent onset since COVID-19 diagnosis-referred to a repair department supervisor for evaluation of bradycardia, palpitations, and shortness of breath with exertion. Advised to go to ER for worsening symptoms of palpitations and shortness of breath or for new onset chest pain/tightness, wheezing/difficulty breathing, chills, sweats, fever, back pain, or nausea. Assessment & Plan (07/27/2021 7:09 AM TRAILER SECTIONS ASSEMBLER): Acute, with recent diagnosis of COVID 19 [...] management. Assessment & Plan (08/20/2021 5:52 PM TRAILER SECTIONS ASSEMBLER): Recent onset since COVID-19 diagnosis in 07/2021 with normal Hbg/Hct on 07/27/21, and normal folate & B12 dated 08/18/21-currently with work-up planned by repair department supervisor (echocardiogram and 48 hour Holter monitor planned for future), encouraged compliance with recommendations made by repair department supervisor. Assessment & Plan (07/23/2021 12:27 PM TRAILER SECTIONS ASSEMBLER): Acute, likely related to recent viral infection with [id number] monitor for resolution of symptoms. Encouraged to [...] medication. Assessment & Plan (2021 3:16 PM TRAILER SECTIONS ASSEMBLER): Chronicity and stability unknown-ordered MRI and referred to orthopedic surgeon for further evaluation and management. Acute pain of left hip 06/05/2021 Assessment & Plan (07/20/2024 4:05 PM TRAILER SECTIONS ASSEMBLER): Ordered x-rays left hip Continued on meloxicam 15 mg daily Started on cyclobenzaprine 5 mg TID PRN Assessment & Plan (06/05/2021 3:37 PM TRAILER SECTIONS ASSEMBLER): Acute-ordered x-ray of left hip. Can continue [...] panel Assessment & Plan (05/27/2022 10:31 PM TRAILER SECTIONS ASSEMBLER): Chronic, uncontrolled at last check, with elevated [...] visit. Assessment & Plan (08/20/2021 5:47 PM TRAILER SECTIONS ASSEMBLER): Chronic, stability unknown, uncontrolled, not on medication until office visit today when seen by repair department supervisor-encouraged compliance with rosuvastatin 10 mg once daily. Assessment & Plan (06/05/2021 3:35 PM TRAILER SECTIONS ASSEMBLER): Chronicity, stability unknown, not on medication-ordered lipid [...] visit. Assessment & Plan (08/20/2021 5:54 PM TRAILER SECTIONS ASSEMBLER): Chronic, stability unknown, uncontrolled, not on supplement-advised to start vitamin D3 2000 international units, take 2 daily with a meal x 1 month, then one daily with a meal, will recheck vitamin D 25 OH in 3-6 months. Assessment & Plan (06/05/2021 3:35 PM TRAILER SECTIONS ASSEMBLER): Chronicity and stability unknown, reported by patient, not currently on supplementation-ordered vitamin-D 25 OH. Type 2 diabetes mellitus treated without insulin 06/05/2021 Assessment & Plan (09/23/2024 6:12 AM CDT): Controlled Reviewed hemoglobin A1c equals 6.6 Continued on metformin Assessment & Plan (07/20/2024 4:04 PM TRAILER SECTIONS ASSEMBLER): Controlled Reviewed hemoglobin A1c equals 6.6 Continued [...] Foot exam done today Referral made to [facility] for dilated eye exam Assessment & Plan (02/06/2023 5:41 AM CDT): Stable Performed in office hemoglobin A1c (6.9) Continued on metformin Assessment & Plan (05/27/2022 10:27 PM TRAILER SECTIONS ASSEMBLER): Chronic, stable, controlled on medication-continued on metformin, [...] visit. Assessment & Plan (08/20/2021 5:53 PM TRAILER SECTIONS ASSEMBLER): Chronic, stable, controlled with medication-continued on metformin. Follow-up in 6 months. Assessment & Plan (06/05/2021 3:37 PM TRAILER SECTIONS ASSEMBLER): Chronic, uncontrolled at last check, on medication-continued [...] CURTIS-7=1. Assessment & Plan (08/20/2021 5:48 PM TRAILER SECTIONS ASSEMBLER): Chronic, stable, controlled with medication-continued on sertraline. [...] metformin Assessment & Plan (06/11/2024 4:56 PM TRAILER SECTIONS ASSEMBLER): Chronic, improved, with serious comorbidity of type [...] week Assessment & Plan (07/16/2023 6:13 AM TRAILER SECTIONS ASSEMBLER): Chronic, worsening, with series comorbidity of type [...] prednisone Assessment & Plan (06/24/2023 7:30 AM TRAILER SECTIONS ASSEMBLER): Chronic, worsened Encouraged to monitor daily caloric intake and portion sizes and to exercise most days of the week, for a goal of at least 150 minutes of exercise per week Assessment & Plan (06/09/2023 5:36 AM TRAILER SECTIONS ASSEMBLER): Chronic, worsened, with serious comorbidity/type 2 diabetes, [...] flares Assessment & Plan (05/27/2022 10:29 PM TRAILER SECTIONS ASSEMBLER): Chronic, stable, controlled with medication-continued on meloxicam, [...] Singulair Assessment & Plan (05/27/2022 10:37 PM TRAILER SECTIONS ASSEMBLER): Chronic, stable, controlled with medication-continued on cetirizine, refills sent to pharmacy per patient request. Assessment & Plan (03/03/2022 7:19 AM CDT): Chronic, stable, controlled with medication-continued on cetirizine and montelukast. Assessment & Plan (08/20/2021 5:44 PM TRAILER SECTIONS ASSEMBLER): Chronic, stable, controlled with medication-filled Singulair per [...] Singulair Assessment & Plan (05/27/2022 10:36 PM TRAILER SECTIONS ASSEMBLER): Acute-started on Augmentin 875 BID and Diflucan [...] omeprazole Assessment & Plan (05/27/2022 10:31 PM TRAILER SECTIONS ASSEMBLER): Chronic, stable, controlled on medication-continued on omeprazole, [...] ongoing symptoms LUISA. Her DME supplier is [facility] home care services. She should follow up here annually. Assessment & Plan (05/31/2024 2:38 PM TRAILER SECTIONS ASSEMBLER): The patient did not complete her home [...] lisinopril-hydrochlorothiazide Assessment & Plan (06/11/2024 4:57 PM TRAILER SECTIONS ASSEMBLER): Chronic, stable, controlled on medication Continued on [...] HCT Assessment & Plan (05/27/2022 10:32 PM TRAILER SECTIONS ASSEMBLER): Chronic, stable, controlled with medication-continued on lisinopril/hydrochlorothiazide, [...] visit. Assessment & Plan (08/20/2021 5:43 PM TRAILER SECTIONS ASSEMBLER): Chronic, not controlled at today's visit, but normal at visit today with repair department supervisor-refilled lisinopril/HCT per patient request. Will continue to monitor. Assessment & Plan (06/05/2021 3:32 PM TRAILER SECTIONS ASSEMBLER): Chronic, stable, controlled on medication historically, but [...] 09/23/2024 Assessment & Plan (06/11/2024 4:57 PM TRAILER SECTIONS ASSEMBLER): Started on antibiotic Supportive care measures discussed [...] 03/25/2024 Assessment & Plan (07/16/2023 6:14 AM TRAILER SECTIONS ASSEMBLER): Reviewed ER records from 06/03/23 and last [...] 09/26/2023 Assessment & Plan (06/24/2023 7:28 AM TRAILER SECTIONS ASSEMBLER): Acute, with improving symptoms Encouraged to complete prednisone taper as directed Instructed to get chest x-ray in 2 weeks Advised to return to ER if shortness of breath, chest tightness, and/or wheezing not relieved with PRN albuterol inhaler Pneumonia of right lower lob e due to infectious organism 06/09/2023 09/26/2023 Assessment & Plan (06/09/2023 5:33 AM TRAILER SECTIONS ASSEMBLER): Recent diagnosis Reviewed ER notes dated 06/03/2023 [...] stable Encouraged to continue to follow-up with [facility] as recommended 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 02/20/2023 024 Assessment & Plan (03/12/2023 5:58 AM CDT): Chronic, stable Encouraged to continue to follow-up with [facility] as recommended Disrupted sleep-wake cycle 02/20/2023 0 03/29/2024 Assessment & Plan (03/12/2023 6:01 AM CDT): Attributes to chronic pain, symptoms being evaluated/managed by Infectious Disease/COVID Clinic at [facility] Continued on meloxicam daily, holds meloxicam and takes Toradol as directed as needed for flares Refill for Toradol sent to pharmacy per request COVID-19 arti mead chronic joint pain 02/20/2023 03/29/2024 Assessment & Plan (03/12/2023 5:58 AM CDT): Chronic, stable Encouraged to continue to follow-up with [facility] as recommended Arthralgia of [...] made to infectious disease/ COVID clinic at [facility] Pain of left upper extremity 09/27/2022 [...] 03/11/2023 Assessment & Plan (06/24/2022 4:54 PM TRAILER SECTIONS ASSEMBLER): Recent diagnosis-advised to stop Mucinex DM and [...] 03/11/2023 Assessment & Plan (06/24/2022 5:02 PM TRAILER SECTIONS ASSEMBLER): Chronic, with recent exacerbation, uncontrolled-declined addition of [...] appointment. Assessment & Plan (05/27/2022 10:29 PM TRAILER SECTIONS ASSEMBLER): Chronic, with acute exacerbation, uncontrolled, with symptoms [...] 07/2021 Assessment & Plan (09/13/2021 3:28 PM TRAILER SECTIONS ASSEMBLER): Acute, persistent despite round of oral antibiotics, [...] 11/29/2021 Assessment & Plan (08/27/2021 12:11 PM TRAILER SECTIONS ASSEMBLER): Acute-started on an antibiotic, advised to take medication as directed. Instructed to increase clear liquids, rest, and vitamin C in diet. Recommended follow-up if symptoms worsen, don't improve, or new symptoms develop. Right ear pain 08/27/2021 11/29/2021 Assessment & Plan (09/13/2021 3:28 PM TRAILER SECTIONS ASSEMBLER): Acute, persistent despite round of oral antibiotics, with resolution of sinus symptoms-started on Floxin ear drops to right ear twice daily as directed. A referral was also made to Dr. Brad Farr, recommended scheduling an appointment in the event ear pain and discharge do not resolve with antibiotic ear drops, provided with the office number. Assessment & Plan (08/27/2021 12:10 PM TRAILER SECTIONS ASSEMBLER): Acute-see plan of care for right acute serous otitis media. Can take Tylenol as directed as needed for pain. Acute recurrent frontal sinusitis 08/27/2021 03/01/2022 Assessment & Plan (08/27/2021 12:11 PM TRAILER SECTIONS ASSEMBLER): Acute-advised to take Zpak as directed. Instructed [...] normal. Assessment & Plan (09/13/2021 3:26 PM TRAILER SECTIONS ASSEMBLER): Recent onset, stable, previously referred to neurology on 08/20/21, [facility] has not received a call-provided with number to call [facility] in [place]. Assessment & Plan (08/20/2021 5:55 PM TRAILER SECTIONS ASSEMBLER): Recent onset, new problem-sensation intact but diminished [...] normal. Assessment & Plan (09/13/2021 3:26 PM TRAILER SECTIONS ASSEMBLER): Recent onset, stable, previously referred to neurology on 08/20/21, [facility] has not received a call-provided with number to call [facility] in [place]. Assessment & Plan (08/20/2021 5:55 PM TRAILER SECTIONS ASSEMBLER): Recent onset, new problem-sensation intact but diminished [...] CMP. Assessment & Plan (07/31/2021 7:51 AM TRAILER SECTIONS ASSEMBLER): Recent onset over weekend-referred to a repair department supervisor for evaluation of bradycardia, palpitations, and shortness of breath with exertion. Advised to go to ER for worsening symptoms of palpitations and shortness of breath or for new onset chest pain/tightness, wheezing/difficulty breathing, chills, sweats, fever, back pain, or nausea. Bradycardia 07/27/2021 03/01/2022 Assessment & Plan (08/20/2021 5:46 PM TRAILER SECTIONS ASSEMBLER): Recent onset, episodic, bradycardia since COVID-19 infection in 07/2021, normal at today's visit (69 beats/minute)-referred to repair department supervisor previously with 1st visit today, echocardiogram and 48 hour Holter monitor planned for future, encouraged compliance with recommendations made by repair department supervisor. Assessment & Plan (07/31/2021 7:51 AM TRAILER SECTIONS ASSEMBLER): Recent onset prior to monoclonal antibody infusion on 07/11/2021-referred to a repair department supervisor for evaluation of bradycardia, palpitations, and shortness of breath with exertion. Advised to go to ER for worsening symptoms of palpitations and shortness of breath or for new onset chest pain/tightness, wheezing/difficulty breathing, chills, sweats, fever, back pain, or nausea. Assessment & Plan (07/27/2021 7:07 AM TRAILER SECTIONS ASSEMBLER): New problem/finding-recommended follow-up with Cardiology as suggested upon discharge from the ER for further evaluation and management. COVID-19 07/10/2021 03/11/2023 Assessment & Plan (09/10/2022 10:37 AM TRAILER SECTIONS ASSEMBLER): Acute-started on Paxlovid. Advised to continue to [...] regarding Paxlovid was sent to patient via [employer], instructed to read carefully and call if has any questions. The [facility] in [place] was notified that patient would be coming by for official testing mandated by her employer to confirm her at-home test results. Instructed that to go to ER and/or call 911 if short of breath, and/or have chest pain, tightness, or wheezing not relieved with your inhalers or nebulizer treatments. Assessment & Plan (07/27/2021 7:07 AM TRAILER SECTIONS ASSEMBLER): Diagnosed with COVID-19 on 07/08/2021 with symptoms starting on Brittany, now with symptoms consistent with a sinus infection, see plan of care for acute recurrent pansinusitis. Assessment & Plan (07/23/2021 12:26 PM TRAILER SECTIONS ASSEMBLER): Acute, s/p monoclonal antibody infusion, improving until [...] 08/20/2021 Assessment & Plan (2021 3:15 PM TRAILER SECTIONS ASSEMBLER): Worsening chronic right shoulder pain, status post [...] 08/20/2021 Assessment & Plan (07/23/2021 12:25 PM TRAILER SECTIONS ASSEMBLER): Acute, resolved-informed that insurance declined MRI of right shoulder, however states right shoulder pain has resolved. Advised if right shoulder pain returns, to notify office and an x-ray of the right shoulder can be ordered and a referral can be made to PT. Assessment & Plan (2021 3:15 PM TRAILER SECTIONS ASSEMBLER): Acute on chronic right shoulder pain, status [...] 03/11/2023 Assessment & Plan (08/30/2022 3:46 PM TRAILER SECTIONS ASSEMBLER): Rapid COVID and flu negative PCR pending [...] referral was made to an ENT and retail store associate for further evaluation and management of recurrent sinusitis. Started on prednisone as directed. Advised against taking a decongestant due to high blood pressure, but can use nasal saline spray and continue antihistamine. Acute recurrent pansinusitis 11/03/2020 03/25/2024 Assessment & Plan (07/16/2023 6:10 AM TRAILER SECTIONS ASSEMBLER): Started on prednisone burst and Levaquin, discussed [...] symptoms. Assessment & Plan (07/27/2021 7:06 AM TRAILER SECTIONS ASSEMBLER): Started on a Z-David as directed and [...] Encounters Date Type Department Care Team Description 05/09/2025 4:09 PM TRAILER SECTIONS ASSEMBLER - 05/09/2025 5:39 PM TRAILER SECTIONS ASSEMBLER [facility] [facility] Emergency Department [address] [place] [address] Fall, initial encounter (Primary Dx); Acute left-sided thoracic back pain Discharge Disposition: Discharge to home or self care 05/09/2025 Nurse Triage [facility] Primary Care at [address] [address] Sonal Santos NP 05/05/2025 Orders Only [facility] Accountable Care Organization [address] [place] [address] Sonal Santos NP Screening for colorectal cancer 04/18/2025 Nurse Triage [facility] Primary Care at [address] [address] Sonal Santos NP 04/18/2025 Telephone [facility] Primary Care at [address] [address] Sonal Santos NP Symptom Based Call 04/13/2025 Results Follow-Up [facility] Convenient Care at [address] [phone] Tana Payne NP Urine culture Urine, clean voided 04/11/2025 4:15 PM CDT Office Visit [facility] Care at [place] [address] [place] [phone] Callum Veronica, SATINDER Acute cystitis without hematuria (Primary Dx); Type 2 diabetes mellitus treated without insulin (HCC); Moderate persistent asthma without complication 04/11/2025 4:14 PM CDT - 04/11/2025 11:59 PM CDT Hospital Encounter [address] [address] Acute cystitis without hematuria Discharge Disposition: Discharge to home or self care 04/11/2025 Nurse Triage [facility] Primary Care at [address] [place] [address] Sonal Santos NP 03/15/2025 11:30 AM CDT Office Visit [facility] Primary Care at [address] [place] [address] Sonal Santos NP Rash and nonspecific skin eruption (Primary Dx); Cutaneous candidiasis; Essential hypertension; Allergic rhinitis, unspecified seasonality, unspecified trigger; Class 2 severe obesity due to excess calories with serious comorbidity and body mass index (BMI) of 36.0 to 36.9 in adult (HCC); Severe obesity (HCC) 03/10/2025 3:30 PM CDT Office Visit [facility] Care at [address] [place] [phone] Sonal Santos NP Rash and nonspecific skin [...] obesity (HCC) 03/08/2025 5:30 PM CDT Telemedicine [address] [address] Minh Talbert MD Insect bite of other part of neck, initial encounter (Primary Dx) 03/08/2025 Nurse Triage [facility] Primary Care at [address] [place] [address] Sonal Santos SUPERVISOR TANK CLEANING 03/04/2025 7:00 AM CDT Therapy [facility] Office [facility] 1 OP Physical Therapy [address] [place] [address] [address] [place] [address] Shaista Ramirez, NATURAL RESOURCES PROFESSOR Arthrodesis status (Primary Dx); S/P cervical spinal fusion 02/28/2025 1:30 PM CDT Therapy [facility] Office [facility] 1 OP Physical Therapy [address] [place] [address] [place] [address] Cherelle Nguyen, PT Arthrodesis status (Primary Dx); S/P cervical spinal fusion 02/28/2025 Plan of Care Documentation [facility] 1 OP Physical Therapy [address] [place] [address] 02/23/2025 12:45 PM CDT Therapy [facility] Office [facility] 1 OP Physical Therapy [address] [place] [address] Kristen Wylie, NATURAL RESOURCES PROFESSOR Arthrodesis status (Primary Dx) from Last 3 Months Immunizations Immunization Administration Dates Next Due Influenza, Unspecified 03/10/2025(Deferr ed: Patient Refused),04/13/2024(Deferred: Patient Refused),03/11/2023(Deferred: Patient Refused),04/06/2022(Deferred: Patient Refused) Pfizer SARS-CoV-2 Monovalent Vaccination (12+ Yrs) PURPLE 09/22/2020,08/31/2020 Pneumococcal Polysaccharide PPV23 03/17/2018 Tdap 08/07/2017 Surgical History Surgery Date Site/Laterality Comments KNEE ARTHROSCOPY Right MYRINGOTOMY W/ TUBES ANTERIOR CERVICAL DISCECTOMY W/ FUSION 08/18/2024 N/ A SPLENECTOMY, TOTAL Feb 2024 Medical History Medical History Date Comments [...] ting chronic decreased mobility and endurance 02/20/2023 Closed [...] making you feel afraid or unsafe? Denies 05/09/2025 Comments No Sex and Gender Information Value [...] Sign Reading Time Taken Comments Blood Pressure 131/89 05/09/2025 5:39 PM TRAILER SECTIONS ASSEMBLER Pulse 57 05/09/2025 5:39 PM TRAILER SECTIONS ASSEMBLER Temperature 36.4 C (97.6 F) 05/09/2025 3:07 PM TRAILER SECTIONS ASSEMBLER Respiratory Rate 18 05/09/2025 5:39 PM TRAILER SECTIONS ASSEMBLER Oxygen Saturation 98% 05/09/2025 5:39 PM TRAILER SECTIONS ASSEMBLER Inhaled Oxygen Concentration - - Weight 107.7 kg (237 lb 7 oz) 05/09/2025 3:07 PM TRAILER SECTIONS ASSEMBLER Height 170.2 cm (5' 7) 04/11/2025 3:44 PM CDT Body Mass Index 37.19 04/11/2025 3:44 PM CDT Plan of Treatment [...] Additional history exists Foot Exam 03/25/2025 03/25/2024, 0911/2022, 08/20/2021, Additional history exists Regular Well Visit/Exam 18-64 03/25/2025 03/25/2024, 03/11/2023, 03/01/2022 Influenza Vaccine (#1) 2026 Postp oned from 03/07/2025 (Patient declined, but will receive in the future) DTaP/Tdap/Td Vaccine (2 - Td or Tdap) 08/07/2027 08/07/2017 Procedures Procedure Name Priority Date/Time Associated Diagnosis Comments XR SPINE THORACIC 3 VIEWS ED 05/09/2025 3:31 PM TRAILER SECTIONS ASSEMBLER XR RIBS LEFT 2 VIEWS ED 05/09/2025 3:30 PM TRAILER SECTIONS ASSEMBLER URINE CULTURE Routine 04/11/2025 4:14 PM CDT Acute cystitis without hematuria POCT URINALYSIS DIPSTICK Routine 04/11/2025 4:13 PM CDT Acute cystitis without hematuria POCT HEMOGLOBIN A1C Routine 07/20/2024 2:30 PM TRAILER SECTIONS ASSEMBLER Type 2 diabetes mellitus treated without insulin (HCC) EGFR STAT 11/28/2023 9:55 PM CDT SCREENING MAMMOGRAM BILATERAL W GURWINDER Schedule Routine, Read Routine (OP Routine) 07/12/2022 2:38 PM TRAILER SECTIONS ASSEMBLER Encounter for screening mammogram for malignant neoplasm of breast LIPID PANEL Routine 02/16/2022 9:48 AM CDT Mixed hyperlipidemia ALBUMIN CREATININE RATIO, URINE Routine 08/18/2021 9:12 AM TRAILER SECTIONS ASSEMBLER Type 2 diabetes mellitus treated without insulin (HCC) from Last 3 Months or Most Recently Relevant to Health Maintenance Results * XR Spine Thoracic 3 Vw (05/09/2025 3:31 PM TRAILER SECTIONS ASSEMBLER) Anatomical Region Laterality Modality Spine N/A Computed Radiogr aphy 05/09/2025 3:35 PM TRAILER SECTIONS ASSEMBLER Impressions 05/09/2025 3:35 PM TRAILER SECTIONS ASSEMBLER 1. No acute osseous abnormality. 2. Moderate diffuse thoracic spondylosis. Electronically signed by: Sonu Young M.D. Narrative 05/09/2025 3:35 PM TRAILER SECTIONS ASSEMBLER EXAM DESCRIPTION: XR SPINE THORACIC 3 VIEWS REASON FOR STUDY: Back pain. TECHNIQUE: AP, lateral, and swimmer's radiographic view(s) of the thoracic spine COMPARISON: Ct thoracic spine 09/16/2024 FINDINGS: ALIGNMENT: Normal. VERTEBRAE: No acute fracture is seen. Moderate diffuse thoracic spondylosis. Postoperative changes in the cervical spine is only partially included. DISCS: Disc height well-maintained. SOFT TISSUES: Within normal limits. Procedure Note Sonu Young MD - 05/09/2025 EXAM DESCRIPTION: XR SPINE THORACIC 3 VIEWS REASON FOR STUDY: Back pain. TECHNIQUE: AP, lateral, and swimmer's radiographic view(s) of the thoracic spine COMPARISON: Ct thoracic spine 09/16/2024 FINDINGS: ALIGNMENT: Normal. VERTEBRAE: No acute fracture is seen. Moderate diffuse thoracic spondylosis. Postoperative changes in the cervical spine is only partially included. DISCS: Disc height well-maintained. SOFT TISSUES: Within normal limits. IMPRESSION: 1. No acute osseous abnormality. 2. Moderate diffuse thoracic spondylosis. Electronically signed by: Sonu Young M.D. us Yg Smith MD IMG XR PROCEDURES Final Result * XR Ribs Left 2 Views (05/09/2025 3:30 PM TRAILER SECTIONS ASSEMBLER) Anatomical Region Laterality Modality Rib, Chest Left Computed Radiogr aphy 05/09/2025 3:35 PM TRAILER SECTIONS ASSEMBLER Impressions 05/09/2025 3:35 PM TRAILER SECTIONS ASSEMBLER No displaced rib fracture identified. Electronically signed by: Zoltan Harmon M.D. Narrative 05/09/2025 3:35 PM TRAILER SECTIONS ASSEMBLER EXAMINATION: XR RIBS LEFT 2 VIEWS HISTORY: pain TECHNIQUE: 2 radiographic views of the left ribs COMPARISON: 07/14/2023 FINDINGS: No displaced left rib fracture identified. Left lung is clear. Postsurgical changes of the cervical spine. Procedure Note Zoltan Harmon MD - 05/09/2025 EXAMINATION: XR RIBS LEFT 2 VIEWS HISTORY: pain TECHNIQUE: 2 radiographic views of the left ribs COMPARISON: 07/14/2023 FINDINGS: No displaced left rib fracture identified. Left lung is clear. Postsurgical changes of the cervical spine. IMPRESSION: No displaced rib fracture identified. Electronically signed by: Zoltan Harmon M.D. Yg Smith MD IMG XR PROCEDURES Final Result * Urine culture Urine, clean voided (04/11/2025 4:14 PM CDT) Report Final Report: Less than 100,000 colonies/mL (clinically insignificant growth based on current clinical standards) Organism (CLINICALLY INSIGNIFICANT GROWTH [facility] Urine, clean voided 04/11/2025 4:14 PM CDT 04/11/2025 9:27 PM CDT Narrative [facility] - 04/13/2025 7:52 AM CDT Testing performed by [facility] Microbiology Laboratory ([phone]) Callum Veronica SUPERVISOR TANK CLEANING LAB MICROBIOLOGY - [facility] ORDERABLES Final Result [facility] Department [place] [address] * (ABNORMAL) POCT urinalysis dipstick (04/11/2025 4:13 PM CDT) Color, Urine, POC Dark Yellow Clarity, ur, POC Cloudy(A) Clear Glucose, ur, POC Negative Negative Bilirubin, ur, POC Negative Negative Ketones, ur, POC Trace(A) Negative Specific [place], POC 1.020 1.003 - 1.030 Blood, ur, POC Negative Negative pH, ur, POC 5.5 5.0 - 8.0 Protein, ur, POC Negative Negative Urobilinogen, urine, POC 0.2 0.2 - 1.0 mg/dL Nitrite, ur, POC Negative Negative Leukocytes, ur, POC Negative Negative Lot Number [id number] Urine 04/11/2025 4:13 PM CDT us Callum Veronica SUPERVISOR T[employer] CLEANING POINT OF CARE TEST OR DERABLES Final Result * (ABNORMAL) POCT hemoglobin A1c (07/20/2024 2:30 PM TRAILER SECTIONS ASSEMBLER) Hemoglobin A1C, POC 6.6 4.0 - 5.6 % Comment:Lot [id number] Blood 07/20/2024 2:30 PM TRAILER SECTIONS ASSEMBLER us Sonal Satnos SUPERVISOR TANK CLEANING POINT OF CARE TEST ORDERABLES Fi nal [...] ult [facility] Department [place] [address] * SCREENING MAMMOGRAM BILATERAL W GURWINDER (07/12/2022 2:38 PM TRAILER SECTIONS ASSEMBLER) Anatomical Region Laterality Modality Breast Bilateral Mammography Impressions 07/12/2022 2:50 PM TRAILER SECTIONS ASSEMBLER BI-RADS ATLAS category (overall): 1 - Negative There is no mammographic evidence of malignancy. A 1 year screening mammogram is recommended. The patient has been or will be contacted. We recommend annual screening mammography for women at average risk of breast cancer beginning at age 40, based on guidelines of the [employer] (ACR Practice Parameter for the Performance of Screening and Diagnostic Mammography) and [employer]. For women with and elevated risk of breast cancer, please refer to the ACR Practice Parameter for specific screening recommendations. The patient will be entered into a reminder system with a target due date of 1 year for her next screening exam. Narrative 07/12/2022 2:50 PM TRAILER SECTIONS ASSEMBLER SCREENING MAMMOGRAM BILATERAL W GURWINDER: 07/12/22 The [...] last revised on 2018. Testing performed by: [address] [address] Triglycerides 246(H) <=149 mg/dL CAR Comment: Interpretive [...] last revised on 2018. Testing performed by: [address] [address] HDL 37(L) >=40 mg/dL CAR Comment: Interpretive [...] last revised on 2018. Testing performed by: [address] [address] LDL, calculated 67 <=129 mg/dL CAR Comment: [...] last revised on 2018. Testing performed by: [address] [address] Non-HDL Cholesterol 116 mg/dL CAR OT Comment: Interpretive Data Ages < or = [...] last revised on 2018. Testing performed by: [address] [address] Chol/HDL ratio 4 CAR Comment:Testing performed by : [address] [address] Blood 02/16/2022 9:48 AM CDT 02/16/2022 9:58 AM CDT us Sonal Santos NP LAB BLOOD ORDERABLES Final Resul t CAR [address] [facility] [place] [address] * Albumin Creatinine Ratio, Urine (08/18/2021 9:12 AM TRAILER SECTIONS ASSEMBLER) Albumin Ur <12.0 mg/L CAR TO Comment: Interpretive Data No reference range established. Current interpretive data was last revised 2018. Testing performed by: [address] [address] Creatinine Ur 138.2 mg/dL CAR TO Comment: Interpretive Data No reference range established. Current interpretive data was last revised 2018. Testing performed by: [address] [place]., [address] Albumin Creatinine Ratio, Ur <9 1 - 29 mg/g CAR TO Comment:Testing performed by : [facility], [address] [place] [address]., [address] Urine 08/18/2021 9:12 AM TRAILER SECTIONS ASSEMBLER 08/18/2021 10:08 AM TRAILER SECTIONS ASSEMBLER us Sonal Santos NP LAB URINE ORDERABLES Final Resul t CAR [address] [facility] Department [place] [address] from Last 3 Months or Most Recently Relevant to Health Maintenance Insurance [facility] Care Teams Shank Cutter Relationship Specialty Start Date End Date Sonal Santos NP [address] [place] [address] PCP - General Family Practice 11/03/20 Valeria Charlton, [facility] [address] [facility] [address] Technical Publications Writer Infectious Diseases 02/17/23
--- OUTSIDE RECORDS SUMMARY | 2025-05-25 20:22 | XMS_ITS | Clinical Summary ---
Author Organization [facility] [employer] Address [address] [place] [address] Care Team Providers Care Solar System Designer Name Role Phone Alfonso Tena MD Primary Care Provider [phone] Source Comments [facility],non-owned Affiliates and Associated Physician Practices is amultiple site organization consisting of ambulatory clinics and hospital sitesin [place], [place], [place] and [place]. This disclosure is being madepursuant to the Care Everywhere program and may not contain all information available regarding this patient. Last updated 18.[facility] Allergies Active Allergy Reactions Criticality Noted Date Comments Latex Skin Reactions 06/10/2022 Penicillins Other High 06/12/2020 Infection yeast Medications * Be aware that medications may not be up to date on this document. Alwaysverify current medications with the patient. omeprazole EC (PRILOSEC OTC) 20 MG tablet Take by mouth. 01/31/2017 Active montelukast (SINGULAIR) 10 MG tablet Take by [...] Active FLOVENT HFA 110 MCG/ACT inhaler 10/25/2019 Act purnima albuterol HFA (PROVENTIL;KYA AMANDA;PROAIR) 108 (90 Base) MCG/ACT inhaler 03/15/2020 Act purnima Active Problems Problem Noted Date Diagnosed Date [...] drink = 0.6 oz pur e alcohol) Comments Unknown Sex and Gender Information Value Date Recorded Sex Assigned at Not on file Legal Sex Female 5:28 PM INSERTER PROMOTIONAL ITEM Gender Identity Not on file Sexual Orientation Not on file Last Filed Vital Signs Vital Sign Reading Time Taken Comments Blood Pressure 147/89 06/10/2022 3:49 PM INSERTER PROMOTIONAL ITEM Pulse 84 06/10/2022 3:49 PM INSERTER PROMOTIONAL ITEM Temperature 36.7 C (98.1 F) 06/10/2022 3:49 PM INSERTER PROMOTIONAL ITEM Respiratory Rate 18 06/10/2022 3:49 PM INSERTER PROMOTIONAL ITEM Oxygen Saturation 100% 06/10/2022 3:49 PM INSERTER PROMOTIONAL ITEM Inhaled Oxygen Concentration - - Weight 113.4 kg (250 lb) 06/10/2022 3:49 PM INSERTER PROMOTIONAL ITEM Height 172.7 cm (5' 8) 06/10/2022 3:49 PM INSERTER PROMOTIONAL ITEM Body Mass Index 38.01 06/10/2022 3:49 PM INSERTER PROMOTIONAL ITEM Plan of Treatment Health Maintenance Due Date Last Done Comments COLOGUARD (AGES 45-75) - COL ON CA SCREENING 1968 COLON MONITORING 1968 COLONOSCOPY - COLON CA SCREENING 1968 CT COLONOGRAPHY - COLON CA SCREENING 1968 Colorectal Cancer Screening 1968 FIT - COLON CA SCREENING 1968 FLEX SIG - COLON CA SCREENING 1968 LIPID TESTING 1968 MAMMOGRAM 1968 HIV SCREENING 1983 HEPATITIS C SCREENING 06/10/1986 DTAP/TDAP/TD VACCINES (1 - Tdap) 1987 HEPATITIS B VACCINE (1 of 3 - 19+ 3-dose series) 1987 Cervical Cancer Screening 1989 PAP SMEAR 1989 PAP with HPV 1998 PNEUMOCOCCAL VACCINE 50+ (1 of 1 - PCV) 2018 ZOSTER VACCINE (1 of 2) 2018 DEPRESSION SCREENING 07/07/2024 COVID-19 VACCINE (3 - 2024-2 6 season) 2025 09/22/2020, 08/31/2020 INFLUENZA VACCINE (#1) 2025 HIB VACCINE Aged Out No longer eligi ble based on patient's age to complete this topic HPV VACCINE Aged Out No longer eligi ble based on patient's age to complete this topic MENINGOCOCCAL (Group B) VACCINE SHARED DECISION-MAKING Aged Out No longer eligible based on patient's age to complete this topic MENINGOCOCCAL GROUPS A/C/Y/W VACCINE Aged Out No longer eligible b ased on patient's age to complete this topic Insurance [facility] Care Teams Solar System Designer Relationship Specialty Start Date End Date Alfonso Tena MD [address] [place] [address] PCP - General 01/31/17
--- OUTSIDE RECORDS SUMMARY | 2025-05-25 20:22 | XMS_ITS | Clinical Summary ---
Author Organization [facility] Address [address] [place] [phone] Phone Care Team Providers Care Box Toe Cutter Name Role Phone Unavailable Primary Care Provider [...]
== END 2025-05-25 13:37 | disposition home or self-care (01) ==
PROVIDERS: PCP Family Medicine; Visit Provider Neurological Surgery
DX: M48.02 Spinal stenosis, cervical region (principal); M50.33 Other cervical disc degeneration, cervicothoracic region; M50.323 Other cervical disc degeneration at C6-C7 level; Z98.1 Arthrodesis status; G95.9 Disease of spinal cord, unspecified
CPT/HCPCS: 72125

== ENCOUNTER 2025-06-18 06:54 | Outpatient (CLI) | payer OTHER, SELFPAY ==
--- NOTE | ~2025-06-18 | MR_ITS ---
EXAMINATION: MR cervical spine wo con DATE: 06/18/2025 08:05 INDICATION: Disease of spinal cord, unspecified. TECHNIQUE: Magnetic resonance imaging (MRI) of the cervical spine was performed without intravenous contrast. COMPARISON: CT cervical spine 05/25/2025 FINDINGS: There is 3 mm retrolisthesis of C6 on C7 and 2 mm anterolisthesis of C7 on T1 and T1 on T2. There is mild chronic anterior wedging of T1 vertebral body. There are changes of anterior fusion procedure from C3 to C7 with interbody devices and anterior plates and screws. There is mildly decreased disc height at C7-T1. The spinal cord signal intensity is normal. The following disc levels are specifically discussed: C2-C3: The disc does not extend beyond the endplate margin. There is mild right uncovertebral joint osteoarthritis. There is mild right and severe left facet joint osteoarthritis. There is mild bilateral neural foraminal stenosis. There is no central canal stenosis. C3-C4: There is mild bilateral uncovertebral joint hypertrophy. There is mild right and moderate left facet joint hypertrophy. There is mild bilateral neural foraminal stenosis. There is no central canal stenosis. C4-C5: There is mild bilateral uncovertebral joint hypertrophy. There is mild bilateral facet joint hypertrophy. There is mild bilateral neural foraminal stenosis. There is no central canal stenosis. C5-C6: There is severe bilateral uncovertebral joint hypertrophy. There is mild bilateral facet joint hypertrophy. There is mild bilateral neural foraminal stenosis. There is no central canal stenosis. C6-C7: There is severe bilateral uncovertebral joint hypertrophy. There is mild bilateral facet joint hypertrophy. There is moderate bilateral neural foraminal stenosis. There is mild central canal stenosis. C7-T1: There is a central extrusion. There is mild bilateral uncovertebral joint osteoarthritis. There is severe bilateral facet joint osteoarthritis. There is moderate right and mild left neural foraminal stenosis. There is mild central canal stenosis. IMPRESSION: 1. Moderate cervical spondylosis. 2. Anterior fusion procedure from C3 to C7. Reviewed, dictated and finalized at location E. CAL ATTENDANT
== END 2025-06-18 06:55 | disposition home or self-care (01) ==
LOC: ANHIMG 06:55
PROVIDERS: PCP Family Medicine; Visit Provider Neurological Surgery
DX: M47.812 Spondylosis without myelopathy or radiculopathy, cervical region (principal); Z98.1 Arthrodesis status; G95.9 Disease of spinal cord, unspecified
CPT/HCPCS: 72141